=== PATIENT | female | born 1960 | race Caucasian/White ===

== ENCOUNTER 2020-04-16 07:35 | Outpatient (REF) | payer OTHER, SELFPAY ==
[2020-04-16 10:10] LABS: Cholesterol 176 mg/dL; HDL Cholesterol 61 mg/dL; LDL Cholesterol Calculated 103 mg/dl; Triglycerides 64 mg/dL
== END 2020-04-16 07:36 | disposition home or self-care (01) ==
LOC: HO.LAB 07:35
PROVIDERS: PCP Internal Medicine; Visit Provider Internal Medicine
DX: E78.5 Hyperlipidemia, unspecified (principal)
CPT/HCPCS: 80061

== ENCOUNTER → 2020-05-10 08:19 | Outpatient (BNVA) | payer OTHER, SELFPAY | PROVIDERS: PCP Internal Medicine; Visit Provider Surgery | DX: Z76.89 Persons encountering health services in other specified circumstances (principal) ==

== ENCOUNTER 2020-07-04 13:39 | Outpatient (REF) | payer OTHER, SELFPAY ==
[2020-07-04 14:43] LABS: Basophils Absolute Auto 0.1 X10*3/uL (0.0-0.2); Basophils Percent Auto 0.7 % (0-2); Eosinophils Absolute Auto 0.1 X10*3/uL (0.0-0.4); Eosinophils Percent Auto 1.3 % (0-4); Hemoglobin 12.5 g/dl (12.0-16.0); Imm Gran Abs Auto 0.01 X10*3/uL (0.00-0.03); Imm Gran Pct Auto 0.1 % (0.0-0.4); Lymphocytes Absolute Auto 1.8 X10*3/uL (1.2-4.9); Lymphocytes Percent Auto 24.1 % (20-40); MANUAL DIFF FLAG NO; Mean Corpuscular HGB Conc 31.3 g/dl (31.0-35.0); Mean Corpuscular Hemoglobin 27.5 pg (27.0-33.0); Mean Corpuscular Volume 87.9 fL (80-98); Mean Platelet Volume 10.7 fL (9.4-12.3); Monocytes Absolute Auto 0.4 X10*3/uL (0.1-1.2); Monocytes Percent Auto 5.2 % (2-11); Neutrophils Absolute Auto 5.1 X10*3/uL (2.0-8.3); Neutrophils Percent Auto 68.6 % (45-73); Platelet Count 306 X10*3/uL (160-400); Red Blood Count 4.55 X10*6/uL (4.20-5.50); Red Cell Distribution Width 12.9 % (11.0-16.0); White Blood Count 7.5 X10*3/uL (4.8-10.8)
[2020-07-04 15:14] LABS: Alanine Aminotransferase 20 U/L (0-31); Albumin Level 4.3 g/dL (3.5-5.0); Alkaline Phosphatase 87 U/L (39-117); Anion Gap 13 (12-20); Aspartate Amino Transferase 22 U/L (5-31); Bilirubin Total 0.3 mg/dL (0.0-1.0); Blood Urea Nitrogen 10 mg/dL (9-16); Calcium 9.2 mg/dL (8.4-10.2); Carbon Dioxide 28 mmol/L (22-29); Chloride 106 mmol/L (96-108); Cholesterol 173 mg/dL; Estimated Glomerular Filt Rate > 60; Glucose Random 96 mg/dL (60-115); HDL Cholesterol 56 mg/dL; LDL Cholesterol Calculated 86 mg/dl; Potassium 4.5 mmol/l (3.3-5.1); Sodium 142 mmol/L (135-145); Total Protein 6.8 g/dL (6.5-8.0); Triglycerides 156 mg/dL
== END 2020-07-04 13:40 | disposition home or self-care (01) ==
LOC: HO.LAB 13:39
PROVIDERS: Absent Provider Internal Medicine Medical Oncology; PCP Internal Medicine; Visit Provider Internal Medicine
DX: E11.9 Type 2 diabetes mellitus without complications (principal); C50.911 Malignant neoplasm of unspecified site of right female breast; M81.0 Age-related osteoporosis without current pathological fracture
CPT/HCPCS: 36415; 80053; 80061; 85025

== ENCOUNTER → 2020-07-18 14:52 | Outpatient (BNVA) | payer OTHER, SELFPAY | PROVIDERS: PCP Internal Medicine; Visit Provider Nurse Practitioner ==

== ENCOUNTER 2020-07-28 09:02 | Outpatient (REF) | payer OTHER, SELFPAY ==
--- NOTE | ~2020-07-28 | MM_ITS ---
EXAMINATION: BONE DENSITOMETRY CLINICAL INDICATION: Osteoporosis. COMPARISON: Previous BD dated 06/05/2018 and baseline BD dated 11/24/2007. TECHNIQUE: Using a [employer] DXA System (software version: 13.1) manufactured by [employer], dual-energy x-ray absorptiometry was performed of the lumbar spine and left hip. The images are of good technical quality. Summary results are attached. FINDINGS: AP SPINE L1-L2 (excluding L3 and L4): The data of L1-L4 has been changed to exclude the L3 and L4 vertebral bodies, because degenerative change with facet arthropathy with mild scoliosis at these levels may cause overestimation of lumbar spine density. Current: BMD 1.041 g/cm2, Z-score -0.1, T-score -1.0, normal, 0.0% no change from previous, 2.3% decrease from baseline (<5% change is not significant). Prior: BMD 1.041 g/cm2. Baseline: BMD 1.066 g/cm2. LEFT FEMUR, NECK: Current: BMD 0.712 g/cm2, Z-score -1.3, T-score -2.3, osteopenia. Prior: BMD 0.691 g/cm2. Baseline: BMD 0.725 g/cm2. LEFT FEMUR, TOTAL: Current: BMD 0.779 g/cm2, Z-score -1.1, T-score -1.8, osteopenia, 3.9% increase from previous, 0.6% decrease from baseline (<5% change is not significant). Prior: BMD 0.750 g/cm2. Baseline: BMD 0.784 g/cm2. IDENTIFIED RISK FACTORS: Osteoporosis, menopause, right oophorectomy. HISTORY OF FRACTURE: None listed. MEDICATIONS: Bisphosphonates. MM/XR DEXA axial skeleton IMPRESSION: 1. DIAGNOSIS: Osteopenia based on the lowest T-score value of -2.3 in the femoral neck applying World Health Organization criteria. 2. 10-YEAR FRACTURE RISK PREDICTION, FRAX: Major osteoporotic fracture (clinical spine, forearm, hip or shoulder) 17.9%. Hip fracture 3.3%. 3. Treatment Recommendations: NOF guidelines recommend consideration for treatment in postmenopausal women and men age 50 and older presenting with the following: -A hip or vertebral (clinical or morphometric) fracture. -T-score less than or equal to -2.5 at the femoral neck or spine after appropriate evaluation to exclude secondary causes. -Low bone mass at the hip or spine and a 10-year fracture probability by FRAX of greater than or equal to 3% for hip fracture or greater than or equal to 20% for major osteoporotic fracture based on the [place] adapted WHO algorithm. 4. Other Recommendations: All treatment decisions require clinical judgment and consideration of individual patient factors, including patient preferences, comorbidities, previous drug use, risk factors not captured in the FRAX model (e.g. frailty, falls, vitamin D deficiency, increased bone turnover, interval significant decline in bone density) and possible under or overestimation of fracture risk by FRAX. Additional medical evaluation for secondary cause of low bone mineral density may be appropriate. FUTURE SCAN RECOMMENDATION: People with diagnosed cases of osteoporosis or at high risk for fracture should have regular bone mineral density tests. For patients eligible for Medicare, routine testing is allowed once every 2 years. The testing frequency can be increased to one year for patients who have rapidly progressing disease, those who are receiving or discontinuing medical therapy to restore bone mass, or have additional risk factors.
--- NOTE | ~2020-07-28 | US_ITS ---
EXAMINATION: US ABDOMEN COMPLETE CLINICAL INFORMATION: Right upper quadrant pain. COMPARISON: None. TECHNIQUE: Real-time imaging of the abdominal viscera. FINDINGS: PANCREAS: Normal. ABDOMINAL AORTA: The proximal, mid, and distal segments are normal in caliber. INFERIOR VENA CAVA: Visualized portions are normal. LIVER: Normal. The liver is normal in size. The liver contour is normal. Parenchymal echogenicity is normal. No focal hepatic lesion. There is no intrahepatic biliary duct dilatation seen. GALLBLADDER: Normal. The gallbladder is physiologically distended without evidence of stones, sludge, polyps, wall thickening or pericholecystic fluid. COMMON BILE DUCT: Normal in caliber measuring 0.8 cm in diameter. RIGHT KIDNEY: There is an anechoic cyst lower pole measuring 0.4 x 0.4 x 0.4 cm. There is an echogenic area along the posterior wall of the cyst questioning small calcification. No echogenic calculi, caliectasis or hydronephrosis. No renal calculi or focal parenchymal lesions. The kidney measures 10.2 cm in maximum dimension. LEFT KIDNEY: There is an anechoic cyst midpole medially measuring 0.8 x 0.5 x 0.7 cm. There are no additional cyst, echogenic calculi or hydronephrosis. The kidney measures 9.2 cm in length cm in maximum dimension. SPLEEN: Normal. The spleen measures 9.6 cm in maximum dimension. FREE FLUID: None. US/US abdomen complete IMPRESSION: There is a complex cyst lower pole left kidney and a simple cyst midpole right kidney. There is no echogenic calculi or hydronephrosis.
[2020-07-28 10:14] LABS: MANUAL DIFF FLAG NO
[2020-07-28 10:20] LABS: Basophils Absolute Auto 0.1 X10*3/uL (0.0-0.2); Basophils Percent Auto 0.8 % (0-2); Eosinophils Absolute Auto 0.1 X10*3/uL (0.0-0.4); Eosinophils Percent Auto 1.8 % (0-4); Hematocrit 39.5 % (37-47); Hemoglobin 12.7 g/dl (12.0-16.0); Imm Gran Abs Auto 0.01 X10*3/uL (0.00-0.03); Imm Gran Pct Auto 0.2 % (0.0-0.4); Lymphocytes Absolute Auto 1.7 X10*3/uL (1.2-4.9); Lymphocytes Percent Auto 27.6 % (20-40); Mean Corpuscular HGB Conc 32.2 g/dl (31.0-35.0); Mean Corpuscular Hemoglobin 27.9 pg (27.0-33.0); Mean Corpuscular Volume 86.8 fL (80-98); Mean Platelet Volume 9.5 fL (9.4-12.3); Monocytes Absolute Auto 0.4 X10*3/uL (0.1-1.2); Monocytes Percent Auto 6.6 % (2-11); Neutrophils Absolute Auto 3.8 X10*3/uL (2.0-8.3); Platelet Count 330 X10*3/uL (160-400); Red Blood Count 4.55 X10*6/uL (4.20-5.50); Red Cell Distribution Width 12.9 % (11.0-16.0)
[2020-07-28 10:51] LABS: Alanine Aminotransferase 21 U/L (0-31); Albumin Level 4.3 g/dL (3.5-5.0); Alkaline Phosphatase 90 U/L (39-117); Anion Gap 12 (12-20); Aspartate Amino Transferase 22 U/L (5-31); Bilirubin Total 0.5 mg/dL (0.0-1.0); Blood Urea Nitrogen 15 mg/dL (9-16); Calcium 9.1 mg/dL (8.4-10.2); Carbon Dioxide 28 mmol/L (22-29); Chloride 106 mmol/L (96-108); Estimated Glomerular Filt Rate > 60; Glucose Random 97 mg/dL (60-115); Potassium 4.3 mmol/L (3.3-5.1); Sodium 142 mmol/L (135-145); Total Protein 6.9 g/dL (6.5-8.0)
[2020-07-28 11:00] LABS: Erythrocyte Sedimentation Rate 16 MM/HR (0-20)
[2020-07-30 10:52] LABS: CA 27.29 16 U/mL (<38)
== END 2020-07-28 09:03 | disposition home or self-care (01) ==
LOC: HO.US 09:02
PROVIDERS: Visit Provider Internal Medicine Medical Oncology
DX: K80.20 Calculus of gallbladder without cholecystitis without obstruction (principal); M81.0 Age-related osteoporosis without current pathological fracture
CPT/HCPCS: 36415; 76700; 77080; 80053; 85025; 85652; 86300

== ENCOUNTER 2020-07-29 07:52 | Outpatient (REF) | payer OTHER, SELFPAY ==
--- NOTE | ~2020-07-29 | MM_ITS ---
EXAMINATION: MM SCREENING DIGITAL BREAST TOMOSYNTHESIS, LEFT CLINICAL INFORMATION: Screening. Asymptomatic. Right mastectomy 2013 for breast cancer. COMPARISON: Mammography: 07/27/2019, 07/23/2018, 07/08/2017; MRI breasts 01/14/2020. TECHNIQUE: Digital breast tomosynthesis is performed in both the craniocaudal and mediolateral oblique views along with computer-aided detection (CAD). Synthesized 2D images are generated from the tomosynthesis. Additional exaggerated CC view is provided. FINDINGS: The breasts are heterogeneously dense, which may obscure small masses (ACR BI-RADS breast composition Category c). There are no significant masses, abnormal calcifications, or other abnormalities. Parenchymal pattern is similar to prior studies. No developing density. No significant changes. MM/MM tomosynthesis screening LT IMPRESSION: No mammographic evidence of malignancy. ASSESSMENT: BI-RADS 1: Negative RECOMMENDATION: Routine annual mammography screening. This patient's information was entered into a reminder system with a target due date for their next mammogram.
== END 2020-07-29 07:53 | disposition home or self-care (01) ==
LOC: HO.MAMMO 07:52
PROVIDERS: PCP Internal Medicine; Visit Provider Internal Medicine
DX: Z12.31 Encounter for screening mammogram for malignant neoplasm of breast (principal)
CPT/HCPCS: 77063; 77067

== ENCOUNTER → 2020-08-24 09:25 | Outpatient (BNVA) | payer OTHER, SELFPAY | PROVIDERS: PCP Internal Medicine; Visit Provider Surgery ==

== ENCOUNTER 2020-09-05 15:54 | Outpatient (REF) | payer OTHER, SELFPAY ==
[2020-09-05 16:55] LABS: Blood Urea Nitrogen 12 mg/dL (9-16); Estimated Glomerular Filt Rate > 60
== END 2020-09-05 15:55 | disposition home or self-care (01) ==
LOC: HO.LAB 15:54
PROVIDERS: PCP Internal Medicine; Visit Provider Surgery
DX: R10.11 Right upper quadrant pain (principal)
CPT/HCPCS: 36415; 82565; 84520

== ENCOUNTER 2020-09-06 07:32 | Outpatient (REF) | payer OTHER, SELFPAY ==
--- NOTE | ~2020-09-06 | CT_ITS ---
EXAMINATION: CT ABDOMEN AND PELVIS WITHOUT CONTRAST CLINICAL INFORMATION: Right upper quadrant pain COMPARISON: Previous abdominal ultrasound most recent July 2020 TECHNIQUE: Multidetector volumetric imaging was performed from the superior aspect of the liver through the pubic symphysis. Sagittal and coronal reformatted images were obtained on the technologist's workstation. This CT examination was performed using dose optimization techniques as appropriate, variously including the following: *Automated exposure control *Adjustment of mA and/or kV according to patient size (this includes techniques or standardized protocols for targeted exams where dose is matched to indication/reason for exam; i.e. extremities or head) *Use of iterative reconstruction technique DLP: 559 mGy-cm FINDINGS: LUNG BASES: The visualized lung bases are unremarkable. LIVER, GALLBLADDER, AND BILIARY TREE: The liver is normal in size, shape, and attenuation. No focal hepatic lesion or biliary ductal dilatation is present. The gallbladder has been removed. PANCREAS: Unremarkable. SPLEEN: Unremarkable. ADRENAL GLANDS: Unremarkable. KIDNEYS AND URETERS: There is a 1 cm low-attenuation lesion in the upper pole of the left kidney. This may represent a cyst. Kidneys are otherwise unremarkable. BLADDER: Unremarkable. GASTROINTESTINAL TRACT: The small and large bowel are unremarkable. The appendix is unremarkable. The stomach is unremarkable. ABDOMINAL WALL: There is a small umbilical hernia containing fat. LYMPH NODES: Normal. VASCULAR: Unremarkable. PELVIC VISCERA: Unremarkable. OSSEOUS STRUCTURES: There is lumbar scoliosis. There are mild degenerative changes of the spine. CT/CT abdomen pelvis wo con IMPRESSION: Post cholecystectomy. Small umbilical hernia containing fat.
== END 2020-09-06 07:33 | disposition home or self-care (01) ==
LOC: HO.CT 07:32
PROVIDERS: Visit Provider Surgery
DX: R10.11 Right upper quadrant pain (principal)
CPT/HCPCS: 74176

== ENCOUNTER 2020-10-24 07:16 | Outpatient (REF) | payer OTHER, SELFPAY ==
[2020-10-24 11:39] LABS: Cholesterol 175 mg/dL; HDL Cholesterol 60 mg/dL; LDL Cholesterol Calculated 99 mg/dl; Triglycerides 83 mg/dL
== END 2020-10-24 07:17 | disposition home or self-care (01) ==
LOC: HO.WFDLDS 07:16
PROVIDERS: Visit Provider Internal Medicine
DX: Z00.00 Encounter for general adult medical examination without abnormal findings (principal); E11.9 Type 2 diabetes mellitus without complications; E03.9 Hypothyroidism, unspecified
CPT/HCPCS: 36415; 80061

== ENCOUNTER → 2020-11-08 09:10 | Outpatient (BNVA) | payer OTHER, SELFPAY | PROVIDERS: PCP Internal Medicine; Visit Provider Surgery ==

== ENCOUNTER → 2021-01-02 13:43 | Outpatient (BNVA) | payer OTHER, SELFPAY | PROVIDERS: PCP Internal Medicine; Referring Provider Internal Medicine; Visit Provider Nurse Practitioner ==

== ENCOUNTER 2021-01-21 07:48 | Outpatient (REF) | payer OTHER, SELFPAY ==
[2021-01-21 08:20] LABS: MANUAL DIFF FLAG NO
[2021-01-21 08:26] LABS: Basophils Percent Auto 0.7 % (0-2); Eosinophils Absolute Auto 0.1 X10*3/uL (0.0-0.4); Hematocrit 38.4 % (37-47); Hemoglobin 12.1 g/dl (12.0-16.0); Imm Gran Abs Auto 0.02 X10*3/uL (0.00-0.03); Imm Gran Pct Auto 0.4 % (0.0-0.4); Lymphocytes Absolute Auto 1.8 X10*3/uL (1.2-4.9); Lymphocytes Percent Auto 32.8 % (20-40); Mean Corpuscular HGB Conc 31.5 g/dl (31.0-35.0); Mean Corpuscular Hemoglobin 27.3 pg (27.0-33.0); Mean Corpuscular Volume 86.5 fL (80-98); Mean Platelet Volume 9.7 fL (9.4-12.3); Monocytes Absolute Auto 0.4 X10*3/uL (0.1-1.2); Monocytes Percent Auto 7.2 % (2-11); Neutrophils Absolute Auto 3.1 X10*3/uL (2.0-8.3); Neutrophils Percent Auto 56.9 % (45-73); Platelet Count 313 X10*3/uL (160-400); Red Blood Count 4.44 X10*6/uL (4.20-5.50); Red Cell Distribution Width 13.1 % (11.0-16.0); White Blood Count 5.4 X10*3/uL (4.8-10.8)
[2021-01-21 09:09] LABS: Alanine Aminotransferase 28 U/L (0-31); Albumin Level 4.2 g/dL (3.5-5.0); Alkaline Phosphatase 77 U/L (39-117); Anion Gap 13 (12-20); Aspartate Amino Transferase 24 U/L (5-31); Bilirubin Total 0.6 mg/dL (0.0-1.0); Blood Urea Nitrogen 12 mg/dL (9-16); Calcium 9.9 mg/dL (8.4-10.2); Carbon Dioxide 25 mmol/L (22-29); Chloride 107 mmol/L (96-108); Estimated Glomerular Filt Rate > 60; Glucose Fasting 102 mg/dL (60-99); Potassium 4.4 mmol/L (3.3-5.1); Sodium 141 mmol/L (135-145); Total Protein 6.6 g/dL (6.5-8.0)
[2021-01-21 09:14] LABS: Thyroid Stimulating Hormone 0.72 uIU/mL (0.32-4.0)
== END 2021-01-21 07:49 | disposition home or self-care (01) ==
LOC: HO.LAB 07:48
PROVIDERS: PCP Internal Medicine; Visit Provider Internal Medicine
DX: Z00.00 Encounter for general adult medical examination without abnormal findings (principal); E11.9 Type 2 diabetes mellitus without complications; E03.9 Hypothyroidism, unspecified
CPT/HCPCS: 36415; 80053; 84443; 85025

== ENCOUNTER 2021-04-19 10:44 | Outpatient (REF) | payer OTHER, SELFPAY ==
[2021-04-19 11:50] LABS: Cholesterol 179 mg/dL; HDL Cholesterol 63 mg/dL; LDL Cholesterol Calculated 105 mg/dl; Triglycerides 59 mg/dL
== END 2021-04-19 10:45 | disposition home or self-care (01) ==
LOC: HO.LAB 10:44
PROVIDERS: PCP Internal Medicine; Visit Provider Internal Medicine
DX: E11.9 Type 2 diabetes mellitus without complications (principal)
CPT/HCPCS: 36415; 80061

== ENCOUNTER 2021-04-21 14:58 | Outpatient (REF) | payer OTHER, SELFPAY ==
[2021-04-22 13:17] LABS: Lyme Abs Screen <0.90 index
== END 2021-04-21 14:59 | disposition home or self-care (01) ==
LOC: HO.LAB 14:58
PROVIDERS: PCP Internal Medicine; Visit Provider Internal Medicine
DX: S30.860D Insect bite (nonvenomous) of lower back and pelvis, subsequent encounter (principal); W57.XXXD Bitten or stung by nonvenomous insect and other nonvenomous arthropods, subsequent encounter
CPT/HCPCS: 36415; 86617; 86618

== ENCOUNTER 2021-05-10 07:39 | Outpatient (REF) | payer OTHER, SELFPAY ==
--- NOTE | ~2021-05-10 | US_ITS ---
EXAMINATION: US RETROPERITONEAL LIMITED (RENAL ONLY) CLINICAL INFORMATION: Unspecified abdominal pain. COMPARISON: CT abdomen and pelvis 09/06/2020. Ultrasound abdomen complete 07/28/2020. TECHNIQUE: Real-time imaging of the kidneys. FINDINGS: RIGHT KIDNEY: 10.3 x 4.7 x 4.3 cm (SAG x AP x TRV). The kidney is normal in size, contour, and echogenicity. Renal cortical thickness is normal. There is a 2 mm echogenic density with twinkle artifact questionable for a stone in the midpole. No focal parenchymal lesions or hydronephrosis. LEFT KIDNEY: 10.8 x 5.4 x 3.3 cm (SAG x AP x TRV). The kidney is normal in size, contour, and echogenicity. Renal cortical thickness is normal. There is a 6 mm cyst in the upper pole. No renal calculi or hydronephrosis. US/US renal BI IMPRESSION: Question small right renal stone. Small left renal cyst.
== END 2021-05-10 07:40 | disposition home or self-care (01) ==
LOC: HO.US 07:39
PROVIDERS: PCP Internal Medicine; Visit Provider Internal Medicine
DX: R10.9 Unspecified abdominal pain (principal)
CPT/HCPCS: 76775

== ENCOUNTER → 2021-05-11 08:52 | Outpatient (BNVA) | payer OTHER, SELFPAY | PROVIDERS: PCP Internal Medicine; Referring Provider Internal Medicine; Visit Provider Surgery ==

== ENCOUNTER 2021-06-21 13:13 | Outpatient (REF) | payer OTHER, SELFPAY ==
[2021-06-21 16:33] LABS: COVID-19 Test Negative (Negative); IDNOW Serial# 16C4AD1C
== END 2021-06-21 13:14 | disposition home or self-care (01) ==
LOC: HO.LAB 13:13
PROVIDERS: Visit Provider Internal Medicine
DX: Z20.822 Contact with and (suspected) exposure to COVID-19 (principal)
CPT/HCPCS: 36415; 87635; C9803

== ENCOUNTER 2021-07-05 08:47 | Outpatient (REF) | payer OTHER, SELFPAY ==
[2021-07-05 09:44] LABS: Anion Gap 9 (12-20); Blood Urea Nitrogen 8 mg/dL (9-16); Carbon Dioxide 31 mmol/L (22-29); Chloride 105 mmol/L (96-108); Estimated Glomerular Filt Rate > 60; Potassium 4.4 mmol/L (3.3-5.1); Sodium 141 mmol/L (135-145)
== END 2021-07-05 08:48 | disposition home or self-care (01) ==
LOC: HO.LAB 08:47
PROVIDERS: PCP Internal Medicine; Visit Provider Internal Medicine Medical Oncology
DX: M81.8 Other osteoporosis without current pathological fracture (principal)
CPT/HCPCS: 36415; 80051; 82565; 84520

== ENCOUNTER → 2021-07-07 13:46 | Outpatient (BNVA) | payer OTHER, SELFPAY | PROVIDERS: PCP Internal Medicine; Referring Provider Internal Medicine; Visit Provider Nurse Practitioner ==

== ENCOUNTER 2021-07-12 08:26 | Outpatient (REF) | payer OTHER, SELFPAY ==
[2021-07-15 20:42] LABS: HPV mRNA E6/E7 rflx Not Detected (Not Detected)
== END 2021-07-12 08:27 | disposition home or self-care (01) ==
LOC: HO.LAB 08:26
PROVIDERS: PCP Internal Medicine; Visit Provider Advanced Practice Midwife
DX: Z01.419 Encounter for gynecological examination (general) (routine) without abnormal findings (principal); Z11.51 Encounter for screening for human papillomavirus (HPV); R10.2 Pelvic and perineal pain; R14.0 Abdominal distension (gaseous); Z90.721 Acquired absence of ovaries, unilateral
CPT/HCPCS: 87624; 88142

== ENCOUNTER 2021-07-31 13:55 | Outpatient (REF) | payer OTHER, SELFPAY ==
--- NOTE | ~2021-07-31 | US_ITS ---
EXAMINATION: US PELVIC AND TRANSVAGINAL CLINICAL INFORMATION: Abdominal distention. Right oophorectomy. COMPARISON: CT abdomen/pelvis dated 09/06/2020. TECHNIQUE: Ultrasound of the pelvis is performed using both transabdominal and transvaginal transducers along with Doppler. Transvaginal imaging is performed due to inadequate visualization transabdominally. FINDINGS: Uterus: The uterus is anteverted and measures 7 x 2 x 3.8 cm. The double wall endometrial thickness is 0.2 mm. The uterus is smooth in contour and has normal myometrial echogenicity. No visible fibroid. Adnexa: The right ovary is surgically absent. There is normal color flow to the left adnexa. There is no left ovarian torsion. There is no pelvic ascites or fluid collection. Left ovary measures 2 x 1.2 x 1.6 cm. The left ovarian volume is 2.0 mL. US/US pelvic and transvaginal IMPRESSION: Sonographically unremarkable uterus and left ovary. Surgically absent right ovary.
== END 2021-07-31 13:56 | disposition home or self-care (01) ==
LOC: HO.US 13:55
PROVIDERS: PCP Internal Medicine; Visit Provider Advanced Practice Midwife
DX: R10.2 Pelvic and perineal pain (principal); R14.0 Abdominal distension (gaseous); Z90.721 Acquired absence of ovaries, unilateral
CPT/HCPCS: 76830; 76856

== ENCOUNTER 2021-08-04 14:46 | Outpatient (REF) | payer OTHER, SELFPAY ==
--- NOTE | ~2021-08-04 | MM_ITS ---
EXAMINATION: MM SCREENING DIGITAL BREAST TOMOSYNTHESIS, LEFT CLINICAL INFORMATION: Right mastectomy for breast cancer, 2013. Due for yearly. COMPARISON: Mammography: 07/29/2020, 07/27/2019, 07/23/2018, 07/08/2017 TECHNIQUE: Digital breast tomosynthesis is performed in both the craniocaudal and mediolateral oblique views along with computer-aided detection (CAD). Synthesized 2D images are generated from the tomosynthesis. FINDINGS: The breasts are heterogeneously dense, which may obscure small masses (ACR BI-RADS breast composition Category c). There are no significant masses, abnormal calcifications, or other abnormalities. Breast tissue composition borders on average fibroglandular. Parenchymal pattern is similar to prior studies. No significant changes. MM/MM tomosynthesis screening LT IMPRESSION: No mammographic evidence of malignancy. ASSESSMENT: BI-RADS 1: Negative RECOMMENDATION: Routine annual mammography screening. This patient's information was entered into a reminder system with a target due date for their next mammogram.
== END 2021-08-04 14:47 | disposition home or self-care (01) ==
LOC: HO.MAMMO 14:46
PROVIDERS: PCP Internal Medicine; Visit Provider Surgery
DX: Z12.31 Encounter for screening mammogram for malignant neoplasm of breast (principal)
CPT/HCPCS: 77063; 77067

== ENCOUNTER → 2021-08-16 15:19 | Outpatient (BNVA) | payer OTHER, SELFPAY | PROVIDERS: PCP Internal Medicine; Visit Provider Advanced Practice Midwife ==

== ENCOUNTER → 2021-09-01 12:41 | Outpatient (BNVA) | payer OTHER, SELFPAY | PROVIDERS: Referring Provider Internal Medicine; Visit Provider Nurse Practitioner ==

== ENCOUNTER 2021-09-06 12:19 | Outpatient (REF) | payer OTHER, SELFPAY ==
[2021-09-06 13:46] LABS: Cholesterol 179 mg/dL; HDL Cholesterol 64 mg/dL; LDL Cholesterol Calculated 98 mg/dl; Triglycerides 87 mg/dL
== END 2021-09-06 12:20 | disposition home or self-care (01) ==
LOC: HO.LAB 12:19
PROVIDERS: PCP Internal Medicine; Visit Provider Internal Medicine
DX: Z00.00 Encounter for general adult medical examination without abnormal findings (principal)
CPT/HCPCS: 36415; 80061

== ENCOUNTER 2021-09-08 09:46 | Outpatient (REF) | payer OTHER, SELFPAY ==
[2021-09-08 10:21] LABS: COVID-19 Test Negative (Negative)
== END 2021-09-08 09:47 | disposition home or self-care (01) ==
LOC: HO.LAB 09:46
PROVIDERS: Visit Provider Internal Medicine
DX: Z20.822 Contact with and (suspected) exposure to COVID-19 (principal)
CPT/HCPCS: 87635; C9803

== ENCOUNTER 2021-10-30 08:39 | Outpatient (REF) | payer OTHER, SELFPAY ==
[2021-11-02 18:56] LABS: HPV mRNA E6/E7 rflx Not Detected (Not Detected)
== END 2021-10-30 08:40 | disposition home or self-care (01) ==
LOC: HO.LAB 08:39
PROVIDERS: Visit Provider Advanced Practice Midwife
DX: Z12.4 Encounter for screening for malignant neoplasm of cervix (principal); Z11.51 Encounter for screening for human papillomavirus (HPV); R87.615 Unsatisfactory cytologic smear of cervix
CPT/HCPCS: 87624; 88142

== ENCOUNTER → 2021-11-09 08:31 | Outpatient (BNVA) | payer OTHER, SELFPAY | PROVIDERS: PCP Internal Medicine; Referring Provider Internal Medicine; Visit Provider Surgery | DX: D05.11 Intraductal carcinoma in situ of right breast (principal) ==

== ENCOUNTER 2021-11-29 10:01 | Outpatient (REF) | payer OTHER, SELFPAY ==
[2021-11-29 10:45] LABS: Cholesterol 176 mg/dL; HDL Cholesterol 67 mg/dL; LDL Cholesterol Calculated 99 mg/dl; Triglycerides 52 mg/dL
== END 2021-11-29 10:02 | disposition home or self-care (01) ==
LOC: HO.LAB 10:01
PROVIDERS: PCP Internal Medicine; Visit Provider Internal Medicine
DX: Z13.220 Encounter for screening for lipoid disorders (principal)
CPT/HCPCS: 36415; 80061

== ENCOUNTER 2021-12-12 11:44 | Outpatient (REF) | payer OTHER, SELFPAY ==
--- NOTE | ~2021-12-12 | XR_ITS ---
EXAMINATION: XR CLAVICLE, RIGHT XR STERNUM XR CHEST AND RIBS, RIGHT CLINICAL INFORMATION: Malignant neoplasm of unspecified site/right breast. COMPARISON: None TECHNIQUE: Right clavicle 2 views. Sternum 3 views. Chest with right ribs 4 views. FINDINGS: CHEST: Both lungs are fairly well expanded and clear of acute process. There is mild right apical pleural thickening and parenchymal scarring. The heart size and pulmonary vascularity is normal. RIGHT RIBS: Multiple views of the right ribs reveal no visible fracture or bony abnormality. The soft tissues are normal. STERNUM: Multiple views of the sternum reveal no visible bony abnormality. The soft tissues are normal. RIGHT CLAVICLE: There is no visible fracture or bony abnormality. The soft tissues are normal. There is mild right apical pleural thickening and parenchymal scarring. XR/XR sternum min 2V IMPRESSION: Unremarkable right ribs and chest x-ray except for mild right apical pleural thickening and parenchymal scarring. No rib fractures are seen. Unremarkable right clavicle. Unremarkable sternum.
--- NOTE | ~2021-12-12 | XR_ITS ---
EXAMINATION: XR CLAVICLE, RIGHT XR STERNUM XR CHEST AND RIBS, RIGHT CLINICAL INFORMATION: Malignant neoplasm of unspecified site/right breast. COMPARISON: None TECHNIQUE: Right clavicle 2 views. Sternum 3 views. Chest with right ribs 4 views. FINDINGS: CHEST: Both lungs are fairly well expanded and clear of acute process. There is mild right apical pleural thickening and parenchymal scarring. The heart size and pulmonary vascularity is normal. RIGHT RIBS: Multiple views of the right ribs reveal no visible fracture or bony abnormality. The soft tissues are normal. STERNUM: Multiple views of the sternum reveal no visible bony abnormality. The soft tissues are normal. RIGHT CLAVICLE: There is no visible fracture or bony abnormality. The soft tissues are normal. There is mild right apical pleural thickening and parenchymal scarring. XR/XR clavicle RT IMPRESSION: Unremarkable right ribs and chest x-ray except for mild right apical pleural thickening and parenchymal scarring. No rib fractures are seen. Unremarkable right clavicle. Unremarkable sternum.
--- NOTE | ~2021-12-12 | XR_ITS ---
EXAMINATION: XR CLAVICLE, RIGHT XR STERNUM XR CHEST AND RIBS, RIGHT CLINICAL INFORMATION: Malignant neoplasm of unspecified site/right breast. COMPARISON: None TECHNIQUE: Right clavicle 2 views. Sternum 3 views. Chest with right ribs 4 views. FINDINGS: CHEST: Both lungs are fairly well expanded and clear of acute process. There is mild right apical pleural thickening and parenchymal scarring. The heart size and pulmonary vascularity is normal. RIGHT RIBS: Multiple views of the right ribs reveal no visible fracture or bony abnormality. The soft tissues are normal. STERNUM: Multiple views of the sternum reveal no visible bony abnormality. The soft tissues are normal. RIGHT CLAVICLE: There is no visible fracture or bony abnormality. The soft tissues are normal. There is mild right apical pleural thickening and parenchymal scarring. XR/XR ribs RT min 3V w CXR1V IMPRESSION: Unremarkable right ribs and chest x-ray except for mild right apical pleural thickening and parenchymal scarring. No rib fractures are seen. Unremarkable right clavicle. Unremarkable sternum.
== END 2021-12-12 11:45 | disposition home or self-care (01) ==
LOC: HO.XRAY 11:44
PROVIDERS: PCP Internal Medicine; Visit Provider Internal Medicine Medical Oncology
DX: C50.911 Malignant neoplasm of unspecified site of right female breast (principal); J92.9 Pleural plaque without asbestos
CPT/HCPCS: 71101; 71120; 73000

== ENCOUNTER → 2021-12-21 10:50 | Outpatient (REF) | payer OTHER, SELFPAY ==
--- NOTE | ~2021-12-21 | NM_ITS ---
EXAMINATION: NM BONE SCAN OF THE WHOLE BODY CLINICAL INFORMATION: Breast cancer. Chest pain. Right side breast cancer, mastectomy. COMPARISON: The previous bone scan dated 05/06/2018 is available for comparison. Radiographs of the sternum, right ribs and right clavicle all dated 12/12/2021 are available for comparison. The diagnostic CT scan of the abdomen and pelvis, dated 09/06/2020, is available for comparison. TECHNIQUE: Multiple gamma scintillation camera images of the whole body were performed 2.5 hours following the intravenous administration of 23.0 mCi Tc-99m MDP. FINDINGS: In the head, no significant abnormalities are present. In the thoracic cage and upper extremities, there is minimally increased activity in the right acromioclavicular joint. No rib abnormalities are present. In the spine, a minimal thoracolumbar scoliosis is present with lumbar convexity to the left. Minimally increased activity in the lower lumbar spine at the L4-L5 level, and probably in the disc space and likely degenerative, is noted. In the pelvis, no significant abnormalities are present. In the lower extremities, no significant abnormalities are present. No other definite bony abnormalities are noted. The urinary bladder and faint visualization of both kidneys are noted. Compared to the previous bone scan dated 05/06/2018, a prominent abnormality in the left second metatarsal bone on the prior study is no longer present. The minimal abnormality in the right acromioclavicular joint is new. The scan appearance is otherwise unchanged. NM/NM bone scan whole body IMPRESSION: No evidence of metastatic tumor involvement of bone. Minimal abnormality in the right acromioclavicular joint and lower lumbar spine are probably degenerative in etiology.
== END ==
LOC: HO.NUCMED 10:50
PROVIDERS: PCP Internal Medicine; Visit Provider Internal Medicine Medical Oncology
DX: C50.919 Malignant neoplasm of unspecified site of unspecified female breast (principal); M89.8X9 Other specified disorders of bone, unspecified site
CPT/HCPCS: 78306; A9503

== ENCOUNTER 2022-05-04 09:10 | Outpatient (REF) | payer OTHER, SELFPAY ==
--- NOTE | ~2022-05-04 | XR_ITS ---
EXAMINATION: XR LUMBOSACRAL SPINE CLINICAL INFORMATION: Back pain. COMPARISON: Radionuclide bone scan 12/21/2021, CT abdomen 09/06/2020. TECHNIQUE: 4 views of the lumbosacral spine. FINDINGS: Normal lumbar segmentation with 5 nonrib-bearing lumbar vertebrae with levocurvature similar to CT 2020. There is no lumbar vertebral compression or appreciable spondylolisthesis. No destructive process. No periostitis. There are multilevel mild degenerative disc changes with variable disc narrowing L2-L3 through L5-S1. Mild anterior vertebral spurring. There is facet degeneration greatest L4-S1. The SI joints and visualized sacrum are unremarkable. XR/XR lumbar spine 2-3V IMPRESSION: -Levocurvature lumbar spine similar to prior imaging. No vertebral compression. -Degenerative disc changes L2-L3 through L5-S1. Facet degeneration L4-S1.
--- NOTE | ~2022-05-04 | XR_ITS ---
EXAMINATION: XR HIP, RIGHT CLINICAL INFORMATION: Right hip pain. Low back pain. COMPARISON: Nuclear bone scan 12/21/2021, radiographs right hip 07/01/2019 TECHNIQUE: Two views of the right hip. FINDINGS: Normal bony mineralization. No destructive process. No fracture, dislocation, or periostitis. No hip joint narrowing or erosive change or visible chondrocalcinosis. Mild asymmetry pubis stable. No osteitis. XR/XR hip RT min 2V IMPRESSION: No hip joint narrowing or erosive change. No destructive process.
== END 2022-05-04 09:11 | disposition home or self-care (01) ==
LOC: HO.XRAY 09:10
PROVIDERS: PCP Internal Medicine; Visit Provider Internal Medicine
DX: M54.9 Dorsalgia, unspecified (principal); M25.551 Pain in right hip
CPT/HCPCS: 72100; 73502

== ENCOUNTER 2022-06-20 08:58 | Outpatient (REF) | payer OTHER, SELFPAY ==
[2022-06-20 09:12] LABS: MANUAL DIFF FLAG NO
[2022-06-20 09:24] LABS: Basophils Absolute Auto 0.1 X10*3/uL (0.0-0.2); Basophils Percent Auto 1.2 % (0-2); Eosinophils Absolute Auto 0.1 X10*3/uL (0.0-0.4); Hematocrit 42.4 % (37.0-47.0); Hemoglobin 13.4 g/dl (12.0-16.0); Imm Gran Abs Auto 0.01 X10*3/uL (0.00-0.03); Imm Gran Pct Auto 0.2 % (0.0-0.4); Lymphocytes Absolute Auto 1.8 X10*3/uL (1.2-4.9); Lymphocytes Percent Auto 27.6 % (20-40); Mean Corpuscular HGB Conc 31.6 g/dl (31.0-35.0); Mean Corpuscular Hemoglobin 28.2 pg (27.0-33.0); Mean Corpuscular Volume 89.1 fL (80.0-98.0); Mean Platelet Volume 9.9 fL (9.4-12.3); Monocytes Absolute Auto 0.4 X10*3/uL (0.1-1.2); Monocytes Percent Auto 6.1 % (2-11); Neutrophils Absolute Auto 4.1 x10*3/uL (2.0-8.3); Neutrophils Percent Auto 62.9 % (45-73); Platelet Count 294 X10*3/uL (160-400); Red Blood Count 4.76 X10*6/uL (4.20-5.50); Red Cell Distribution Width 12.8 % (11.0-16.0); White Blood Count 6.5 X10*3/uL (4.8-10.8)
[2022-06-20 09:42] LABS: Alanine Aminotransferase 15 U/L (0-31); Albumin Level 4.7 g/dL (3.5-5.0); Alkaline Phosphatase 66 U/L (39-117); Anion Gap 12 (12-20); Aspartate Amino Transferase 18 U/L (5-31); Bilirubin Total 0.7 mg/dL (0.0-1.0); Blood Urea Nitrogen 16 mg/dL (9-16); Calcium 9.9 mg/dL (8.4-10.2); Carbon Dioxide 29 mmol/L (22-29); Chloride 104 mmol/L (96-108); Cholesterol 195 mg/dL; Estimated Glomerular Filt Rate > 60; Glucose Fasting 108 mg/dL (60-99); HDL Cholesterol 71 mg/dL; LDL Cholesterol Calculated 110 mg/dl; Potassium 4.3 mmol/L (3.3-5.1); Sodium 141 mmol/L (135-145); Total Protein 7.2 g/dL (6.5-8.0); Triglycerides 73 mg/dL
== END 2022-06-20 08:59 | disposition home or self-care (01) ==
LOC: HO.LAB 08:58
PROVIDERS: PCP Internal Medicine; Visit Provider Internal Medicine
DX: N28.9 Disorder of kidney and ureter, unspecified (principal); E78.5 Hyperlipidemia, unspecified; D64.9 Anemia, unspecified
CPT/HCPCS: 36415; 80053; 80061; 85025

== ENCOUNTER 2022-07-10 07:00 | Outpatient (RCR) | payer OTHER, SELFPAY ==
[2022-05-23 07:11] VITALS: BP 133/72
--- NOTE | 2022-07-18 13:56 | MHC.PT.DC ---
[facility] [place] Office [place] Office [place] Office [address] Lupe Stanford [address] [phone] F: [phone] F: [phone] F: [phone] F: [phone] Physical Therapy Discharge Report Diagnosis: LOW BACK PAIN Date of Surgery: n/a Date of Evaluation: 05/23/22 Date of Discharge: 07/11/22 Treatments to Date: 12 Cancellations to Date: 0 No Shows to Date: 0 Discharge Status: Achieved Goals Improved Function Independent with HEP Discharge Summary: 07/10 pt was Ind. with her HEP today. Demonstated good form with no increased px. D/C today as per plan. Improved ROM and strength, improved Oswestry score. Electronically signed by: Crissy Christiansen PT, DPT Please sign and return to therapist. Thank you for your referral.
== END 2022-07-18 13:56 | disposition home or self-care (01) ==
LOC: HO.PT 07:00
PROVIDERS: PCP Internal Medicine; Visit Provider Internal Medicine
DX: M54.50 Low back pain, unspecified (principal)
CPT/HCPCS: 97110; 97140; 97162; 97530

== ENCOUNTER 2022-07-10 08:04 | Outpatient (REF) | payer OTHER, SELFPAY ==
[2022-07-10 08:14] LABS: MANUAL DIFF FLAG NO
[2022-07-10 08:25] LABS: Basophils Absolute Auto 0.1 X10*3/uL (0.0-0.2); Eosinophils Absolute Auto 0.1 X10*3/uL (0.0-0.4); Eosinophils Percent Auto 1.5 % (0-4); Hematocrit 42.8 % (37.0-47.0); Hemoglobin 13.6 g/dl (12.0-16.0); Imm Gran Abs Auto 0.03 X10*3/uL (0.00-0.03); Imm Gran Pct Auto 0.4 % (0.0-0.4); Lymphocytes Absolute Auto 1.9 X10*3/uL (1.2-4.9); Lymphocytes Percent Auto 24.1 % (20-40); Mean Corpuscular HGB Conc 31.8 g/dl (31.0-35.0); Mean Corpuscular Hemoglobin 28.1 pg (27.0-33.0); Mean Corpuscular Volume 88.4 fL (80.0-98.0); Mean Platelet Volume 9.9 fL (9.4-12.3); Monocytes Absolute Auto 0.5 X10*3/uL (0.1-1.2); Monocytes Percent Auto 6.5 % (2-11); Neutrophils Absolute Auto 5.4 x10*3/uL (2.0-8.3); Neutrophils Percent Auto 66.5 % (45-73); Platelet Count 324 X10*3/uL (160-400); Red Blood Count 4.84 X10*6/uL (4.20-5.50); Red Cell Distribution Width 12.8 % (11.0-16.0)
[2022-07-10 09:09] LABS: Alanine Aminotransferase 16 U/L (0-31); Albumin Level 4.5 g/dL (3.5-5.0); Alkaline Phosphatase 68 U/L (39-117); Anion Gap 14 (12-20); Aspartate Amino Transferase 17 U/L (5-31); Bilirubin Total 0.8 mg/dL (0.0-1.0); Blood Urea Nitrogen 12 mg/dL (9-16); Calcium 9.7 mg/dL (8.4-10.2); Carbon Dioxide 26 mmol/L (22-29); Chloride 104 mmol/L (96-108); Estimated Glomerular Filt Rate 52; Glucose Random 112 mg/dL (60-115); Potassium 3.9 mmol/L (3.3-5.1); Sodium 140 mmol/L (135-145); Total Protein 7.2 g/dL (6.5-8.0)
== END 2022-07-10 08:05 | disposition home or self-care (01) ==
LOC: HO.LAB 08:04
PROVIDERS: PCP Internal Medicine; Visit Provider Internal Medicine Medical Oncology
DX: C50.911 Malignant neoplasm of unspecified site of right female breast (principal); M81.8 Other osteoporosis without current pathological fracture
CPT/HCPCS: 36415; 80053; 85025

== ENCOUNTER 2022-08-03 13:51 | Outpatient (REF) | payer OTHER, SELFPAY ==
[2022-08-03 15:48] LABS: Folate 9.5 ng/mL (> or = 4.0); Free T4 (Free Thyroxine) 1.15 ng/dL (0.71-1.85); Vitamin B12 522 pg/mL (200-900)
[2022-08-06 11:49] LABS: CA 27.29 20 U/mL (<38)
== END 2022-08-03 13:52 | disposition home or self-care (01) ==
LOC: HO.LAB 13:51
PROVIDERS: PCP Internal Medicine; Visit Provider Internal Medicine Medical Oncology
DX: C50.911 Malignant neoplasm of unspecified site of right female breast (principal); M81.8 Other osteoporosis without current pathological fracture; R63.4 Abnormal weight loss
CPT/HCPCS: 36415; 82607; 82746; 84134; 84439; 84443; 86300

== ENCOUNTER 2022-08-07 14:54 | Outpatient (REF) | payer OTHER, SELFPAY ==
--- NOTE | ~2022-08-07 | MM_ITS ---
EXAMINATION: BONE DENSITOMETRY CLINICAL INDICATION: Osteoporosis. COMPARISON: Previous BD dated 07/28/2020 and baseline BD dated 11/24/2007 TECHNIQUE: Using a [employer] DXA System (software version: 13.1) manufactured by [employer], dual-energy x-ray absorptiometry was performed of the lumbar spine and left hip. The images are of good technical quality. Summary results are attached. FINDINGS: AP SPINE L1-L2 (excluding L3 and L4): The data of L1-L4 has been changed to exclude the L3 and L4 vertebral bodies because degenerative changes at these levels may cause overestimation of the lumbar spine density. AP SPINE L1-L2: 0.991 Current: BMD 1.140 g/cm2, Z-score 0.3, T-score -1.5, osteopenia, 4.8% decrease from previous, 7.0% decrease from baseline (<5% change is not significant). Prior: BMD 1.041 g/cm2. Baseline: BMD 1.066 g/cm2. LEFT FEMUR, NECK: Current: BMD 0.733 g/cm2, Z-score -0.6, T-score -2.2, osteopenia. Prior: BMD 0.712 g/cm2. Baseline: BMD 0.725 g/cm2. LEFT FEMUR, TOTAL: Current: BMD 0.762 g/cm2, Z-score -0.7, T-score -1.9, osteopenia, 2.2% decrease from previous, 2.8% decrease from baseline (<5% change is not significant). Prior: BMD 0.779 g/cm2. Baseline: BMD 0.784 g/cm2. IDENTIFIED RISK FACTORS: Low body weight, low calcium intake, menopause, osteoporosis, right oophorectomy. HISTORY OF FRACTURE: No insufficiency fracture reported. MEDICATIONS: Bisphosphonate. MM/XR DEXA axial skeleton IMPRESSION: 1. DIAGNOSIS: Osteopenia based on the lowest T-score value of -2.2 in the femoral neck applying World Health Organization criteria. 2. 10-YEAR FRACTURE RISK PREDICTION, FRAX: Not performed in this patient on estrogen or bone building treatments. 3. Treatment Recommendations: NOF guidelines recommend consideration for treatment in postmenopausal women and men age 50 and older presenting with the following: -A hip or vertebral (clinical or morphometric) fracture. -T-score less than or equal to -2.5 at the femoral neck or spine after appropriate evaluation to exclude secondary causes. -Low bone mass at the hip or spine and a 10-year fracture probability by FRAX of greater than or equal to 3% for hip fracture or greater than or equal to 20% for major osteoporotic fracture based on the [place] adapted WHO algorithm. 4. Other Recommendations: All treatment decisions require clinical judgment and consideration of individual patient factors, including patient preferences, comorbidities, previous drug use, risk factors not captured in the FRAX model (e.g. frailty, falls, vitamin D deficiency, increased bone turnover, interval significant decline in bone density) and possible under or overestimation of fracture risk by FRAX. Additional medical evaluation for secondary cause of low bone mineral density may be appropriate. FUTURE SCAN RECOMMENDATION: People with diagnosed cases of osteoporosis or at high risk for fracture should have regular bone mineral density tests. For patients eligible for Medicare, routine testing is allowed once every 2 years. The testing frequency can be increased to one year for patients who have rapidly progressing disease, those who are receiving or discontinuing medical therapy to restore bone mass, or have additional risk factors.
--- NOTE | ~2022-08-07 | MM_ITS ---
EXAMINATION: MM SCREENING DIGITAL BREAST TOMOSYNTHESIS, LEFT CLINICAL INFORMATION: Right mastectomy for breast cancer, 2013. Due for yearly. COMPARISON: Mammography: 08/04/2021, 07/29/2020, 09/11/2019, 07/23/2018 TECHNIQUE: Digital breast tomosynthesis is performed in both the craniocaudal and mediolateral oblique views along with computer-aided detection (CAD). Synthesized 2D images are generated from the tomosynthesis. FINDINGS: There are scattered areas of fibroglandular density (ACR BI-RADS breast composition Category b). There are no significant masses, abnormal calcifications, or other abnormalities. No architectural abnormality or developing density or significant change from prior studies. The axilla and skin contours are unremarkable. MM/MM tomosynthesis screening LT IMPRESSION: No mammographic evidence of malignancy. ASSESSMENT: BI-RADS 1: Negative RECOMMENDATION: Routine annual mammography screening. This patient's information was entered into a reminder system with a target due date for their next mammogram.
== END 2022-08-07 14:55 | disposition home or self-care (01) ==
LOC: HO.MAMMO 14:54
PROVIDERS: Visit Provider Internal Medicine Medical Oncology
DX: Z12.31 Encounter for screening mammogram for malignant neoplasm of breast (principal); Z13.820 Encounter for screening for osteoporosis; M81.8 Other osteoporosis without current pathological fracture; Z78.0 Asymptomatic menopausal state
CPT/HCPCS: 77063; 77067; 77080

== ENCOUNTER 2022-08-15 09:21 | Day surgery (SDC) | payer OTHER, SELFPAY ==
[2022-08-08 15:15] VITALS: BMI 16.9
[2022-08-15 09:37] VITALS: BP 121/68; PULSE 71; RESP 18; TEMP 36.9; O2SAT 98; BMI 16.9
[2022-08-15] MEDS: Lactated Ringers 1,000 ML 50 ML IVCONT (11:15)
--- NOTE | 2022-08-15 11:42 | MHC.SHP ---
Pre-Procedural Eval Section A Date of Service: 08/15/22 Section B Chief Complaint: Fam hx of CRC, screening Details of Present Illness: Medical History GERD (gastroesophageal reflux disease) History of right breast cancer Hyperlipidemia Surgical History H/O right mastectomy History of bursectomy History of cholecystectomy History of esophagogastroduodenoscopy (EGD) History of excision of lesion History of salpingo-oophorectomy History of wisdom tooth extraction Hx of colonoscopy Present Medications: see Short Stay Collaborative assessment Medical History: Significant History (as above) History of Previous Operations: Relevant previous surgery/procedure and date(s) (as above ) Allergies: Allergies Allergy/AdvReac Type Severity Reaction Status Date / Time adhesive tape Allergy Intermediate BLISTERS Verified 07/23/22 10:40 bacitracin [From Neosporin] Allergy Mild RASH Verified 07/23/22 10:40 gramicidin D [From Neosporin] Allergy Mild RASH Verified 07/23/22 10:40 neomycin [From Neosporin] Allergy Mild RASH Verified 07/23/22 10:40 Penicillins AdvReac Mild VOMITING Verified 07/23/22 10:40 Review of Systems Review of Systems Comment: Ten point ROS negative Exam Exam Comment: Gen appear: No acute distress HEENT: no icterus Chest: No overt resp distress Abd: soft, nontender, nondistended Psych: Stable affect, answering questions appropriately Neuro: A/Ox3 noted to move all extremities spontaneously Ext: no peripheral edema Plan Diagnosis/Plan: Unchanged I have reviewed the history and physical and performed a pertinent physical examination on my patient. No changes have occurred unless specified. Time Spent With Patient Time: Total time managing care of this patient today ____ minutes.
--- NOTE | 2022-08-15 12:12 | P.OP_ITS ---
Operative Note Operative Note Date of Service: 08/15/22 Narrative: Procedure: Colonoscopy Indication: Screening Family history of colon cancer Endoscopist: Nilam May MD Anesthesia Provider: Dr Kimberley Love Anesthesia type: MAC Instrument: Olympus [id number]-[id number] Consent: Indication, risks vs benefits, and alternatives were discussed with the patient who gave written informed consent to proceed. EKG, pulse, pulse oximetry and blood pressure were monitored throughout the procedure. Please see anesthesia flowsheet. Procedure: The patient was brought to the procedure room and placed in the left lateral decubitus position. IV medications were administered by the anesthesia provider in attendance. A digital rectal exam was performed which was normal. The colonoscope was then inserted through the anus and advanced through the colon to the cecum at 75 cm,and terminal ileum. Mucosa was carefully examined under high definition white light as the instrument was slowly withdrawn in a retrograde panoramic fashion. Retroflexion was performed in rectum. The procedure was not difficult. There were no immediate obvious complications. The quality of the prep was BBPS: 2+3+2 = adequate Withdrawal time 11 minutes. Limitations: No limitations. Findings: Mucosa: Normal to cecum and terminal ileum. Protruding lesions: * Large internal hemorrhoids without stigmata of recent bleeding. Excavated lesions: * Moderate diverticulosis of left sided colon. Impression: 1. Normal colon and terminal ileum mucosa 2. Diverticulosis 3. Internal hemorrhoids Recommendations: - Repeat colonoscopy in 7-10 years for asymptomatic CRC screening.
--- NOTE | 2022-08-15 12:29 | P.CONAN_ITS ---
HPI - Anesthesia Eval Consult details Narrative: 61 yr old with history of breast ca for colon screen PMFSH Active Problems Active Problems: All Active Problems (Updated 08/08/22 @ 15:12 by Jaja Stratton RN) Hyperlipidemia (Acute) GERD (gastroesophageal reflux disease) (Acute) Esophageal dysmotility (Acute) Abdominal pain, right upper quadrant (Acute) Ductal carcinoma in situ of right breast (Acute) Tick bite of back (Acute) Flank pain (Acute) Abdominal bloating (Acute) Pelvic pain (Acute) Hx of unilateral oophorectomy (Acute) Cervical cancer screening (Acute) Abdominal pain (Acute) Physical exam (Acute) Pityriasis rosea (Acute) Hip pain, right (Acute) Family history of colon cancer (Acute) H/O right mastectomy (Acute) Hyperlipidemia (Acute) Past Medical History Medical History (Updated 08/08/22 @ 15:12 by Jaja Stratton RN) Arthritis GERD (gastroesophageal reflux disease) History of right breast cancer Hx of radiation therapy Hyperlipidemia Migraines Family History Family History Father Diabetes Mother Osteoporosis Mental health disorder Paternal Aunt Colon cancer Other Family history of breast cancer Family history of gastric cancer Family history of pancreatic cancer Family history of prostate cancer Family history of problems with anesthesia: No Surgical History Surgical History (Updated 08/08/22 @ 15:12 by Jaja Stratton RN) H/O right mastectomy History of cholecystectomy History of esophagogastroduodenoscopy (EGD) History of excision of lesion History of lumpectomy of right breast History of salpingo-oophorectomy History of wisdom tooth extraction Hx of colonoscopy History of Problems with Anesthesia: No Social History Social History Housing: House Are you a primary account executive healthcare to a significant other at home: No Do you presently have visiting nurse or other home services: No Alcohol intake: current Alcohol intake frequency: holidays/special occasions only Patient Tobacco Use Status: Never used Tobacco e-Cigarette/Vaping Use: Never Used Second Hand Smoke Exposure: No Use of substances other than those prescribed or required for medical reasons: No Have you been hit, kicked, punched, or otherwise hurt by someone within the past year? If so, by whom?: No Are you DNR?: No Advance Directives: No Advance Directives Information Provided: Yes (brochure mailed) Advance Directives on File: No Recently lost weight without trying: Yes How much weight loss: 2-13 pounds Eating poorly because of decreased appetite: No Nutrition screen score: 3 Nutrition Risks: No Nutritional Risk Poor oral hygiene: No service: No Current occupational status: employed Cognitive needs: No Hearing needs: No Vision needs: Yes (glasses) Meds Allergies Allergy/AdvReac Type Severity Reaction Status Date / Time adhesive tape Allergy Intermediate BLISTERS Verified 07/23/22 10:40 bacitracin [From Neosporin] Allergy Mild RASH Verified 07/23/22 10:40 gramicidin D [From Neosporin] Allergy Mild RASH Verified 07/23/22 10:40 neomycin [From Neosporin] Allergy Mild RASH Verified 07/23/22 10:40 Penicillins AdvReac Mild VOMITING Verified 07/23/22 10:40 Active Medications: Current Medications Lactated Ringer's (Lr) 1,000 mls @ 50 mls/hr IVCONT .Q20H ABIODUN Last Admin: 08/15/22 11:15 Dose: 50 mls/hr Home Medications Medication Instructions Recorded Confirmed Last Taken Type sumatriptan succinate 50 mg tablet 50 mg PO DAILY PRN Migraine 04/20/20 08/08/22 Unknown History Headache dronabinol 2.5 mg capsule 2.5 mg PO BID 08/08/22 08/08/22 Unknown History coQ10 (ubiquinol) 200 mg capsule 200 mg PO DAILY 08/15/22 08/15/22 08/08/22 History tumeric 100 mg-michelle 150 mg-olive 1,000 PO DAILY 08/15/22 08/08/22 History 50 mg-oreg 150 mg-caprylate capsule Exam Exam Date and Time: August 15, 2022 1229 Height,Weight and Vital Signs: Height 5 ft 10 in Weight 53.524 kg Last Vital Signs Temp 98.4 F 08/15/22 09:37 Pulse 71 08/15/22 09:37 Resp 18 08/15/22 09:37 BP 121/68 08/15/22 09:37 Pulse Ox 98 08/15/22 09:37 O2 Del Method 08/15/22 09:37 Airway Mallampati Class: II TM Dist: >3cm Neck ROM: Full Heart: rrrr Lungs: cta Assessment and Plan Assessment Anesthesia Assessment: Anesthesia Plan Discussed and Chart Reviewed Final Anesthetic Review Family History of Problems with Anesthesia: No History of Problems with Anesthesia: No NPO: Yes ASA Class: III Final Preanesthetic Review: No Changes in Pt Med Stat, Meds/Allgs Chart Reviewed, Consent Obtained/Reviewed and Anes Risks/Benef Reviewed Patient Risk: Low Procedure Risk: Low Anesthetic Plan Anesthetic Plan: MAC: Disposition: Standard PACU
[2022-08-15 12:53] VITALS: BP 101/55; PULSE 74; RESP 12; TEMP 36.6; O2SAT 100
[2022-08-15 13:08] VITALS: BP 96/57; PULSE 72; RESP 16; TEMP 36.6; O2SAT 99
== END 2022-08-15 13:56 | disposition home or self-care (01) ==
PROVIDERS: PCP Internal Medicine; Visit Provider Internal Medicine
PROC: 0DJD8ZZ Inspection of Lower Intestinal Tract, Via Natural or Artificial Opening Endoscopic (ICD-10-PCS; CPT 45378; principal; 2022-08-15 10:30)
DX: Z12.11 Encounter for screening for malignant neoplasm of colon (principal); Z80.0 Family history of malignant neoplasm of digestive organs; K57.30 Diverticulosis of large intestine without perforation or abscess without bleeding; K64.8 Other hemorrhoids; K58.9 Irritable bowel syndrome, unspecified; K21.9 Gastro-esophageal reflux disease without esophagitis; E78.5 Hyperlipidemia, unspecified; Z79.899 Other long term (current) drug therapy; Z88.0 Allergy status to penicillin; Z85.3 Personal history of malignant neoplasm of breast; Z90.11 Acquired absence of right breast and nipple; Z90.49 Acquired absence of other specified parts of digestive tract; Z91.040 Latex allergy status
CPT/HCPCS: 45378

== ENCOUNTER 2022-08-28 13:04 | Outpatient (REF) | payer OTHER, SELFPAY ==
--- NOTE | ~2022-08-28 | PE_ITS ---
EXAMINATION: Fluorine-18 FDG PET/CT Scan CLINICAL INDICATION: Subsequent treatment management. Breast cancer. Radiation therapy 2000. PROCEDURE: 63 minutes following the intravenous administration of 17.4 mCi of fluorine 18 FDG, images from the base of the skull to the mid thighs were obtained using a combined PET/CT scanner with CT scan based attenuation correction. No oral contrast was administered. No intravenous contrast was administered. Transverse, coronal, sagittal, and volume reconstruction projections were obtained. The patient's blood glucose as determined by a finger stick, was 95 mg/dl immediately prior to injection. Total CT exam dose-length product 226.16 mGy-cm * These CT images were obtained using dose optimization techniques as appropriate, variously including the following: Automated exposure control * Adjustment of mA and/or kV according to patient size (this includes techniques or standardized protocols for targeted exams where dose is matched to indication/reason for exam; i.e. extremities or head) * Use of iterative reconstruction technique COMPARISON: No previous PET/CT scan is available for comparison. The diagnostic CT scan of the abdomen and pelvis, dated 09/06/2020, is available for comparison. FINDINGS: (Slice numbers described in this report are numbered superiorly to inferiorly with slice #1 in the head) NECK AND VISUALIZED HEAD: No foci of abnormal FDG activity are noted. The distribution of FDG activity is physiological. There is no cervical lymphadenopathy. There is mild FDG activity and some supraclavicular clavicular adipose tissue bilaterally, likely due to physiological brown fat uptake. THORAX: There are no foci of abnormal FDG activity in the chest. Biapical scarring is present, more prominently on the right with no associated abnormal FDG activity. No pulmonary nodules are visualized. There is no pleural or pericardial fluid, or pneumothorax. There is no mediastinal, supraclavicular, or axillary lymphadenopathy. The patient is status post right total mastectomy. ABDOMEN AND PELVIS: There are no foci of abnormal FDG activity in the abdomen or pelvis. Mild FDG activity is present throughout the gastrointestinal tract without a suspicious focal component. There is diverticulosis without evidence of diverticulitis. The hollow viscera are otherwise unremarkable. The liver and spleen are unremarkable. The gallbladder is been resected and there are metallic surgical clips in the gallbladder bed. The kidneys, adrenal glands, and pancreas are unremarkable. The pelvic organs are unremarkable. There is no retroperitoneal, mesenteric, pelvic or inguinal lymphadenopathy. MUSCULOSKELETAL: There are no foci of abnormal FDG activity in the osseous structures. There is a mild thoracolumbar scoliosis with lumbar convexity to the left. There are minimal degenerative changes in the spine. There are no suspicious sclerotic or lytic lesions visualized. VASCULAR: No significant abnormalities are present. PET/PET CT fusion skull to thigh IMPRESSION: There are no abnormalities present suspicious for metastatic or recurrent malignancy.
== END 2022-08-28 13:05 | disposition home or self-care (01) ==
LOC: HO.PET 13:04
PROVIDERS: PCP Internal Medicine Medical Oncology; Visit Provider Internal Medicine Medical Oncology
DX: Z13.89 Encounter for screening for other disorder (principal)

== ENCOUNTER → 2022-09-20 08:10 | Outpatient (BNVA) | payer OTHER, SELFPAY | PROVIDERS: PCP Internal Medicine; Visit Provider Nurse Practitioner | DX: Z13.89 Encounter for screening for other disorder (principal) ==

== ENCOUNTER 2022-09-26 13:43 | Outpatient (REF) | payer OTHER, SELFPAY ==
[2022-09-29 08:54] LABS: HPV mRNA E6/E7 rflx Not Detected (Not Detected)
== END 2022-09-26 13:44 | disposition home or self-care (01) ==
LOC: HO.LNP 13:43
PROVIDERS: PCP Internal Medicine; Visit Provider Advanced Practice Midwife
DX: Z01.419 Encounter for gynecological examination (general) (routine) without abnormal findings (principal); Z11.51 Encounter for screening for human papillomavirus (HPV)
CPT/HCPCS: 87624; 88142

== ENCOUNTER 2022-10-26 12:47 | Outpatient (REF) | payer OTHER, SELFPAY ==
--- NOTE | ~2022-10-26 | MR_ITS ---
EXAMINATION: MR BRAIN WITHOUT AND WITH CONTRAST CLINICAL INFORMATION: Partial seizures. COMPARISON: There are no prior studies available for comparison. TECHNIQUE: Multiplanar, multisequence MRI of the brain was obtained before and after the intravenous administration of 5.5 mL Gadavist. FINDINGS: No diffusion abnormalities are identified to suggest an acute or subacute infarct. No mass effect or midline shift is seen. The ventricles and sulci are slightly commensurately prominent consistent with diffuse volume loss. There are a few scattered foci of hyperintense T2 and FLAIR signal in the periventricular subcortical white matter, most consistent with chronic microvascular ischemic changes. There is a prominent perivascular space in the left basal ganglia. No extra-axial fluid collections are seen. There are small areas of low gradient signal in the inferior eligio on the right and in the region of the right middle cerebellar peduncle, with linear enhancement in these areas following intravenous contrast administration. These findings are most consistent with a developmental venous anomaly. On postcontrast imaging, there is no other abnormal parenchymal or leptomeningeal enhancement. No other pathologic magnetic susceptibility artifact is identified on the gradient refocused acquisition. The cerebellar tonsils have normal contour and position, and the craniocervical junction appears normal. Marrow signal and midline structures are normal. The major intracranial flow-voids at the level of the [place] are preserved. The dural venous sinus flow-voids are maintained. The mastoid air cells and paranasal sinuses are well-aerated. MR/MR head/brain wo/w con IMPRESSION: 1. There are no acute bleeds or territorial infarcts. No masses are demonstrated. There is likely a developmental venous anomaly in the right eligio. 2. There are chronic microvascular ischemic changes and there is diffuse volume loss.
== END 2022-10-26 12:48 | disposition home or self-care (01) ==
LOC: HO.MRI 12:47
PROVIDERS: PCP Internal Medicine; Visit Provider Psychiatry & Neurology Neurology
DX: R56.9 Unspecified convulsions (principal)
CPT/HCPCS: 70553; A9585

== ENCOUNTER → 2022-11-27 10:45 | Outpatient (BNVA) | payer OTHER, SELFPAY | PROVIDERS: PCP Internal Medicine; Visit Provider Surgery ==

== ENCOUNTER 2023-03-21 13:28 | Outpatient (AMB) | payer OTHER, SELFPAY ==
[2023-03-21 13:29] VITALS: BP 128/64; PULSE 70; O2SAT 99; BMI 19.5
--- NOTE | 2023-03-21 13:29 | MHC.PC.OV ---
Vital Signs 03/21/23 13:29 Height 5 ft 10 in Weight 136 lb BMI 19.5 BP 128/64 Blood Pressure Location Lt brachial Position Sitting Pulse 70 Pulse Source Pulse Oximeter Pulse Oximetry (%) 99 Oxygen Delivery Method Room Air Intake Visit Reasons: 3 MONTH F/U Line Walker: Not Required per policy Accompanied by: Self / Same As Patient Allergies adhesive tape Allergy (Intermediate, Verified 03/21/23 13:30) BLISTERS bacitracin [From Neosporin] Allergy (Mild, Verified 03/21/23 13:30) RASH gramicidin D [From Neosporin] Allergy (Mild, Verified 03/21/23 13:30) RASH neomycin [From Neosporin] Allergy (Mild, Verified 03/21/23 13:30) RASH Penicillins Adverse Reaction (Mild, Verified 03/21/23 13:30) VOMITING Medication List - Last Reconciled 03/21/23 by Miah Day MD atorvastatin 20 mg PO DAILY coQ10 (ubiquinol) 200 mg PO DAILY esomeprazole magnesium 20 mg PO DAILY lamotrigine 25 mg PO DAILY mastectomy bra (bra, mastectomy) As directed simethicone 180 mg PO TID PRN sumatriptan succinate 50 mg PO DAILY PRN hyjtjsy-efse-xsgts-oreg-capryl 100 mg-150 mg- 50 mg-150 mg 1,000 PO DAILY Tobacco use date assessed: 09/19/22 Dental Screening Dental Screen Date: 03/21/23 Did you have a dental visit in the last 12 months?: No Did you have a dental problem in the last 6 months where you did not have access to dental care?: No Was dental information given to patient?: Patient has dentist HPI 3 MONTH F/U HPI Details hyperlipidemia on rx; doing well; due for labs [facility] History Hx of radiation therapy Migraines Arthritis Hyperlipidemia GERD (gastroesophageal reflux disease) History of right breast cancer Surgical History History of lumpectomy of right breast History of esophagogastroduodenoscopy (EGD) Hx of colonoscopy History of excision of lesion History of salpingo-oophorectomy History of cholecystectomy History of wisdom tooth extraction H/O right mastectomy Family History Father Diabetes Mother Osteoporosis Mental health disorder Paternal Aunt Colon cancer Other Family history of breast cancer Family history of gastric cancer Family history of pancreatic cancer Family history of prostate cancer Social History Housing: House Are you a primary insurance healthcare consultant to a significant other at home: No Do you presently have visiting nurse or other home services: No Alcohol intake: current Alcohol intake frequency: holidays/special occasions only Patient Tobacco Use Status: Never used Tobacco e-Cigarette/Vaping Use: Never Used Second Hand Smoke Exposure: No service: No Current occupational status: employed Cognitive needs: No Hearing needs: No Vision needs: Yes (glasses) Questionnaire PHQ-9 Over the last 2 weeks, how often have you been bothered by any of the following problems? 1. Little interest or pleasure in doing things: not at all 2. Feeling down, depressed, or hopeless: not at all 3. Trouble falling or staying asleep, or sleeping too much: not at all 4. Feeling tired or having little energy: not at all 5. Poor appetite or overeating: not at all 6. Feeling bad about yourself - or that you are a failure or have let yourself or your family down: not at all 7. Trouble concentrating on things, such as reading the newspaper or watching television: not at all 8. Moving or speaking so slowly that other people could have noticed. Or the opposite - being so fidgety or restless that you have been moving around a lot more than usual: not at all 9. Thoughts that you would be better off or of hurting yourself in some way: not at all Total score: 0 Depression Screening Interpretation: Negative Source: Developed by Drs. Kenneth Martínez, Lisseth Oates, Gurwinder Ross and colleagues, with an educational norma from [employer]. Thrive Questionnaire Date Thrive assessed: 09/19/22 AUDIT C Alcohol Use Questionnaire (AUDIT-C) 1. How often do you have a drink containing alcohol?: Monthly or less 2. How many drinks containing alcohol do you have on a typical day when you are drinking?: 1 or 2 Total Score: 1 Score Reviewed/Action Taken: Yes CRISTINA-7 AMB Questionnaire CRISTINA-7 Date CRISTINA - 7 assessed: 09/19/22 Source: Developed by Drs. Kenneth Martínez, Lisseth Oates, Gurwinder Ross and colleagues, with an educational norma from [employer]. Review of Systems Const Denies chills, Denies headache(s) and Denies weight loss ENT Denies headache(s) Card Denies chest pain, Denies syncope, Denies irregular heart rhythm and Denies dyspnea Resp Denies chest congestion, Denies cough and Denies dyspnea GI Denies abdominal pain, Denies change in stool character, Denies nausea and Denies vomiting Musc Denies deformity and Denies joint swelling Neuro Denies syncope and Denies headache(s) Physical exam (Primary Care) Vital Signs: Last Vital Signs Pulse 70 03/21/23 13:29 BP 128/64 03/21/23 13:29 Pulse Ox 99 03/21/23 13:29 Oxygen Delivery Method Room Air 03/21/23 13:29 BMI result Body Mass Index 19.5 Tobacco/Smoking Status: Tobacco use Status Tobacco use date assessed 09/19/22 03/21/23 13:30 Patient Tobacco Use Status Never used Tobacco 03/21/23 13:30 e-Cigarette/Vaping Use Never Used 03/21/23 13:30 PHQ-9: PHQ-9 Score PHQ-9: Total score 0 03/21/23 13:30 Depression Screening Interpretation: Negative Thrive Assessment: Date of Thrive Assessment Date Thrive assessed 09/19/22 03/21/23 13:30 Const General: cooperative, comfortable, no acute distress and alert Neck Neck: Yes no lymphadenopathy Thyroid: Thyroid normal Resp Effort & Inspection: normal respiratory effort Auscultation: clear to auscultation bilaterally Percussion: percussion normal Cardio Jugular venous distension: no JVD Palpation: normal PMI Rate: regular rate Rhythm: regular rhythm Heart sounds: S1 normal heart sound present and S2 normal heart sound present GI Inspection: Yes normal to inspection Palpation (GI): No hepatosplenomegaly present Skin General skin exam: no rashes or lesions noted Extrem General: Yes no clubbing, cyanosis or edema Assessment and Plan Assessment & Plan (1) Hyperlipidemia: Code(s): E78.5 - Hyperlipidemia, unspecified Plan: stable; same rx Coding Level of Care Code Est Pt Level 3 (31453) Diagnoses Hyperlipidemia E78.5
== END 2023-03-21 13:53 | disposition home or self-care (01) ==
PROVIDERS: PCP Internal Medicine; Visit Provider Internal Medicine
DX: E78.5 Hyperlipidemia, unspecified (principal)
CPT/HCPCS: 99213

== ENCOUNTER 2023-05-28 08:57 | Outpatient (REF) | payer OTHER, SELFPAY ==
[2023-05-28 11:05] LABS: Cholesterol 184 mg/dL (<200); HDL Cholesterol 78 mg/dL (>40); LDL Cholesterol Calculated 94 mg/dL (<100); Triglycerides 64 mg/dL (<150)
== END 2023-05-28 08:58 | disposition home or self-care (01) ==
LOC: HO.LAB 08:57
PROVIDERS: PCP Internal Medicine; Referring Provider Internal Medicine; Visit Provider Surgery
DX: E78.5 Hyperlipidemia, unspecified (principal); Z85.3 Personal history of malignant neoplasm of breast
CPT/HCPCS: 36415; 80061

== ENCOUNTER 2023-05-28 08:57 | Outpatient (AMB) | payer OTHER, SELFPAY ==
--- NOTE | 2023-05-28 09:11 | A.OFFVIS_ITS ---
Intake Vital Signs 3 05/28/23 09:12 Height 5 ft 10 in Weight 140 lb BMI 20.1 BP 118/70 Blood Pressure Location Lt brachial Position Sitting Intake Visit Reasons: 6 mth follow up breast exam Intake Note: Patient is seen in office for 6 month follow up visit, breast exam. Patient c/o: denies any concerns regarding the breast, does have 2 spot in the upper back/below the neck that would like to have checked, onset couple of months, itchy mm:08/07/22 Outboard Motor Assembler Required: No Accompanied by: Self / Same As Patient Allergies adhesive tape Allergy (Intermediate, Verified 05/28/23 09:13) BLISTERS bacitracin [From Neosporin] Allergy (Mild, Verified 05/28/23 09:13) RASH gramicidin D [From Neosporin] Allergy (Mild, Verified 05/28/23 09:13) RASH neomycin [From Neosporin] Allergy (Mild, Verified 05/28/23 09:13) RASH Penicillins Adverse Reaction (Mild, Verified 05/28/23 09:13) VOMITING Medication List - Last Reconciled 05/28/23 by Robert Lawrence MD atorvastatin 20 mg PO DAILY coQ10 (ubiquinol) 200 mg PO DAILY esomeprazole magnesium 20 mg PO DAILY lamotrigine 25 mg PO DAILY mastectomy bra (bra, mastectomy) As directed simethicone 180 mg PO TID PRN sumatriptan succinate 50 mg PO DAILY PRN cxbtusk-csdf-vxjrn-oreg-capryl 100 mg-150 mg- 50 mg-150 mg 1,000 PO DAILY HPI HPI Comments 2 History of Present Illness0 Details 62-year-old female patient, 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 Carl returning for breast cancer follow-up. 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 She subsequently developed a recurrent right breast ductal carcinoma and underwent a right simple mastectomy with axillary sentinel node biopsy in May 2012. A focus of invasive ductal carcinoma grade 1 was identified, ER/IL positive. She completed 5 years of anastrozole in August 2017. She developed a swollen lymph node in the left axilla after her 2nd COVID shot. This has subsequently resolved. Genetic testing was negative for the BRCA gene. Her most recent left mammogram on 08/07/2022 revealed no suspicious findings (BI-RADS 1) revealed no mammographic evidence of malignancy, annual screening recommended (BI-RADS 2). A PET scan obtained on 08/28/2022 revealed no evidence of metastatic disease. She reports feeling well and denies any ongoing breast symptoms. [facility] Medical History Hx of radiation therapy Migraines Arthritis Hyperlipidemia GERD (gastroesophageal reflux disease) History of right breast cancer Surgical History History of lumpectomy of right breast History of esophagogastroduodenoscopy (EGD) Hx of colonoscopy History of excision of lesion History of salpingo-oophorectomy History of cholecystectomy History of wisdom tooth extraction H/O right mastectomy Family History Father Diabetes Mother Osteoporosis Mental health disorder Paternal Aunt Colon cancer Other Family history of breast cancer Family history of gastric cancer Family history of pancreatic cancer Family history of prostate cancer Social History Housing: House Are you a primary pediatric acute care unit nurse to a significant other at home: No Do you presently have visiting nurse or other home services: No Alcohol intake: current Alcohol intake frequency: holidays/special occasions only Patient Tobacco Use Status: Never used Tobacco e-Cigarette/Vaping Use: Never Used Second Hand Smoke Exposure: No service: No Current occupational status: employed Cognitive needs: No Hearing needs: No Vision needs: Yes (glasses) Review of Systems Const All systems reviewed & are unremarkable except as noted in HPI and below Card Denies chest pain and Denies irregular heart rhythm Resp Denies cough, Denies excessive phlegm production, Denies stridor and Denies wheezing Denies nipple discharge Skin/Breast Denies breast swelling, Denies breast skin changes, Denies breast pain, Denies breast mass, Denies change in pigmentation and Denies nipple discharge Aller/Immun Denies wheezing Physical Exam Vital Signs: Last Vital Signs BP 118/70 05/28/23 09:12 BMI result Body Mass Index 20.1 Const General: cooperative, healthy appearing, comfortable, no acute distress, well developed, alert and awake Neck Neck: Yes normal visual inspection, Yes full ROM, Yes no lymphadenopathy, Yes trachea midline and Yes supple Thyroid: Thyroid normal Lymphatic: no lymphadenopathy noted Chest Other: Right breast status post simple mastectomy, wounds clean and intact with no subcutaneous nodules or lymphadenopathy. Left breast: No skin change, no tenderness, no palpable mass, no nipple discharge, no nipple retraction, and no enlarged lymph nodes. Chest/axillae images: 2 1. Skin Other: Warm, dry, no rash Extrem General: Yes no clubbing, cyanosis or edema Assessment & Plan Assessment & Plan (1) Ductal carcinoma in situ of right breast: Code(s): D05.11 - Intraductal carcinoma in situ of right breast (2) H/O right mastectomy: Comment: 2012 w/lymph node excision Code(s): Z90.11 - Acquired absence of right breast and nipple (3) History of right breast cancer: Comment: X2-2000 & 2012 Code(s): Z85.3 - Personal history of malignant neoplasm of breast Plan 62-year-old female patient presenting with a previous history of DCIS with focus of invasive ductal carcinoma grade 1 of the right breast status post simple mastectomy. Pathology revealed invasive ductal carcinoma grade 1 with ductal carcinoma in situ which was ER, IL pos. She is s/p simple mastectomy and has no evidence of recurrence disease. Her most recent left mammogram on 08/07/2022 revealed no mammographic evidence of malignancy (BI-RADS 2). Examination today revealed no evidence of recurrent disease. She will return in 1 year for follow-up examination. She is welcome to call sooner for any concerns. Coding Level of Care Code Est Pt Level 3 (33049) Diagnoses Ductal carcinoma in situ of right breast D05.11 H/O right mastectomy Z90.11 History of right breast cancer Z85.3
[2023-05-28 09:12] VITALS: BP 118/70; BMI 20.1
== END 2023-05-28 09:26 | disposition home or self-care (01) ==
PROVIDERS: PCP Internal Medicine; Visit Provider Surgery
DX: Z85.3 Personal history of malignant neoplasm of breast (principal); Z90.11 Acquired absence of right breast and nipple
CPT/HCPCS: 99213

== ENCOUNTER 2023-06-11 13:26 | Outpatient (AMB) | payer OTHER, SELFPAY ==
[2023-06-11 13:31] VITALS: BP 110/60; PULSE 70; O2SAT 97; BMI 20.5
--- NOTE | 2023-06-11 13:31 | MHC.PC.OV ---
Vital Signs 06/11/23 13:31 Height 5 ft 10 in Weight 143 lb BMI 20.5 BP 110/60 Blood Pressure Location Lt brachial Position Sitting Pulse 70 Pulse Source Pulse Oximeter Pulse Oximetry (%) 97 Oxygen Delivery Method Room Air Intake Visit Reasons: 3 month f/u Radio Repairer Required: No Travel Counselor: Not Required per policy Accompanied by: Self / Same As Patient Allergies adhesive tape Allergy (Intermediate, Verified 06/11/23 13:32) BLISTERS bacitracin [From Neosporin] Allergy (Mild, Verified 06/11/23 13:32) RASH gramicidin D [From Neosporin] Allergy (Mild, Verified 06/11/23 13:32) RASH neomycin [From Neosporin] Allergy (Mild, Verified 06/11/23 13:32) RASH Penicillins Adverse Reaction (Mild, Verified 06/11/23 13:32) VOMITING Medication List - Last Reconciled 06/11/23 by Miah Day MD atorvastatin 20 mg PO DAILY coQ10 (ubiquinol) 200 mg PO DAILY esomeprazole magnesium 20 mg PO DAILY lamotrigine 25 mg PO DAILY mastectomy bra (bra, mastectomy) As directed simethicone 180 mg PO TID PRN sumatriptan succinate 50 mg PO DAILY PRN dxrwpgz-majd-wjwhf-oreg-capryl 100 mg-150 mg- 50 mg-150 mg 1,000 PO DAILY Tobacco use date assessed: 09/19/22 Dental Screening Dental Screen Date: 06/11/23 Did you have a dental visit in the last 12 months?: No Did you have a dental problem in the last 6 months where you did not have access to dental care?: No Was dental information given to patient?: Patient has dentist HPI 3 month f/u HPI Details hyperlip on rx; doing well; compliant [facility] Medical History Hx of radiation therapy Migraines Arthritis Hyperlipidemia GERD (gastroesophageal reflux disease) History of right breast cancer Surgical History History of lumpectomy of right breast History of esophagogastroduodenoscopy (EGD) Hx of colonoscopy History of excision of lesion History of salpingo-oophorectomy History of cholecystectomy History of wisdom tooth extraction H/O right mastectomy Family History Father Diabetes Mother Osteoporosis Mental health disorder Paternal Aunt Colon cancer Other Family history of breast cancer Family history of gastric cancer Family history of pancreatic cancer Family history of prostate cancer Social History Housing: House Are you a primary long term care phlebotomist to a significant other at home: No Do you presently have visiting nurse or other home services: No Alcohol intake: current Alcohol intake frequency: holidays/special occasions only Patient Tobacco Use Status: Never used Tobacco e-Cigarette/Vaping Use: Never Used Second Hand Smoke Exposure: No service: No Current occupational status: employed Cognitive needs: No Hearing needs: No Vision needs: Yes (glasses) Questionnaire Thrive Questionnaire Date Thrive assessed: 09/19/22 CRISTINA-7 AMB Questionnaire CRISTINA-7 Date CRISTINA - 7 assessed: 09/19/22 Source: Developed by Drs. Kenneth Martínez, Lisseth Oates, Gurwinder Ross and colleagues, with an educational norma from [employer]. Review of Systems Const Denies chills, Denies headache(s) and Denies weight loss ENT Denies headache(s) Card Denies chest pain, Denies syncope, Denies irregular heart rhythm and Denies dyspnea Resp Denies chest congestion, Denies cough and Denies dyspnea GI Denies abdominal pain, Denies change in stool character, Denies nausea and Denies vomiting Musc Denies deformity and Denies joint swelling Neuro Denies syncope and Denies headache(s) Physical exam (Primary Care) Vital Signs: Last Vital Signs Pulse 70 06/11/23 13:31 BP 110/60 06/11/23 13:31 Pulse Ox 97 06/11/23 13:31 Oxygen Delivery Method Room Air 06/11/23 13:31 BMI result Body Mass Index 20.5 Tobacco/Smoking Status: Tobacco use Status Tobacco use date assessed 09/19/22 06/11/23 13:33 Patient Tobacco Use Status Never used Tobacco 06/11/23 13:33 e-Cigarette/Vaping Use Never Used 06/11/23 13:33 Thrive Assessment: Date of Thrive Assessment Date Thrive assessed 09/19/22 06/11/23 13:33 Const General: cooperative, comfortable, no acute distress and alert Neck Neck: Yes no lymphadenopathy Thyroid: Thyroid normal Resp Effort & Inspection: normal respiratory effort Auscultation: clear to auscultation bilaterally Percussion: percussion normal Cardio Jugular venous distension: no JVD Palpation: normal PMI Rate: regular rate Rhythm: regular rhythm Heart sounds: S1 normal heart sound present and S2 normal heart sound present GI Inspection: Yes normal to inspection Palpation (GI): No hepatosplenomegaly present Skin General skin exam: no rashes or lesions noted Extrem General: Yes no clubbing, cyanosis or edema Assessment and Plan Assessment & Plan (1) Hyperlipidemia: Code(s): E78.5 - Hyperlipidemia, unspecified Plan: stable; same rx Orders: Orders Lipid Panel Today E78.5 - Hyperlipidemia, unspecified Comprehensive [place]. Panel Fast Today N28.9 - Disorder of kidney and ureter, unspecified Thyroid Stimulating Hormone Today E03.9 - Hypothyroidism, unspecified Complete Blood Count Auto Diff Today D64.9 - Anemia, unspecified Coding Level of Care Code Est Pt Level 3 (22104) Diagnoses Hyperlipidemia E78.5
== END 2023-06-11 13:57 | disposition home or self-care (01) ==
PROVIDERS: PCP Internal Medicine; Visit Provider Internal Medicine
DX: E78.5 Hyperlipidemia, unspecified (principal)
CPT/HCPCS: 99213

== ENCOUNTER 2023-06-27 08:24 | Outpatient (REF) | payer OTHER, SELFPAY | END 2023-06-27 08:25 | disposition home or self-care (01) | LOC: HO.LAB 08:24 | PROVIDERS: Visit Provider Internal Medicine Medical Oncology | DX: R63.4 Abnormal weight loss (principal); C50.911 Malignant neoplasm of unspecified site of right female breast; M81.0 Age-related osteoporosis without current pathological fracture | CPT/HCPCS: 36415; 80053; 80061; 85025 ==

== ENCOUNTER 2023-07-12 08:15 | Outpatient (AMB) | payer OTHER, SELFPAY ==
[2023-07-12 08:33] VITALS: BP 108/62; PULSE 75; O2SAT 99; BMI 20.8
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
== END 2023-07-12 08:43 | disposition home or self-care (01) ==
PROVIDERS: PCP Internal Medicine; Visit Provider Internal Medicine
DX: J32.9 Chronic sinusitis, unspecified (principal)
CPT/HCPCS: 99213

== ENCOUNTER 2023-08-05 15:10 | Outpatient (AMB) | payer OTHER, SELFPAY ==
--- NOTE | 2023-08-05 15:44 | MHC.OFFWIV ---
Intake Vital Signs 08/05/23 15:45 Height 5 ft 10 in Weight 145 lb BMI 20.8 BP 120/62 Blood Pressure Location Lt brachial Position Sitting Pulse 85 Pulse Source Pulse Oximeter Temp 97.9 F Temp Source Oral Pulse Oximetry (%) 98 Intake Visit Reasons: EST/left foot toe pain (lobby) Intake Note: pt is here for c.o left big toe pain, possible broken. Patient Tobacco Use Status: Never used Tobacco Allergies adhesive tape Allergy (Intermediate, Verified 08/05/23 15:59) BLISTERS bacitracin [From Neosporin] Allergy (Mild, Verified 08/05/23 15:59) RASH gramicidin D [From Neosporin] Allergy (Mild, Verified 08/05/23 15:59) RASH neomycin [From Neosporin] Allergy (Mild, Verified 08/05/23 15:59) RASH Penicillins Adverse Reaction (Mild, Verified 08/05/23 15:59) VOMITING Medication List - Last Reconciled 08/05/23 by Karsten Oseguera MD atorvastatin 20 mg PO DAILY azithromycin take 500 mg today (day 1), then 250 mg for 4 days (days 2-5) orally; coQ10 (ubiquinol) 200 mg PO DAILY esomeprazole magnesium 20 mg PO DAILY lamotrigine 25 mg PO DAILY mastectomy bra (bra, mastectomy) As directed simethicone 180 mg PO TID PRN sumatriptan succinate 50 mg PO DAILY PRN vrdbxzho-haey-utjkh-oreg-capry 100 mg-150 mg- 50 mg-150 mg 1,000 PO DAILY Do you need a note to return to daycare/school/sports/work: No HPI EST/left foot toe pain (lobby) HPI Details 62-year-old female presents to the office for a sick visit. Patient stubbed her toe while bowling. The left toe is painful for the past 2 days. She is able to bear weight and walk with little difficulty. [facility] Medical History Hx of radiation therapy Migraines Arthritis Hyperlipidemia GERD (gastroesophageal reflux disease) History of right breast cancer Surgical History History of lumpectomy of right breast History of esophagogastroduodenoscopy (EGD) Hx of colonoscopy History of excision of lesion History of salpingo-oophorectomy History of cholecystectomy History of wisdom tooth extraction H/O right mastectomy Family History Father Diabetes Mother Osteoporosis Mental health disorder Paternal Aunt Colon cancer Other Family history of breast cancer Family history of gastric cancer Family history of pancreatic cancer Family history of prostate cancer Social History Housing: House Are you a primary post acute care nurse to a significant other at home: No Do you presently have visiting nurse or other home services: No Alcohol intake: current Alcohol intake frequency: holidays/special occasions only Patient Tobacco Use Status: Never used Tobacco e-Cigarette/Vaping Use: Never Used Second Hand Smoke Exposure: No service: No Current occupational status: employed Cognitive needs: No Hearing needs: No Vision needs: Yes (glasses) Physical Exam Vital Signs: Last Vital Signs Temp 97.9 F 08/05/23 15:45 Pulse 85 08/05/23 15:45 BP 120/62 08/05/23 15:45 Pulse Ox 98 08/05/23 15:45 BMI result Body Mass Index 20.8 Extrem Other: Left foot: Great toe: No visible swelling. Minimal discomfort on palpation at the MTP joint. Minimal bruising. Assessment & Plan Assessment & Plan (1) Contusion of left foot: Code(s): S90.32XA - Contusion of left foot, initial encounter Plan: X-ray images personally reviewed by me. No fractures seen. Patient was reassured. Orders: Orders XR foot LT 2V Today S90.32XA - Contusion of left foot, initial encounter Coding Level of Care Code Est Pt Level 4 (27098) Diagnoses Contusion of left foot S90.32XA
[2023-08-05 15:45] VITALS: BP 120/62; PULSE 85; TEMP 36.6; O2SAT 98; BMI 20.8
== END 2023-08-05 16:19 | disposition home or self-care (01) ==
PROVIDERS: PCP Internal Medicine; Visit Provider Internal Medicine
DX: S90.32XA Contusion of left foot, initial encounter (principal)
CPT/HCPCS: 99214

== ENCOUNTER 2023-08-05 16:00 | Outpatient (REF) | payer OTHER, SELFPAY ==
--- NOTE | ~2023-08-05 | XR_ITS ---
EXAMINATION: XR FOOT, LEFT CLINICAL INFORMATION: Contusion of left foot COMPARISON: None available. TECHNIQUE: AP, lateral, and oblique views of the left foot. FINDINGS: Osseous alignment is anatomic. No acute fracture is seen. Periosteal reaction along the diaphyses of the second and fourth metatarsals is suspicious for sequelae of old injury. Joint spaces appear relatively well-maintained. No significant focal soft tissue abnormality identified. XR/XR foot LT 2V IMPRESSION: No acute findings identified.
== END 2023-08-05 16:01 | disposition home or self-care (01) ==
LOC: HO.HMGCX 16:00
PROVIDERS: Visit Provider Internal Medicine
DX: S90.32XA Contusion of left foot, initial encounter (principal)
CPT/HCPCS: 73620

== ENCOUNTER 2023-08-14 15:44 | Outpatient (REF) | payer OTHER, SELFPAY ==
--- NOTE | ~2023-08-14 | MM_ITS ---
EXAMINATION: MM SCREENING DIGITAL BREAST TOMOSYNTHESIS, BILATERAL CLINICAL INFORMATION: Screening. Asymptomatic. The patient is status post left mastectomy. COMPARISON: Mammography: This study is compared with prior exams dating back to 2019. TECHNIQUE: Digital breast tomosynthesis is performed in both the craniocaudal and mediolateral oblique views along with computer-aided detection (CAD). Synthesized 2D images are generated from the tomosynthesis. FINDINGS: There are scattered areas of fibroglandular density (ACR BI-RADS breast composition Category b). There are no significant masses, abnormal calcifications, or other abnormalities. MM/MM tomosynthesis screening LT IMPRESSION: No mammographic evidence of malignancy. ASSESSMENT: BI-RADS BI-RADS 1 - Negative RECOMMENDATION: Routine annual mammography screening. 1 year F/U This examination should not preclude the clinical evaluation of a suspicious palpable abnormality. This patient's information was entered into a reminder system with a target due date for their next mammogram.
== END 2023-08-14 15:45 | disposition home or self-care (01) ==
LOC: HO.MAMMO 15:44
PROVIDERS: PCP Internal Medicine; Visit Provider Internal Medicine
DX: Z12.31 Encounter for screening mammogram for malignant neoplasm of breast (principal)
CPT/HCPCS: 77063; 77067

== ENCOUNTER → 2023-08-14 16:00 | Outpatient (BNV) | payer OTHER, SELFPAY | PROVIDERS: PCP Internal Medicine; Visit Provider Radiology Diagnostic Radiology | DX: Z12.31 Encounter for screening mammogram for malignant neoplasm of breast (principal) | CPT/HCPCS: 77063; 77067 ==

== ENCOUNTER 2023-09-20 07:50 | Outpatient (AMB) | payer OTHER, SELFPAY ==
--- NOTE | 2023-09-20 08:07 | MHC.OFFVIS ---
Intake Vital Signs 09/20/23 08:15 Height 5 ft 6 in Weight 146 lb BMI 23.6 BP 109/56 L Blood Pressure Location Lt brachial Position Sitting Pulse 78 Intake Visit Reasons: follow up Intake Note: Patient follow up for acid reflex Patient cc: acid reflex with burning sensation and denies any other Gi issues. Loan Representative Required: No Accompanied by: Self / Same As Patient Allergies adhesive tape Allergy (Intermediate, Verified 09/20/23 08:09) BLISTERS bacitracin [From Neosporin] Allergy (Mild, Verified 09/20/23 08:09) RASH gramicidin D [From Neosporin] Allergy (Mild, Verified 09/20/23 08:09) RASH neomycin [From Neosporin] Allergy (Mild, Verified 09/20/23 08:09) RASH Penicillins Adverse Reaction (Mild, Verified 09/20/23 08:09) VOMITING HPI follow up HPI Details Assessment & Plan (1) Family history of colon cancer: Code(s): Z80.0 - Family history of malignant neoplasm of digestive organs Plan: She is agreeable to a 5 year follow up. This is r/t her FHX of breast and CRC and her personal cancer hx. The procedure was well tolerated. The results were explained and the patient is agreeable to the follow-up interval as stated. Education was provided to tell any 1st degree relatives about their findings to be sure that they are screened by age 45. Educated that they will be put on a recall list when it is time for their repeat scope but should they move out of state or away from the hospital they will need to remember along with their primary to repeat the procedure in a timely fashion to avoid any adverse complications. She had a very bad sore throat and URI that caused her dehydration and near syncope just prior to her scope. Her bowels have suffered r/t her diet as this also left her with stomach upset and irritation. She is using smooth move tea, but no fiber supplement. I suggest BEnefiber. She can't tolerate chocolate which she usually lives. This caused her to lose 6 lb which concerned her oncologist greatly since she is a very slight build begin with. Her primary care provider tried putting her on dronabinol, but this caused her severe side effects in terms of visual impairment. Her oncologist did a PET scan which was negative, she has had blood work, mammograms and MRIs, and is going to OBGYN to make sure all of her systems are clear. She has persistent right groin pain that sometimes radiates to the right side of the stomach that no one seems to be able to find a cause for. But she says she also has adhesions were her appendix is adhere to her ovary and certainly adhesions could be the cause of her pain. It also could be something simple like sacroiliitis radiating to the groin. It seems to hurt her worse when she lays on her right side and does not seem to be related to bowel movements. She continues on her omeprazole for GERD. This is resolved her dysphagia in the past. She wants to continue to follow with me for this and we suggest yearly follow-ups she can certainly come back sooner if she needs it. ROV 1 year (2) GERD (gastroesophageal reflux disease): Code(s): K21.9 - Gastro-esophageal reflux disease without esophagitis (3) History of right breast cancer: Comment: X2-2000 & 2012 Code(s): Z85.3 - Personal history of malignant neoplasm of breast (4) Esophageal dysmotility: Code(s): K22.4 - Dyskinesia of esophagus TODAY'S VISIT She continues to do well. Her heartburn is well controlled except if she indulges in dietary indiscretions and her swallowing has been manageable. She also continues on simethicone as needed for gas. She asks for a 90 day prescription of her generic Nexium which of course I will provide. She is going on vacation soon to [place] in [place]! Return office visit in 1 year [facility] Medical History (Updated 09/20/23 @ 08:09 by JUNAID Carpio) Physical exam Abdominal pain Cervical cancer screening Flank pain Tick bite of back History of right breast cancer Hx of radiation therapy Migraines Arthritis Hyperlipidemia GERD (gastroesophageal reflux disease) Surgical History Hx of unilateral oophorectomy History of lumpectomy of right breast History of esophagogastroduodenoscopy (EGD) Hx of colonoscopy History of excision of lesion History of salpingo-oophorectomy History of cholecystectomy History of wisdom tooth extraction H/O right mastectomy Family History Father Diabetes Mother Osteoporosis Mental health disorder Paternal Aunt Colon cancer Other Family history of breast cancer Family history of gastric cancer Family history of pancreatic cancer Family history of prostate cancer Social History Housing: House Are you a primary hospice spiritual care coordinator to a significant other at home: No Do you presently have visiting nurse or other home services: No Alcohol intake: current Alcohol intake frequency: holidays/special occasions only Patient Tobacco Use Status: Never used Tobacco e-Cigarette/Vaping Use: Never Used Second Hand Smoke Exposure: No service: No Current occupational status: employed Cognitive needs: No Hearing needs: No Vision needs: Yes (glasses) Review of Systems Const Denies fatigue, Denies fever(s), Denies night sweats, Denies poor appetite and Denies weight loss Eyes Details: glasses Reports requires corrective lenses ENT Reports Normal hearing present, Denies dental pain, Denies dysphagia, Denies hearing loss, Denies mouth pain, Denies odynophagia, Denies throat swelling, Denies tongue swelling and Reports other (Dentition adequate) Card Reports no additional complaints Resp Reports no additional complaints GI Details: Denies abdominal pain, Denies melena, Reports bloating, Denies hematochezia, Denies constipation, Denies GI cramping, Denies dysphagia, Denies excessive flatus, Denies early satiety, Reports heartburn, Denies diarrhea, Denies nausea, Denies odynophagia, Denies vomiting and Denies hematemesis Skin/Breast Denies pruritus, Denies lesions, Denies rash and Denies jaundice Neuro Reports Normal hearing present and Denies Abnormal speech present Endo Denies fatigue Aller/Immun Denies throat swelling and Denies tongue swelling Physical Exam Vital Signs: Last Vital Signs Pulse 78 09/20/23 08:15 BP 109/56 L 09/20/23 08:15 BMI result Body Mass Index 23.6 Const General: cooperative, no acute distress, well developed and well groomed Nutritional Appearance: average body habitus and well nourished Orientation/consciousness: oriented to person, oriented to place and oriented to time Limitations: No language barrier HEENT Head: Yes normocephalic and Yes atraumatic Eyes General: appearance normal, both eyes and all related structures Pupils: Equal, round and reactive pupils present Neck Neck: Yes normal visual inspection and Yes no lymphadenopathy Thyroid: Thyroid normal Resp Effort & Inspection: normal respiratory effort and able to speak in complete sentences Auscultation: clear to auscultation bilaterally Cardio Rate: regular rate Rhythm: regular rhythm Heart sounds: Normal, physiologic split S2 sound present Peripheral pulses: radial pulses present and posterior tibial pulses present GI Inspection: No distended and No Abdominal panniculus present Palpation (GI): Soft to palpation, nontender, no guarding, not rigid and No hepatosplenomegaly present Percussion: Yes normal to percussion Auscultation: normal bowel sounds Rectal Exam - Female: deferred Skin General skin exam: no rashes or lesions noted, turgor normal, skin not dry, no jaundice, No spider nevi and no striae Rashes: no rashes Nails: normal Neuro General: oriented to person, oriented to place and oriented to time Cranial nerves: Yes Equal, round and reactive pupils present and Yes Normal hearing present Speech: No Abnormal speech present Extrem General: Yes normal to inspection, No clubbing, No cyanosis and No edema Psych Appearance: grossly normal and well kempt Mental Status: mental status grossly normal Speech and movement: Normal speech and movement present Affect: normal affect Attitude: cooperative Thought process: Normal thought process present and not confabulating Thought content: Normal thought content present Insight: Good insight present (Psych) Judgement: Good judgement present (Psych) Assessment & Plan Assessment & Plan (1) GERD (gastroesophageal reflux disease): Code(s): K21.9 - Gastro-esophageal reflux disease without esophagitis (2) Esophageal dysmotility: Code(s): K22.4 - Dyskinesia of esophagus Plan She continues to do well. Her heartburn is well controlled except if she indulges in dietary indiscretions and her swallowing has been manageable. She also continues on simethicone as needed for gas. She asks for a 90 day prescription of her generic Nexium which of course I will provide. She is going on vacation soon to [place] in [place]! Return office visit in 1 year Medications: Changed From esomeprazole magnesium 20 mg PO DAILY 30 caps 6RF To esomeprazole magnesium 20 mg PO DAILY 90 caps 6RF 90 days Coding Level of Care Code Est Pt Level 3 (60147) Diagnoses GERD (gastroesophageal reflux disease) K21.9 Esophageal dysmotility K22.4
[2023-09-20 08:15] VITALS: BP 109/56; PULSE 78; BMI 23.6
== END 2023-09-20 08:26 | disposition home or self-care (01) ==
PROVIDERS: PCP Internal Medicine; Visit Provider Nurse Practitioner
DX: K21.9 Gastro-esophageal reflux disease without esophagitis (principal); K22.4 Dyskinesia of esophagus
CPT/HCPCS: 99213

== ENCOUNTER → 2023-09-20 07:50 | Outpatient (BNVA) | payer OTHER, SELFPAY | PROVIDERS: PCP Internal Medicine; Visit Provider Nurse Practitioner ==

== ENCOUNTER 2023-10-04 08:59 | Outpatient (AMB) | payer OTHER, SELFPAY ==
[2023-10-04 09:07] VITALS: BP 114/60; BMI 21.4
--- NOTE | 2023-10-04 09:07 | A.OFFVIS_ITS ---
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 [employer] Office Instructor Required: No Information Interpreted: non-clinical & clinical Lead Fire Protection Engineer: Lead Fire Protection Engineer Present (Lisayn) Allergies adhesive tape Allergy (Intermediate, Verified 10/04/23 09:09) BLISTERS bacitracin [From Neosporin] Allergy (Mild, Verified 10/04/23 09:09) RASH gramicidin D [From Neosporin] Allergy (Mild, Verified 10/04/23 09:09) RASH neomycin [From Neosporin] Allergy (Mild, Verified 10/04/23 09:09) RASH Penicillins Adverse Reaction (Mild, Verified 10/04/23 09:09) VOMITING Medication List - Last Reconciled 10/04/23 by Jia Sharpe CNM atorvastatin 20 mg PO DAILY azithromycin take 500 mg today (day 1), then 250 mg for 4 days (days 2-5) orally; coQ10 (ubiquinol) 200 mg PO DAILY esomeprazole magnesium 20 mg PO DAILY 90 days lamotrigine 25 mg PO DAILY mastectomy bra (bra, mastectomy) As directed simethicone 180 mg PO TID PRN sumatriptan succinate 50 mg PO DAILY PRN jvltlqjb-qzlw-cjclz-oreg-capry 100 mg-150 mg- 50 mg-150 mg 1,000 PO DAILY Is last menstrual period known: No Post menopausal: Yes Patient : No HPI 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 She is up-to-date with her follow-up with Dr. Samuel manages her breast cancer. Life continues to be very stressful in dealing with her very elderly parents who are dealing with issues of diabetes and dementia, and have a multitude of issues. She had 1 week of and went with a relative of her has pain on the cruise and that was enjoyable. The pain that she had been having in her right side is getting better and that allows her to eat more and she is putting on weight again and is within the normal range now and feels better her job is stressful as well at the [employer]. She does have lots of things going on her sister came to stay to relieve her for the 1 week but she ended up trying to rearrange her house in a way that was not functional so that was stressful as well. She does not have any water resources technical officer concerns this year she has not struggling with any vaginal dryness or any other issues she is still grieving the loss of her . She was able to discuss all of these issues and she was also able smile during this visit. She does feel she is doing better, despite the multitude of things on her plate of responsibilities. She isn't endeavoring to get her parents in to a new primary care provider because of an insurance change. She is beginning to think correction. [facility] Medical History (Updated 10/04/23 @ 09:45 by Jia Sharpe CNM) Cervical cancer screening Physical exam Abdominal pain Flank pain Tick bite of back History of right breast cancer Hx of radiation therapy Migraines Arthritis Hyperlipidemia GERD (gastroesophageal reflux disease) Surgical History Hx of unilateral oophorectomy History of lumpectomy of right breast History of esophagogastroduodenoscopy (EGD) Hx of colonoscopy History of excision of lesion History of salpingo-oophorectomy History of cholecystectomy History of wisdom tooth extraction H/O right mastectomy Family History Father Diabetes Mother Osteoporosis Mental health disorder Paternal Aunt Colon cancer Other Family history of breast cancer Family history of gastric cancer Family history of pancreatic cancer Family history of prostate cancer Social History Housing: House Are you a primary patient care assistant to a significant other at home: No Do you presently have visiting nurse or other home services: No Alcohol intake: current Alcohol intake frequency: holidays/special occasions only Patient Tobacco Use Status: Never used Tobacco e-Cigarette/Vaping Use: Never Used Second Hand Smoke Exposure: No service: No Current occupational status: employed Cognitive needs: No Hearing needs: No Vision needs: Yes (glasses) Female Reproductive History Menstrual Age of Menarche: 13 control method: none Total pregnancies: 0 Date of last pap smear: 09/26/22 (negative) History of abnormal pap smear: No Date of Mammogram: 08/14/23 Physical Exam Vital Signs: Last Vital Signs BP 114/60 04/12/24 09:07 BMI result Body Mass Index 21.4 Const General: healthy appearing, comfortable, no acute distress, well developed and alert Nutritional Appearance: average body habitus Orientation/consciousness: patient oriented x3 Limitations: no limitations HEENT Head: Yes normocephalic Neck Neck: Yes normal visual inspection Chest Other: Right breast is surgically absent left breast soft normal new masses palpated no rash or skin changes. No lymphadenopathy. Breast/axilla inspection: normal inspection of the axillae Breast/axilla palpation: normal palpation of the axillae Resp Effort & Inspection: normal respiratory effort GI Inspection: Yes normal to inspection, No Abdominal wall edema and No distended Palpation (GI): Soft to palpation and nontender Other: Atrophic changes vagina is moist cervix appears small atrophic mobile nontender adnexa nontender uterus nontender not enlarged fair tone with care General: Yes bladder normal to palpation External Female Exam: normal external appearance and normal appearance of the urethra Speculum Exam - Vagina: normal appearance of the vagina, normal palpation, normal vaginal discharge and vagina atrophic Speculum Exam - Cervix: normal appearance of the cervix, normal palpation and nontender Bimanual exam- vagina & uterus: normal bimanual exam, normal palpation, uterine size normal, bladder normal to palpation, consistency normal, normal palpation, uterine mobility normal, uterine shape normal, No Cervical tenderness present, non-tender and no cervical motion tenderness Bimanual Exam- Adnexa, other: normal adnexae, no masses, normal and No adnexal tenderness Neuro General: patient oriented x3 Results Reviewed Results Reviewed: Name: Sabrina Laureano Age/Sex: 61/F Attending: Jia Sharpe CNM : 1960 Submitted by: Jia Sharpe CNM Copies to: Miah Day MD MR #: [id number] Status: DEP REF Collected: 09/26/22 Location: [facility] Received: 09/26/22 Interpretation Satisfactory for evaluation. Negative for intraepithelial lesion or malignancy. Atrophic. HPV mRNA E6/E7: NOT DETECTED This assay detects E6/E7 viral messenger RNA (mRNA) from 14 high-risk HPV types (16, 18, 31, 33, 35, 39, 45, 51, 52, 56, 58, 59, 66, 68) HPV testing performed by [facility], [place], [place]. See reference laboratory portion of the EMR for entire report. Clinical Information LMP: Post menopause Previous PAP test: Unknown Material Received ThinPrep-Cervical Copies To Miah Day MD [address] [place] [address] [address] [place] [address] Jia Sharpe CNM [address] [place] [address] Dr[address] [place] [address] Electronically Signed By: Rafaela Blanc 10/01/22 1296 The Pap Test is a screening procedure with the inherent possibility of both false negative and false positive results. Results should be interpreted in the context of historic and current clinical findings. Reliability of the Pap Test is enhanced by performing the test on a regular repetitive basis. Patient: Sabrina Laureano Age/Sex: 61/F MR#: [id number] Page 1 of 1 Assessment & Plan Assessment & Plan (1) Grieving: Comment: grieving the loss of her ... Code(s): F43.21 - Adjustment disorder with depressed mood (2) Ductal carcinoma in situ of right breast: Code(s): D05.11 - Intraductal carcinoma in situ of right breast (3) Cervical cancer screening: Comment: 07/12 pap unsatisfactory- repeated 10/30/21= neg w neg hpv. Pap repeated as patient is being closely followed for any cancer metastases and says her oncologist requested full evaluation.... 09/26/2022 Pap is negative with negative HPV. Code(s): Z12.4 - Encounter for screening for malignant neoplasm of cervix (4) Women's annual routine gynecological examination: Code(s): Z01.419 - Encounter for gynecological examination (general) (routine) without abnormal findings Plan -----Discussed in this visit the following: healthy balanced diet, regular and consistent exercise, getting recommended health screens, doing the best she can for her particular health concerns, kegel exercises, pap smear screening and followup recommendations, mammography screening and SBE, normal changes in cycles in her life stage--- . No testing done ordered at this. Listen to the patient's life challenges and concerns and her amazing use and its did all that she is managing. She is managing multiple life and family and work challenges on several frontss and is doing it with natali and courage. Thankfully her right abdominal pain is most re better and is allowing her to eat. Coding Level of Care Code Est Pt Prev Care 40-64y(52688) Diagnoses Grieving F43.21 Ductal carcinoma in situ of right breast D05.11 Cervical cancer screening Z12.4 Women's annual routine gynecological examination Z01.419
== END 2023-10-04 09:44 | disposition home or self-care (01) ==
LOC: HO.HWSM 08:59
PROVIDERS: PCP Internal Medicine; Visit Provider Advanced Practice Midwife
DX: Z01.419 Encounter for gynecological examination (general) (routine) without abnormal findings (principal); D05.11 Intraductal carcinoma in situ of right breast; F43.21 Adjustment disorder with depressed mood
CPT/HCPCS: 99396

== ENCOUNTER → 2023-10-04 08:59 | Outpatient (BNVA) | payer OTHER, SELFPAY | PROVIDERS: PCP Internal Medicine; Visit Provider Advanced Practice Midwife ==

== ENCOUNTER 2023-10-08 12:50 | Outpatient (AMB) | payer OTHER, SELFPAY ==
--- NOTE | 2023-10-08 12:55 | MHC.PC.OV ---
Vital Signs 10/08/23 12:56 Height 5 ft 10 in Weight 149 lb BMI 21.4 BP 98/68 Blood Pressure Location Lt brachial Position Sitting Pulse 69 Pulse Source Pulse Oximeter Pulse Oximetry (%) 97 Oxygen Delivery Method Room Air Intake Visit Reasons: Annual PE/ month f/u Logistic Manager Required: No Accompanied by: Self / Same As Patient Allergies adhesive tape Allergy (Intermediate, Verified 10/04/23 09:09) BLISTERS bacitracin [From Neosporin] Allergy (Mild, Verified 10/04/23 09:09) RASH gramicidin D [From Neosporin] Allergy (Mild, Verified 10/04/23 09:09) RASH neomycin [From Neosporin] Allergy (Mild, Verified 10/04/23 09:09) RASH Penicillins Adverse Reaction (Mild, Verified 10/04/23 09:09) VOMITING Medication List - Last Reconciled 10/08/23 by Miah Day MD atorvastatin 20 mg PO DAILY coQ10 (ubiquinol) 200 mg PO DAILY esomeprazole magnesium 20 mg PO DAILY 90 days lamotrigine 25 mg PO DAILY mastectomy bra (bra, mastectomy) As directed simethicone 180 mg PO TID PRN sumatriptan succinate 50 mg PO DAILY PRN [id number]-capry 100 mg-150 mg- 50 mg-150 mg 1,000 PO DAILY Tobacco use date assessed: 10/08/23 Dental Screening Dental Screen Date: 10/08/23 Did you have a dental visit in the last 12 months?: No Did you have a dental problem in the last 6 months where you did not have access to dental care?: No HPI Annual PE/ month f/u HPI Details hyperlipidemia and migraines; breast cancer in remission; had her colonoscopu=ies and mammograms [facility] Medical History (Updated 10/08/23 @ 13:20 by Miah Day MD) Cervical cancer screening Physical exam Abdominal pain Flank pain Tick bite of back History of right breast cancer Hx of radiation therapy Migraines Arthritis Hyperlipidemia GERD (gastroesophageal reflux disease) Surgical History Hx of unilateral oophorectomy History of lumpectomy of right breast History of esophagogastroduodenoscopy (EGD) Hx of colonoscopy History of excision of lesion History of salpingo-oophorectomy History of cholecystectomy History of wisdom tooth extraction H/O right mastectomy Family History Father Diabetes Mother Osteoporosis Mental health disorder Paternal Aunt Colon cancer Other Family history of breast cancer Family history of gastric cancer Family history of pancreatic cancer Family history of prostate cancer Social History Housing: House Are you a primary health care manager to a significant other at home: No Do you presently have visiting nurse or other home services: No Alcohol intake: current Alcohol intake frequency: holidays/special occasions only Patient Tobacco Use Status: Never used Tobacco e-Cigarette/Vaping Use: Never Used Second Hand Smoke Exposure: No service: No Current occupational status: employed Cognitive needs: No Hearing needs: No Vision needs: Yes (glasses) Female Reproductive History Menstrual Age of Menarche: 13 Questionnaire PHQ-9 Over the last 2 weeks, how often have you been bothered by any of the following problems? 1. Little interest or pleasure in doing things: not at all 2. Feeling down, depressed, or hopeless: not at all 3. Trouble falling or staying asleep, or sleeping too much: not at all 4. Feeling tired or having little energy: not at all 5. Poor appetite or overeating: not at all 6. Feeling bad about yourself - or that you are a failure or have let yourself or your family down: not at all 7. Trouble concentrating on things, such as reading the newspaper or watching television: not at all 8. Moving or speaking so slowly that other people could have noticed. Or the opposite - being so fidgety or restless that you have been moving around a lot more than usual: not at all 9. Thoughts that you would be better off or of hurting yourself in some way: not at all Total score: 0 Depression Screening Interpretation: Negative Depression Screening Done: Yes 15643 - PHQ-9 Billing: Yes Source: Developed by Drs. Kenneth Martínez, Lisseth Oates, Gurwinder Ross and colleagues, with an educational norma from [facility]. Thrive Questionnaire Date Thrive assessed: 10/08/23 I am a: Patient What is your living situation today?: I have a steady place to live Within the past 12 months, did the food you bought not last and you didn't have the money to get more?: Never true Within the past 12 months, did you worry whether your food would run out before you got money to buy more?: Never true Do you have trouble paying for medicines?: No Do you have trouble getting transportation to medical appointments?: No Do you have trouble paying your heating and electricity bill?: No Do you have trouble taking care of your child, family member or friend?: No Do you have trouble with day-to-day activities such as bathing, preparing meals, shopping, managing finances, etc.?: No Are you currently unemployed and looking for a job?: No Are you interested in more education?: No Please select the resources that you would like help with: None Currently or been in a relationship where the following occur: no concerns reported THRIVE Score: 0 AUDIT C Alcohol Use Questionnaire (AUDIT-C) 1. How often do you have a drink containing alcohol?: Monthly or less 2. How many drinks containing alcohol do you have on a typical day when you are drinking?: 1 or 2 3. How often do you have six or more drinks on one occasion?: Never Total Score: 1 Score Reviewed/Action Taken: Yes CRISTINA-7 AMB Questionnaire CRISTINA-7 Date CRISTINA - 7 assessed: 10/08/23 Feeling nervous, anxious, or on edge: 0 = Not at all Not being able to stop or control worryin = Several days Worrying too much about different things: 0 = Not at all Trouble relaxin = Not at all Being so restless that it is hard to sit still: 0 = Not at all Becoming easily annoyed or irritable: 0 = Not at all Feeling afraid as if something awful might happen: 0 = Not at all Total CRISTINA-7 score (0-4 normal; 5-9 mild; 10-14 moderate; 15-21 severe): 1 Source: Developed by Drs. Kenneth Martínez, Lisseth Oates, Gurwinder Ross and colleagues, with an educational norma from [employer] CRISTINA-7 Assessment Billing CRISTINA-7 Assessment Tool: CRISTINA-7 Assessment 38464 Review of Systems Const Denies chills, Denies fatigue, Denies headache(s) and Denies weight loss Eyes Denies change in vision, Denies diplopia and Denies eye pain ENT Denies vertigo, Denies dizziness, Denies headache(s) and Denies nasal discharge Card Denies chest pain, Denies rapid heart rate and Denies dyspnea on exertion Resp Denies chest congestion, Denies cough, Denies pain with cough and Denies dyspnea on exertion GI Denies abdominal pain, Denies hematochezia and Denies change in bowel habits Musc Denies myalgias, Denies arthralgias and Denies joint swelling Skin/Breast Denies lesions and Denies unusual bruising Neuro Denies vertigo, Denies dizziness, Denies headache(s) and Denies focal weakness Endo Denies fatigue Physical exam (Primary Care) Vital Signs: Last Vital Signs Pulse 69 10/08/23 12:56 BP 98/68 10/08/23 12:56 Pulse Ox 97 10/08/23 12:56 Oxygen Delivery Method Room Air 10/08/23 12:56 BMI result Body Mass Index 21.4 Tobacco/Smoking Status: Tobacco use Status Tobacco use date assessed 10/08/23 10/08/23 13:00 Patient Tobacco Use Status Never used Tobacco 10/08/23 13:00 e-Cigarette/Vaping Use Never Used 10/08/23 13:00 PHQ-9: PHQ-9 Score PHQ-9: Total score 0 10/08/23 13:00 Depression Screening Interpretation: Negative Thrive Assessment: Date of Thrive Assessment Date Thrive assessed 10/08/23 10/08/23 13:00 Currently or been in a relationship where the following occur: no concerns reported Advance Care Planning discussion: Declined forms Const General: cooperative, healthy appearing and no acute distress Orientation/consciousness: oriented to person, oriented to place and oriented to time [facility] Head: Yes normal to inspection, Yes normocephalic and Yes atraumatic Mouth: Normal oral and palatal mucosa present and tongue normal Throat: Yes posterior oropharynx normal and Yes uvula midline Eyes General: appearance normal, both eyes and all related structures Neck Neck: Yes normal visual inspection, Yes full ROM and Yes no lymphadenopathy Thyroid: Thyroid normal Carotids: normal carotid upstroke Chest Chest palpation & inspection: normal inspection of the chest Resp Effort & Inspection: normal respiratory effort and able to speak in complete sentences Auscultation: clear to auscultation bilaterally Cardio Jugular venous distension: no JVD Palpation: normal PMI Rate: regular rate Rhythm: regular rhythm Heart sounds: S1 normal heart sound present and S2 normal heart sound present GI Inspection: Yes normal to inspection Palpation (GI): Soft to palpation and No hepatosplenomegaly present Auscultation: normal bowel sounds General: Yes no CVA tenderness Back/Spine/Pelvis Back: no CVA tenderness Skin General skin exam: no rashes or lesions noted Neuro General: oriented to person, oriented to place and oriented to time Extrem General: Yes normal to inspection and Yes full ROM Assessment and Plan Assessment & Plan (1) Hyperlipidemia: Code(s): E78.5 - Hyperlipidemia, unspecified Plan: stable; same rx (2) Migraine headache without aura: Code(s): G43.009 - Migraine without aura, not intractable, without status migrainosus Plan: stable; same rx (3) Physical exam: Code(s): Z00.00 - Encounter for general adult medical examination without abnormal findings Plan: do labs Orders: Orders Lipid Panel Today Z13.220 - Encounter for screening for lipoid disorders Thyroid Stimulating Hormone Today Z13.29 - Encounter for screening for other suspected endocrine disorder Complete Blood Count Auto Diff Today Z13.0 - Encounter for screening for diseases of the blood and blood-forming organs and certain disorders involving the immune mechanism Comprehensive [place]. Panel Fast Today Z13.9 - Encounter for screening, unspecified Coding Level of Care Code New Pt Prev Care 40-64y(79911) Diagnoses Hyperlipidemia E78.5 Migraine headache without aura G43.009 Physical exam Z00.00 Additional Codes CRISTINA-7 Assessment Billing - CRISTINA-7 Assessment Tool: CRISTINA-7 Assessment 77996 ([id number]) Vital Signs *Quality* - Advance Care Planning discussion: Declined forms ([id number])
[2023-10-08 12:56] VITALS: BP 98/68; PULSE 69; O2SAT 97; BMI 21.4
== END 2023-10-08 13:51 | disposition home or self-care (01) ==
PROVIDERS: PCP Internal Medicine; Visit Provider Internal Medicine
DX: Z00.00 Encounter for general adult medical examination without abnormal findings (principal); E78.5 Hyperlipidemia, unspecified; G43.009 Migraine without aura, not intractable, without status migrainosus
CPT/HCPCS: 1124F; 99396

== ENCOUNTER 2023-10-10 10:55 | Outpatient (AMB) | payer OTHER, SELFPAY ==
--- NOTE | 2023-10-10 11:04 | A.OFFVIS_ITS ---
Vital Signs 10/10/23 11:32 Height 5 ft 10 in Weight 140 lb BMI 20.1 Handedness Right Intake Visit Reasons: N/P left arm pain /fell in Nov Intake Note: Sabrina is a 62 year old 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 female ,DOI 04/2023. [employer] sent a package and when she got up to pick the package up and she turned and then she feel on her left arm. Pain is on the bicep and it radiates up to her shoulder and down to her elbow. Patient finds relief with taking tylenol. Allergies adhesive tape Allergy (Intermediate, Verified 10/04/23 09:09) BLISTERS bacitracin [From Neosporin] Allergy (Mild, Verified 10/04/23 09:09) RASH gramicidin D [From Neosporin] Allergy (Mild, Verified 10/04/23 09:09) RASH neomycin [From Neosporin] Allergy (Mild, Verified 10/04/23 09:09) RASH Penicillins Adverse Reaction (Mild, Verified 10/04/23 09:09) VOMITING HPI HPI N/P left arm pain /fell in Nov: Details: 62-year-old 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 female who presents in the office today for an evaluation of left shoulder pain. Patient reports receiving a [employer] package with cat litter in it that caused her to lose her balance which led to her fall backwards. The injury occurred in 04/2023. Confirms the pain has been increasing with time. She finds relief with Tylenol. She reports her pain is in the bicep and radiates up to her shoulder and down to her elbow. [facility] Medical History (Updated 10/10/23 @ 12:07 by Drea Pedro PA-C) Cervical cancer screening Physical exam Abdominal pain Flank pain Tick bite of back History of right breast cancer Hx of radiation therapy Migraines Arthritis Hyperlipidemia GERD (gastroesophageal reflux disease) Surgical History Hx of unilateral oophorectomy History of lumpectomy of right breast History of esophagogastroduodenoscopy (EGD) Hx of colonoscopy History of excision of lesion History of salpingo-oophorectomy History of cholecystectomy History of wisdom tooth extraction H/O right mastectomy Family History Father Diabetes Mother Osteoporosis Mental health disorder Paternal Aunt Colon cancer Other Family history of breast cancer Family history of gastric cancer Family history of pancreatic cancer Family history of prostate cancer Social History Housing: House Are you a primary child care centre director to a significant other at home: No Do you presently have visiting nurse or other home services: No Alcohol intake: current Alcohol intake frequency: holidays/special occasions only Patient Tobacco Use Status: Never used Tobacco e-Cigarette/Vaping Use: Never Used Second Hand Smoke Exposure: No service: No Current occupational status: employed Cognitive needs: No Hearing needs: No Vision needs: Yes (glasses) Female Reproductive History Menstrual Age of Menarche: 13 Review of Systems Const All systems reviewed & are unremarkable except as noted in HPI and below Physical Exam Vital Signs: BMI result Body Mass Index 20.1 Const General: cooperative and no acute distress Orientation/consciousness: patient oriented x3 Resp Effort & Inspection: normal respiratory effort and able to speak in complete sentences Cardio Peripheral pulses: Peripheral pulses 2+ throughout Skin General skin exam: no rashes or lesions noted Neuro General: patient oriented x3 Extrem Other: Left shoulder: Normal to inspection. NO ecchymosis, erythema, or edema. Full ROM in all planes with pain at end ranges. No pain with cross-body reach. Pain at the impingement arc. Negative drop arm. 4/5 strength with empty can with pain. Tenderness to palpation over the spine of the scapula. NVI. Assessment & Plan Assessment & Plan (1) Myofascial pain: Code(s): M79.18 - Myalgia, other site Category: Medical (2) Painful arc syndrome of left shoulder: Code(s): M75.102 - Unspecified rotator cuff tear or rupture of left shoulder, not specified as traumatic Category: Medical Plan Ms. Laureano is a 62-year-old 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 female who presents in the office today for an evaluation of left shoulder pain. Patient reports receiving a [employer] package with cat litter in it that caused her to lose her balance which led to her fall backwards. The injury occurred in 04/2023. Confirms the pain has been increasing with time. She finds relief with Tylenol. She reports her pain is in the bicep and radiates up to her shoulder and down to her elbow. Patient will be referred to PT to work on ROM and strengthening. Should this not give the patient relief we would consider a referral to Physiatry. My business card was supplied to the patient while in the office today. Follow-up will be in 6 weeks via a telehealth visit, or sooner if needed. X-rays of the left shoulder which were obtained while in the office today and were reviewed by me, Drea Pedro PA-C, revealed no acute fracture or dislocation. Orders: Orders XR elbow LT min 3V Today M25.529 - Pain in unspecified elbow XR shoulder LT min 2V Today M25.519 - Pain in unspecified shoulder PT Evaluation and Treatment Today M75.102 - Unspecified rotator cuff tear or rupture of left shoulder, not specified as traumatic, M79.18 - Myalgia, other site Patient Instructions: Scribed by Alicia Sanz, medical referral coordinator, for Drea Pedro PA-C on 10/10/2023 at 11:32 am, EST.
[2023-10-10 11:32] VITALS: BMI 20.1
== END 2023-10-10 11:57 | disposition home or self-care (01) ==
LOC: HO.HOS 10:55
PROVIDERS: PCP Internal Medicine; Visit Provider Physician Assistant
DX: M75.102 Unspecified rotator cuff tear or rupture of left shoulder, not specified as traumatic (principal); M79.18 Myalgia, other site
CPT/HCPCS: 99203

== ENCOUNTER 2023-10-10 10:55 | Outpatient (REF) | payer OTHER, SELFPAY ==
--- NOTE | ~2023-10-10 | XR_ITS ---
EXAMINATION: XR ELBOW, LEFT CLINICAL INFORMATION: Pain. COMPARISON: None available. TECHNIQUE: AP, lateral, and oblique views of the left elbow. FINDINGS: The bones and soft tissues are normal. No fracture or joint effusion. Alignment is anatomic. Joint spaces are maintained. XR/XR elbow LT min 3V IMPRESSION: Normal left elbow.
--- NOTE | ~2023-10-10 | XR_ITS ---
EXAMINATION: XR SHOULDER, LEFT CLINICAL INFORMATION: Pain. COMPARISON: None available. TECHNIQUE: AP neutral, Grashey and axillary views of the left shoulder are submitted. FINDINGS: Bony alignment and mineralization are normal. The glenohumeral joint is intact. The acromioclavicular and coracoclavicular intervals are normal. There is mild osteoarthritic change of the acromioclavicular joint. No fracture or dislocation is seen. There is no abnormal soft tissue calcification or foreign body. No left pneumothorax is seen. XR/XR shoulder LT min 2V IMPRESSION: 1. No fracture or dislocation is seen. 2. There is mild osteoarthritic change of the left acromioclavicular joint.
== END 2023-10-10 10:56 | disposition home or self-care (01) ==
LOC: HO.HOSX 10:55
PROVIDERS: PCP Internal Medicine; Visit Provider Physician Assistant
DX: M75.102 Unspecified rotator cuff tear or rupture of left shoulder, not specified as traumatic (principal); M25.522 Pain in left elbow
CPT/HCPCS: 73030; 73080

== ENCOUNTER 2023-10-31 08:06 | Outpatient (REF) | payer OTHER, SELFPAY ==
[2023-10-31 08:17] LABS: MANUAL DIFF FLAG NO
[2023-10-31 08:41] LABS: Basophils Absolute Auto 0.1 X10*3/uL (0.0-0.2); Basophils Percent Auto 1.2 % (0-2); Eosinophils Absolute Auto 0.2 X10*3/uL (0.0-0.4); Eosinophils Percent Auto 2.6 % (0-4); Hematocrit 39.2 % (37.0-47.0); Hemoglobin 12.8 g/dl (12.0-16.0); Imm Gran Abs Auto 0.01 X10*3/uL (0.00-0.03); Imm Gran Pct Auto 0.2 % (0.0-0.4); Lymphocytes Absolute Auto 1.5 X10*3/uL (1.2-4.9); Mean Corpuscular HGB Conc 32.7 g/dl (31.0-35.0); Mean Corpuscular Volume 88.9 fL (80.0-98.0); Mean Platelet Volume 9.5 fL (9.4-12.3); Monocytes Absolute Auto 0.5 X10*3/uL (0.1-1.2); Monocytes Percent Auto 7.8 % (2-11); Neutrophils Absolute Auto 3.6 x10*3/uL (2.0-8.3); Neutrophils Percent Auto 62.2 % (45-73); Platelet Count 300 X10*3/uL (160-400); Red Blood Count 4.41 X10*6/uL (4.20-5.50); Red Cell Distribution Width 12.6 % (11.0-16.0); White Blood Count 5.8 X10*3/uL (4.8-10.8)
[2023-10-31 09:13] LABS: Alanine Aminotransferase 25 U/L (0-31); Albumin Level 4.4 g/dL (3.5-5.0); Alkaline Phosphatase 58 U/L (39-117); Anion Gap 14 (12-20); Aspartate Amino Transferase 25 U/L (5-31); Bilirubin Total 0.6 mg/dL (0.0-1.0); Blood Urea Nitrogen 15 mg/dL (9-16); Calcium 10.3 mg/dL (8.4-10.2); Carbon Dioxide 26 mmol/L (22-29); Chloride 106 mmol/L (96-108); Cholesterol 201 mg/dL (<200); Estimated Glomerular Filt Rate > 60; Glucose Fasting 99 mg/dL (60-99); HDL Cholesterol 84 mg/dL (>40); LDL Cholesterol Calculated 106 mg/dL (<100); Potassium 4.1 mmol/L (3.3-5.1); Sodium 142 mmol/L (135-145); Total Protein 7.3 g/dL (6.5-8.0); Triglycerides 56 mg/dL (<150)
[2023-10-31 09:29] LABS: Thyroid Stimulating Hormone 0.83 uIU/mL (0.32-4.0)
== END 2023-10-31 08:07 | disposition home or self-care (01) ==
LOC: HO.LAB 08:06
PROVIDERS: PCP Internal Medicine; Visit Provider Internal Medicine
DX: Z13.9 Encounter for screening, unspecified (principal); E78.5 Hyperlipidemia, unspecified; E03.9 Hypothyroidism, unspecified; D64.9 Anemia, unspecified
CPT/HCPCS: 36415; 80053; 80061; 84443; 85025

== ENCOUNTER 2023-11-26 13:49 | Outpatient (AMB) | payer OTHER, SELFPAY ==
--- NOTE | 2023-11-26 13:49 | MHC.OFFVIS ---
Intake Visit Reasons: TEL-left arm pain /fell in Nov-follow up Intake Note: Sabrina is a 63 year old 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 female who is on the phone for a telephone visit for her left shoulder pain. patient reports that her pain has been going up her neck and down her left arm. She states that her pain has gotten a little better with PT. Allergies adhesive tape Allergy (Intermediate, Verified 10/04/23 09:09) BLISTERS bacitracin [From Neosporin] Allergy (Mild, Verified 10/04/23 09:09) RASH gramicidin D [From Neosporin] Allergy (Mild, Verified 10/04/23 09:09) RASH neomycin [From Neosporin] Allergy (Mild, Verified 10/04/23 09:09) RASH Penicillins Adverse Reaction (Mild, Verified 10/04/23 09:09) VOMITING HPI HPI TEL-left arm pain /fell in Nov-follow up: Details: 63-year-old 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 female who presents via telehealth for a follow-up of left arm pain. I last saw the patient in the office on 10/10/2023 when she was referred to PT to work on ROM and strengthening. We discussed a possible referral to Physiatry should PT not give her relief. While in the office today the patient reports she has been attending physical therapy and was making good progress until last week. She reports an increase in pain. She describes the pain as radiating from her right shoulder to her left shoulder. This includes pain extending to her neck and down to the left elbow. [facility] Medical History (Updated 10/10/23 @ 12:07 by Drea Pedro PA-C) Cervical cancer screening Physical exam Abdominal pain Flank pain Tick bite of back History of right breast cancer Hx of radiation therapy Migraines Arthritis Hyperlipidemia GERD (gastroesophageal reflux disease) Surgical History Hx of unilateral oophorectomy History of lumpectomy of right breast History of esophagogastroduodenoscopy (EGD) Hx of colonoscopy History of excision of lesion History of salpingo-oophorectomy History of cholecystectomy History of wisdom tooth extraction H/O right mastectomy Family History Father Diabetes Mother Osteoporosis Mental health disorder Paternal Aunt Colon cancer Other Family history of breast cancer Family history of gastric cancer Family history of pancreatic cancer Family history of prostate cancer Social History Housing: House Are you a primary acute care clinical nurse specialist to a significant other at home: No Do you presently have visiting nurse or other home services: No Alcohol intake: current Alcohol intake frequency: holidays/special occasions only Patient Tobacco Use Status: Never used Tobacco e-Cigarette/Vaping Use: Never Used Second Hand Smoke Exposure: No service: No Current occupational status: employed Cognitive needs: No Hearing needs: No Vision needs: Yes (glasses) Female Reproductive History Menstrual Age of Menarche: 13 Review of Systems Const All systems reviewed & are unremarkable except as noted in HPI and below Physical Exam Extrem Other: Deferred due to being a telehealth appointment. Telehealth Telehealth Telehealth Platform: Telephone Location of provider rendering services: practice address Location of patient: address on file Patient Identification confirmed using: Name, : Yes Telehealth method: voice only Patient verbally consented to treatment: Yes Patient verbally consented to billing insurance company: Yes Patient informed of any privacy concerns related to visit: Yes Minutes spent on Phone/Video with Pt.: 5 Assessment & Plan Assessment & Plan (1) Myofascial pain: Code(s): M79.18 - Myalgia, other site Category: Medical Plan Ms. Laureano is a 63-year-old 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 female who presents via telehealth for a follow-up of left arm pain. I last saw the patient in the office on 10/10/2023 when she was referred to PT to work on ROM and strengthening. We discussed a possible referral to Physiatry should PT not give her relief. While in the office today the patient reports she has been attending physical therapy and was making good progress until last week. She reports an increase in pain. She describes the pain as radiating from her right shoulder to her left shoulder. This includes pain extending to her neck and down to the left elbow. The patient will be referred to Physiatry for further evaluation and treatment of the spine. Follow-up will be PRN, or sooner if needed. Patient Instructions: Scribed by archana Moraes scribe, for Drea Pedro PA-C on 11/26/2023 at 2:00 pm, EST. Coding Level of Care Code Tele Est Pt Level 3 (00972) Diagnoses Myofascial pain M79.18
== END 2023-11-26 13:53 | disposition home or self-care (01) ==
LOC: HO.HOS 13:49
PROVIDERS: PCP Internal Medicine; Visit Provider Physician Assistant
DX: M79.18 Myalgia, other site (principal)
CPT/HCPCS: 99213

== ENCOUNTER → 2023-11-26 13:49 | Outpatient (BNVA) | payer OTHER, SELFPAY | PROVIDERS: PCP Internal Medicine; Visit Provider Physician Assistant ==

== ENCOUNTER 2023-12-10 09:09 | Outpatient (AMB) | payer OTHER, SELFPAY ==
--- NOTE | 2023-12-10 09:33 | A.OFFVIS_ITS ---
Vital Signs 12/10/23 09:42 Height 5 ft 10 in Weight 140 lb BMI 20.1 Intake Visit Reasons: New Pt - left shoulder/neck pain Intake Note: Sabrina is a 63 year old 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 female who presents today as a new patient for evaluation of left shoulder pain and neck pain s/p fall. Patient reports having a fall in April that has been increasing since . She was seen by Drea who referred patient PT. She continues to have limited ROM, stating unable to reach behind herself or lift her arm up with out having pain. Her pain is located in her shoulder and will radiate into her neck and down her arm to her small finger and ring finger. Occasional numbness and tingling. Finds very little to no relief with Tylenol. Allergies adhesive tape Allergy (Intermediate, Verified 12/10/23 09:42) BLISTERS bacitracin [From Neosporin] Allergy (Mild, Verified 12/10/23 09:42) RASH gramicidin D [From Neosporin] Allergy (Mild, Verified 12/10/23 09:42) RASH neomycin [From Neosporin] Allergy (Mild, Verified 12/10/23 09:42) RASH Penicillins Adverse Reaction (Mild, Verified 12/10/23 09:42) VOMITING Medication List - Last Reconciled 12/10/23 by Bernie Lakhani MD atorvastatin 20 mg PO DAILY coQ10 (ubiquinol) 200 mg PO DAILY esomeprazole magnesium 20 mg PO DAILY 90 days lamotrigine 25 mg PO DAILY mastectomy bra (bra, mastectomy) As directed simethicone 180 mg PO TID PRN sumatriptan succinate 50 mg PO DAILY PRN ojtfhzgy-agqn-kwsoh-oreg-capry 100 mg-150 mg- 50 mg-150 mg 1,000 PO DAILY HPI Comments Details: Points to latera trapezius, left, going down to elbow. Sometimes left 4th and 5th digits get tingling. Limited left shoulder abduction and internal rotation, when she reaches up the pain is on left upper arm. When she looks up, it feels more on trapezius area. Started April, fell backwards. Was able to get up right away and didn't seek urgent care, didn't have xrays at that time. History of breast cancer, on remission. History of scoliosis. History of CTS, seen on EMGs years ago. No surgery yet. Follows with Dr. Rice for migraine and seizure management. Treatment done so far: tylenol therapy - currently in PT, doing tens PFSH Medical History (Updated 12/10/23 @ 10:04 by Bernie Lakhani MD) Cervical cancer screening Physical exam Abdominal pain Flank pain Tick bite of back History of right breast cancer Hx of radiation therapy Migraines Arthritis Hyperlipidemia GERD (gastroesophageal reflux disease) Surgical History Hx of unilateral oophorectomy History of lumpectomy of right breast History of esophagogastroduodenoscopy (EGD) Hx of colonoscopy History of excision of lesion History of salpingo-oophorectomy History of cholecystectomy History of wisdom tooth extraction H/O right mastectomy Family History Father Diabetes Mother Osteoporosis Mental health disorder Paternal Aunt Colon cancer Other Family history of breast cancer Family history of gastric cancer Family history of pancreatic cancer Family history of prostate cancer Social History (Updated 12/10/23 @ 09:34 by ARNULFO Arias) Housing: House Are you a primary manager critical care unit to a significant other at home: No Do you presently have visiting nurse or other home services: No Alcohol intake: current Alcohol intake frequency: holidays/special occasions only Patient Tobacco Use Status: Never used Tobacco e-Cigarette/Vaping Use: Never Used Second Hand Smoke Exposure: No service: No Current occupational status: employed 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 Patient was appropriately conversant and oriented. Good historian. MSK: Inspection reveals appropriate head and neck positioning. Tender/trigger point on left upper trapezius. Tender between C5 and C6 spinous processes. Cervical ROM was full. Spurling's sign negative. Left scapular flatter than right? Bilateral shoulder, elbow and wrist ROM WNL. No ligamentous laxity or crepitance. No increased effusion. Negative Albarado sign. Negative speed's test. Negative empty can sign. Positive Tinel sign on left elbow. Positive carpal compression. Strength is 5/5 in all muscle groups tested. No increased tone noted. Neurological: Neurologic examination of the upper and lower extremities was nonfocal with intact sensation, muscle stretch reflexes and without focal motor deficits . Loredo?s negative bilaterally. Babinski was down going bilaterally. Clonus was negative. Gait is non-antalgic without loss of balance. Results Reviewed Results Reviewed: I independently reviewed the results of the following: Shoulder x-ray showed preserved glenohumeral joint space. 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 We will do some investigations. Cervical x-ray today to evaluate C5-6 disc space or foramen. We will schedule for EMG to rule out ulnar neuropathy versus radiculopathy. Continue PT for now. Considering trigger point injections. Considering further imaging with MRI depending on x-ray results. Assessment and plan discussed with patient, and patient was agreeable. All questions were answered thoroughly. Bernie Lakhani MD, ALEJANDRO Board Certified, [place] [employer] and [employer] (ABPMR) Board Certified, [place] Board [employer] Electro[employer] (ABEM) Orders: Orders XR cervical spine 3V Today G56.20 - Lesion of ulnar nerve, unspecified upper limb, M54.12 - Radiculopathy, cervical region, M54.2 - Cervicalgia, M79.18 - Myalgia, other site NE electromyogram (EMG) Today G56.20 - Lesion of ulnar nerve, unspecified upper limb, M54.12 - Radiculopathy, cervical region, M79.18 - Myalgia, other site NE nerve conduction velocity Today G56.20 - Lesion of ulnar nerve, unspecified upper limb, M54.12 - Radiculopathy, cervical region, M79.18 - Myalgia, other site Coding Level of Care Code New Pt Level 4 (22282) Diagnoses Myofascial pain M79.18 Ulnar neuropathy at elbow of left upper extremity G56.22 Laterality: left Cervical radiculitis M54.12
[2023-12-10 09:42] VITALS: BMI 20.1
== END 2023-12-10 12:37 | disposition home or self-care (01) ==
PROVIDERS: PCP Internal Medicine; Visit Provider Physical Medicine & Rehabilitation
DX: G56.22 Lesion of ulnar nerve, left upper limb (principal); M79.18 Myalgia, other site
CPT/HCPCS: 99204

== ENCOUNTER 2023-12-10 09:09 | Outpatient (REF) | payer OTHER, SELFPAY ==
--- NOTE | ~2023-12-10 | XR_ITS ---
EXAMINATION: XR CERVICAL SPINE CLINICAL INFORMATION: Neck pain, evaluate C5-C6 and C6-C7 foramen for disc space narrowing. COMPARISON: None available. TECHNIQUE: 5 views of the cervical spine. FINDINGS: Mild retrolisthesis of C5 on C6. Moderate multilevel cervical spondylosis with loss of disc space height at C5-C6 and C6-C7. Mild anterolisthesis of C7 on T1. XR/XR cervical spine 3V IMPRESSION: Moderate multilevel cervical spondylosis most notable at C5-C6 and C6-C7.
== END 2023-12-10 09:10 | disposition home or self-care (01) ==
LOC: HO.HOSX 09:09
PROVIDERS: PCP Internal Medicine; Visit Provider Physical Medicine & Rehabilitation
DX: M79.18 Myalgia, other site (principal); G56.22 Lesion of ulnar nerve, left upper limb
CPT/HCPCS: 72040

== ENCOUNTER 2023-12-13 10:13 | Outpatient (REF) | payer OTHER, SELFPAY ==
--- NOTE | 2023-12-13 10:15 | EMG_ITS ---
Chief complaint: Left-sided neck pain, numbness on 4th and 5th digits Reason for referral: Evaluate for ulnar neuropathy versus cervical radiculopathy Procedure done: Left upper extremity NCS/EMG Precautions and/or limitations: None The limb temperature was monitored continuously and remained between 32-36 degrees C during the performance of the NCS. Ulnar motor NCS was performed with moderate elbow flexion between 70-90 degrees, with across-elbow distance of 10 cm. Nerve Conduction Studies Anti Sensory Summary Table ?Stim Site NR Onset (ms) Norm Onset (ms) Peak (ms) Norm Peak (ms) O-P Amp (?V) Norm O-P Amp Site1 Site2 Delta-0 (ms) Dist (cm) Tyler (m/s) Norm Tyler (m/s) Left Median Anti Sensory (2nd Digit) Wrist ? 2.3 3.1 <3.6 61.5 >10 Wrist 2nd Digit 2.3 14.0 61 Left Radial Anti Sensory (Thumb) Forearm ? 1.7 2.2 <3.1 36.8 Forearm Thumb 1.7 0.0 Left Ulnar Anti Sensory (5th Digit) Wrist ? 2.4 3.2 <3.7 55.3 >15.0 Wrist 5th Digit 2.4 14.0 58 Motor Summary Table ?Stim Site NR Onset (ms) Norm Onset (ms) O-P Amp (mV) Norm O-P Amp iAmp (mV) Amp (1st) (%) Site1 Site2 Delta-0 (ms) Dist (cm) Tyler (m/s) Norm Tyler (m/s) Left Median Motor (Abd Poll Brev) Wrist ? 2.7 <3.9 8.6 >4.5 10.4 100.0 Elbow Wrist 4.3 20.0 47 >45 Elbow ? 7.0 7.8 9.5 90.7 Left Ulnar Motor (Abd Dig Minimi) Wrist ? 2.9 <3.0 7.2 >5 8.5 100.0 B Elbow Wrist 3.0 18.0 60 >45 B Elbow ? 5.9 6.7 8.3 93.1 A Elbow B Elbow 1.6 10.0 63 >45 A Elbow ? 7.5 6.6 8.2 91.7 EMG ?Side Muscle Nerve Root Ins Act Fibs Psw Amp Dur Poly Recrt Int Pat Comment Left 1stDorInt Ulnar C8-T1 Nml Nml Nml Nml Nml 0 Nml Complete Left FlexCarRad Median C6-7 Nml Nml Nml Nml Nml 0 Nml Complete Left Biceps Musculocut C5-6 Nml Nml Nml Nml Nml 0 Nml Complete Left Triceps Radial C6-7-8 Incr 1+ 1+ Nml Nml 0 Nml Complete Left Deltoid Axillary C5-6 Incr 1+ 1+ Nml Nml 0 Nml Complete Paraspinal EMG ?Side Muscle Nerve Root Ins Act Fibs Psw Comment Left Cervical Upper Rami Nml Nml Nml Left Cervical Mid Rami Nml Nml Nml Left Cervical Lower Rami Nml Nml Nml FINDINGS: All motor and sensory nerves tested showed normal latencies, amplitudes and conduction velocities. Concentric needle EMG was performed in selected muscles of the left upper extremity and cervical paraspinals. Study did not reveal signs of electric abnormalities as shown in the table above. Left deltoids and triceps showed increased insertional activity, PSWs and fibrillations. IMPRESSION: 1. This is an abnormal study. 2. There is electrodiagnostic findings suggestive of left C6/7 cervical radiculopathy. 3. There is no electrodiagnostic evidence for median neuropathy, ulnar neuropathy, or brachial plexopathy. CLINICAL COMMENT: Patient had undergone adequate conservative management without improvement of condition. Today's NCS/EMG suggestive of cervical radiculopathy. It would be reasonable to obtain further imaging such as MRI. An MRI would help rule out any serious condition, guide treatment and assess prognosis for recovery. Specifically ruling out left C6/7 disc herniation and nerve root compression. Thank you for your kind referral. Bernie Lakhani MD, ALEJANDRO Board Certified, [place] Board of Physical Medicine and Rehabilitation (ABPMR) Board Certified, [place] Board of Electrodiagnostic Medicine (ABEM) [place] [id number] [facility]
== END 2023-12-13 10:14 | disposition home or self-care (01) ==
LOC: HO.NEURO 10:13
PROVIDERS: PCP Internal Medicine; Visit Provider Physical Medicine & Rehabilitation
DX: M54.12 Radiculopathy, cervical region (principal); M79.18 Myalgia, other site
CPT/HCPCS: 95886; 95909

== ENCOUNTER → 2023-12-13 10:15 | Outpatient (BNV) | payer OTHER, SELFPAY | PROVIDERS: PCP Internal Medicine; Visit Provider Physical Medicine & Rehabilitation | DX: M54.12 Radiculopathy, cervical region (principal) | CPT/HCPCS: 95886; 95909 ==

== ENCOUNTER 2024-01-07 11:24 | Outpatient (AMB) | payer OTHER, SELFPAY ==
[2024-01-07 11:36] VITALS: BP 120/70; PULSE 86; O2SAT 99; BMI 21.1
--- NOTE | 2024-01-07 11:36 | MHC.PC.OV ---
Vital Signs 01/07/24 11:36 Height 5 ft 10 in Weight 147 lb BMI 21.1 BP 120/70 Blood Pressure Location Lt brachial Position Sitting Pulse 86 Pulse Source Pulse Oximeter Pulse Oximetry (%) 99 Oxygen Delivery Method Room Air Intake Visit Reasons: 3mth f/u Sleeve Wheel Maker Required: No Accompanied by: Self / Same As Patient Allergies adhesive tape Allergy (Intermediate, Verified 01/07/24 11:37) BLISTERS bacitracin [From Neosporin] Allergy (Mild, Verified 01/07/24 11:37) RASH gramicidin D [From Neosporin] Allergy (Mild, Verified 01/07/24 11:37) RASH neomycin [From Neosporin] Allergy (Mild, Verified 01/07/24 11:37) RASH Penicillins Adverse Reaction (Mild, Verified 01/07/24 11:37) VOMITING Medication List - Last Reconciled 01/07/24 by Miah Day MD atorvastatin 20 mg PO DAILY coQ10 (ubiquinol) 200 mg PO DAILY esomeprazole magnesium 20 mg PO DAILY 90 days lamotrigine 25 mg PO DAILY mastectomy bra (bra, mastectomy) As directed simethicone 180 mg PO TID PRN sumatriptan succinate 50 mg PO DAILY PRN [id number]-mbph-cqcbi-oreg-capry 100 mg-150 mg- 50 mg-150 mg 1,000 PO DAILY Tobacco use date assessed: 10/08/23 Dental Screening Dental Screen Date: 10/08/23 HPI 3mth f/u HPI Details hyperlipidemia on rx; doing well and compliant [facility] Medical History (Updated 12/13/23 @ 10:39 by Bernie Lakhani MD) Cervical cancer screening Physical exam Abdominal pain Flank pain Tick bite of back History of right breast cancer Hx of radiation therapy Migraines Arthritis Hyperlipidemia GERD (gastroesophageal reflux disease) Surgical History Hx of unilateral oophorectomy History of lumpectomy of right breast History of esophagogastroduodenoscopy (EGD) Hx of colonoscopy History of excision of lesion History of salpingo-oophorectomy History of cholecystectomy History of wisdom tooth extraction H/O right mastectomy Family History Father Diabetes Mother Osteoporosis Mental health disorder Paternal Aunt Colon cancer Other Family history of breast cancer Family history of gastric cancer Family history of pancreatic cancer Family history of prostate cancer Social History Housing: House Are you a primary career services coordinator to a significant other at home: No Do you presently have visiting nurse or other home services: No Alcohol intake: current Alcohol intake frequency: holidays/special occasions only Patient Tobacco Use Status: Never used Tobacco e-Cigarette/Vaping Use: Never Used Second Hand Smoke Exposure: No service: No Current occupational status: employed 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 Kenneth Martínez, Lisseth Oates, Gurwinder Ross and colleagues, with an educational norma from [employer]. Review of Systems Const Denies chills, Denies headache(s) and Denies weight loss ENT Denies headache(s) Card Denies chest pain, Denies syncope, Denies irregular heart rhythm and Denies dyspnea Resp Denies chest congestion, Denies cough and Denies dyspnea GI Denies abdominal pain, Denies change in stool character, Denies nausea and Denies vomiting Musc Denies deformity and Denies joint swelling Neuro Denies syncope and Denies headache(s) Physical exam (Primary Care) Vital Signs: Last Vital Signs Pulse 86 01/07/24 11:36 BP 120/70 01/07/24 11:36 Pulse Ox 99 01/07/24 11:36 Oxygen Delivery Method Room Air 01/07/24 11:36 BMI result Body Mass Index 21.1 Tobacco/Smoking Status: Tobacco use Status Tobacco use date assessed 10/08/23 01/07/24 11:37 Patient Tobacco Use Status Never used Tobacco 01/07/24 11:37 e-Cigarette/Vaping Use Never Used 01/07/24 11:37 Thrive Assessment: Date of Thrive Assessment Date Thrive assessed 10/08/23 01/07/24 11:37 Const General: cooperative, comfortable, no acute distress and alert Neck Neck: Yes no lymphadenopathy Thyroid: Thyroid normal Resp Effort & Inspection: normal respiratory effort Auscultation: clear to auscultation bilaterally Percussion: percussion normal Cardio Jugular venous distension: no JVD Palpation: normal PMI Rate: regular rate Rhythm: regular rhythm Heart sounds: S1 normal heart sound present and S2 normal heart sound present GI Inspection: Yes normal to inspection Palpation (GI): No hepatosplenomegaly present Skin General skin exam: no rashes or lesions noted Extrem General: Yes no clubbing, cyanosis or edema Assessment and Plan Assessment & Plan (1) Hyperlipidemia: Code(s): E78.5 - Hyperlipidemia, unspecified Plan: stable; same rx Orders: Orders Lipid Panel Today Z13.220 - Encounter for screening for lipoid disorders Coding Level of Care Code Est Pt Level 3 (46765) Diagnoses Hyperlipidemia E78.5
== END 2024-01-07 11:47 | disposition home or self-care (01) ==
PROVIDERS: PCP Internal Medicine; Visit Provider Internal Medicine
DX: E78.5 Hyperlipidemia, unspecified (principal)
CPT/HCPCS: 99213

== ENCOUNTER 2024-01-17 07:11 | Outpatient (REF) | payer OTHER, SELFPAY ==
--- NOTE | ~2024-01-17 | MR_ITS ---
EXAMINATION: MR CERVICAL SPINE WITHOUT CONTRAST CLINICAL INFORMATION: Radiculopathy COMPARISON: Cervical spine radiographs 12/10/2023 TECHNIQUE: MRI of the cervical spine was obtained using routine sequences without contrast. FINDINGS: The craniocervical junction is intact. The cervical lordosis is preserved. Grade 1 retrolisthesis at C5-C6. Vertebral body heights are normal without acute compression fracture. No suspicious osseous lesion. Diffuse disc desiccation with moderate to severe C5-C6, moderate C6-C7, and otherwise mild disc height loss. Mild degenerative endplate irregularity at C5-C6. There are multilevel degenerative changes with level by level detail as follows: C2-C3: No spinal canal or neural foraminal stenosis. C3-C4: Shallow central disc protrusion with minor uncovertebral spurring and mild right greater than left facet arthrosis. No spinal canal stenosis. Minimal right without left neural foraminal encroachment. C4-C5: Disc osteophyte complex with bilateral uncovertebral joint hypertrophy and mild facet arthrosis. No spinal canal stenosis. Severe right and moderate left neural foraminal stenosis. C5-C6: Disc osteophyte complex with right than left uncovertebral joint hypertrophy and mild facet arthrosis. Mild spinal canal and severe bilateral neural foraminal stenosis. C6-C7: Disc osteophyte complex with broad-based right paracentral disc protrusion, bilateral uncovertebral joint hypertrophy and mild facet arthrosis. Mild spinal canal stenosis. Severe left and moderate right neural foraminal stenosis. C7-T1: No spinal canal or neural foraminal stenosis. Focal mild prominence of the central canal at C7 without overt syrinx formation. No epidural fluid collection, mass, or hematoma. No significant abnormalities of the paraspinal musculature. The flow voids of the major cervical vessels are maintained. The visualized intracranial structures are normal. Biapical pleural-parenchymal scarring. MR/MR cervical spine wo con IMPRESSION: Multilevel cervical spondylosis as described above with mild spinal canal stenosis at C5-C6 and C6-C7. Multilevel neural foraminal stenosis, worst and severe on the right at C4-C5, bilaterally at C5-C6, and on the left at C6-C7.
== END 2024-01-17 07:12 | disposition home or self-care (01) ==
LOC: HO.MRI 07:11
PROVIDERS: PCP Internal Medicine; Visit Provider Physical Medicine & Rehabilitation
DX: M54.12 Radiculopathy, cervical region (principal); M47.812 Spondylosis without myelopathy or radiculopathy, cervical region
CPT/HCPCS: 72141

== ENCOUNTER 2024-01-23 08:00 | Outpatient (RCR) | payer OTHER, SELFPAY ==
--- NOTE | 2023-10-30 18:40 | MHC.PT.EP ---
[facility] [place] [facility] [address] [phone] F: [phone] F: [phone] F: [phone] F: [phone] Physical Therapy Plan of Care Date of Evaluation: 10/29/23 Date of Surgery: Diagnosis: L shoulder painful arc syndrome, myalgia Assessment: Pt is a 63 y/o RHD female referred to PT for eval and treat of L shoulder painful arc syndrome, myalgia resulting in decreased tolerance for reaching high shelves, reaching her back and neck for hygiene and dressing, lifting objects of weight, as well as pushing and pulling and disturbed sleep secondary to decreased L shoulder ROM and strength, increased R cervical accessory tissue tension, and pain. Pt is deemed an appropriate candidate to receive skilled PT services to address their physical impairments in order to improve their functional ability. Frequency and Duration: The patient will be seen 2 x / wk x 5 wks. Short Term Goals: Initiate home program. Full AROM achieved. Mcc Goals: I with home program. Pt will improve SPADI outcome by at ;east 12 points. Pt will be able to reach high shelves with managed Sx. Treatment Plan: Modalities to reduce pain, spasms and effusion. Manual therapy to restore motion and function. Therapeutic exercise to improve strength and flexibility. Neuromuscular re-education for posture and balance. Therapeutic activities to return to functional activities of daily living. Electronically signed by: Duke Becerril PT. Please sign and return to therapist. Thank you for your referral.
--- NOTE | 2024-01-23 15:11 | MHC.PT.DC ---
[facility] [place] [facility] [place] [facility] [place] [facility] [address] Lupe Stanford [address] [phone] F: [phone] F: [phone] F: [phone] F: [phone] Physical Therapy Discharge Report Diagnosis: L shoulder painful arc syndrome, myalgia Date of Surgery: DOI 05/13/23 Fall Date of Evaluation: 10/29/23 Date of Discharge: 01/23/24 Treatments to Date: 20 Cancellations to Date: No Shows to Date: Discharge Status: Achieved Goals Improved Function Independent with HEP Discharge Summary: Sabrina has been a motivated participant in their therapy good home program compliance. We are in agreement with DC today though she persists with some symptoms she has met all of her therapeutic goals, initial symptoms are managed, and she is independent with her home program for self management. Electronically signed by: Duke Becerril PT. Please sign and return to therapist. Thank you for your referral.
== END 2024-01-23 15:08 | disposition home or self-care (01) ==
LOC: HO.PT 08:00
PROVIDERS: PCP Internal Medicine; Visit Provider Physician Assistant
DX: M75.102 Unspecified rotator cuff tear or rupture of left shoulder, not specified as traumatic (principal); M79.18 Myalgia, other site
CPT/HCPCS: 97014; 97110; 97140; 97161

== ENCOUNTER 2024-01-28 08:34 | Outpatient (AMB) | payer OTHER, SELFPAY ==
--- NOTE | 2024-01-28 08:36 | MHC.OFFVIS ---
Vital Signs 01/28/24 08:41 Height 5 ft 10 in Weight 147 lb BMI 21.1 Intake Visit Reasons: OV- MRI review Intake Note: Sabrina is a 63 year old female who presents to the office today for a Cervical Spine MRI review. Patient reports that her bilateral neck pain has increased but the symptoms of the left arm have improved Allergies adhesive tape Allergy (Intermediate, Verified 01/28/24 08:42) BLISTERS bacitracin [From Neosporin] Allergy (Mild, Verified 01/28/24 08:42) RASH gramicidin D [From Neosporin] Allergy (Mild, Verified 01/28/24 08:42) RASH neomycin [From Neosporin] Allergy (Mild, Verified 01/28/24 08:42) RASH Penicillins Adverse Reaction (Mild, Verified 01/28/24 08:42) VOMITING HPI Comments Details: Was complaining of tightness on trapezius, left, going down to elbow. Sometimes left 4th and 5th digits get tingling. Limited left shoulder abduction and internal rotation, when she reaches up the pain is on left upper arm. When she looks up, it feels more on trapezius area. Started April, fell backwards. Was able to get up right away and didn't seek urgent care, didn't have xrays at that time. History of breast cancer, on remission. History of scoliosis. History of CTS, seen on EMGs years ago. No surgery yet. Follows with Dr. Rice for migraine and seizure management. Has had lumbar injections under [facility] pain management, 15 years ago. Since last time I saw her, we have done an EMG which shows suggestion of radiculopathy, left side, C6-7. No signs of Carpal Tunnel Syndrome or ulnar neuropathy. Tells me today that left sided electrical sensation is almost gone and she is able to move left arm much better. She still tends to drop things. Still tight on upper back/trapezius. Treatment done so far: tylenol therapy - finished PT last , uses tens [facility], [facility] Medical History Cervical cancer screening Physical exam Abdominal pain Flank pain Tick bite of back History of right breast cancer Hx of radiation therapy Migraines Arthritis Hyperlipidemia GERD (gastroesophageal reflux disease) Surgical History Hx of unilateral oophorectomy History of lumpectomy of right breast History of esophagogastroduodenoscopy (EGD) Hx of colonoscopy History of excision of lesion History of salpingo-oophorectomy History of cholecystectomy History of wisdom tooth extraction H/O right mastectomy Family History Father Diabetes Mother Osteoporosis Mental health disorder Paternal Aunt Colon cancer Other Family history of breast cancer Family history of gastric cancer Family history of pancreatic cancer Family history of prostate cancer Social History Housing: House Are you a primary respiratory care program director to a significant other at home: No Do you presently have visiting nurse or other home services: No Alcohol intake: current Alcohol intake frequency: holidays/special occasions only Patient Tobacco Use Status: Never used Tobacco e-Cigarette/Vaping Use: Never Used Second Hand Smoke Exposure: No service: No Current occupational status: employed 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 Patient was appropriately conversant and oriented. Good historian. MSK: Inspection reveals appropriate head and neck positioning. Tender/trigger point on left upper trapezius. Cervical ROM was full. Spurling's sign positive today, left, with both cervical extension/rotation and flexion. Bilateral shoulder, elbow and wrist ROM WNL. No ligamentous laxity or crepitance. No increased effusion. Negative Albarado sign. Negative speed's test. Negative empty can sign. Strength is 5/5 in all muscle groups tested. No increased tone noted. Neurological: Neurologic examination of the upper and lower extremities was nonfocal with intact sensation, muscle stretch reflexes and without focal motor deficits . Loredo?s negative bilaterally. Babinski was down going bilaterally. Clonus was negative. Gait is non-antalgic without loss of balance. Results Reviewed Results Reviewed: EMG by 12/13/2023 IMPRESSION: 1. This is an abnormal study. 2. There is electrodiagnostic findings suggestive of left C6/7 cervical radiculopathy. 3. There is no electrodiagnostic evidence for median neuropathy, ulnar neuropathy, or brachial plexopathy. Assessment & Plan Assessment & Plan (1) Cervical radiculopathy at C6: Code(s): M54.12 - Radiculopathy, cervical region Category: Medical (2) Cervical spondylosis: Code(s): M47.812 - Spondylosis without myelopathy or radiculopathy, cervical region Category: Medical (3) Myofascial pain: Code(s): M79.18 - Myalgia, other site Category: Medical Plan At the time of writing this note, MRI cervical spine done 01/16 still has not been read yet. We already call to radiology department to get official reading. I looked at the images with the patient. There is significant spondylosis and disc bulge on C5-6 and C6-7, causing spinal stenosis. Patient continues to have left Spurling sign although the electrical sensation in left arm is almost gone. No other red flags, weakness or hyperreflexia seen on exam. Still has myofascial/trigger points on upper trapezius. Depending on MRI reading, we may have to consider neuro spine referral versus pain management referral for epidural. We will determine as soon as I get official reading. Patient agrees and understands. Assessment and plan discussed with patient, and patient was agreeable. All questions were answered thoroughly. We will call patient after MRI reading. Bernie Lakhani MD, ALEJANDRO Board Certified, [place] [employer] and Rehabilitation (ABPMR) Board Certified, [place] Board [employer] Electrodiagnostic Medicine (ABEM) Coding Level of Care Code Est Pt Level 4 (94299) Diagnoses Cervical radiculopathy at C6 M54.12 Cervical spondylosis M47.812 Myofascial pain M79.18
[2024-01-28 08:41] VITALS: BMI 21.1
== END 2024-01-28 09:05 | disposition home or self-care (01) ==
PROVIDERS: PCP Internal Medicine; Visit Provider Physical Medicine & Rehabilitation
DX: M54.12 Radiculopathy, cervical region (principal); M47.812 Spondylosis without myelopathy or radiculopathy, cervical region; M79.18 Myalgia, other site
CPT/HCPCS: 99214

== ENCOUNTER → 2024-01-28 08:34 | Outpatient (BNVA) | payer OTHER, SELFPAY | PROVIDERS: PCP Internal Medicine; Visit Provider Physical Medicine & Rehabilitation ==

== ENCOUNTER 2024-02-19 08:51 | Outpatient (AMB) | payer OTHER, SELFPAY ==
[2024-02-19 08:54] VITALS: BP 120/67; PULSE 83; O2SAT 99; BMI 20.8
--- NOTE | 2024-02-19 08:54 | A.OFFVIS_ITS ---
Vital Signs 02/19/24 08:54 Height 5 ft 10 in Weight 145 lb BMI 20.8 BP 120/67 Blood Pressure Location Lt brachial Position Sitting Pulse 83 Pulse Source Pulse Oximeter Pulse Oximetry (%) 99 Oxygen Delivery Method Room Air Intake Visit Reasons: Radiculopathy, Cervical Region Allergies adhesive tape Allergy (Intermediate, Verified 02/19/24 08:56) BLISTERS bacitracin [From Neosporin] Allergy (Mild, Verified 02/19/24 08:56) RASH gramicidin D [From Neosporin] Allergy (Mild, Verified 02/19/24 08:56) RASH neomycin [From Neosporin] Allergy (Mild, Verified 02/19/24 08:56) RASH Penicillins Adverse Reaction (Mild, Verified 02/19/24 08:56) VOMITING Medication List - Last Reconciled 02/19/24 by Selene Morales atorvastatin 20 mg PO DAILY coQ10 (ubiquinol) 200 mg PO DAILY esomeprazole magnesium 20 mg PO DAILY 90 days lamotrigine 25 mg PO DAILY mastectomy bra (bra, mastectomy) As directed simethicone 180 mg PO TID PRN sumatriptan succinate 50 mg PO DAILY PRN [id number]-oreg-capry 100 mg-150 mg- 50 mg-150 mg 1,000 PO DAILY HPI Comments Details: Sabrina is a very pleasant 63-year-old female who presents to the office today for evaluation management of her chronic neck pain She was referred here by physiatry for consideration of C6 epidural steroid injection for cervical radiculopathy Recent MRI and EMG reviewed, results as per below Patient states this pain started approximately 10 months ago after a fall. Endorses midline cervical neck pain with radiation down the left arm. Pain is worse with movement and weather changes Pain improves with application of heat, ice and Tylenol Pain today is rated as a 1/10 constant and worse in the mornings with intermit tent shooting, burning pain down the left arm Completed physical therapy two months ago without resolution of her symptoms. In terms of muscle damage condition is described as aching stabbing, burning, shooting, stabbing, sharp, dull, sore Pain is negatively impacting patient's enjoyment of life, general activity, ability to perform activities of daily living, mood, work Denies implantable devices, pacemaker or defibrillator Denies current use of anticoagulants Denies nicotine, tobacco or illicit substance use. Endorses social alcohol intake, wine. [facility] Medical History Cervical cancer screening Physical exam Abdominal pain Flank pain Tick bite of back History of right breast cancer Hx of radiation therapy Migraines Arthritis Hyperlipidemia GERD (gastroesophageal reflux disease) Surgical History Hx of unilateral oophorectomy History of lumpectomy of right breast History of esophagogastroduodenoscopy (EGD) Hx of colonoscopy History of excision of lesion History of salpingo-oophorectomy History of cholecystectomy History of wisdom tooth extraction H/O right mastectomy Family History Father Diabetes Mother Osteoporosis Mental health disorder Paternal Aunt Colon cancer Other Family history of breast cancer Family history of gastric cancer Family history of pancreatic cancer Family history of prostate cancer Social History Housing: House Are you a primary rehab care assistant to a significant other at home: No Do you presently have visiting nurse or other home services: No Alcohol intake: current Alcohol intake frequency: holidays/special occasions only Patient Tobacco Use Status: Never used Tobacco e-Cigarette/Vaping Use: Never Used Second Hand Smoke Exposure: No service: No Current occupational status: employed 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 Answers questions appropriately. Fully engaged in examination. Skin: warm, dry, intact HEENT: Normocephalic. Hearing intact. Cardiac: External chest normal in appearance. Respiratory: No cough, audible wheezing or stridor. Abdomen: without gross distension. MS: No obvious swelling or deformities. Able to transition from sit to stand unassisted. Ambulates with bilaterally normal heel strike and toe off Cervical Spine: Visible inspection without gross abnormality Minimally tender to palpation midline cervical vertebrae and cervical paraspinal muscles Cervical range of motion full Spurling compression test positive BUE strength 5/5 Neurological: Oriented to person, place, time and situation. Thought process intact. No gait abnormalities appreciated. Psychiatric: Appropriate mood and affect. Good judgment and insight. Results Reviewed Results Reviewed: 01/17/24 MR/MR cervical spine wo con FINDINGS: The craniocervical junction is intact. The cervical lordosis is preserved. Grade 1 retrolisthesis at C5-C6. Vertebral body heights are normal without acute compression fracture. No suspicious osseous lesion. Diffuse disc desiccation with moderate to severe C5-C6, moderate C6-C7, and otherwise mild disc height loss. Mild degenerative endplate irregularity at C5-C6. There are multilevel degenerative changes with level by level detail as follows: C2-C3: No spinal canal or neural foraminal stenosis. C3-C4: Shallow central disc protrusion with minor uncovertebral spurring and mild right greater than left facet arthrosis. No spinal canal stenosis. Minimal right without left neural foraminal encroachment. C4-C5: Disc osteophyte complex with bilateral uncovertebral joint hypertrophy and mild facet arthrosis. No spinal canal stenosis. Severe right and moderate left neural foraminal stenosis. C5-C6: Disc osteophyte complex with right than left uncovertebral joint hypertrophy and mild facet arthrosis. Mild spinal canal and severe bilateral neural foraminal stenosis. C6-C7: Disc osteophyte complex with broad-based right paracentral disc protrusion, bilateral uncovertebral joint hypertrophy and mild facet arthrosis. Mild spinal canal stenosis. Severe left and moderate right neural foraminal stenosis. C7-T1: No spinal canal or neural foraminal stenosis. Focal mild prominence of the central canal at C7 without overt syrinx formation. No epidural fluid collection, mass, or hematoma. No significant abnormalities of the paraspinal musculature. The flow voids of the major cervical vessels are maintained. The visualized intracranial structures are normal. Biapical pleural-parenchymal scarring. IMPRESSION: Multilevel cervical spondylosis as described above with mild spinal canal stenosis at C5-C6 and C6-C7. Multilevel neural foraminal stenosis, worst and severe on the right at C4-C5, bilaterally at C5-C6, and on the left at C6-C7. EMG 12/13/2023 IMPRESSION: 1. This is an abnormal study. 2. There is electrodiagnostic findings suggestive of left C6/7 cervical radiculopathy. 3. There is no electrodiagnostic evidence for median neuropathy, ulnar neuropathy, or brachial plexopathy. Assessment & Plan Assessment & Plan (1) Cervical radiculopathy at C6: Code(s): M54.12 - Radiculopathy, cervical region Category: Medical (2) Cervical spondylosis: Code(s): M47.812 - Spondylosis without myelopathy or radiculopathy, cervical region Category: Medical (3) Cervical radiculitis: Code(s): M54.12 - Radiculopathy, cervical region Category: Medical Plan Sabrina is a very pleasant 63-year-old female who presented to the office today for evaluation management of her chronic neck pain History, physical exam and provocative testing consistent with left cervical radiculopathy Patient has exhausted conservative therapy including PT, [id number] medications and topical medications. She is unable to take nonsteroidal anti- inflammatory medications due to history of kidney disease Discussed at length diagnosis and treatment options. Patient would like to proceed with epidural steroid injection. Risks and benefits were discussed. Will schedule for fluoroscopy guided left C6 parasagittal ELIZA with local anesthetic. All questions and concerns were answered, patient agrees with the plan. Follow up after injections, sooner if needed Coding Level of Care Code New Pt Level 4 (89391) Diagnoses Cervical radiculopathy at C6 M54.12 Cervical spondylosis M47.812 Cervical radiculitis M54.12
== END 2024-02-19 09:19 | disposition home or self-care (01) ==
PROVIDERS: PCP Internal Medicine; Visit Provider Registered Nurse Emergency
DX: M54.12 Radiculopathy, cervical region (principal); M47.812 Spondylosis without myelopathy or radiculopathy, cervical region
CPT/HCPCS: 99204

== ENCOUNTER → 2024-02-19 08:51 | Outpatient (BNVA) | payer OTHER, SELFPAY | PROVIDERS: PCP Internal Medicine; Visit Provider Registered Nurse Emergency ==

== ENCOUNTER 2024-03-19 06:03 | Outpatient (REF) | payer OTHER, SELFPAY | END 2024-03-19 06:04 | disposition home or self-care (01) | LOC: CF 06:03 | PROVIDERS: Visit Provider Internal Medicine | DX: M54.12 Radiculopathy, cervical region (principal) | CPT/HCPCS: 62321; J1100; Q9967 ==

== ENCOUNTER 2024-03-19 09:03 | Outpatient (AMB) | payer OTHER, SELFPAY ==
[2024-03-19 09:10] VITALS: BP 109/71; PULSE 68; RESP 16; O2SAT 99
--- NOTE | 2024-03-19 09:58 | MHC.OFFVIS ---
Vital Signs 03/19/24 09:10 03/19/24 10:02 BP 109/71 114/68 Blood Pressure Location Lt brachial Lt brachial Position Sitting Sitting Respiration 16 15 Pulse 68 60 Pulse Source Pulse Oximeter Pulse Oximeter Pulse Oximetry (%) 99 100 Oxygen Delivery Method Room Air Room Air Comment Pre-op Post-op Intake Visit Reasons: Left C6 parasagittal interlaminar ELIZA Allergies adhesive tape Allergy (Intermediate, Verified 02/19/24 08:56) BLISTERS bacitracin [From Neosporin] Allergy (Mild, Verified 02/19/24 08:56) RASH gramicidin D [From Neosporin] Allergy (Mild, Verified 02/19/24 08:56) RASH neomycin [From Neosporin] Allergy (Mild, Verified 02/19/24 08:56) RASH Penicillins Adverse Reaction (Mild, Verified 02/19/24 08:56) VOMITING HPI HPI Left C6 parasagittal interlaminar ELIZA: Details: Patient presents for scheduled procedure. Denies any recent cough, cold, infection, fever or other significant changes in medical history since last office visit. [facility] Medical History Cervical cancer screening Physical exam Abdominal pain Flank pain Tick bite of back History of right breast cancer Hx of radiation therapy Migraines Arthritis Hyperlipidemia GERD (gastroesophageal reflux disease) Surgical History Hx of unilateral oophorectomy History of lumpectomy of right breast History of esophagogastroduodenoscopy (EGD) Hx of colonoscopy History of excision of lesion History of salpingo-oophorectomy History of cholecystectomy History of wisdom tooth extraction H/O right mastectomy Family History Father Diabetes Mother Osteoporosis Mental health disorder Paternal Aunt Colon cancer Other Family history of breast cancer Family history of gastric cancer Family history of pancreatic cancer Family history of prostate cancer Social History Housing: House Are you a primary critical care transport nurse to a significant other at home: No Do you presently have visiting nurse or other home services: No Alcohol intake: current Alcohol intake frequency: holidays/special occasions only Patient Tobacco Use Status: Never used Tobacco e-Cigarette/Vaping Use: Never Used Second Hand Smoke Exposure: No service: No Current occupational status: employed 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, 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 The patient was placed in the prone position. The cervicothoracic area was widely prepped with chloraprep and draped in sterile fashion. Fluoroscopic guidance was used to identify the desired interlaminar space and for needle placement. Subcutaneous 0.5% lidocaine was used to anesthetize the skin overlying the target. A 20-gauge Cole needle was advanced to the epidural space using loss of resistance to contrast technique under fluoroscopic AP and contralateral oblique views. There was no evidence of heme or CSF and no paresthesias were elicited with needle placement. Confirmation of epidural needle placement was performed with 1cc of omnipaque 180. Next 3 ml 0.5% lidocaine mixed with dexamethasone 10 mg was administered epidurally with no pain elicited on injection. The needle tract tubing was then cleared with 1 ml of 0.5% lidocaine. The needle was removed, skin cleansed and a sterile bandage was applied. The patient tolerated the procedure well and no complications were encountered. Following the procedure the patient's vital signs were stable. The patient was discharged home in good condition with post-procedural instructions. Time Out: Immediately prior to the procedure, the following was verbally confirmed that there is a signed consent form and that the correct patient, planned procedure, site and side are consistent with documentation and that necessary equipment and/or blood products are available prior to the start of the case. Complications: none EBL: <2 cc Coding 87785 - Cervical Epidural/Interlaminar with fluoroscopy Procedure code (CPT) selection complete Assessment & Plan Assessment & Plan (1) Cervical radiculopathy at C6: Code(s): M54.12 - Radiculopathy, cervical region Category: Medical Plan Patient is status post left C6-7 parasagittal interlaminar ELIZA. Patient tolerated procedure well and was discharged home in stable condition with discharge instructions. All questions were answered. We will follow-up via telephone or in clinic to assess response to therapy. A follow-up appointment was made during today's visit. Orders: Orders FL guidance in treatment room Today M54.12 - Radiculopathy, cervical region Coding Level of Care Code Procedure Only Diagnoses Cervical radiculopathy at C6 M54.12 CPT Codes Coding - Joint 10: 71826 - Cervical Epidural/Interlaminar with fluoroscopy ([id number])
[2024-03-19 10:02] VITALS: BP 114/68; PULSE 60; RESP 15; O2SAT 100
== END 2024-03-19 10:04 | disposition home or self-care (01) ==
LOC: HO.PMCPRC 09:03
PROVIDERS: PCP Internal Medicine; Visit Provider Internal Medicine
DX: M54.12 Radiculopathy, cervical region (principal)
CPT/HCPCS: 62321

== ENCOUNTER 2024-04-16 08:44 | Outpatient (AMB) | payer OTHER, SELFPAY ==
[2024-04-16 09:08] VITALS: BP 121/63; PULSE 68; O2SAT 99; BMI 20.8
--- NOTE | 2024-04-16 09:08 | A.OFFVIS_ITS ---
Vital Signs 04/16/24 09:08 Height 5 ft 10 in Weight 145 lb BMI 20.8 BP 121/63 Blood Pressure Location Lt brachial Position Sitting Pulse 68 Pulse Source Pulse Oximeter Pulse Oximetry (%) 99 Oxygen Delivery Method Room Air Intake Visit Reasons: s/p left C6 interlaminar ELIZA Allergies adhesive tape Allergy (Intermediate, Verified 04/16/24 09:09) BLISTERS bacitracin [From Neosporin] Allergy (Mild, Verified 04/16/24 09:09) RASH gramicidin D [From Neosporin] Allergy (Mild, Verified 04/16/24 09:09) RASH neomycin [From Neosporin] Allergy (Mild, Verified 04/16/24 09:09) RASH Penicillins Adverse Reaction (Mild, Verified 04/16/24 09:09) VOMITING Medication List - Last Reconciled 04/16/24 by Selene Morales atorvastatin 20 mg PO DAILY coQ10 (ubiquinol) 200 mg PO DAILY esomeprazole magnesium 20 mg PO DAILY 90 days lamotrigine 25 mg PO DAILY mastectomy bra (bra, mastectomy) As directed simethicone 180 mg PO TID PRN sumatriptan succinate 50 mg PO DAILY PRN usnpsahk-ztah-utcas-oreg-capry 100 mg-150 mg- 50 mg-150 mg 1,000 PO DAILY HPI Comments Details: Patient presents the office today for follow-up, 1 month status post left C6-7 paracentral ELIZA. She reports 80% pain relief with improvement in functional mobility. The radicular pain down both arms has resolved. She continues was midline cervical neck pain and posterior headaches. She states the headaches had resolved for a couple of weeks but about 1 week ago they returned. Headaches are worse in the morning. Denies any untoward effects of the injection Prior: Sabrina is a very pleasant 63-year-old female who presents to the office today for evaluation management of her chronic neck pain She was referred here by physiatry for consideration of C6 epidural steroid injection for cervical radiculopathy Recent MRI and EMG reviewed, results as per below Patient states this pain started approximately 10 months ago after a fall. Endorses midline cervical neck pain with radiation down the left arm. Pain is worse with movement and weather changes Pain improves with application of heat, ice and Tylenol Pain today is rated as a 1/10 constant and worse in the mornings with intermittent shooting, burning pain down the left arm Completed physical therapy two months ago without resolution of her symptoms. In terms of muscle damage condition is described as aching stabbing, burning, shooting, stabbing, sharp, dull, sore Pain is negatively impacting patient's enjoyment of life, general activity, ability to perform activities of daily living, mood, work Denies implantable devices, pacemaker or defibrillator Denies current use of anticoagulants Denies nicotine, tobacco or illicit substance use. Endorses social alcohol intake, wine. FORMERLY [facility], LATER [facility] Medical History Cervical cancer screening Physical exam Abdominal pain Flank pain Tick bite of back History of right breast cancer Hx of radiation therapy Migraines Arthritis Hyperlipidemia GERD (gastroesophageal reflux disease) Surgical History Hx of unilateral oophorectomy History of lumpectomy of right breast History of esophagogastroduodenoscopy (EGD) Hx of colonoscopy History of excision of lesion History of salpingo-oophorectomy History of cholecystectomy History of wisdom tooth extraction H/O right mastectomy Family History Father Diabetes Mother Osteoporosis Mental health disorder Paternal Aunt Colon cancer Other Family history of breast cancer Family history of gastric cancer Family history of pancreatic cancer Family history of prostate cancer Social History Housing: House Are you a primary hospice home care coordinator to a significant other at home: No Do you presently have visiting nurse or other home services: No Alcohol intake: current Alcohol intake frequency: holidays/special occasions only Patient Tobacco Use Status: Never used Tobacco e-Cigarette/Vaping Use: Never Used Second Hand Smoke Exposure: No service: No Current occupational status: employed 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 Answers questions appropriately. Fully engaged in examination. Skin: warm, dry, intact HEENT: Normocephalic. Hearing intact. Cardiac: External chest normal in appearance. Respiratory: No cough, audible wheezing or stridor. Abdomen: without gross distension. MS: No obvious swelling or deformities. Cervical Spine: Visible inspection without gross abnormality Tender to palpation midline cervical vertebrae and cervical paraspinal muscles Cervical range of motion full Spurling compression test positive BUE strength 5/5 Neurological: Oriented to person, place, time and situation. Thought process intact. No gait abnormalities appreciated. Psychiatric: Appropriate mood and affect. Good judgment and insight. Results Reviewed Results Reviewed: 01/17/24 MR/MR cervical spine wo con FINDINGS: The craniocervical junction is intact. The cervical lordosis is preserved. Grade 1 retrolisthesis at C5-C6. Vertebral body heights are normal without acute compression fracture. No suspicious osseous lesion. Diffuse disc desiccation with moderate to severe C5-C6, moderate C6-C7, and otherwise mild disc height loss. Mild degenerative endplate irregularity at C5-C6. There are multilevel degenerative changes with level by level detail as follows: C2-C3: No spinal canal or neural foraminal stenosis. C3-C4: Shallow central disc protrusion with minor uncovertebral spurring and mild right greater than left facet arthrosis. No spinal canal stenosis. Minimal right without left neural foraminal encroachment. C4-C5: Disc osteophyte complex with bilateral uncovertebral joint hypertrophy and mild facet arthrosis. No spinal canal stenosis. Severe right and moderate left neural foraminal stenosis. C5-C6: Disc osteophyte complex with right than left uncovertebral joint hypertrophy and mild facet arthrosis. Mild spinal canal and severe bilateral neural foraminal stenosis. C6-C7: Disc osteophyte complex with broad-based right paracentral disc protrusion, bilateral uncovertebral joint hypertrophy and mild facet arthrosis. Mild spinal canal stenosis. Severe left and moderate right neural foraminal stenosis. C7-T1: No spinal canal or neural foraminal stenosis. Focal mild prominence of the central canal at C7 without overt syrinx formation. No epidural fluid collection, mass, or hematoma. No significant abnormalities of the paraspinal musculature. The flow voids of the major cervical vessels are maintained. The visualized intracranial structures are normal. Biapical pleural-parenchymal scarring. IMPRESSION: Multilevel cervical spondylosis as described above with mild spinal canal stenosis at C5-C6 and C6-C7. Multilevel neural foraminal stenosis, worst and severe on the right at C4-C5, bilaterally at C5-C6, and on the left at C6-C7. EMG 12/13/2023 IMPRESSION: 1. This is an abnormal study. 2. There is electrodiagnostic findings suggestive of left C6/7 cervical radiculopathy. 3. There is no electrodiagnostic evidence for median neuropathy, ulnar neuropathy, or brachial plexopathy. Assessment & Plan Assessment & Plan (1) Cervical radiculopathy at C6: Code(s): M54.12 - Radiculopathy, cervical region Category: Medical (2) Cervical spondylosis: Code(s): M47.812 - Spondylosis without myelopathy or radiculopathy, cervical region Category: Medical (3) Cervical radiculitis: Code(s): M54.12 - Radiculopathy, cervical region Category: Medical Plan Patient presents the office today for follow-up 1 month status post left C6-7 parasagittal ELIZA Radicular symptoms have resolved, she continues with symptoms consistent with cervical spondylosis Patient has exhausted conservative therapy including PT, ouni-ucc-reiyldw medications and topical medications. She is unable to take nonsteroidal anti- inflammatory medications due to history of kidney disease Will try amitriptyline 10 mg p.o. at bedtime. Patient advised on cautions for use. Discussed at length diagnosis and treatment options. Patient would like to proceed with bilateral C3-C4 C5 medial branch blocks with local anesthetic. Risks and benefits were discussed. If patient reports good results will plan for bilateral sprint PNS. She is aware that her insurance requires middle evaluation prior to proceeding with spr int trial. All questions and concerns were answered, patient agrees with the plan. Follow up after injections, sooner if needed Medications: New amitriptyline 10 mg PO BEDTIME 30 tabs 2RF Coding Level of Care Code Est Pt Level 3 (15921) Complex EM visit Add On G2211 Diagnoses Cervical radiculopathy at C6 M54.12 Cervical spondylosis M47.812 Cervical radiculitis M54.12
== END 2024-04-16 09:58 | disposition home or self-care (01) ==
PROVIDERS: PCP Internal Medicine; Visit Provider Registered Nurse Emergency
DX: M54.12 Radiculopathy, cervical region (principal); M47.812 Spondylosis without myelopathy or radiculopathy, cervical region
CPT/HCPCS: 99213

== ENCOUNTER → 2024-04-16 08:44 | Outpatient (BNVA) | payer OTHER, SELFPAY | PROVIDERS: PCP Internal Medicine; Visit Provider Registered Nurse Emergency ==

== ENCOUNTER 2024-05-07 06:12 | Outpatient (REF) | payer OTHER, SELFPAY | END 2024-05-07 06:13 | disposition home or self-care (01) | LOC: CF 06:12 | PROVIDERS: Visit Provider Internal Medicine | DX: M47.812 Spondylosis without myelopathy or radiculopathy, cervical region (principal) | CPT/HCPCS: 64490; 64491; J2795; Q9967 ==

== ENCOUNTER 2024-05-07 08:42 | Outpatient (AMB) | payer OTHER, SELFPAY ==
--- NOTE | 2024-05-07 08:46 | A.OFFVIS_ITS ---
Vital Signs 05/07/24 08:51 05/07/24 09:47 BP 110/63 121/70 Blood Pressure Location Lt brachial Lt brachial Position Sitting Sitting Pulse 72 72 Pulse Source Pulse Oximeter Pulse Oximeter Pulse Oximetry (%) 100 100 Oxygen Delivery Method Room Air Room Air Intake Visit Reasons: Right Dx C3-C4-C5 MBB Allergies adhesive tape Allergy (Intermediate, Verified 04/16/24 09:09) BLISTERS bacitracin [From Neosporin] Allergy (Mild, Verified 04/16/24 09:09) RASH gramicidin D [From Neosporin] Allergy (Mild, Verified 04/16/24 09:09) RASH neomycin [From Neosporin] Allergy (Mild, Verified 04/16/24 09:09) RASH Penicillins Adverse Reaction (Mild, Verified 04/16/24 09:09) VOMITING HPI HPI Right Dx C3-C4-C5 MBB: Details: Patient presents for scheduled procedure. Denies any recent cough, cold, infection, fever or other significant changes in medical history since last office visit. [facility] Medical History Cervical cancer screening Physical exam Abdominal pain Flank pain Tick bite of back History of right breast cancer Hx of radiation therapy Migraines Arthritis Hyperlipidemia GERD (gastroesophageal reflux disease) Surgical History Hx of unilateral oophorectomy History of lumpectomy of right breast History of esophagogastroduodenoscopy (EGD) Hx of colonoscopy History of excision of lesion History of salpingo-oophorectomy History of cholecystectomy History of wisdom tooth extraction H/O right mastectomy Family History Father Diabetes Mother Osteoporosis Mental health disorder Paternal Aunt Colon cancer Other Family history of breast cancer Family history of gastric cancer Family history of pancreatic cancer Family history of prostate cancer Social History Housing: House Are you a primary inpatient care manager rn to a significant other at home: No Do you presently have visiting nurse or other home services: No Alcohol intake: current Alcohol intake frequency: holidays/special occasions only Patient Tobacco Use Status: Never used Tobacco e-Cigarette/Vaping Use: Never Used Second Hand Smoke Exposure: No service: No Current occupational status: employed 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 The patient was placed in a lateral position. The respective cervical area was prepped with chloraprep and draped in sterile fashion. The skin over the target medial branch nerves was anesthetized with 0.5% lidocaine. A 25 gauge 1.5 inch needle was inserted into the target medial branch nerve under fluoroscopic guidance. No paresthesias were elicited with needle placement and aspiration was negative for blood and CSF. Next, 0.2cc of omnipaque 180 was injected to verify positioning. Next 0.5 ml 0.5% ropivicaine was injected (0.5 cc total per level). The identical procedure was performed at the remaining levels. The skin was cleansed and a sterile bandage was applied. Following the procedure the patient's vital signs were stable. The patient tolerated the procedure well and no complications were encountered. Following the procedure the patient's vital signs were stable. The patient was discharged home in good condition with post-procedural instructions. Time Out: Immediately prior to the procedure, the following was verbally confirmed that there is a signed consent form and that the correct patient, planned procedure, site and side are consistent with documentation and that necessary equipment and/or blood products are available prior to the start of the case. Complications: none EBL: <5 cc 78860 - with Fluoroscopy 15165 - second level, with Fluoroscopy Procedure code (CPT) selection complete Assessment & Plan Assessment & Plan (1) Cervical spondylosis: Code(s): M47.812 - Spondylosis without myelopathy or radiculopathy, cervical region Category: Medical Plan Patient is status post right C3, C4, C5 medial branch diagnostic blocks. Patient tolerated procedure well and was discharged home in stable condition with discharge instructions. All questions were answered. We will follow-up via telephone or in clinic to assess response to therapy. A follow-up appointment was made during today's visit. Orders: Orders FL guidance in treatment room Today M47.812 - Spondylosis without myelopathy or radiculopathy, cervical region Coding Level of Care Code Procedure Only Diagnoses Cervical spondylosis M47.812 CPT Codes Facet Injection Cervical/Thoracic - CPT: 61426 - with Fluoroscopy ([id number]) Facet Injection Cervical/Thoracic - CPT: 51455 - second level, with Fluoroscopy ([id number])
[2024-05-07 08:51] VITALS: BP 110/63; PULSE 72; O2SAT 100
[2024-05-07 09:47] VITALS: BP 121/70; PULSE 72; O2SAT 100
== END 2024-05-07 09:48 | disposition home or self-care (01) ==
LOC: HO.PMCPRC 08:42
PROVIDERS: PCP Internal Medicine; Visit Provider Internal Medicine
DX: M47.812 Spondylosis without myelopathy or radiculopathy, cervical region (principal)
CPT/HCPCS: 64490; 64491

== ENCOUNTER 2024-05-14 07:59 | Outpatient (REF) | payer OTHER, SELFPAY ==
--- NOTE | ~2024-05-14 | FL_ITS ---
EXAMINATION: FLUORO GUIDANCE IN TREATMENT ROOM CLINICAL INFORMATION: Spondylosis without myelopathy or radiculopathy, cervical region. COMPARISON: None available. TECHNIQUE: Fluoroscopy supervised by: Dr. Thomas Flannery. Fluoroscopy time: 0.0 minutes. Cumulative Dose: 0.198 mGy. DAP: 0.96322 mGy-m2 (milligray-meter squared). Images: 2. FINDINGS: 3 consecutive level needles are seen on the left in the cervical spine with contrast injected. FL/FL guidance in treatment room IMPRESSION: Fluoroscopy during procedure. Please see procedure report for additional information. Electronically signed by: Nickolas Lee MD 07/22/2024 12:33 PM [facility]
== END 2024-05-14 08:00 | disposition home or self-care (01) ==
LOC: CF 07:59
PROVIDERS: Visit Provider Internal Medicine
DX: M47.812 Spondylosis without myelopathy or radiculopathy, cervical region (principal)
CPT/HCPCS: 64490; 64491; J2795; Q9967

== ENCOUNTER 2024-05-14 09:05 | Outpatient (AMB) | payer OTHER, SELFPAY ==
[2024-05-14 09:16] VITALS: BP 119/63; PULSE 77; O2SAT 99
--- NOTE | 2024-05-14 09:16 | MHC.OFFVIS ---
Vital Signs 05/14/24 09:16 05/14/24 10:17 BP 119/63 116/74 Blood Pressure Location Lt brachial Lt brachial Position Sitting Sitting Pulse 77 73 Pulse Source Pulse Oximeter Pulse Oximeter Pulse Oximetry (%) 99 100 Oxygen Delivery Method Room Air Room Air Intake Visit Reasons: Left Dx C3-C4-C5 MBB Allergies adhesive tape Allergy (Intermediate, Verified 04/16/24 09:09) BLISTERS bacitracin [From Neosporin] Allergy (Mild, Verified 04/16/24 09:09) RASH gramicidin D [From Neosporin] Allergy (Mild, Verified 04/16/24 09:09) RASH neomycin [From Neosporin] Allergy (Mild, Verified 04/16/24 09:09) RASH Penicillins Adverse Reaction (Mild, Verified 04/16/24 09:09) VOMITING HPI HPI Left Dx C3-C4-C5 MBB: Details: Patient presents for scheduled procedure. Denies any recent cough, cold, infection, fever or other significant changes in medical history since last office visit. FORMERLY [facility], [facility] Medical History Cervical cancer screening Physical exam Abdominal pain Flank pain Tick bite of back History of right breast cancer Hx of radiation therapy Migraines Arthritis Hyperlipidemia GERD (gastroesophageal reflux disease) Surgical History Hx of unilateral oophorectomy History of lumpectomy of right breast History of esophagogastroduodenoscopy (EGD) Hx of colonoscopy History of excision of lesion History of salpingo-oophorectomy History of cholecystectomy History of wisdom tooth extraction H/O right mastectomy Family History Father Diabetes Mother Osteoporosis Mental health disorder Paternal Aunt Colon cancer Other Family history of breast cancer Family history of gastric cancer Family history of pancreatic cancer Family history of prostate cancer Social History Housing: House Are you a primary home health caregiver to a significant other at home: No Do you presently have visiting nurse or other home services: No Alcohol intake: current Alcohol intake frequency: holidays/special occasions only Patient Tobacco Use Status: Never used Tobacco e-Cigarette/Vaping Use: Never Used Second Hand Smoke Exposure: No service: No Current occupational status: employed 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 The patient was placed in a lateral position. The respective cervical area was prepped with chloraprep and draped in sterile fashion. The skin over the target medial branch nerves was anesthetized with 0.5% lidocaine. A 25 gauge 1.5 inch needle was inserted into the target medial branch nerve under fluoroscopic guidance. No paresthesias were elicited with needle placement and aspiration was negative for blood and CSF. Next, 0.2cc of omnipaque 180 was injected to verify positioning. Next 0.5 ml 0.5% ropivicaine was injected (0.5 cc total per level). The identical procedure was performed at the remaining levels. The skin was cleansed and a sterile bandage was applied. Following the procedure the patient's vital signs were stable. The patient tolerated the procedure well and no complications were encountered. Following the procedure the patient's vital signs were stable. The patient was discharged home in good condition with post-procedural instructions. Time Out: Immediately prior to the procedure, the following was verbally confirmed that there is a signed consent form and that the correct patient, planned procedure, site and side are consistent with documentation and that necessary equipment and/or blood products are available prior to the start of the case. Complications: none EBL: <5 cc 53192 - with Fluoroscopy 46177 - second level, with Fluoroscopy Procedure code (CPT) selection complete Assessment & Plan Assessment & Plan (1) Cervical spondylosis: Code(s): M47.812 - Spondylosis without myelopathy or radiculopathy, cervical region Category: Medical Plan Patient is status post left C3, C4, C5 diagnostic medial branch blocks. Patient tolerated procedure well and was discharged home in stable condition with discharge instructions. All questions were answered. We will follow-up via telephone or in clinic to assess response to therapy. A follow-up appointment was made during today's visit. Orders: Orders FL guidance in treatment room Today M47.812 - Spondylosis without myelopathy or radiculopathy, cervical region Coding Level of Care Code Procedure Only Diagnoses Cervical spondylosis M47.812 CPT Codes Facet Injection Cervical/Thoracic - CPT: 64253 - with Fluoroscopy ([id number]) Facet Injection Cervical/Thoracic - CPT: 46488 - second level, with Fluoroscopy ([id number])
[2024-05-14 10:17] VITALS: BP 116/74; PULSE 73; O2SAT 100
== END 2024-05-14 10:19 | disposition home or self-care (01) ==
LOC: HO.PMCPRC 09:05
PROVIDERS: PCP Internal Medicine; Visit Provider Internal Medicine
DX: M47.812 Spondylosis without myelopathy or radiculopathy, cervical region (principal)
CPT/HCPCS: 64490; 64491

== ENCOUNTER 2024-05-20 08:17 | Outpatient (AMB) | payer OTHER, SELFPAY ==
[2024-05-20 08:36] VITALS: BP 120/63; PULSE 75; O2SAT 100; BMI 20.8
--- NOTE | 2024-05-20 08:36 | A.OFFVIS_ITS ---
Vital Signs 05/20/24 08:36 Height 5 ft 10 in Weight 145 lb BMI 20.8 BP 120/63 Blood Pressure Location Lt brachial Position Sitting Pulse 75 Pulse Source Pulse Oximeter Pulse Oximetry (%) 100 Oxygen Delivery Method Room Air Intake Visit Reasons: s/p thelma Dx C3-C4-C5 MBB Allergies adhesive tape Allergy (Intermediate, Verified 05/20/24 08:37) BLISTERS bacitracin [From Neosporin] Allergy (Mild, Verified 05/20/24 08:37) RASH gramicidin D [From Neosporin] Allergy (Mild, Verified 05/20/24 08:37) RASH neomycin [From Neosporin] Allergy (Mild, Verified 05/20/24 08:37) RASH Penicillins Adverse Reaction (Mild, Verified 05/20/24 08:37) VOMITING Medication List - Last Reconciled 05/20/24 by Selene Morales amitriptyline 10 mg PO BEDTIME atorvastatin 20 mg PO DAILY coQ10 (ubiquinol) 200 mg PO DAILY esomeprazole magnesium 20 mg PO DAILY 90 days lamotrigine 25 mg PO DAILY mastectomy bra (bra, mastectomy) As directed simethicone 180 mg PO TID PRN sumatriptan succinate 50 mg PO DAILY PRN sqhvupmm-fvbg-wcntr-oreg-capry 100 mg-150 mg- 50 mg-150 mg 1,000 PO DAILY HPI Comments Details: Patient presents back to the office today for follow up, 2 weeks status post right C3-C4 C5 diagnostic MBB and one-week status post left C3-C4 C5 diagnostic MBB[ She reports 75% pain relief with improvement in functional mobility. States range motion is significantly improved. She is no longer waking up with headaches every day. Some days she will develop a headache throughout the day but these are also much improved Denies any untoward effects of the injection Pain today is rated as a 1/10 Prior: Patient presents the office today for follow-up, 1 month status post left C6-7 paracentral ELIZA. She reports 80% pain relief with improvement in functional mobility. The radicular pain down both arms has resolved. She continues was midline cervical neck pain and posterior headaches. She states the headaches had resolved for a couple of weeks but about 1 week ago they returned. Headaches are worse in the morning. Denies any untoward effects of the injection Prior: Sabrina is a very pleasant 63-year-old female who presents to the office today for evaluation management of her chronic neck pain She was referred here by physiatry for consideration of C6 epidural steroid injection for cervical radiculopathy Recent MRI and EMG reviewed, results as per below Patient states this pain started approximately 10 months ago after a fall. Endorses midline cervical neck pain with radiation down the left arm. Pain is worse with movement and weather changes Pain improves with application of heat, ice and Tylenol Pain today is rated as a 1/10 constant and worse in the mornings with intermittent shooting, burning pain down the left arm Completed physical therapy two months ago without resolution of her symptoms. In terms of muscle damage condition is described as aching stabbing, burning, shooting, stabbing, sharp, dull, sore Pain is negatively impacting patient's enjoyment of life, general activity, ability to perform activities of daily living, mood, work Denies implantable devices, pacemaker or defibrillator Denies current use of anticoagulants Denies nicotine, tobacco or illicit substance use. Endorses social alcohol intake, wine. [facility] Medical History Cervical cancer screening Physical exam Abdominal pain Flank pain Tick bite of back History of right breast cancer Hx of radiation therapy Migraines Arthritis Hyperlipidemia GERD (gastroesophageal reflux disease) Surgical History Hx of unilateral oophorectomy History of lumpectomy of right breast History of esophagogastroduodenoscopy (EGD) Hx of colonoscopy History of excision of lesion History of salpingo-oophorectomy History of cholecystectomy History of wisdom tooth extraction H/O right mastectomy Family History Father Diabetes Mother Osteoporosis Mental health disorder Paternal Aunt Colon cancer Other Family history of breast cancer Family history of gastric cancer Family history of pancreatic cancer Family history of prostate cancer Social History Housing: House Are you a primary day care attendant to a significant other at home: No Do you presently have visiting nurse or other home services: No Alcohol intake: current Alcohol intake frequency: holidays/special occasions only Patient Tobacco Use Status: Never used Tobacco e-Cigarette/Vaping Use: Never Used Second Hand Smoke Exposure: No service: No Current occupational status: employed 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 Answers questions appropriately. Fully engaged in examination. Skin: warm, dry, intact HEENT: Normocephalic. Hearing intact. Cardiac: External chest normal in appearance. Respiratory: No cough, audible wheezing or stridor. Abdomen: without gross distension. MS: No obvious swelling or deformities. Neurological: Oriented to person, place, time and situation. Thought process intact. No gait abnormalities appreciated. Psychiatric: Appropriate mood and affect. Good judgment and insight. Results Reviewed Results Reviewed: 01/17/24 MR/MR cervical spine wo con FINDINGS: The craniocervical junction is intact. The cervical lordosis is preserved. Grade 1 retrolisthesis at C5-C6. Vertebral body heights are normal without acute compression fracture. No suspicious osseous lesion. Diffuse disc desiccation with moderate to severe C5-C6, moderate C6-C7, and otherwise mild disc height loss. Mild degenerative endplate irregularity at C5-C6. There are multilevel degenerative changes with level by level detail as follows: C2-C3: No spinal canal or neural foraminal stenosis. C3-C4: Shallow central disc protrusion with minor uncovertebral spurring and mild right greater than left facet arthrosis. No spinal canal stenosis. Minimal right without left neural foraminal encroachment. C4-C5: Disc osteophyte complex with bilateral uncovertebral joint hypertrophy and mild facet arthrosis. No spinal canal stenosis. Severe right and moderate left neural foraminal stenosis. C5-C6: Disc osteophyte complex with right than left uncovertebral joint hypertrophy and mild facet arthrosis. Mild spinal canal and severe bilateral neural foraminal stenosis. C6-C7: Disc osteophyte complex with broad-based right paracentral disc protrusion, bilateral uncovertebral joint hypertrophy and mild facet arthrosis. Mild spinal canal stenosis. Severe left and moderate right neural foraminal stenosis. C7-T1: No spinal canal or neural foraminal stenosis. Focal mild prominence of the central canal at C7 without overt syrinx formation. No epidural fluid collection, mass, or hematoma. No significant abnormalities of the paraspinal musculature. The flow voids of the major cervical vessels are maintained. The visualized intracranial structures are normal. Biapical pleural-parenchymal scarring. IMPRESSION: Multilevel cervical spondylosis as described above with mild spinal canal stenosis at C5-C6 and C6-C7. Multilevel neural foraminal stenosis, worst and severe on the right at C4-C5, bilaterally at C5-C6, and on the left at C6-C7. EMG 12/13/2023 IMPRESSION: 1. This is an abnormal study. 2. There is electrodiagnostic findings suggestive of left C6/7 cervical radiculopathy. 3. There is no electrodiagnostic evidence for median neuropathy, ulnar neuropathy, or brachial plexopathy. Assessment & Plan Assessment & Plan (1) Cervical radiculopathy at C6: Code(s): M54.12 - Radiculopathy, cervical region Category: Medical (2) Cervical spondylosis: Code(s): M47.812 - Spondylosis without myelopathy or radiculopathy, cervical region Category: Medical (3) Cervical radiculitis: Code(s): M54.12 - Radiculopathy, cervical region Category: Medical Plan Patient presents the office today for follow-up bilateral C3-C4 C5 medial branch blocks with local anesthetic She reports 70% pain relief with improvement in functional ability since the procedure. Also endorses significant improvement in her daily headaches. Patient has exhausted conservative therapy including PT, qbok-xux-msnartu medications and topical medications. She is unable to take nonsteroidal anti- inflammatory medications due to history of kidney disease Continue with amitriptyline at bedtime Patient would like to proceed with bilateral cervical sprint PNS trial with local anesthetic. She has discussed with her health insurance company, is uncertain if this requires mental health evaluation but if it does she is prepared to proceed with this. We will schedule her for bilateral C4, maybe C3, maybe C5 sprint peripheral nerve stimulator with local anesthetic. Will start with right side 1st, left side to follow after 2 weeks. All questions and concerns were answered, patient agrees with the plan. Follow up after procedure, sooner if needed Coding Level of Care Code Tele Est Pt Level 3 (69390) Complex EM visit Add On G2211 Diagnoses Cervical radiculopathy at C6 M54.12 Cervical spondylosis M47.812 Cervical radiculitis M54.12
== END 2024-05-20 08:47 | disposition home or self-care (01) ==
PROVIDERS: PCP Internal Medicine; Visit Provider Registered Nurse Emergency
DX: M54.12 Radiculopathy, cervical region (principal); M47.812 Spondylosis without myelopathy or radiculopathy, cervical region
CPT/HCPCS: 99213

== ENCOUNTER → 2024-05-20 08:17 | Outpatient (BNVA) | payer OTHER, SELFPAY | PROVIDERS: PCP Internal Medicine; Visit Provider Registered Nurse Emergency ==

== ENCOUNTER 2024-05-26 09:00 | Outpatient (AMB) | payer OTHER, SELFPAY ==
--- NOTE | 2024-05-26 09:21 | A.OFFVIS_ITS ---
Vital Signs 05/26/24 09:30 Height 5 ft 10 in Weight 144 lb 13.499 oz BMI 20.8 Pulse 72 Intake Visit Reasons: yearly breast exam Intake Note: Patient is seen in office for yearly breast exam. Pt c/o:n denies any concerns regarding the breast mm:08/14/23 Radio Board Operator Required: No Accompanied by: Self / Same As Patient Allergies adhesive tape Allergy (Intermediate, Verified 05/26/24 09:23) BLISTERS bacitracin [From Neosporin] Allergy (Mild, Verified 05/26/24 09:23) RASH gramicidin D [From Neosporin] Allergy (Mild, Verified 05/26/24 09:23) RASH neomycin [From Neosporin] Allergy (Mild, Verified 05/26/24 09:23) RASH Penicillins Adverse Reaction (Mild, Verified 05/26/24 09:23) VOMITING Medication List - Last Reconciled 05/26/24 by Robert Lawrence MD amitriptyline 10 mg PO BEDTIME atorvastatin 20 mg PO DAILY coQ10 (ubiquinol) 200 mg PO DAILY esomeprazole magnesium 20 mg PO DAILY 90 days lamotrigine 25 mg PO DAILY mastectomy bra (bra, mastectomy) As directed simethicone 180 mg PO TID PRN sumatriptan succinate 50 mg PO DAILY PRN jckvsjbn-jssx-hayev-oreg-capry 100 mg-150 mg- 50 mg-150 mg 1,000 PO DAILY HPI Comments Details: 63-year-old female patient, former patient of Dr. Carl returning for breast cancer follow-up. 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 She subsequently developed a recurrent right breast ductal carcinoma and underwent a right simple mastectomy with axillary sentinel node biopsy in May 2012. A focus of invasive ductal carcinoma grade 1 was identified, ER/[place] positive. She completed 5 years of anastrozole in August 2017. She developed a swollen lymph node in the left axilla after her 2nd COVID shot. This has subsequently resolved. Genetic testing was negative for the BRCA gene. Her most recent left mammogram on 08/14/2023 revealed no suspicious findings (BI-RADS 1) A PET scan obtained on 08/28/2022 revealed no evidence of metastatic disease. She reports feeling well and denies any ongoing breast symptoms. PFSH Medical History Cervical cancer screening Physical exam Abdominal pain Flank pain Tick bite of back History of right breast cancer Hx of radiation therapy Migraines Arthritis Hyperlipidemia GERD (gastroesophageal reflux disease) Surgical History Hx of unilateral oophorectomy History of lumpectomy of right breast History of esophagogastroduodenoscopy (EGD) Hx of colonoscopy History of excision of lesion History of salpingo-oophorectomy History of cholecystectomy History of wisdom tooth extraction H/O right mastectomy Family History Father Diabetes Mother Osteoporosis Mental health disorder Paternal Aunt Colon cancer Other Family history of breast cancer Family history of gastric cancer Family history of pancreatic cancer Family history of prostate cancer Social History Housing: House Are you a primary reservoir caretaker to a significant other at home: No Do you presently have visiting nurse or other home services: No Alcohol intake: current Alcohol intake frequency: holidays/special occasions only Patient Tobacco Use Status: Never used Tobacco e-Cigarette/Vaping Use: Never Used Second Hand Smoke Exposure: No service: No Current occupational status: employed 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, 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 Cognitive needs: No Hearing needs: No Vision needs: Yes (glasses) Female Reproductive History Menstrual Age of Menarche: 13 Review of Systems Const All systems reviewed & are unremarkable except as noted in HPI and below Physical Exam Vital Signs: Last Vital Signs Pulse 72 05/26/24 09:30 BMI result Body Mass Index 20.8 Const General: cooperative, healthy appearing, comfortable, no acute distress, well developed, alert and awake Neck Neck: Yes normal visual inspection, Yes full ROM, Yes no lymphadenopathy, Yes trachea midline and Yes supple Thyroid: Thyroid normal Lymphatic: no lymphadenopathy noted Chest Other: Right breast status post simple mastectomy, wounds clean and intact with no subcutaneous nodules or lymphadenopathy. Left breast: No skin change, no tenderness, no palpable mass, no nipple discharge, no nipple retraction, and no enlarged lymph nodes. Skin Other: Warm, dry, no rash Neuro Other: Mobility Assessment: 1. 3 meter assessment time (seconds) 5 2. Gait observations: Normal balance and gait Extrem General: Yes no clubbing, cyanosis or edema Assessment & Plan Assessment & Plan (1) H/O right mastectomy: Comment: 2012 w/lymph node excision Code(s): Z90.11 - Acquired absence of right breast and nipple Category: Surgical (2) Ductal carcinoma in situ of right breast: Code(s): D05.11 - Intraductal carcinoma in situ of right breast Category: Medical (3) History of right breast cancer: Comment: X2-2000 & 2012 Code(s): Z85.3 - Personal history of malignant neoplasm of breast Category: Medical Plan 63-year-old female patient presenting with a previous history of DCIS with focus of invasive ductal carcinoma grade 1 of the right breast status post simple mastectomy. Pathology revealed invasive ductal carcinoma grade 1 with ductal carcinoma in situ which was ER, [place] pos. She is s/p simple mastectomy and has no evidence of recurrence disease. Her most recent left mammogram on 08/14/2023 revealed no mammographic evidence of malignancy (BI-RADS 1). Examination today revealed no evidence of recurrent disease. She will return in 1 year for follow-up examination. She is welcome to call sooner for any concerns. Coding Level of Care Code Est Pt Level 3 (20935) Diagnoses H/O right mastectomy Z90.11 Ductal carcinoma in situ of right breast D05.11 History of right breast cancer Z85.3
[2024-05-26 09:30] VITALS: PULSE 72; BMI 20.8
== END 2024-05-26 09:38 | disposition home or self-care (01) ==
PROVIDERS: PCP Internal Medicine; Visit Provider Surgery
DX: Z90.11 Acquired absence of right breast and nipple (principal); D05.11 Intraductal carcinoma in situ of right breast; Z85.3 Personal history of malignant neoplasm of breast
CPT/HCPCS: 99213

== ENCOUNTER → 2024-05-26 09:00 | Outpatient (BNVA) | payer OTHER, SELFPAY | PROVIDERS: PCP Internal Medicine; Visit Provider Surgery | DX: D05.11 Intraductal carcinoma in situ of right breast (principal); Z90.11 Acquired absence of right breast and nipple; Z85.3 Personal history of malignant neoplasm of breast ==

== ENCOUNTER 2024-05-29 13:59 | Outpatient (REF) | payer OTHER, SELFPAY ==
[2024-05-29 14:49] LABS: MANUAL DIFF FLAG NO
[2024-05-29 15:11] LABS: Basophils Absolute Auto 0.1 X10*3/uL (0.0-0.2); Basophils Percent Auto 0.7 % (0-2); Eosinophils Percent Auto 0.3 % (0-4); Hematocrit 38.3 % (37.0-47.0); Hemoglobin 12.3 g/dl (12.0-16.0); Imm Gran Abs Auto 0.03 X10*3/uL (0.00-0.03); Imm Gran Pct Auto 0.4 % (0.0-0.4); Lymphocytes Absolute Auto 1.6 X10*3/uL (1.2-4.9); Lymphocytes Percent Auto 20.8 % (20-40); Mean Corpuscular HGB Conc 32.1 g/dl (31.0-35.0); Mean Corpuscular Hemoglobin 28.3 pg (27.0-33.0); Mean Platelet Volume 9.4 fL (9.4-12.3); Monocytes Absolute Auto 0.7 X10*3/uL (0.1-1.2); Monocytes Percent Auto 8.6 % (2-11); Neutrophils Absolute Auto 5.3 x10*3/uL (2.0-8.3); Neutrophils Percent Auto 69.2 % (45-73); Platelet Count 310 X10*3/uL (160-400); Red Blood Count 4.35 X10*6/uL (4.20-5.50); Red Cell Distribution Width 12.6 % (11.0-16.0); White Blood Count 7.7 X10*3/uL (4.8-10.8)
[2024-05-29 15:14] LABS: Appearance Urine Clear; Color Urine Yellow; Glucose Urine UA Negative (Negative); Leukocyte Esterase Urine Trace (Negative); Nitrite Urine Negative (Negative); PH 5.5 (5.0-9.0); Specific Gravity - Urine 1.025 (1.005-1.025); UMIC TRIGGER UA YES; Urine Blood Moderate (2+) (Negative); Urine Ketones 40 mg/dL (Negative); Urine Protein Trace mg/dL (Neg-Trace)
[2024-05-29 15:16] LABS: Bacteria Urine None Seen (None Seen); Hyaline Casts Urine 0-2 /LPF (0-2); Squamous Epithelial Cell Urine 0-2 /HPF (0-2); WBC Urine 0-5 /HPF (0-5)
[2024-05-29 16:11] LABS: Cholesterol 191 mg/dL (<200); HDL Cholesterol 92 mg/dL (>40); LDL Cholesterol Calculated 86 mg/dL (<100); Triglycerides 69 mg/dL (<150)
[2024-05-29 16:26] LABS: Thyroid Stimulating Hormone 0.73 uIU/mL (0.32-4.0)
== END 2024-05-29 14:00 | disposition home or self-care (01) ==
LOC: HO.LAB 13:59
PROVIDERS: PCP Internal Medicine; Visit Provider Internal Medicine
DX: Z13.29 Encounter for screening for other suspected endocrine disorder (principal); Z13.220 Encounter for screening for lipoid disorders; Z13.0 Encounter for screening for diseases of the blood and blood-forming organs and certain disorders involving the immune mechanism; M54.9 Dorsalgia, unspecified; E78.5 Hyperlipidemia, unspecified
CPT/HCPCS: 36415; 72100; 80061; 81001; 84443; 85025

== ENCOUNTER 2024-05-29 13:59 | Outpatient (AMB) | payer OTHER, SELFPAY ==
--- NOTE | 2024-05-29 14:06 | MHC.PC.OV ---
Vital Signs 05/29/24 14:08 Height 5 ft 10 in Weight 148 lb 6 oz BMI 21.3 BP 128/70 Blood Pressure Location Lt brachial Position Sitting Pulse 58 Pulse Source Pulse Oximeter Pulse Oximetry (%) 95 Oxygen Delivery Method Room Air Intake Visit Reasons: Hip Pain both hips Intake Note: Patient is here to follow up on Pain in both hips. Router Operator Radial Required: No Certified Genetic Counselor: Not Required per policy Accompanied by: Self / Same As Patient Allergies adhesive tape Allergy (Intermediate, Verified 05/29/24 14:07) BLISTERS bacitracin [From Neosporin] Allergy (Mild, Verified 05/29/24 14:07) RASH gramicidin D [From Neosporin] Allergy (Mild, Verified 05/29/24 14:07) RASH neomycin [From Neosporin] Allergy (Mild, Verified 05/29/24 14:07) RASH Penicillins Adverse Reaction (Mild, Verified 05/29/24 14:07) VOMITING Medication List - Last Reconciled 06/01/24 by Miah Day MD amitriptyline 10 mg PO BEDTIME atorvastatin 20 mg PO DAILY coQ10 (ubiquinol) 200 mg PO DAILY esomeprazole magnesium 20 mg PO DAILY 90 days lamotrigine 25 mg PO DAILY mastectomy bra (bra, mastectomy) As directed simethicone 180 mg PO TID PRN sumatriptan succinate 50 mg PO DAILY PRN tramadol 50 mg PO Q8H PRN srztustz-gbrz-jjblf-oreg-capry 100 mg-150 mg- 50 mg-150 mg 1,000 PO DAILY Tobacco use date assessed: 05/29/24 Dental Screening Dental Screen Date: 10/08/23 HPI Hip Pain both hips HPI Details lower abd pain and pelvic pain for a week PFSH Medical History Cervical cancer screening Physical exam Abdominal pain Flank pain Tick bite of back History of right breast cancer Hx of radiation therapy Migraines Arthritis Hyperlipidemia GERD (gastroesophageal reflux disease) Surgical History Hx of unilateral oophorectomy History of lumpectomy of right breast History of esophagogastroduodenoscopy (EGD) Hx of colonoscopy History of excision of lesion History of salpingo-oophorectomy History of cholecystectomy History of wisdom tooth extraction H/O right mastectomy Family History Father Diabetes Mother Osteoporosis Mental health disorder Paternal Aunt Colon cancer Other Family history of breast cancer Family history of gastric cancer Family history of pancreatic cancer Family history of prostate cancer Social History Housing: House Are you a primary family member caretaker to a significant other at home: No Do you presently have visiting nurse or other home services: No Alcohol intake: current Alcohol intake frequency: holidays/special occasions only Patient Tobacco Use Status: Never used Tobacco e-Cigarette/Vaping Use: Never Used Second Hand Smoke Exposure: No service: No Current occupational status: employed 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 How many drinks containing alcohol do you have on a typical day when you are drinking?: 1 or 2 3. How often do you have six or more drinks on one occasion?: Never Total Score: 0 CRISTINA-7 AMB Questionnaire CRISTINA-7 Date CRISTINA - 7 assessed: 10/08/23 Source: Developed by Drs. Kenneth Martínez, Lisseth Oates, Gurwinder Ross and colleagues, with an educational norma from [employer]. Review of Systems Const Denies chills, Denies headache(s) and Denies weight loss ENT Denies headache(s) Card Denies chest pain, Denies syncope, Denies irregular heart rhythm and Denies dyspnea Resp Denies chest congestion, Denies cough and Denies dyspnea GI Reports abdominal pain, Denies change in stool character, Denies nausea and Denies vomiting Musc Denies deformity and Denies joint swelling Neuro Denies syncope and Denies headache(s) Physical exam (Primary Care) Vital Signs: Last Vital Signs Pulse 58 05/29/24 14:08 BP 128/70 05/29/24 14:08 Pulse Ox 95 05/29/24 14:08 Oxygen Delivery Method Room Air 05/29/24 14:08 BMI result Body Mass Index 21.3 Tobacco/Smoking Status: Tobacco use Status Tobacco use date assessed 05/29/24 05/29/24 14:11 Patient Tobacco Use Status Never used Tobacco 05/29/24 14:11 e-Cigarette/Vaping Use Never Used 05/29/24 14:11 Thrive Assessment: Date of Thrive Assessment Date Thrive assessed 10/08/23 05/29/24 14:11 Const General: cooperative, comfortable, no acute distress and alert Neck Neck: Yes no lymphadenopathy Thyroid: Thyroid normal Resp Effort & Inspection: normal respiratory effort Auscultation: clear to auscultation bilaterally Percussion: percussion normal Cardio Jugular venous distension: no JVD Palpation: normal PMI Rate: regular rate Rhythm: regular rhythm Heart sounds: S1 normal heart sound present and S2 normal heart sound present GI Inspection: Yes normal to inspection Palpation (GI): No hepatosplenomegaly present Skin General skin exam: no rashes or lesions noted Extrem General: Yes no clubbing, cyanosis or edema Coding Level of Care Code Est Pt Level 3 (71559) Diagnoses Abdominal pain R10.9 Assessment & Plan Assessment & Plan (1) Abdominal pain: Code(s): R10.9 - Unspecified abdominal pain Plan: labs and US ordered Orders: Orders Complete Blood Count Auto Diff 05/29/24 Z13.0 - Encounter for screening for diseases of the blood and blood-forming organs and certain disorders involving the immune mechanism UA and rflx microscopic 05/29/24 N39.0 - Urinary tract infection, site not specified XR lumbar spine 2-3V 05/29/24 M54.9 - Dorsalgia, unspecified Medications: New tramadol 50 mg PO Q8H PRN 20 tabs 0RF pain
[2024-05-29 14:08] VITALS: BP 128/70; PULSE 58; O2SAT 95; BMI 21.3
== END 2024-05-29 14:21 | disposition home or self-care (01) ==
PROVIDERS: PCP Internal Medicine; Visit Provider Internal Medicine
DX: R10.9 Unspecified abdominal pain (principal)

== ENCOUNTER → 2024-05-29 14:53 | Outpatient (BNV) | payer OTHER, SELFPAY | PROVIDERS: PCP Internal Medicine; Visit Provider Radiology Diagnostic Radiology | DX: M54.9 Dorsalgia, unspecified (principal) | CPT/HCPCS: 72100 ==

== ENCOUNTER 2024-06-18 10:13 | Outpatient (REF) | payer OTHER, SELFPAY ==
--- NOTE | ~2024-06-18 | US_ITS ---
EXAMINATION: US ABDOMEN COMPLETE CLINICAL INFORMATION: Unspecified abdominal pain. COMPARISON: Ultrasound renal 05/10/2021. Ultrasound abdomen 07/28/2020. CT abdomen and pelvis 09/06/2020. TECHNIQUE: Real-time imaging of the abdominal viscera. Limited visualization due to bowel gas. FINDINGS: PANCREAS: Limited visualization of pancreatic tail and head. Imaged portion of pancreatic body is unremarkable. ABDOMINAL AORTA: The proximal, mid, and distal segments are normal in caliber. INFERIOR VENA CAVA: Visualized portions are normal. LIVER: Diffusely heterogeneous hepatic echotexture, possibly related to hepatocellular disease. Limited visualization. Correlation with clinical and laboratory exam recommended. GALLBLADDER: Surgically absent. COMMON BILE DUCT: Measures 0.73 cm in diameter. RIGHT KIDNEY: No hydronephrosis. No renal calculi. Limited visualization. The kidney measures 10.3 cm in maximum dimension. LEFT KIDNEY: No hydronephrosis. No renal calculi. Limited visualization. The kidney measures 10.5 cm in maximum dimension. SPLEEN: The spleen measures 8.7 cm in maximum dimension. FREE FLUID: None. US/US abdomen complete IMPRESSION: 1. Gallbladder is surgically absent. Common duct measures 0.7 cm in diameter. 2. Diffusely heterogeneous hepatic echotexture, possibly related to hepatocellular disease. Limited visualization. Correlation with clinical and laboratory exam recommended. Electronically signed by: Cehrie Thompson MD 06/21/2024 09:32 AM EST
--- OUTSIDE RECORDS SUMMARY | 2024-06-18 10:15 | XMS_ITS ---
Author Organization Kenneth Samuel III, MD Address [address] [place] [address] Care Team Providers Care Employee Communications Intern Name Role Phone Miah Day MD Primary Care Provider Kenneth [facility] [phone] REASON FOR VISIT orthopedic appointment Social History Sex Assigned At : Social History Observation Description Sex Assigned At Female Encounters Encounter Location Date Provider Diagnosis Kenneth Samuel III, MD [address] [place] [address] [place] [address] 09/09/2023 Kenneth Samuel Plan Of Treatment Next Appt Details Provider Name:Kenneth Sameul, 07/06/2024 09:00:00 AM, [address] [place] [address] [place], [address], Progress Notes * Geeta EPTERB: [birth year] (62 yo F)Acc No.[id number]:09/09/2023 Patient:?Sabrina Peter :1960???Age:62 Y???Sex:Female Address:[place] [address] * true * Date:? Generated for Printi ng/Faxing/eTransmitting on:?06/18/2024 10:15 AM EST
--- OUTSIDE RECORDS SUMMARY | 2024-06-18 10:15 | XMS_ITS | Patient Health Record ---
Author Organization Kenneth Samuel III, MD Address [address] [facility] [place] [place] [address] Care Team Providers Care Principal Systems Engineer Name Role Phone Miah Day MD Primary Care Provider Kenneth Godoy [facility] [phone] Allergies Allergen (clinical drug ingredient) Drug/Non Drug Allergy documented on EMR Reaction Allergy Type Onset Date Status Penicillin Unknown Drug Allergy Active neomycin Neomycin rash Drug Allergy Active Adhesive rash Allergy Active Results Component Value Reference Range Notes Complete Blood Count Auto Di ff Reviewed date:06/30/2023 06:52:05 PM Interpretation: Performing Lab:[facility], [address] [place] [id number] Notes/Report: White Blood Count 5.4 4.8-10.8 X10*3/uL Red Blood Count 4.41 4.20-5.50 X10*6/uL Hemoglobin 12.7 12.0-16.0 g/dl Hematocrit 39.3 37.0-47.0 % Mean Corpuscular Volume 89.1 80.0-98.0 fL Mean Corpuscular Hemoglobin 28.8 27.0-33.0 pg Mean Corpuscular HGB Conc 32.3 31.0-35.0 g/dl Red Cell Distribution Width 12.8 11.0-16.0 % Platelet Count 277 160-400 X10*3/uL Mean Platelet Volume 9.6 9.4-12.3 fL Neutrophils Percent Auto 56.9 45-73 % Imm Gran Pct Auto 0.4 0.0-0.4 % Lymphocytes Percent Auto 30.8 20-40 % Monocytes Percent Auto 8.0 2-11 % Eosinophils Percent Auto 2.8 0-4 % Basophils Percent Auto 1.1 0-2 % NRBC Pct Auto 0.0 0.0-0.2 /100WBC Neutrophils Absolute Auto 3.1 2.0-8.3 x10*3/u L Imm Gran Abs Auto 0.02 0.00-0.03 X10*3/uL Lymphocytes Absolute Auto 1.7 1.2-4.9 X10*3/u L Monocytes Absolute Auto 0.4 0.1-1.2 X10*3/uL Eosinophils Absolute Auto 0.2 0.0-0.4 X10*3/u L Basophils Absolute Auto 0.1 0.0-0.2 X10*3/uL NRBC Abs Auto 0.000 0.0-0.012 X10*3/uL Comprehensive [place]. Panel Fa st Reviewed date:06/30/2023 06:52:05 PM Interpretation: Performing Lab:[facility], [address] [place] [phone] Notes/Report: Sodium 144 135-145 mmol/L Potassium 4.3 3.3-5.1 mmol/L Chloride 108 96-108 mmol/L Carbon Dioxide 28 22-29 mmol/L Anion Gap 12 12-20 Blood Urea Nitrogen 14 9-16 mg/dL Creatinine 0.89 0.5-1.4 mg/dL Estimated Glomerular Filt Rate > 60 NOTE: For -[place] individuals, multiply the result by 1.210. Chronic Kidney Disease: Estimated GFR < 60 mL/min/1.73m2 Severe Kidney Disease: Estimated GFR < 15 mL/min/1.73m2 Glucose Fasting 98 60-99 mg/dL Calcium 9.4 8.4-10.2 mg/dL Bilirubin Total 0.7 0.0-1.0 mg/dL Aspartate Amino Transferase 22 5-31 U/L Alanine Aminotransferase 16 0-31 U/L Total Protein 6.9 6.5-8.0 g/dL Albumin Level 4.2 3.5-5.0 g/dL Alkaline Phosphatase 52 39-117 U/L Lipid Panel Reviewed date:06/30/2023 06:52:05 PM Interpretation: Performing Lab:[facility], [address], [place] [address] Notes/Report: Triglycerides 48 <150 mg/dL Desirable Triglyceride: less than 150 mg/dL Borderline High Triglyceride 150-199 mg/dL High Triglyceride: 200-499 mg/dL Very High Triglyceride: greater than or equal to 5OO mg/dL Cholesterol 184 <200 mg/dL Desirable Cholesterol: less than 200 mg/dL Borderline High Cholesterol: 200-239 mg/dL High Cholesterol: greater than 239 mg/dL LDL Cholesterol Calculated 95 <100 mg/dL Desirable LDL: less than 100 mg/dL Near Optimal/Above Optimal LDL: 110-129 mg/dL Borderline High LDL: 130-159 mg/dL High LDL: 160-189 mg/dL Very High LDL: greater than or equal to 190 mg/dL HDL Cholesterol 80 >40 mg/dL Desirable HDL: greater than 40 mg/dL Note: This HDL assay may give artificially low results in patients with liver disease. Reason For Referral Reason Consult and Treat Left Shoulder Pain due to a Fall Diagnosis 1 Shoulder pain, left (M25.512) Referral Organization Kenneth Samuel III, MD Referring Provider First Name Kenneth Referring Provider Last Name Jimmie Referring Provider Speciality Internal M edicine Referred Provider [facility], Orthopedic Surgeons Referred Provider Specialty Orthopedic S urgery General Notes Marzena Nuñez 2023 10:56:42 AM EDT > Faxed referral, progress note and Margaret burgos Suzanne CMA 09/10/2023 09:46:16 AM EDT > Pt sent message thru portal that she has appt with [facility] on 2023 at 9am Referral Priority Routine Referral Appointment Date 2023 Medications Medication SIG (Take, Route, Frequency, Duration) [...] tablet Orally Twic e a day Active NexIUM 24HR 20 MG TAKE ONE CAPSULE BY MOUTH TWICE A DAY Oral Active Fish Oil 1000 MG 1 capsule Orally Onc e a day Active Imitrex 25 MG 1 tablet at least 2 hours between doses as needed Orally Twice a day Active CoQ-10 30 MG 1 capsule with a lindsay l Orally Once a day Active Immunizations Vaccine Route Administration Date Status Comme nts Influenza Unknown 04/09/2014 Administered Social History Tobacco Use: Social History Observation Description Date Details (start date - stop date) Never Smoker NA - NA Sex Assigned At : Social History Observation Description Sex Assigned At Female Tobacco Use/Smoking Question Answer Notes Patient is a nonsmoker Additional Findings: Tobacco Non-User Aggressive non-smoker Alcohol Screen Question Answer Notes Did you have a drink containing alcohol in the p ast year? No Points 0 Interpretation Negative Problems Problem Type SNOMED Code ICD Code Onset Dates Problem Status W/U Status Risk Notes Problem 49493180 Weight loss (R63.4) Active confirmed She has gained 1pound since her last visit. Her body mass index has increased to 20. Problem Breast cancer (772986956) Breast cancer (C50.919) Active confirmed There was no sign of recurrent breast cancer on her last examination. Her current PET/CT scan shows no sign of breast cancer. Problem 171779525 Malignant neopla sm of unspecified site of right female breast (C50.911) Active confirmed She has completed her adjuvant endocrine therapy. Her examination today is normal. There is no sign of a new primary or relapse. She is up-to-date with mammography. Problem 23153920 Calculus of gallbladder without cholecystitis without obstruction (K80.20) Active confirmed These are asymptomatic and that there is no pain in the right upper quadrant on deep palpation. Problem 33604234 Age-related osteoporosis without current pathological fracture (M81.0) Active confirmed She has bee n compliant with her medications. No change in her regimen was made. Problem Osteoporosis (62437456) Other osteoporosis without current pathological fracture (M81.8) Active confirmed This has be en treated on current therapy will continue. Problem Sensory disorder of smell and/or taste (126703462095 3) Unspecified disturbances of smell and taste (R43.9) Active confirmed She has been to the neurologist and evaluation for seizure disorder is under way. She continues to experience is smelled something burning intermittently. 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 She will be seen in August 2017 at which time her endocrine therapy will be discontinued. She will be due for a bone density. Problem 337478141 Pure hypercholesterolemia (E78.00) Active confirmed Her lipids are being checked 3 times a year. No change in her regimen was needed. Problem 72462650 Osteoporosis, unspecified osteoporosis type, unspecified pathological fracture presence (M81.0) Active confirmed She continues on her regimen. She has no bone pain. She will have a bone density test next July. Problem 125039475 Nonintractable epilepsy without status epilepticus, unspecified epilepsy type (G40.909) Active confirmed She has been compliant with her regimen. The old factory hallucinations have resolved. Problem 114221485 RLQ abdominal pa in (R10.31) Active confirmed There was no pain to palpation of the right lower quadrant today in this pain has resolved. Vital Signs Heart Rate 77 /min 03/02/2024 Temperature 97.1 degrees Fahrenheit 03/02/2024 Blood pressure diastolic 68 mm Hg 03/02/2024 Height 71 in 03/02/2024 Blood pressure systolic 99 mm Hg 03/02/2024 Weight 147 lbs 03/02/2024 BMI 20.5 kg/m2 03/02/2024 Encounters Encounter Location Date Provider Diagnosis Kenneth Samuel III, MD [address] [place] [address] [place] [address] 07/05/2023 Kenneth Samuel Weight loss R63.4 ; Malignant neoplasm of unspecified site of right female breast C50.911 ; DCIS (ductal carcinoma in situ), right D05.11 ; Other osteoporosis without current pathological fracture M81.8 ; Pure hypercholesterolemia E78.00 ; Age-related osteoporosis without current pathological fracture M81.0 and Nonintractable epilepsy without status epilepticus, unspecified epilepsy type G40.909 Kennteh Samuel III, MD [address] [place] [address] [place] [address] 08/29/2023 Kenneth Samuel Malignant neoplasm o f unspecified site of right female breast C50.911 ; Age-related osteoporosis without current pathological fracture M81.0 ; DCIS (ductal carcinoma in situ), right D05.11 and Pure hypercholesterolemia E78.00 Kenneth Samuel III, MD [address] [place] [address] [place] [phone] 03/02/2024 Kenneth Samuel Osteoporosis, unspec ified osteoporosis type, unspecified pathological fracture presence M81.0 ; Malignant neoplasm of unspecified site of right female breast C50.911 ; Pure hypercholesterolemia E78.00 ; Weight loss R63.4 and Nonintractable epilepsy without status epilepticus, unspecified epilepsy type G40.909 Kenneth Samuel III, MD [address] [place] [address] [address] [place] [phone] 08/29/2023 Kenneth Samuel III, MD [address] [place] [address] [address] [place] [phone] 09/09/2023 Kenneth Samuel Assessments Encounter Date Diagnosis (ICD Code) Assessment Notes T reatment Notes Treatment Clinical Notes 07/05/2023 Weight loss (ICD-10 - R63.4) She has gained 8 pounds since her last visit. Her body mass index has increased to 20. 07/05/2023 Malignant neoplasm o f unspecified site of right female breast (ICD-10 - C50.911) There is no sign of recurrent breast cancer or a new primary. She continues on adjuvant therapy without side effects. She is up-to-date with mammography. 08/29/2023 Malignant neoplasm o f unspecified site of right female breast (ICD-10 - C50.911) There is no sign of recurrent breast cancer or a new primary. She continues on adjuvant therapy without side effects. She is up-to-date with mammography. 08/29/2023 Age-related osteopor osis without current pathological fracture (ICD-10 - M81.0) She has been compliant with her medications. No change in her regimen was made. 03/02/2024 Malignant neoplasm o f unspecified site of right female breast (ICD-10 - C50.911) She has completed her adjuvant endocrine therapy. Her examination today is normal. There is no sign of a new primary or relapse. She is up-to-date with mammography. 03/02/2024 Osteoporosis, unspec ified osteoporosis type, unspecified pathological fracture presence (ICD-10 - M81.0) She continues on her regimen. She has no bone pain. She will have a bone density test next July. 07/05/2023 DCIS (ductal carcino ma in situ), right (ICD-10 - D05.11) She remains free of disease and she continues on her anastrozole. She will be seen in August 2017 at which time her endocrine therapy will be discontinued. She will be due for a bone density. 08/29/2023 DCIS (ductal carcino ma in situ), right (ICD-10 - D05.11) She remains free of disease and she continues on her anastrozole. She will be seen in August 2017 at which time her endocrine therapy will be discontinued. She will be due for a bone density. 03/02/2024 Pure hypercholestero lemia (ICD-10 - E78.00) Her lipids are being checked 3 times a year. No change in her regimen was needed. 07/05/2023 Other osteoporosis without current pathological fracture (ICD-10 - M81.8) This has been treated on current therapy will continue. 08/29/2023 Pure hypercholestero lemia (ICD-10 - E78.00) Her lipid profile shows elevation of her HDL and LDL. I have referred her back to primary care for evaluation of this problem. I have discussed with her lengthy use of a statin drug. She is going to try. I explained that this was the [place] of the primary care physician regularly oncologist that she should speak to him about that. 03/02/2024 Weight loss (ICD-10 - R63.4) She has gained 1pound since her last visit. Her body mass index has increased to 20. 07/05/2023 Pure hypercholestero lemia (ICD-10 - E78.00) Her lipid profile shows elevation of her HDL and LDL. I have referred her back to primary care for evaluation of this problem. I have discussed with her lengthy use of a statin drug. She is going to try. I explained that this was the [place] of the primary care physician regularly oncologist that she should speak to him about that. 03/02/2024 Nonintractable epile psy without status epilepticus, unspecified epilepsy type (ICD-10 - G40.909) She has been compliant with her regimen. The old factory hallucinations have resolved. 07/05/2023 Age-related osteopor osis without current pathological fracture (ICD-10 - M81.0) She has been compliant with her medications. No change in her regimen was made. 07/05/2023 Nonintractable epile psy without status epilepticus, unspecified epilepsy type (ICD-10 - G40.909) Diagnosis has been made and she has been treated. He'll factory hallucinations have resolved. Plan Of Treatment Pending Test Test Name Order Date ELECTROLYTES 06/20/2021 PREALBUMIN 08/03/2022 PROFILE, FASTING (COMPREHENSIVE METABOLI C) 03/02/2024 PROFILE, RANDOM (COMPREHENSIVE METABOLIC ) 07/12/2020 PROFILE, RANDOM (COMPREHENSIVE METABOLIC ) 11/27/2021 PROFILE, RANDOM (COMPREHENSIVE METABOLIC ) 01/11/2020 BUN 06/20/2021 CREATININE 06/20/2021 LIPID PANEL 03/02/2024 FREE T4 (FT4) 08/03/2022 TSH (THYROID STIMULATING HORMONE) 2022 VITAMIN B12 AND FOLATE 08/03/2022 CBC w DIFF 01/11/2020 CBC w DIFF 03/02/2024 CBC w DIFF 07/12/2020 CBC w DIFF 11/27/2021 SED RATE (ESR) 07/12/2020 CA 27.29 08/03/2022 CA 27.29 07/12/2020 BONE DENSITY DEXA 03/02/2024 Next Appt Details Provider Name:Kenneth Samuel, 07/06/2024 09:00:00 AM, [address] [place] [address] [address], [address], [place], [address], Insurance Providers Payer Name Payer Address Payer Phone Subscriber Number Group Number Insured Name Patient Relationship to Insured Coverage Start Date Coverage End Date [address] [facility] [place] [phone] [id number] Sabrina Peter Self - patient is the insured Medical (General) History Medical History History ICD Code 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
--- OUTSIDE RECORDS SUMMARY | 2024-06-18 10:15 | XMS_ITS ---
Author Organization Kenneth Samuel III, MD Address [address] [place] [address] Care Team Providers Care Branch Officer Name Role Phone Miah Day MD Primary Care Provider Kenneth Godoy [facility] [phone] REASON FOR VISIT Mammogram Social History Sex Assigned At : Social History Observation Description Sex Assigned At Female Encounters Encounter Location Date Provider Diagnosis Kenneth Samuel III, MD [address] [place] [address] [place] [address] 08/29/2023 Kenneth Samuel Plan Of Treatment Next Appt Details Provider Name:Kenneth Samuel, 07/06/2024 09:00:00 AM, [address] [place] [address] [place], [address], Progress Notes * Geeta PETERB: [birth year] (62 yo F)Acc No.[id number]:08/29/2023 Patient:?Sabrina Peter :1960???Age:62 Y???Sex:Female Address:[place] [address] * true * Date:? Generated for Printi ng/Faxing/eTransmitting on:?06/18/2024 10:15 AM EST
== END 2024-06-18 10:14 | disposition home or self-care (01) ==
LOC: HO.HMGCX 10:13
PROVIDERS: PCP Internal Medicine; Visit Provider Internal Medicine
DX: R10.9 Unspecified abdominal pain (principal)
CPT/HCPCS: 76700

== ENCOUNTER 2024-06-23 09:36 | Outpatient (REF) | payer OTHER, SELFPAY ==
--- OUTSIDE RECORDS SUMMARY | 2024-06-23 09:42 | XMS_ITS | Patient Health Record ---
Author Organization Kenneth Samuel III, MD Address [address] [facility] [place] [address] Care Team Providers Care Drywall Taper Name Role Phone Miah Day MD Primary Care Provider Kenneth Godoy [facility] [phone] Allergies Allergen (clinical drug ingredient) Drug/Non Drug Allergy documented on EMR Reaction Allergy Type Onset Date Status Penicillin Unknown Drug Allergy Active neomycin Neomycin rash Drug Allergy Active Adhesive rash Allergy Active Results Component Value Reference Range Notes Complete Blood Count Auto Di ff Reviewed date:06/30/2023 06:52:05 PM Interpretation: Performing Lab:[facility], [address] [place] [address] Notes/Report: White Blood Count 5.4 4.8-10.8 X10*3/uL [...] NRBC Abs Auto 0.000 0.0-0.012 X10*3/uL Comprehensive [place]. Panel Fa st Reviewed date:06/30/2023 06:52:05 PM Interpretation: Performing Lab:[facility], [address] [place] [address] Notes/Report: Sodium 144 135-145 mmol/L Potassium 4.3 3.3-5.1 mmol/L Chloride 108 96-108 mmol/L Carbon Dioxide 28 22-29 mmol/L Anion Gap 12 12-20 Blood Urea Nitrogen 14 9-16 mg/dL Creatinine 0.89 0.5-1.4 mg/dL Estimated Glomerular Filt Rate > 60 NOTE: For -[place]oliv[place] individuals, multiply the result by 1.210. Chronic [...] Panel Reviewed date:06/30/2023 06:52:05 PM Interpretation: Performing Lab:[facility], [address] [facility] [facility], [place] [address] Notes/Report: Triglycerides 48 <150 mg/dL Desirable Triglyceride: [...] Provider Speciality Internal M edicine Referred Provider [facility] er, Orthopedic Surgeons Referred Provider Specialty Orthopedic S urgery General Notes Marzena Nuñez 2023 10:56:42 AM EDT > Faxed referral, progress note and Margaret burgos Suzanne CMA 09/10/2023 09:46:16 AM EDT > Pt sent message thru portal that she has appt with [place] on 2023 at 9am Referral Priority [...] Problem Status W/U Status Risk Notes Problem 97504856 Weight loss (R63.4) Active confirmed She has gained 1pound since her last visit. Her body mass index has increased to 20. Problem Breast cancer (853399561) Breast cancer (C50.919) Active confirmed There was no sign of recurrent breast cancer on her last examination. Her current PET/CT scan shows no sign of breast cancer. Problem 173858616 Malignant neopla sm of unspecified site of right female breast (C50.911) Active confirmed She has completed her adjuvant endocrine therapy. Her examination today is normal. There is no sign of a new primary or relapse. She is up-to-date with mammography. Problem 72781317 Calculus of gallbladder without cholecystitis without obstruction (K80.20) Active confirmed These are asymptomatic and that there is no pain in the right upper quadrant on deep palpation. Problem 23546187 Age-related osteoporosis without current pathological fracture (M81.0) Active confirmed She has bee n compliant with her medications. No change in her regimen was made. Problem Osteoporosis (99033907) Other osteoporosis without current pathological fracture (M81.8) Active confirmed This has be en treated on current therapy will continue. Problem Sensory disorder of smell and/or taste (671907378063 3) Unspecified disturbances of smell and taste (R43.9) Active confirmed She has been to the neurologist and evaluation for seizure disorder is under way. She continues to experience is smelled something burning intermittently. 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 She will be seen in August 2017 at which time her endocrine therapy will be discontinued. She will be due for a bone density. Problem 185451810 Pure hypercholesterolemia (E78.00) Active confirmed Her lipids are being checked 3 times a year. No change in her regimen was needed. Problem 99437221 Osteoporosis, unspecified osteoporosis type, unspecified pathological fracture presence (M81.0) Active confirmed She continues on her regimen. She has no bone pain. She will have a bone density test next July. Problem 723469251 Nonintractable epilepsy without status epilepticus, unspecified epilepsy type (G40.909) Active confirmed She has been compliant with her regimen. The old factory hallucinations have resolved. Problem 358217197 RLQ abdominal pa in (R10.31) Active confirmed [...] Date Provider Diagnosis Kenneth Samuel III, MD [address] [place] [address] [place] [address] 07/05/2023 Kenneth Samuel Weight loss R63.4 ; Malignant neoplasm of unspecified site of right female breast C50.911 ; DCIS (ductal carcinoma in situ), right D05.11 ; Other osteoporosis without current pathological fracture M81.8 ; Pure hypercholesterolemia E78.00 ; Age-related osteoporosis without current pathological fracture M81.0 and Nonintractable epilepsy without status epilepticus, unspecified epilepsy type G40.909 Kenneth Samuel III, MD [address] [place] [address] [place] [address] 08/29/2023 Kenneth Samuel Malignant neoplasm o f unspecified site of right female breast C50.911 ; Age-related osteoporosis without current pathological fracture M81.0 ; DCIS (ductal carcinoma in situ), right D05.11 and Pure hypercholesterolemia E78.00 Kenneth Samuel III, MD [address] [place] [address] [place] [address] 03/02/2024 Kenneth Samuel Osteoporosis, unspec ified osteoporosis type, unspecified pathological fracture presence M81.0 ; Malignant neoplasm of unspecified site of right female breast C50.911 ; Pure hypercholesterolemia E78.00 ; Weight loss R63.4 and Nonintractable epilepsy without status epilepticus, unspecified epilepsy type G40.909 Kenneth Samuel III, MD [address] [place] [address] [address] [place] [address] 08/29/2023 Kenneth Samuel III, MD [address] [place] [address] [address] [place] [address] 09/09/2023 Kenneth Samuel Assessments Encounter Date Diagnosis [...] Details Provider Name:Kenneth Samuel, 07/06/2024 09:00:00 AM, [address] [place] [address] [address], [address], [place], [address], Insurance Providers Payer Name Payer Address Payer Phone Subscriber Number Group Number Insured Name Patient Relationship to Insured Coverage Start Date Coverage End Date [address] [facility] [place] [phone] [id number] Sabrina Peter Self - patient is the insured Medical (General) History Medical History History ICD Code stage I invasive carcinoma right breast with DCIS [id number] cholelithiasis anastrozole ended August 2017 Surgical History Surgery Date(Month/Year) mastectomy right breast, sentinel node b iopsy 07/22/2012 lumpectomy, right breast 2001 oophorectomy of the right ov jagdish and fallopian tube, negative pathlogy 09/2007 cholecystectomy 11/2010
--- OUTSIDE RECORDS SUMMARY | 2024-06-23 09:42 | XMS_ITS ---
Author Organization Kenneth Samuel III, MD Address [address] [facility] [address] [place] [address] Care Team Providers Care Timber Rider Name Role Phone Miah Day MD Primary Care Provider Kenneth Godoy [facility] [phone] REASON FOR VISIT Mammogram Social History Sex Assigned At : Social History Observation Description Sex Assigned At Female Encounters Encounter Location Date Provider Diagnosis Kenneth Samuel III, MD [address] [place] [address] [place] [address] 08/29/2023 Kenneth Samuel Plan Of Treatment Next Appt Details Provider Name:Kenneth Samuel, 07/06/2024 09:00:00 AM, [address] [place] [address] [place], [address], Progress Notes * Geeta PETERB: 961 (62 yo F)Acc No.[id number]:08/29/2023 Patient:?Sabrina Peter :1960???Age:62 Y???Sex:Female Address:[place] [address] * true * Date:? Generated for Printi ng/Faxing/eTransmitting on:?06/23/2024 09:42 AM EST
--- OUTSIDE RECORDS SUMMARY | 2024-06-23 09:42 | XMS_ITS ---
Author Organization Kenneth Samuel III, MD Address [address] [place] [address] [place] [address] Care Team Providers Care Artist Woodblock Name Role Phone Miah Day MD Primary Care Provider Kenneth Godoy [facility] [phone] Allergies Allergen (clinical drug ingredient) Drug/Non Drug [...] nonsmoker Additional Findings: Tobacco Non-User Aggressive non-smoker Problems Problem Type SNOMED Code ICD Code Onset Dates Problem Status W/U Status Risk Notes Problem 00441374 Osteoporosis, unspecified osteoporosis type, unspecified pathological fracture presence (M81.0) Active confirmed She continues on her regimen. She has no bone pain. She will have a bone density test next July. Vital Signs Temperature 97.1 degrees Fahrenheit 03/02/20 24 Blood pressure systolic 99 mm Hg 03/02/20 24 Blood pressure diastolic 68 mm Hg 024 Heart Rate 77 /min 03/02/2024 Height 71 in 03/02/2024 Weight 147 lbs 03/02/2024 BMI 20.5 kg/m2 03/02/2024 Encounters Encounter Location Date Provider Diagnosis Kenneth Samuel III, MD [address] [place] [address] [address] [place], [place] [address] 03/02/2024 Kenneth Samuel Osteoporosis, unspec ified osteoporosis [...] day Pending Test Test Name Order Date PROFILE, FASTING (COMPREHENSIVE METABOLI C) 03/02/2024 LIPID PANEL 03/02/2024 CBC w DIFF 03/02/2024 BONE DENSITY DEXA 03/02/2024 Next Appt Details Follow Up: June Reclast, Reason: Chemo Reclast review LABS Provider Name:Kenneth Samuel, 07/06/2024 09:00:00 AM, [address] [place] [address] [address] [facility] [place], [place], [address], Progress Notes * Tramaine PETERPrincessB: 9[birth year] (63 yo F)Acc No.[id number]:03/02/2024 Progress Notes Patient:?Sabrina Peter Provider:?Kenneth Samuel MD :1960???Age:63 Y???Sex:Female D ate:03/02/2024 Address:[address] [place] [address], [phone] Pcp:Miah Day MD Subjective: * Chief Complaints: * ???Breast cancerOsteoporosis HyperlipidemiaWeight loss * HPI: ???COVID-19 Screening:? She returns for follow-up of recent weight [...] on March 19, 2024 by pain management. ?Questions?Have you experienced fever, chills, cough, sore throat, shortness of breath, difficulty breathing, muscle aches, loss of taste or smell??No ?Have you been exposed to the virus within the last 10 days??No ?Have you travelled internationally in the last 10 days??No ?Have you been exposed to COVID-19 in the past??No * ROS:?General/Constitutional:?pain?Neck pain causing headaches.?Chills?denies.?Fatigue?admits.?Fever?denies.?ENT:?Decreased hearing?denies.?Respiratory:?Cough?denies.?Cardiovascular:?Chest pain with exertion?denies.?Dyspnea on exertion?denies.?Shortness of breath?denies.?Gastrointestinal:?Constipation?occasional.?Decreased appetite?denies.?Diarrhea?denies.?Heartburn?denies.?Nausea?denies.?Rectal bleeding?denies.?Vomiting?denies.?Hematology:?bruising?denies.?petechiae?denies.?Swollen glands?none have been noted.?Genitourinary:?Frequent urination?at night.?Musculoskeletal:?Muscle aches?denies.?Painful joints?denies.?Sciatica?denies.?Weakness?denies.?Skin:?Itching?denies.?Rash?denies.?Skin lesion(s)?denies.?Neurologic:?Difficulty speaking?denies.?Dizziness?denies.?Headache?denies.?Low back pain?denies.?Psychiatric:?Depressed mood?which is mild.? * Medical History:? * Surgical History:?cholecyste ctomy 11/2010oophorectomy of the right ovary and fallopian tube, negative pathlogy 09/2007lumpectomy, right breast 2001mastectomy right breast, sentinel node biopsy 07/22/2012 * Hospitalization/Major Diagno stic Procedure:?Denies Past Hospitalization * Family History:?Father: linda oseguera 82 yrs, diabetes mellitus, abdominal aortic aneurysm repair, diagnosed with DM.?Mother: alive 75 yrs, leaky heart valves.?1 sister(s) - healthy. .? She has no children. There is a family history of prostate, gastric, and breast cancers. A third cousin had breast cancer, an uncle had prostate cancer, an aunt had colon cancer and a first cousin had pancreatic cancer. She is not aware of any family history of mental illness or substance use disorder. * Social History:?Tobacco Use:?Tobacco Use/Smoking?Patient is a?nonsmoker ?Additional Findings: Tobacco Non-User?Aggressive non-smoker ???She was born in [place]. She has been to Benja for 18 years. They have no children. 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 * Medications:?TakingNexIUM 24 HR 20 MG Capsule Delayed Release TAKE ONE [...] reviewed and reconciled with the patient * Allergies:?Adhesive: rash - AllergyPenicillinNeomycin: rash - Allergyno[Allergies Verified] Objective: * Vitals:?Ht: 71, Wt: 147, BMI :20.5, BP: 99/68, HR: 77, Temp: 97.1, Wt-k.68. * Examination: ???General Examination: ?GENERAL APPEARANCE:?pleasant, well nourished, well developed, in no acute distress, calm and relaxed , woman.?HEAD:?atraumatic, normocephalic.?EYES:?eomi, perrla, anicteric, conjugate.?EARS:?normal.?NOSE:?septum intact.?ORAL CAVITY:?normal, unremarkable.?NECK/THYROID:?no jugular venous distention, no carotid bruit, thyroid normal.?LYMPH NODES:?no enlarged lymph nodes,spleen normal.?SKIN:?no suspicious lesions, anicteric.?HEART:?no clicks, gallops, murmurs, or rubs, regular rhythm, S1, S2 normal, no s3, or vascular bruits.?LUNGS:?clear to auscultation .?BREASTS:?The left breast is unremarkable, the right mastectomy site is free of relapse..?ABDOMEN:?bowel sounds normal, no ascites, no organomegaly, no mass.?RECTAL EXAM:?not examined.?MUSCULOSKELETAL:?extremities unremarkable, no clubbing, cyanosis or edema.?PERIPHERAL PULSES:?normal.?NEUROLOGIC:?alert and oriented, cranial nerves 2-12 grossly intact, deep tendon reflexes 2+ symmetrical, motor strength normal upper and lower extremities, sensory exam intact.?PSYCH:?alert, oriented.? Assessment: * Assessment: 1.?Osteoporosis, unspecified osteoporosis type, unspecified pathological fracture presence - M81.0 (Primary), She continues on her regimen. She has no bone pain. She will have a bone density test next July.?2.?Malignant neoplasm of unspecified site of right female breast - C50.911, She has completed her adjuvant endocrine therapy. Her examination today is normal. There is no sign of a new primary or relapse. She is up-to-date with mammography.?3.?Pure hypercholesterolemia - E78.00, Her lipids are being checked 3 times a year. No change in her regimen was needed. 4.?Weight loss - R63.4, She has gained 1pound since her last visit. Her body mass index has increased to 20.?5.?Nonintractable epilepsy without status epilepticus, unspecified epilepsy type - G40.909, She has been compliant with her regimen. The old factory hallucinations have resolved.? Plan: * Treatment: 2.?Malignant neoplasm of uns pecified site of right female breast?LAB: PROFILE, FASTING (COMPREHENSIVE METABOLIC) ?LAB: LIPID PANEL ?LAB: CBC w DIFF 3.?Pure hypercholesterolemia ?LAB: PROFILE, FASTING (COMPREHENSIVE METABOLIC) ?LAB: LIPID PANEL ?LAB: CBC w DIFF 4.?Others? Continue NexIUM 24HR Capsule Delayed Release, 20 MG, TAKE ONE CAPSULE BY MOUTH TWICE A DAY, Oral;?Continue Fish Oil Capsule, 1000 MG, 1 capsule, Orally, Once a day;?Continue Imitrex Tablet, 25 MG, 1 tablet at least 2 hours between doses as needed, Orally, Twice a day;?Continue CoQ-10 Capsule, 30 MG, 1 capsule with a meal, Orally, Once a day;?Continue Atorvastatin Calcium Tablet, 10 MG, 1 tablet, Orally, Once a day;?Continue SUMAtriptan Succinate Tablet, 50 MG, TAKE 1 TABLET BY MOUTH ONCE A DAY AT ONSET OF HEADACHE; MAY REPEAT DOSE ONE TIME AFTER 2 HOURS IF NEEDED, Oral;?Continue LaMICtal Tablet, 25 MG, 2 tablet, Orally, Twice a day.?? * Procedure Codes:? * Follow Up:?June Reclast ( Reason: Chemo Reclast review LABS) * Images: * Sign off status: Completed true * Provider:?Kenneth Samuel MD Date:?02/2024 Generated for Riccardo dunn/Юлия/eTransmitting on:?06/23/2024 09:41 AM EST History and Physical Notes * HPI (History of Present Illness) Category Sub-Category Detail Notes COVID-19 Screening Questions Have you had any new onset fever, chills, cough, congestion, sore throat, shortness of breath, muscle aches?: No Have you been exposed to the virus withi n the last 10 days?: No Have you travelled internationally in [facility] last 10 days?: No Have you [...]
--- OUTSIDE RECORDS SUMMARY | 2024-06-23 09:42 | XMS_ITS ---
Author Organization Kenneth Samuel III, MD Address [address] [facility] [address] [place] [address] Care Team Providers Care Household Cook Name Role Phone Miah Day MD Primary Care Provider Kenneth Godoy [facility] [phone] REASON FOR VISIT orthopedic appointment Social History Sex Assigned At : Social History Observation Description Sex Assigned At Female Encounters Encounter Location Date Provider Diagnosis Kenneth Samuel III, MD [address] [place] [address] [place] [address] 09/09/2023 Kenneth Samuel Plan Of Treatment Next Appt Details Provider Name:Kenneth Samuel, 07/06/2024 09:00:00 AM, [address] [place] [address] [place], [address], Progress Notes * Geeta PETERB: 961 (62 yo F)Acc No.[id number]:09/09/2023 Patient:?Sabrina Peter :1960???Age:62 Y???Sex:Female Address:[place] [address] * true * Date:? Generated for Printi ng/Faxing/eTransmitting on:?06/23/2024 09:41 AM EST
[2024-06-23 13:33] LABS: MANUAL DIFF FLAG NO
[2024-06-23 13:39] LABS: Basophils Percent Auto 0.7 % (0-2); Eosinophils Absolute Auto 0.1 X10*3/uL (0.0-0.4); Eosinophils Percent Auto 1.6 % (0-4); Hematocrit 37.4 % (37.0-47.0); Imm Gran Abs Auto 0.02 X10*3/uL (0.00-0.03); Imm Gran Pct Auto 0.4 % (0.0-0.4); Lymphocytes Absolute Auto 1.1 X10*3/uL (1.2-4.9); Lymphocytes Percent Auto 19.7 % (20-40); Mean Corpuscular HGB Conc 32.1 g/dl (31.0-35.0); Mean Corpuscular Hemoglobin 28.3 pg (27.0-33.0); Mean Corpuscular Volume 88.2 fL (80.0-98.0); Mean Platelet Volume 9.6 fL (9.4-12.3); Monocytes Absolute Auto 0.4 X10*3/uL (0.1-1.2); Monocytes Percent Auto 6.9 % (2-11); Neutrophils Percent Auto 70.7 % (45-73); Platelet Count 336 X10*3/uL (160-400); Red Blood Count 4.24 X10*6/uL (4.20-5.50); Red Cell Distribution Width 12.3 % (11.0-16.0); White Blood Count 5.7 X10*3/uL (4.8-10.8)
[2024-06-23 13:50] LABS: Alanine Aminotransferase 22 U/L (0-31); Albumin Level 4.2 g/dL (3.5-5.0); Alkaline Phosphatase 94 U/L (39-117); Anion Gap 10 (12-20); Aspartate Amino Transferase 27 U/L (5-31); Bilirubin Total 0.6 mg/dL (0.0-1.0); Blood Urea Nitrogen 10 mg/dL (9-16); Calcium 9.3 mg/dL (8.4-10.2); Carbon Dioxide 27 mmol/L (22-29); Chloride 108 mmol/L (96-108); Cholesterol 167 mg/dL (<200); Estimated Glomerular Filt Rate > 60; Glucose Fasting 109 mg/dL (60-99); HDL Cholesterol 65 mg/dL (>40); LDL Cholesterol Calculated 90 mg/dL (<100); Potassium 3.9 mmol/L (3.3-5.1); Sodium 141 mmol/L (135-145); Triglycerides 64 mg/dL (<150)
== END 2024-06-23 09:37 | disposition home or self-care (01) ==
LOC: HO.HMGCLDS 09:36
PROVIDERS: PCP Internal Medicine; Visit Provider Internal Medicine Medical Oncology
DX: M81.0 Age-related osteoporosis without current pathological fracture (principal); C50.911 Malignant neoplasm of unspecified site of right female breast; E78.00 Pure hypercholesterolemia, unspecified
CPT/HCPCS: 36415; 80053; 80061; 85025

== ENCOUNTER 2024-07-16 06:19 | Outpatient (REF) | payer OTHER, SELFPAY ==
--- NOTE | ~2024-07-16 | FL_ITS ---
EXAMINATION: FL GUIDANCE ONLY HISTORY: M47.812 - Spondylosis without myelopathy or radiculopathy, cervical region COMPARISON: None available. TECHNIQUE: Fluoroscopy time: 0.1 minutes. Cumulative Dose: 0.343 mGy. DAP: 0.72769 uGy-m2 (microgray-meter squared). Images: 3. FINDINGS: Images demonstrate placement of a stimulator lead in the right neck. FL/FL guidance in treatment room IMPRESSION: Fluoroscopy during procedure. Please see procedure report for additional information. Electronically signed by: Kenneth Mirza MD 07/17/2024 07:51 AM [place]
--- OUTSIDE RECORDS SUMMARY | 2024-07-16 06:21 | XMS_ITS ---
Author Organization Kenneth Samuel III, MD Address [address] [place] [address] [place] [address] Care Team Providers Care Paper Cone Grader Name Role Phone Miah Day MD Primary Care Provider Kenneth Godoy [facility] [phone] Medications Medication SIG (Take, Route, Fr equency, Duration) Notes Start Date End Date Status Azithromycin 250 MG as directed Orally 2 Tablets on the first day, one tablet the rest of the days for 5 days 07/07/2024 Acti ve Social History Sex Assigned At : Social History Observation Description Sex Assigned At Female Encounters Encounter Location Date Provider Diagnosis Kenneth Samuel III, MD [address] [place] [address] [place] [address] 07/07/2024 Kenneth Samuel Plan Of Treatment Medication Medication Name Sig Start Date Stop Date Notes Azithromycin 250 MG as directed Orally 2 Tablets on the first day, one tablet the rest of the days for 5 days 07/07/2024 Next Appt Details Provider Name:Kenneth Samuel, 12/30/2024 09:00:00 AM, [address] [place] [address] [place], [address], Progress Notes * Geeta PETERB: [birth year] (63 yo F)Acc No.[id number]:07/07/2024 Patient:?Sabrina PETER :1960???Age:63 Y???Sex:Female Address:[address] [place] [address], [place] [address] * Refills? Start Azithromycin Tablet, 250 MG, Orally, 6, as directed, 2 Tablets on the first day, one tablet the rest of the days, 5 days, Refills=0 * true * Date:? Generated for Riccardo dunn/Юлия/Mahendrasmitting on:?07/16/2024 06:21 AM EST
--- OUTSIDE RECORDS SUMMARY | 2024-07-16 06:22 | XMS_ITS | Patient Health Record ---
Author Organization Kenneth Samuel III, MD Address [address] [facility] [place] [address] Care Team Providers Care Help Desk Representative Name Role Phone Miah Day MD Primary Care Provider Kenneth Godoy [facility] [phone] Allergies Allergen (clinical drug ingredient) Drug/Non Drug Allergy documented on EMR Reaction Allergy Type Onset Date Status Penicillin Unknown Drug Allergy Active neomycin Neomycin rash Drug Allergy Active Adhesive rash Allergy Active Results Component Value Reference Range Notes Complete Blood Count Auto Di ff Reviewed date:06/23/2024 05:40:57 PM Interpretation: Performing Lab:[facility], [address] [place] [address] Notes/Report: White Blood Count 5.7 4.8-10.8 X10*3/uL Red Blood Count 4.24 4.20-5.50 X10*6/uL Hemoglobin 12.0 12.0-16.0 g/dl Hematocrit 37.4 37.0-47.0 % Mean Corpuscular Volume 88.2 80.0-98.0 fL Mean Corpuscular Hemoglobin 28.3 27.0-33.0 pg Mean Corpuscular HGB Conc 32.1 31.0-35.0 g/dl Red Cell Distribution Width 12.3 11.0-16.0 % Platelet Count 336 160-400 X10*3/uL Mean Platelet Volume 9.6 9.4-12.3 fL Neutrophils Percent Auto 70.7 45-73 % Imm Gran Pct Auto 0.4 0.0-0.4 % Lymphocytes Percent Auto 19.7 20-40 % Monocytes Percent Auto 6.9 2-11 % Eosinophils Percent Auto 1.6 0-4 % Basophils Percent Auto 0.7 0-2 % NRBC Pct Auto 0.0 0.0-0.2 /100WBC Neutrophils Absolute Auto 4.0 2.0-8.3 x10*3/u L Imm Gran Abs Auto 0.02 0.00-0.03 X10*3/uL Lymphocytes Absolute Auto 1.1 1.2-4.9 X10*3/u L Monocytes Absolute Auto 0.4 0.1-1.2 X10*3/uL Eosinophils Absolute Auto 0.1 0.0-0.4 X10*3/u L Basophils Absolute Auto 0.0 0.0-0.2 X10*3/uL NRBC Abs Auto 0.000 0.0-0.012 X10*3/uL Comprehensive [place]. Panel Fa st Reviewed date:06/23/2024 05:40:57 PM Interpretation: Performing Lab:[facility], [address] [place] [phone] Notes/Report: Sodium 141 135-145 mmol/L Potassium 3.9 3.3-5.1 mmol/L Chloride 108 96-108 mmol/L Carbon Dioxide 27 22-29 mmol/L Anion Gap 10 12-20 Blood Urea Nitrogen 10 9-16 mg/dL Creatinine 0.84 0.5-1.4 mg/dL Estimated Glomerular Filt Rate > 60 Chronic Kidney Disease: Estimated GFR < 60 mL/min/1.73m2 Severe Kidney Disease: Estimated GFR < 15 mL/min/1.73m2 Glucose Fasting 109 60-99 mg/dL A fasting glucose from 100-125 mg/dl is considered impaired (pre-diabetes). Calcium 9.3 8.4-10.2 mg/dL Bilirubin Total 0.6 0.0-1.0 mg/dL Aspartate Amino Transferase 27 5-31 U/L Alanine Aminotransferase 22 0-31 U/L Total Protein 7.0 6.5-8.0 g/dL Albumin Level 4.2 3.5-5.0 g/dL Alkaline Phosphatase 94 39-117 U/L Lipid Panel Reviewed date:06/23/2024 05:40:57 PM Interpretation: Performing Lab:[facility], [address] [facility], [place] [address] Notes/Report: Triglycerides 64 <150 mg/dL Desirable Triglyceride: less than 150 mg/dL Borderline High Triglyceride 150-199 mg/dL High Triglyceride: 200-499 mg/dL Very High Triglyceride: greater than or equal to 5OO mg/dL Cholesterol 167 <200 mg/dL Desirable Cholesterol: less than 200 mg/dL Borderline High Cholesterol: 200-239 mg/dL High Cholesterol: greater than 239 mg/dL LDL Cholesterol Calculated 90 <100 mg/dL Desirable LDL: less than 100 mg/dL Near Optimal/Above Optimal LDL: 110-129 mg/dL Borderline High LDL: 130-159 mg/dL High LDL: 160-189 mg/dL Very High LDL: greater than or equal to 190 mg/dL HDL Cholesterol 65 >40 mg/dL Desirable HDL: greater than 40 [...] Provider Speciality Internal M edicine Referred Provider [facility] er, Orthopedic Surgeons Referred Provider [facility]ty [facility] Notes Marzena Nuñez 2023 10:56:42 AM EDT > Faxed referral, progress note and Margaret burgos Suzanne CMA 09/10/2023 09:46:16 AM EDT > Pt sent message thru portal that she has appt with [facility] on 2023 at 9am Referral Priority [...] capsule Orally Onc e a day Active Azithromycin 250 MG as directed Orally 2 Tablets on the first day, one tablet the rest of the days for 5 days 07/07/2024 Active CoQ-10 30 MG 1 [...] tablet Orally Twic e a day Active Immunizations Vaccine Route Administration [...] Problem Status W/U Status Risk Notes Problem 42326054 Weight loss (R63.4) Active confirmed She has gained 1pound since her last visit. Her body mass index has increased to 20. Problem Breast cancer (136012059) Breast cancer (C50.919) Active confirmed There was no sign of recurrent breast cancer on her last examination. Her current PET/CT scan shows no sign of breast cancer. Problem 949786353 Malignant neopla sm of unspecified site of right female breast (C50.911) Active confirmed She has completed her adjuvant endocrine therapy. Her examination today is normal. There is no sign of a new primary or relapse. She is up-to-date with mammography. Problem 26547419 Calculus of gallbladder without cholecystitis without obstruction (K80.20) Active confirmed These are asymptomatic and that there is no pain in the right upper quadrant on deep palpation. Problem 39265379 Age-related osteoporosis without current pathological fracture (M81.0) Active confirmed She has bee n compliant with her medications. No change in her regimen was made.She received 5 mg of zoledronic acid intravenously today over 30 min. without difficulty. Problem Osteoporosis (63798317) Other osteoporosis without current pathological fracture (M81.8) Active confirmed This has be en treated on current therapy will continue. Problem Sensory disorder of smell and/or taste (293046322077 3) Unspecified disturbances of smell and taste (R43.9) Active confirmed She has been to the neurologist and evaluation for seizure disorder is under way. She continues to experience is smelled something burning intermittently. 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 She will be seen in August 2017 at which time her endocrine therapy will be discontinued. She will be due for a bone density. Problem 387946301 Pure hypercholesterolemia (E78.00) Active confirmed Her lipids are being checked 3 times a year. No change in her regimen was needed. Problem 92263795 Osteoporosis, unspecified osteoporosis type, unspecified pathological fracture presence (M81.0) Active confirmed She continues on her regimen. She has no bone pain. She will have a bone density test next July. Problem 542268780 Nonintractable epilepsy without status epilepticus, unspecified epilepsy type (G40.909) Active confirmed She has been compliant with her regimen. The old factory hallucinations have resolved. Problem 252316614 RLQ abdominal pa in (R10.31) Active confirmed There was no pain to palpation of the right lower quadrant today in this pain has resolved. Vital Signs Heart Rate 80 /min 07/06/2024 Temperature 98.0 degrees Fahrenheit 07/06/2024 Blood pressure diastolic 64 mm Hg 07/06/2024 Height 71 in 07/06/2024 Blood pressure systolic 120 mm Hg 07/06/2024 Weight 147 lbs 07/06/2024 BMI 20.5 kg/m2 07/06/2024 Encounters Encounter Location Date Provider Diagnosis Kenneth Samuel III, MD [address] [place] [address] [place] [address] 08/29/2023 Kenneth Samuel Malignant neoplasm o f unspecified site of right female breast C50.911 ; Age-related osteoporosis without current pathological fracture M81.0 ; DCIS (ductal carcinoma in situ), right D05.11 and Pure hypercholesterolemia E78.00 Kenneth Samuel III, MD [address] [place] [address] [place] [address] 03/02/2024 Kenneth Samuel Osteoporosis, unspec ified osteoporosis type, unspecified pathological fracture presence M81.0 ; Malignant neoplasm of unspecified site of right female breast C50.911 ; Pure hypercholesterolemia E78.00 ; Weight loss R63.4 and Nonintractable epilepsy without status epilepticus, unspecified epilepsy type G40.909 Kenneth Samuel III, MD [address] [place] [address] [place] [address] 07/06/2024 Kenneth Samuel Age-related osteopor osis without current pathological fracture M81.0 ; Breast cancer C50.919 ; DCIS (ductal carcinoma in situ), right D05.11 and Malignant neoplasm of unspecified site of right female breast C50.911 Kenneth Samuel III, MD [address] [place] [address] [place] [address] 07/07/2024 Kenneth Samuel III, MD [address] [place] [address] [place] [address] 07/07/2024 Kenneth Samuel III, MD [address] [place] [address] [place] [address] 08/29/2023 Kenneth Samuel III, MD [address] [place] [address] [place] [address] 09/09/2023 Kenneth Samuel III, MD [address] [place] [address] [place] [address] 06/24/2024 Kenneth Samuel III, MD [address] [place] [address] [place] [address] 06/25/2024 Kenneth Samuel Assessments Encounter Date Diagnosis (ICD Code) Assessment Notes T reatment Notes Treatment Clinical Notes 08/29/2023 Malignant neoplasm o f unspecified site [...] have a bone density test next July. 07/06/2024 Breast cancer (ICD-1 0 - C50.919) There was no sign of recurrent breast cancer on her last examination. Her current PET/CT scan shows no sign of breast cancer. 07/06/2024 Age-related osteopor osis without current pathological fracture (ICD-10 - M81.0) She has been compliant with her medications. No change in her regimen was made.She received 5 mg of zoledronic acid intravenously today over 30 min. without difficulty. 08/29/2023 DCIS (ductal carcino ma in situ), [...] No change in her regimen was needed. 07/06/2024 DCIS (ductal carcino ma in situ), right (ICD-10 - D05.11) She remains free of disease and she continues on her anastrozole. She will be seen in August 2017 at which time her endocrine therapy will be discontinued. She will be due for a bone density. 08/29/2023 Pure hypercholestero lemia (ICD-10 - E78.00) [...] body mass index has increased to 20. 07/06/2024 Malignant neoplasm o f unspecified site of right female breast (ICD-10 - C50.911) She has completed her adjuvant endocrine therapy. Her examination today is normal. There is no sign of a new primary or relapse. She is up-to-date with mammography. 03/02/2024 Nonintractable epile psy without status epilepticus, unspecified epilepsy type (ICD-10 - G40.909) She has been compliant with her regimen. The old factory hallucinations have resolved. Plan Of Treatment Pending Test Test Name Order Date PROFILE, RANDOM (COMPREHENSIVE METABOLIC ) 01/11/2020 PROFILE, RANDOM (COMPREHENSIVE METABOLIC ) 07/12/2020 CBC w DIFF 01/11/2020 CBC w DIFF 07/12/2020 SED RATE (ESR) 07/12/2020 CA 27.29 07/12/2020 BONE DENSITY DEXA 03/02/2024 Next Appt Details Provider Name:Kenneth Samuel, 12/30/2024 09:00:00 AM, [address] [place] [address] [address], [place], [address], Insurance Providers Payer Name Payer Address Payer Phone Subscriber Number Group Number Insured Name Patient Relationship to Insured Coverage Start Date Coverage End Date [address] [facility] [place] FAJARDO [phone] [id number] Sabrina Peter Self - patient is the insured Medical (General) History Medical History History ICD Code stage I invasive carcinoma right breast with DCIS [id number] cholelithiasis anastrozole ended August 2017 Surgical History Surgery Date(Month/Year) mastectomy right breast, sentinel node b iopsy 07/22/2012 lumpectomy, right breast 2000 oophorectomy of the right ov jagdish and fallopian tube, negative pathlogy 09/2007 cholecystectomy 11/2010
--- OUTSIDE RECORDS SUMMARY | 2024-07-16 06:22 | XMS_ITS ---
Author Organization Kenneth Samuel III, MD Address [address] [place] [address] Care Team Providers Care Malt House Operator Name Role Phone Miah Day MD Primary Care Provider Kenneth Godoy [facility] [phone] REASON FOR VISIT Rx Request Social History Sex Assigned At : Social History Observation Description Sex Assigned At Female Encounters Encounter Location Date Provider Diagnosis Kenneth Samuel III, MD [address] [place] [address] [place] [address] 07/07/2024 Kenneth Samuel Plan Of Treatment Next Appt Details Provider Name:Kenneth Samuel, 12/30/2024 09:00:00 AM, [address] [place] [address] [place], [address], Progress Notes * Geeta PETERB: [birth year] (63 yo F)Acc No.[id number]:07/07/2024 Patient:?Sabrina PETER :1960???Age:63 Y???Sex:Female Address:[place] [address] * * Date:?
--- OUTSIDE RECORDS SUMMARY | 2024-07-16 06:22 | XMS_ITS ---
Author Organization Kenneth Samuel III, MD Address [address] [place] [address] Care Team Providers Care Trailer Tank Truck Driver Name Role Phone Miah Day MD Primary Care Provider Kenneth Godoy [facility] [phone] Allergies Allergen (clinical drug ingredient) Drug/Non Drug [...] Provider Diagnosis Kenneth Samuel III, MD [address] [place] [address] [place] [address] 07/06/2024 Kenneth Samuel Age-related osteoporosis without current [...] Up: 6 Months, Reason: ov Provider Name:Kenneth Samuel, 12/30/2024 09:00:00 AM, [address] [place] [address] [address] [place] [place] [address], [place], [address], Procedure Notes * Category Sub-Category Detail Notes Chemotherapy Start and End Time: , start, 9:0 0 am, end, 10:00 am Site: left hand Consent: verbal consent was o btained prior to procedure Medications given: Zoledronic acid 5 mg ([facility] 72077-283-73) Monitored by: SANTOS Velez port flush none route IV Progress Notes * Geeta PETERB: [birth year] (63 yo F)Acc No.[id number]:07/06/2024 Patient:?JACKIYADIELREINIER Sabrina Provider:?Kenneth Samuel MD :1960???Age:63 Y???Sex:Female D ate:07/06/2024 Address:[address] [place], [place] [id number] Pcp:Miah Day MD Subjective: * Chief Complaints: * ???History of right breast c ancerOsteoporosisDCIS * HPI: ???COVID-19 Screening:? She returns for a 6 month checkup of her carcinoma of the breast and to receive an intravenous infusion of 5 mg of zoledronic acid which she receives once a year for osteoporosis.? She felt said Gail which she spent alone.? She has developed low back pain.? X-rays of her spine showed scoliosis.? She says she has a one half inch leg length discrepancy managed by her primary care physician, Dr. Day her examination today was unremarkable. ?Questions?Have you had any new onset fever, chills, cough, congestion, sore throat, shortness of breath, muscle aches??No * ROS:?General/Constitutional:?pain?Lumbar spine.?Chills?denies.?Fatigue?admits.?Fever?denies.?ENT:?Decreased hearing?denies.?Respiratory:?Cough?denies.?Cardiovascular:?Chest pain with exertion?denies.?Dyspnea on exertion?denies.?Shortness of breath?denies.?Gastrointestinal:?Constipation?occasional.?Decreased appetite?denies.?Diarrhea?denies.?Heartburn?denies.?Nausea?denies.?Rectal bleeding?denies.?Vomiting?denies.?Hematology:?bruising?denies.?petechiae?denies.?Swollen glands?none have been noted.?Genitourinary:?Frequent urination?denies.?Musculoskeletal:?Muscle aches?denies.?Painful joints?denies.?Sciatica?denies.?Weakness?denies.?Skin:?Itching?denies.?Rash?denies.?Skin lesion(s)?denies.?Neurologic:?Difficulty speaking?denies.?Dizziness?denies.?Headache?denies.?Low back pain?that is chronic.?Psychiatric:?Depressed mood?denies.? * Medical History:? * Surgical History:?cholecyste ctomy [...] Tobacco Non-User?Aggressive non-smoker ???She was born in [place]. She has been to Benja for 18 years. They have no children. 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 * Medications:?TakingNexIUM 24 HR 20 MG Capsule [...] Vitals:?Ht: 71, Wt: 147, BMI :20.5, BP: 120/64, HR: 80, Temp: 98.0, Wt-k.68. * ???Past Orders: Lab:Lipid Panel * Collection Date 06/23/2024 [...] mg/dL) 80 (Ref Range: >40 mg/dL) * Lab:[facility] [place]. Pane l Fast * Collection Date 06/23/2024 06/27/2023 [...] 28 (Ref Range: 22-29 mmol/L) Anion Gap 10?L (Ref Range: 12-20) 12 (Ref Range: 12-20) Blood Urea Nitrogen 10 (Ref Range: 9-16 mg/dL) 14 (Ref Range: 9-16 mg/dL) Creatinine 0.84 (Ref Range: 0.5-1.4 mg/dL) 0.89 (Ref Range: 0.5-1.4 mg/dL) Estimated Glomerular Filt Rate > 60 > 60 Glucose Fasting 109?H (Ref Range: 60-99 mg/dL) 98 (Ref Range: [...] (Ref Range: 0.0-0.4 %) Lymphocytes Percent Auto 19.7?L (Ref Range: 20-40 %) 30.8 (Ref Range: [...] (Ref Range: 0.00-0.03 X10*3/uL) Lymphocytes Absolute Auto 1.1?L (Ref Range: 1.2-4.9 X10*3/uL) 1.7 (Ref Range: [...] 0.000 (Ref Range: 0.0-0.012 X10*3/uL) * Examination: ???General Examination: ?GENERAL APPEARANCE:?pleasant, well nourished, well developed, in no acute distress, calm and relaxed, woman.?HEAD:?atraumatic, normocephalic.?EYES:?eomi, perrla, anicteric, conjugate.?EARS:?normal.?NOSE:?septum intact.?ORAL CAVITY:?normal, unremarkable.?NECK/THYROID:?no jugular venous distention, no carotid bruit, thyroid normal.?LYMPH NODES:?no enlarged lymph nodes,spleen normal.?SKIN:?no suspicious lesions, anicteric.?HEART:?no clicks, gallops, murmurs, or rubs, regular rhythm, S1, S2 normal, no s3, or vascular bruits.?LUNGS:?clear to auscultation .?BREASTS:?Left breast unremarkable.? Right mastectomy site free of disease.?ABDOMEN:?bowel sounds normal, no ascites, no organomegaly, no mass.?RECTAL EXAM:?not examined.?MUSCULOSKELETAL:?extremities unremarkable, no clubbing, cyanosis or edema.?PERIPHERAL PULSES:?normal.?NEUROLOGIC:?alert and oriented, cranial nerves 2-12 grossly intact, deep tendon reflexes 2+ symmetrical, motor strength normal upper and lower extremities, sensory exam intact.?PSYCH:?alert, oriented.? Assessment: * Assessment: 1.?Age-related osteoporosis without current pathological fracture - M81.0 (Primary)???Notes :She has been compliant with her medications. No change in her regimen was made.She received 5 mg of zoledronic acid intravenously today over 30 min. without difficulty.???2.?Breast cancer - C50.919???Notes :There was no sign of recurrent breast cancer on her last examination. 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 She will be seen in August 2017 at which time her endocrine therapy will be discontinued. She will be due for a bone density.???4.?Malignant neoplasm of unspecified site of right female breast - C50.911???Notes :She has completed her adjuvant endocrine therapy. Her examination today is normal. There is no sign of a new primary or relapse. She is up-to-date with mammography.??? Plan: * Treatment: 2.?Others? Continue NexIUM 24HR Capsule Delayed Release, 20 [...] 2 tablet, Orally, Twice a day.?? * Procedures:?Chemotherapy:?Start and End Time:?, start, 9:00 am, end, 10:00 am.?Site:?left hand.?Consent:?verbal consent was obtained prior to procedure.?Medications given:?Zoledronic acid 5 mg ([facility] 08286-769-46).?Monitored by:?SANTOS Velez.?port flush?none.?route?IV.? * Procedure Codes:?J3489 INJEC TION ZOLEDRONIC ACID 1 [id number] CHEMO, IV INFUSION, 1 HR * Follow Up:?6 Months (Reason: ov) * Images: * Sign off status: Completed true * Provider:?Kenneth Samuel MD Date:?06/24 Generated for Riccardo dunn/Юлия/eTchapincitosmitting on:?07/16/2024 06:22 AM EST History and Physical Notes * [...]
== END 2024-07-16 06:20 | disposition home or self-care (01) ==
LOC: CF 06:19
PROVIDERS: Visit Provider Internal Medicine
DX: M47.812 Spondylosis without myelopathy or radiculopathy, cervical region (principal); M54.2 Cervicalgia; G89.29 Other chronic pain
CPT/HCPCS: 64555; C1778; J2003

== ENCOUNTER 2024-07-16 10:35 | Outpatient (AMB) | payer OTHER, SELFPAY ==
--- NOTE | 2024-07-16 10:42 | A.OFFVIS_ITS ---
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 Required: No Allergies adhesive tape Allergy (Intermediate, Verified 07/16/24 10:50) BLISTERS bacitracin [From Neosporin] Allergy (Mild, Verified 07/16/24 10:50) RASH gramicidin D [From Neosporin] Allergy (Mild, Verified 07/16/24 10:50) RASH neomycin [From Neosporin] Allergy (Mild, Verified 07/16/24 10:50) RASH Penicillins Adverse Reaction (Mild, Verified 07/16/24 10:50) VOMITING Medication List - Last Reconciled 07/16/24 by Sophia Lewis, CLAM SORTER amitriptyline 10 mg PO BEDTIME atorvastatin 20 mg PO DAILY coQ10 (ubiquinol) 200 mg PO DAILY esomeprazole magnesium 20 mg PO DAILY 90 days lamotrigine 25 mg PO DAILY mastectomy bra (bra, mastectomy) As directed simethicone 180 mg PO TID PRN sumatriptan succinate 50 mg PO DAILY PRN tramadol 50 mg PO Q8H PRN iwlrbifm-xxcm-nutdb-oreg-capry 100 mg-150 mg- 50 mg-150 mg 1,000 PO DAILY Is last menstrual period known: No Post menopausal: Yes Patient : No HPI HPI Right C3-C4 Sprint: Details: Patient presents for scheduled procedure. Denies any recent cough, cold, infection, fever or other significant changes in medical history since last office visit. [facility] Medical History Cervical cancer screening Physical exam Abdominal pain Flank pain Tick bite of back History of right breast cancer Hx of radiation therapy Migraines Arthritis Hyperlipidemia GERD (gastroesophageal reflux disease) Surgical History Hx of unilateral oophorectomy History of lumpectomy of right breast History of esophagogastroduodenoscopy (EGD) Hx of colonoscopy History of excision of lesion History of salpingo-oophorectomy History of cholecystectomy History of wisdom tooth extraction H/O right mastectomy Family History Father Diabetes Mother Osteoporosis Mental health disorder Paternal Aunt Colon cancer Other Family history of breast cancer Family history of gastric cancer Family history of pancreatic cancer Family history of prostate cancer Social History Housing: House Are you a primary long term care phlebotomist to a significant other at home: No Do you presently have visiting nurse or other home services: No Alcohol intake: current Alcohol intake frequency: holidays/special occasions only Patient Tobacco Use Status: Never used Tobacco e-Cigarette/Vaping Use: Never Used Second Hand Smoke Exposure: No service: No Current occupational status: employed 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 After the risks, benefits and alternatives were discussed with the patient and informed consent was obtained, patient was placed in the prone position and padded to foster comfort. The patient's usual area of pain was assessed under fluoroscopy and noted to be in the distribution of the C5 medial branch nerve. The skin overlying the cervical spine was prepped and draped in sterile fashion. Fluoroscopy was used to identify the spinous process and lamina over the C5 articular pillar. After identifying and marking the intended target along the course of the medial branch nerve, the skin around the planned entry point and the subcutaneous tissues were injected with lidocaine 1%. An introducer needle and stimulating probe were assembled, inserted and advanced along the intended course of the medial branch nerve, taking care to maintain the proper depth of insertion as the introducer was advanced under fluoroscopic guidance. The introducer needle was delivered to a location in proximity to the nerve. Multiple stimulation parameters were used to deliver stimulation to the target medial branch nerve in concert with stimulating at multiple positions around the nerve. Nerve target acquisition was confirmed noting generation of paresthesias in the paravertebral regions corresponding to the level being stimulated. Various electrical parameter combinations were tested, and the lead location was adjusted (physically relocated) until the patient indicated paresthesia/muscle tension overlapping the distribution of the patient?s typical region of pain, including neck and occipital region. The stimulating probe was removed from the introducer and a percutaneous lead was guided through the needle and delivered to a location in similar proximity to the nerve. Final location was verified with electrical stimulation and documented with fluoroscopy. The introducer needle was removed, and the exposed end of the percutaneous lead was attached to an external stimulator unit. Various electrical parameter combinations were again tested until the patient indicated paresthesia or muscle tension overlapping the distribution of the patient?s typical region of pain. Fluoroscopy was used to document the location of the percutaneous lead in the deployed position. After confirming that lead impedance was in the normal range, the external unit was detached, the needle was removed, and the lead was anchored at the skin. The lead was threaded into the connector block and electrical continuity and desired patient response was confirmed. The connector block was attached to the external stimulator unit. The site was covered with a sterile occlusive pressure dressing. The patient was observed for stability of vital signs and comfort. Patient was dischared in stable condition. Sprint PNS Device: Sprint PNS Device [id number] Percutaneous Peripheral Neuroelectrode Procedure: 06270 - Percutaneous Peripheral Neuroelectrode Procedure code (CPT) selection complete Office Meds lidocaine HCl 10 mg/mL (1 %) injection solution Performing Provider: Dorita Goldberg APRN, CNP Performing Location: [facility] Administered by: Mar Chou LPN on 07/16/24 11:16 Dose Route Admin Location Dispensed Lot Number Expiration Date FORMERLY NAMED [facility] Lead Clinical Research Coordinator 50 mg subcut 5 mL Assessment & Plan Assessment & Plan (1) Cervical spondylosis: Code(s): M47.812 - Spondylosis without myelopathy or radiculopathy, cervical region Category: Medical (2) Chronic neck pain: Code(s): M54.2 - Cervicalgia; G89.29 - Other chronic pain Category: Medical Plan Patient is status post temporary right C5 medial branch nerve stimulator placement. Patient tolerated procedure well and was discharged home in stable condition with discharge instructions. All questions were answered. We will follow-up via telephone or in clinic to assess response to therapy. A follow-up appointment was made during today's visit. Orders: Orders FL guidance in treatment room Today M47.812 - Spondylosis without myelopathy or radiculopathy, cervical region Coding Level of Care Code Procedure Only Diagnoses Cervical spondylosis M47.812 Chronic neck pain M54.2; G89.29 CPT Codes Sprint PNS - Sprint PNS Device: Sprint PNS Device ([id number]) Sprint PNS - SPRINT: 94034 - Percutaneous Peripheral Neuroelectrode ([id number]) Implantable Device Implantable Device Implantable Devices Qty Lead Clinical Research Coordinator Implant Date Expiration Date Analgesic PENS system 1 [employer] 07/16/24 08/15/25
[2024-07-16 10:50] VITALS: BP 146/83; PULSE 102; O2SAT 95; BMI 21.2
== END 2024-07-16 11:42 | disposition home or self-care (01) ==
LOC: HO.PMCPRC 10:35
PROVIDERS: PCP Internal Medicine; Visit Provider Internal Medicine
DX: M47.812 Spondylosis without myelopathy or radiculopathy, cervical region (principal)
CPT/HCPCS: 64555

== ENCOUNTER 2024-07-22 09:57 | Outpatient (AMB) | payer OTHER, SELFPAY ==
--- NOTE | 2024-07-22 10:06 | A.OFFVIS_ITS ---
Vital Signs 07/22/24 10:07 Height 5 ft 10 in Weight 145 lb BMI 20.8 BP 124/67 Blood Pressure Location Lt brachial Position Sitting Respiration 16 Pulse 94 Pulse Source Pulse Oximeter Pulse Oximetry (%) 97 Oxygen Delivery Method Room Air Intake Visit Reasons: s/p right C3-C4 Sprint Track Repairer Required: No Allergies adhesive tape Allergy (Intermediate, Verified 07/30/24 09:21) BLISTERS bacitracin [From Neosporin] Allergy (Mild, Verified 07/30/24 09:21) RASH gramicidin D [From Neosporin] Allergy (Mild, Verified 07/30/24 09:21) RASH neomycin [From Neosporin] Allergy (Mild, Verified 07/30/24 09:21) RASH Penicillins Adverse Reaction (Mild, Verified 07/30/24 09:21) VOMITING Medication List - Last Reconciled 07/22/24 by Mar Chou LPN amitriptyline 10 mg PO BEDTIME atorvastatin 20 mg PO DAILY coQ10 (ubiquinol) 200 mg PO DAILY esomeprazole magnesium 20 mg PO DAILY 90 days lamotrigine 25 mg PO DAILY mastectomy bra (bra, mastectomy) As directed simethicone 180 mg PO TID PRN sumatriptan succinate 50 mg PO DAILY PRN tramadol 50 mg PO Q8H PRN mehtycot-hhix-emkir-oreg-capry 100 mg-150 mg- 50 mg-150 mg 1,000 PO DAILY HPI HPI s/p right C3-C4 Sprint: Details: History of Present Illness The patient is a 63-year-old female presenting with follow-up concerns after the placement of a right C5 medial branch interstimulator. She has a history of cervical radiculopathy, which has resulted in neck pain and secondary headaches. The interstimulator was placed to alleviate these symptoms. Post-procedure, the patient experienced significant soreness in the neck for a couple of days, which subsequently improved. She reports a reduction in pain, with morning headaches largely resolved. The patient has not noted any issues or complications with the device at this time. She experiences relief from the symptoms due to the intervention and appears compliant with device management. There have been no incidents of device malfunction or adverse reactions. An upcoming procedure is planned for the placement of a left-sided device, acknowledging the positive response from the current intervention. Pain Description - Onset: Experienced soreness immediately post-procedure. - Quality: Pain is described as sore initially post-procedure, with general improvement. - Location: Neck region, specifically C5 cervical branch area. - Radiation: No mention of radiation. - Exacerbating Factors: Initial soreness following device placement. - Relieving Factors: Time since procedure, effective placement of interstimulator. - Function Interference: Improvement in morning headaches noted, suggesting decreased interference with daily activities. Physical Exam - Integumentary- Lead insertion site clean, dry, and intact. Results Pain Management - Affect: Improvement in headaches suggests positive impact on mood. - Analgesia: Reports a little improvement in neck pain; headaches nearly resolved. - Adverse Effects: No adverse effects reported with device usage. - Activities of Daily Living: Improvement in headaches suggests enhanced daily functioning. - Aberrant Drug Related Behaviors: None reported. [facility] Medical History Cervical cancer screening Physical exam Abdominal pain Flank pain Tick bite of back History of right breast cancer Hx of radiation therapy Migraines Arthritis Hyperlipidemia GERD (gastroesophageal reflux disease) Surgical History Hx of unilateral oophorectomy History of lumpectomy of right breast History of esophagogastroduodenoscopy (EGD) Hx of colonoscopy History of excision of lesion History of salpingo-oophorectomy History of cholecystectomy History of wisdom tooth extraction H/O right mastectomy Family History Father Diabetes Mother Osteoporosis Mental health disorder Paternal Aunt Colon cancer Other Family history of breast cancer Family history of gastric cancer Family history of pancreatic cancer Family history of prostate cancer Social History (Updated 07/27/24 @ 14:30 by ARNULFO Hughes) Housing: House Are you a primary healthcare or medical to a significant other at home: No Do you presently have visiting nurse or other home services: No Alcohol intake: current Alcohol intake frequency: a few times a month Patient Tobacco Use Status: Never used Tobacco e-Cigarette/Vaping Use: Never Used Second Hand Smoke Exposure: No service: No Current occupational status: employed 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, 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 Cognitive needs: No Hearing needs: No Vision needs: Yes (glasses) Female Reproductive History Menstrual Age of Menarche: 13 Physical Exam Vital Signs: Last Vital Signs Pulse 94 07/22/24 10:07 Resp 16 07/22/24 10:07 BP 124/67 07/22/24 10:07 Pulse Ox 97 07/22/24 10:07 Oxygen Delivery Method Room Air 07/22/24 10:07 BMI result Body Mass Index 20.8 Assessment & Plan Assessment & Plan (1) Chronic neck pain: Code(s): M54.2 - Cervicalgia; G89.29 - Other chronic pain Category: Medical (2) Cervical spondylosis: Code(s): M47.812 - Spondylosis without myelopathy or radiculopathy, cervical region Category: Medical Plan Plan - Continue monitoring and managing the right C5 medial branch interstimulator; observe for continued symptom relief and absence of complications. - Scheduled placement of left-sided device next week to potentially provide further relief of symptoms. Patient was informed and verbally consented to the use of an ambient scribe for clinic note documentation during this visit. Discussion Notes I discussed with the patient that the cervical right C5 medial branch interstimulator placement appears successful given improvement in headaches and pain. We reviewed the absence of complications and satisfactory management of the device. Future plans include the placement of a left-sided device next week to achieve further improvement. The patient was informed of an appointment scheduled for next for this procedure, confirming her understanding and agreement. Patient Instructions - Monitor the lead insertion site for any signs of infection such as redness or discharge. - Report any changes in pain or new symptoms promptly. - Ensure proper maintenance and management of the current device. - Attend scheduled follow-up appointment next for planned left-sided device placement. Coding Level of Care Code Est Pt Level 3 (75614) Diagnoses Chronic neck pain M54.2; G89.29 Cervical spondylosis M47.812
[2024-07-22 10:07] VITALS: BP 124/67; PULSE 94; RESP 16; O2SAT 97; BMI 20.8
--- OUTSIDE RECORDS SUMMARY | 2024-07-22 11:45 | XMS_ITS ---
Author Organization Kenneth Samuel III, MD Address [address] [place] [address] Care Team Providers Care Manager Distribution Center Name Role Phone Miah Day MD Primary Care Provider Kenneth Godoy [facility] [phone] Allergies Allergen (clinical drug ingredient) Drug/Non Drug [...] Date Provider Diagnosis Kenneth Samuel III, MD [address] [place] [address] [place] [address] 07/06/2024 Kenneth Samuel Age-related osteoporosis without current [...] ov Provider Name:Kenneth Samuel, 12/30/2024 09:00:00 AM, [address] [place] [address] [address] [place] [address], [place], [address], Procedure Notes * Category Sub-Category Detail Notes Chemotherapy Start and End Time: , start, 9:0 0 am, end, 10:00 am Site: left hand Consent: verbal consent was o btained prior to procedure Medications given: Zoledronic acid 5 mg ([facility] 55841-345-43) Monitored by: SANTOS Velez port flush none route IV Progress Notes * Geeta PETERB: [birth year] (63 yo F)Acc No.[id number]:07/06/2024 Patient:?JACKIYADIELREINIER Sabrina Provider:?Kenneth Samuel MD :1960???Age:63 Y???Sex:Female D ate:07/06/2024 Address:[address] [place], [place] [id number] Pcp:Miah Day MD Subjective: * Chief Complaints: [...] Tobacco Non-User?Aggressive non-smoker ???She was born in [place]. She has been to Benja for 18 years. They have no children. 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 * Medications:?TakingNexIUM 24 HR 20 MG Capsule [...] 80 (Ref Range: >40 mg/dL) * Lab:[facility] [place]. Pane l Fast * Collection Date 06/23/2024 [...] prior to procedure.?Medications given:?Zoledronic acid 5 mg ([facility] 77411-110-89).?Monitored by:?SANTOS Velez.?port flush?none.?route?IV.? * Procedure Codes:?J3489 INJEC TION ZOLEDRONIC ACID 1 [id number] CHEMO, IV INFUSION, 1 HR * Follow Up:?6 Months (Reason: ov) * Images: * Sign off status: Completed true * Provider:?Kenneth Samuel MD Date:?06/24 Generated for Riccardo dunn/Юлия/eTchapincitosmitting on:?07/22/2024 11:45 AM EST History and Physical Notes * [...]
--- OUTSIDE RECORDS SUMMARY | 2024-07-22 11:45 | XMS_ITS ---
Author Organization Kenneth Samuel III, MD Address [address] [place] [address] Care Team Providers Care Racing Secretary Name Role Phone Miah Day MD Primary Care Provider Kenneth [facility] [phone] REASON FOR VISIT Rx Request Social History Sex Assigned At : Social History Observation Description Sex Assigned At Female Encounters Encounter Location Date Provider Diagnosis Kenneth Samuel III, MD [address] [place] [address] [place] [address] 07/07/2024 Kenneth Samuel Plan Of Treatment Next Appt Details Provider Name:Kenneth Samuel, 12/30/2024 09:00:00 AM, [address] [place] [address] [place], [address], Progress Notes * Geeta PETERB: [birth year] (63 yo F)Acc No.[id number]:07/07/2024 Patient:?Sabrina PETER :1960???Age:63 Y???Sex:Female Address:[place] [address] * * Date:?
--- OUTSIDE RECORDS SUMMARY | 2024-07-22 11:45 | XMS_ITS ---
Author Organization Kenneth Samuel III, MD Address [address] [place] [address] [place] [address] Care Team Providers Care Reporting Developer Name Role Phone Miah Dya MD Primary Care Provider Chela Kenneth Sharma [facility] [phone] Medications Medication SIG (Take, Route, Fr equency, [...] Provider Diagnosis Kenneth Samuel III, MD [address] [place] [address] [place] [address] 07/07/2024 Kenneth Samuel Plan Of Treatment Medication Medication Name Sig Start Date Stop Date Notes Azithromycin 250 MG as directed Orally 2 Tablets on the first day, one tablet the rest of the days for 5 days 07/07/2024 Next Appt Details Provider Name:Kenneth Samuel, 12/30/2024 09:00:00 AM, [address] [place] [address] [place], [address], Progress Notes * Geeta PETERB: [birth year] (63 yo F)Acc No.[id number]:07/07/2024 Patient:?Sabrina PETER :1960???Age:63 Y???Sex:Female Address:[address] [place] [address], [place] [address] * Refills? Start Azithromycin Tablet, 250 MG, Orally, 6, as directed, 2 Tablets on the first day, one tablet the rest of the days, 5 days, Refills=0 * true * Date:? Generated for Riccardo dunn/Юлия/Mahendrasmitting on:?07/22/2024 11:44 AM EST
== END 2024-07-22 10:32 | disposition home or self-care (01) ==
PROVIDERS: PCP Internal Medicine; Visit Provider Internal Medicine
DX: M54.2 Cervicalgia (principal); G89.29 Other chronic pain; M47.812 Spondylosis without myelopathy or radiculopathy, cervical region
CPT/HCPCS: 99024

== ENCOUNTER → 2024-07-22 09:57 | Outpatient (BNVA) | payer OTHER, SELFPAY | PROVIDERS: PCP Internal Medicine; Visit Provider Internal Medicine ==

== ENCOUNTER 2024-07-27 14:24 | Outpatient (AMB) | payer OTHER, SELFPAY ==
--- NOTE | 2024-07-27 14:25 | A.OFFPC_ITS ---
Vital Signs 07/27/24 14:28 Height 5 ft 10 in Weight 147 lb BMI 21.1 BP 120/62 Blood Pressure Location Lt brachial Position Sitting Pulse 89 Pulse Source Pulse Oximeter Temp 97.3 F Temp Source Skin Pulse Oximetry (%) 99 Oxygen Delivery Method Room Air Intake Visit Reasons: 6 month Intake Note: Patient is here to follow up on Chronic pain, HLD. Mechanical Oxidizer Required: No Car Pincher: Not Required per policy Accompanied by: Self / Same As Patient Allergies adhesive tape Allergy (Intermediate, Verified 07/27/24 14:27) BLISTERS bacitracin [From Neosporin] Allergy (Mild, Verified 07/27/24 14:27) RASH gramicidin D [From Neosporin] Allergy (Mild, Verified 07/27/24 14:27) RASH neomycin [From Neosporin] Allergy (Mild, Verified 07/27/24 14:27) RASH Penicillins Adverse Reaction (Mild, Verified 07/27/24 14:27) VOMITING Medication List - Last Reconciled 07/28/24 by Miah Day MD amitriptyline 10 mg PO BEDTIME atorvastatin 20 mg PO DAILY coQ10 (ubiquinol) 200 mg PO DAILY esomeprazole magnesium 20 mg PO DAILY 90 days lamotrigine 25 mg PO DAILY mastectomy bra (bra, mastectomy) As directed simethicone 180 mg PO TID PRN sumatriptan succinate 50 mg PO DAILY PRN tramadol 50 mg PO Q8H PRN cbutlinl-ifpz-vkphd-oreg-capry 100 mg-150 mg- 50 mg-150 mg 1,000 PO DAILY Tobacco use date assessed: 07/27/24 Dental Screening Dental Screen Date: 07/27/24 Did you have a dental visit in the last 12 months?: No Did you have a dental problem in the last 6 months where you did not have access to dental care?: No Was dental information given to patient?: No HPI 6 month HPI Details hyperlipidemia on rx; doing well and compliant [facility] Medical History Cervical cancer screening Physical exam Abdominal pain Flank pain Tick bite of back History of right breast cancer Hx of radiation therapy Migraines Arthritis Hyperlipidemia GERD (gastroesophageal reflux disease) Surgical History Hx of unilateral oophorectomy History of lumpectomy of right breast History of esophagogastroduodenoscopy (EGD) Hx of colonoscopy History of excision of lesion History of salpingo-oophorectomy History of cholecystectomy History of wisdom tooth extraction H/O right mastectomy Family History Father Diabetes Mother Osteoporosis Mental health disorder Paternal Aunt Colon cancer Other Family history of breast cancer Family history of gastric cancer Family history of pancreatic cancer Family history of prostate cancer Social History (Updated 07/27/24 @ 14:30 by ARNULFO Hughes) Housing: House Are you a primary housekeeper caregiver to a significant other at home: No Do you presently have visiting nurse or other home services: No Alcohol intake: current Alcohol intake frequency: a few times a month Patient Tobacco Use Status: Never used Tobacco e-Cigarette/Vaping Use: Never Used Second Hand Smoke Exposure: No service: No Current occupational status: employed 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 1. Little interest or pleasure in doing things: not at all 2. Feeling down, depressed, or hopeless: not at all 3. Trouble falling or staying asleep, or sleeping too much: not at all 4. Feeling tired or having little energy: not at all 5. Poor appetite or overeating: not at all 6. Feeling bad about yourself - or that you are a failure or have let yourself or your family down: not at all 7. Trouble concentrating on things, such as reading the newspaper or watching television: not at all 8. Moving or speaking so slowly that other people could have noticed. Or the opposite - being so fidgety or restless that you have been moving around a lot more than usual: not at all 9. Thoughts that you would be better off or of hurting yourself in some way: not at all Total score: 0 Depression Screening Interpretation: Negative Depression Screening Done: Yes Source: Developed by Drs. Kenneth Martínez, Lisseth B.Gurwinder Bolaños and colleagues, with an educational norma from [employer]. Thrive Questionnaire Date Thrive assessed: 07/27/24 I am a: Patient What is your living situation today?: I have a steady place to live Within the past 12 months, did the food you bought not last and you didn't have the money to get more?: Never true Within the past 12 months, did you worry whether your food would run out before you got money to buy more?: Never true Do you have trouble paying for medicines?: No Do you have trouble getting transportation to medical appointments?: No Do you have trouble paying your heating and electricity bill?: No Do you have trouble taking care of your child, family member or friend?: No Do you have trouble with day-to-day activities such as bathing, preparing meals, shopping, managing finances, etc.?: No Are you currently unemployed and looking for a job?: No Are you interested in more education?: No Please select the resources that you would like help with: None Currently or been in a relationship where the following occur: No concerns reported THRIVE Score: 0 AUDIT C Alcohol Use Questionnaire (AUDIT-C) 1. How often do you have a drink containing alcohol?: Never 3. How often do you have six or more drinks on one occasion?: Never Total Score: 0 CRISTINA-7 AMB Questionnaire CRISTINA-7 Date CRISTINA - 7 assessed: 07/27/24 Feeling nervous, anxious, or on edge: 1 = Several days Not being able to stop or control worryin = Not at all Worrying too much about different things: 0 = Not at all Trouble relaxin = Not at all Being so restless that it is hard to sit still: 0 = Not at all Becoming easily annoyed or irritable: 0 = Not at all Feeling afraid as if something awful might happen: 0 = Not at all Total CRISTINA-7 score (0-4 normal; 5-9 mild; 10-14 moderate; 15-21 severe): 1 Source: Developed by Drs. Kenneth Martínez, Gurwinder Rothman and colleagues, with an educational norma from [employer] [facility]. Fall Risk Assessment Fall Risk Assessment Fall risk assessment: 1 Fall in past year (07/20/24) Review of Systems Const Denies chills, Denies headache(s) and Denies weight loss ENT Denies headache(s) Card Denies chest pain, Denies syncope, Denies irregular heart rhythm and Denies dyspnea Resp Denies chest congestion, Denies cough and Denies dyspnea GI Denies abdominal pain, Denies change in stool character, Denies nausea and Denies vomiting Musc Denies deformity and Denies joint swelling Neuro Denies syncope and Denies headache(s) Physical exam (Primary Care) Vital Signs: Last Vital Signs Temp 97.3 F 07/27/24 14:28 Pulse 89 07/27/24 14:28 BP 120/62 07/27/24 14:28 Pulse Ox 99 07/27/24 14:28 Oxygen Delivery Method Room Air 07/27/24 14:28 BMI result Body Mass Index 21.1 Tobacco/Smoking Status: Tobacco use Status Tobacco use date assessed 07/27/24 07/27/24 14:32 Patient Tobacco Use Status Never used Tobacco 07/27/24 14:32 e-Cigarette/Vaping Use Never Used 07/27/24 14:32 PHQ-9: PHQ-9 Score PHQ-9: Total score 0 07/27/24 14:32 Depression Screening Interpretation: Negative Thrive Assessment: Date of Thrive Assessment Date Thrive assessed 07/27/24 07/27/24 14:32 Currently or been in a relationship where the following occur: No concerns reported Const General: cooperative, comfortable, no acute distress and alert Neck Neck: Yes no lymphadenopathy Thyroid: Thyroid normal Resp Effort & Inspection: normal respiratory effort Auscultation: clear to auscultation bilaterally Percussion: percussion normal Cardio Jugular venous distension: no JVD Palpation: normal PMI Rate: regular rate Rhythm: regular rhythm Heart sounds: S1 normal heart sound present and S2 normal heart sound present GI Inspection: Yes normal to inspection Palpation (GI): No hepatosplenomegaly present Skin General skin exam: no rashes or lesions noted Extrem General: Yes no clubbing, cyanosis or edema Coding Level of Care Code Est Pt Level 3 (79748) Diagnoses Hyperlipidemia E78.5 Assessment & Plan Assessment & Plan (1) Hyperlipidemia: Code(s): E78.5 - Hyperlipidemia, unspecified Category: Medical Plan: stable; same rx
[2024-07-27 14:28] VITALS: BP 120/62; PULSE 89; TEMP 36.3; O2SAT 99; BMI 21.1
== END 2024-07-27 14:50 | disposition home or self-care (01) ==
PROVIDERS: PCP Internal Medicine; Visit Provider Internal Medicine
DX: E78.5 Hyperlipidemia, unspecified (principal)

== ENCOUNTER → 2024-07-27 14:24 | Outpatient (BNVA) | payer OTHER, SELFPAY | PROVIDERS: PCP Internal Medicine; Visit Provider Internal Medicine ==

== ENCOUNTER 2024-07-30 06:20 | Outpatient (REF) | payer OTHER, SELFPAY ==
--- NOTE | ~2024-07-30 | FL_ITS ---
EXAMINATION: FL GUIDANCE ONLY HISTORY: M47.812 - Spondylosis without myelopathy or radiculopathy, cervical region COMPARISON: None available. TECHNIQUE: Fluoroscopy time: 0.1 minutes. Cumulative Dose: 0.347 mGy. DAP: [id number] mGym2 Images: 2. FINDINGS: AP and lateral spot films of the cervical spine demonstrate leads in place bilaterally. FL/FL guidance in treatment room IMPRESSION: Fluoroscopy during procedure. Please see procedure report for additional information. Electronically signed by: Kenneth Mirza MD 07/30/2024 12:13 PM YESICA LE
== END 2024-07-30 06:21 | disposition home or self-care (01) ==
LOC: CF 06:20
PROVIDERS: Visit Provider Internal Medicine
DX: M47.812 Spondylosis without myelopathy or radiculopathy, cervical region (principal); M54.2 Cervicalgia; G89.29 Other chronic pain
CPT/HCPCS: 64555; C1778; J2003

== ENCOUNTER → 2024-07-30 09:13 | Outpatient (AMB) | payer OTHER, SELFPAY ==
--- NOTE | 2024-07-30 09:20 | A.OFFVIS_ITS ---
Vital Signs 07/30/24 09:20 Height 5 ft 10 in Weight 147 lb BMI 21.1 BP 93/69 Blood Pressure Location Lt brachial Position Sitting Pulse 100 Pulse Source Pulse Oximeter Pulse Oximetry (%) 100 Oxygen Delivery Method Room Air Intake Visit Reasons: Left C3-C4 Sprint Sizing End Bander Required: No Allergies adhesive tape Allergy (Intermediate, Verified 07/30/24 09:21) BLISTERS bacitracin [From Neosporin] Allergy (Mild, Verified 07/30/24 09:21) RASH gramicidin D [From Neosporin] Allergy (Mild, Verified 07/30/24 09:21) RASH neomycin [From Neosporin] Allergy (Mild, Verified 07/30/24 09:21) RASH Penicillins Adverse Reaction (Mild, Verified 07/30/24 09:21) VOMITING Medication List - Last Reconciled 07/30/24 by Sophia Lewis, GOVERNMENT RELATIONS DIRECTOR amitriptyline 10 mg PO BEDTIME atorvastatin 20 mg PO DAILY coQ10 (ubiquinol) 200 mg PO DAILY esomeprazole magnesium 20 mg PO DAILY 90 days lamotrigine 25 mg PO DAILY mastectomy bra (bra, mastectomy) As directed simethicone 180 mg PO TID PRN sumatriptan succinate 50 mg PO DAILY PRN tramadol 50 mg PO Q8H PRN nhttfjth-axfz-xwkwz-oreg-capry 100 mg-150 mg- 50 mg-150 mg 1,000 PO DAILY HPI HPI Left C3-C4 Sprint: Details: Patient presents for scheduled procedure. Denies any recent cough, cold, infection, fever or other significant changes in medical history since last office visit. [facility] Medical History Cervical cancer screening Physical exam Abdominal pain Flank pain Tick bite of back History of right breast cancer Hx of radiation therapy Migraines Arthritis Hyperlipidemia GERD (gastroesophageal reflux disease) Surgical History Hx of unilateral oophorectomy History of lumpectomy of right breast History of esophagogastroduodenoscopy (EGD) Hx of colonoscopy History of excision of lesion History of salpingo-oophorectomy History of cholecystectomy History of wisdom tooth extraction H/O right mastectomy Family History Father Diabetes Mother Osteoporosis Mental health disorder Paternal Aunt Colon cancer Other Family history of breast cancer Family history of gastric cancer Family history of pancreatic cancer Family history of prostate cancer Social History (Updated 07/27/24 @ 14:30 by ARNULFO Hughes) Housing: House Are you a primary caregivers non medical to a significant other at home: No Do you presently have visiting nurse or other home services: No Alcohol intake: current Alcohol intake frequency: a few times a month Patient Tobacco Use Status: Never used Tobacco e-Cigarette/Vaping Use: Never Used Second Hand Smoke Exposure: No service: No Current occupational status: employed 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 After the risks, benefits and alternatives were discussed with the patient and informed consent was obtained, patient was placed in the prone position and padded to foster comfort. The patient's usual area of pain was assessed under fluoroscopy and noted to be in the distribution of the C5 medial branch nerve. The skin overlying the cervical spine was prepped and draped in sterile fashion. Fluoroscopy was used to identify the spinous process and lamina over the C5 articular pillar. After identifying and marking the intended target along the course of the medial branch nerve, the skin around the planned entry point and the subcutaneous tissues were injected with lidocaine 1%. An introducer needle and stimulating probe were assembled, inserted and advanced along the intended course of the medial branch nerve, taking care to maintain the proper depth of insertion as the introducer was advanced under fluoroscopic guidance. The introducer needle was delivered to a location in proximity to the nerve. Multiple stimulation parameters were used to deliver stimulation to the target medial branch nerve in concert with stimulating at multiple positions around the nerve. Nerve target acquisition was confirmed noting generation of paresthesias in the paravertebral regions corresponding to the level being stimulated. Various electrical parameter combinations were tested, and the lead location was adjusted (physically relocated) until the patient indicated paresthesia/muscle tension overlapping the distribution of the patient?s typical region of pain, including neck and occipital region. The stimulating probe was removed from the introducer and a percutaneous lead was guided through the needle and delivered to a location in similar proximity to the nerve. Final location was verified with electrical stimulation and documented with fluoroscopy. The introducer needle was removed, and the exposed end of the percutaneous lead was attached to an external stimulator unit. Various electrical parameter combinations were again tested until the patient indicated paresthesia or muscle tension overlapping the distribution of the patient?s typical region of pain. Fluoroscopy was used to document the location of the percutaneous lead in the deployed position. After confirming that lead impedance was in the normal range, the external unit was detached, the needle was removed, and the lead was anchored at the skin. The lead was threaded into the connector block and electrical continuity and desired patient response was confirmed. The connector block was attached to the external stimulator unit. The site was covered with a sterile occlusive pressure dressing. The patient was observed for stability of vital signs and comfort. Patient was dischared in stable condition. Sprint PNS Device: Sprint PNS Device [id number] Percutaneous Peripheral Neuroelectrode Procedure: 19091 - Percutaneous Peripheral Neuroelectrode Procedure code (CPT) selection complete Office Meds lidocaine HCl 10 mg/mL (1 %) injection solution Performing Provider: Dorita Goldberg APRN, CNP Performing Location: [facility] Administered by: Mar Chou LPN on 07/30/24 10:10 Dose Route Admin Location Dispensed Lot Number Expiration Date [facility] Human [employer] Professional 50 mg subcut 5 mL Assessment & Plan Assessment & Plan (1) Chronic neck pain: Code(s): M54.2 - Cervicalgia; G89.29 - Other chronic pain Category: Medical (2) Cervical spondylosis: Code(s): M47.812 - Spondylosis without myelopathy or radiculopathy, cervical region Category: Medical Plan Patient is status post left C5 temporary medial branch nerve stimulator placement. Patient tolerated procedure well and was discharged home in stable condition with discharge instructions. All questions were answered. We will follow-up via telephone or in clinic to assess response to therapy. A follow-up appointment was made during today's visit. Orders: Orders AMB Sprint PNS Today M47.812 - Spondylosis without myelopathy or radiculopathy, cervical region FL guidance in treatment room Today M47.812 - Spondylosis without myelopathy or radiculopathy, cervical region Coding Level of Care Code Procedure Only Diagnoses Chronic neck pain M54.2; G89.29 Cervical spondylosis M47.812 CPT Codes Sprint PNS - Sprint PNS Device: Sprint PNS Device ([id number]) Sprint PNS - SPRINT: 92815 - Percutaneous Peripheral Neuroelectrode ([id number]) Implantable Device Implantable Device Implantable Devices [employer] Professional Implant Date Expiration Date Analgesic PENS system 1 [employer] 07/16/24 08/15/25 Analgesic PENS system 1 [employer] 07/30/24 03/09/26
== END | disposition home or self-care (01) ==
PROVIDERS: PCP Internal Medicine; Visit Provider Internal Medicine
DX: M54.2 Cervicalgia (principal); G89.29 Other chronic pain; M47.812 Spondylosis without myelopathy or radiculopathy, cervical region
CPT/HCPCS: 64555

== ENCOUNTER 2024-08-05 09:04 | Outpatient (AMB) | payer OTHER, SELFPAY ==
--- NOTE | 2024-08-05 09:06 | MHC.OFFVIS ---
Vital Signs 08/05/24 09:07 Height 5 ft 10 in Weight 147 lb BMI 21.1 BP 117/61 Blood Pressure Location Lt brachial Position Sitting Respiration 16 Pulse 126 H Pulse Source Pulse Oximeter Pulse Oximetry (%) 100 Oxygen Delivery Method Room Air Intake Visit Reasons: s/p left cervical Sprint Aircraft Body Repairer Required: No Allergies adhesive tape Allergy (Intermediate, Verified 08/05/24 09:08) BLISTERS bacitracin [From Neosporin] Allergy (Mild, Verified 08/05/24 09:08) RASH gramicidin D [From Neosporin] Allergy (Mild, Verified 08/05/24 09:08) RASH neomycin [From Neosporin] Allergy (Mild, Verified 08/05/24 09:08) RASH Penicillins Adverse Reaction (Mild, Verified 08/05/24 09:08) VOMITING Medication List - Last Reconciled 08/05/24 by Mar Chou LPN amitriptyline 10 mg PO BEDTIME atorvastatin 20 mg PO DAILY coQ10 (ubiquinol) 200 mg PO DAILY esomeprazole magnesium 20 mg PO DAILY 90 days lamotrigine 25 mg PO DAILY mastectomy bra (bra, mastectomy) As directed simethicone 180 mg PO TID PRN sumatriptan succinate 50 mg PO DAILY PRN tramadol 50 mg PO Q8H PRN sugayvbp-nuqv-agjmt-oreg-capry 100 mg-150 mg- 50 mg-150 mg 1,000 PO DAILY HPI HPI s/p left cervical Sprint: Details: History of Present Illness The patient is a 63-year-old female presenting with a follow-up visit concerning recently implanted cervical medial branch nerve stimulator. This follow-up is to evaluate the effectiveness of the hardware in managing her cervical radiculopathy. The procedure was performed one week ago, and the patient reports over 60% improvement in her neck pain. She experiences some soreness on the right side, attributed to overstimulation, which she adjusts herself. The stimulator's insertion sites remain clean, dry, and intact. The patient has also noted the resolution of previous morning headaches. A timeline has been established for the removal of the stimulators, with the right-sided removal scheduled for five weeks from today and the left-sided removal in seven weeks, preceding her planned cruise. Pain Description - Improvement in neck pain by at least 60% - Soreness experienced on the right side of the neck - Quality: Intermittent soreness - Aggravating Factors: Overstimulation - Alleviating Factors: Adjustment of stimulator settings and potential short-term deactivation - Previous morning headaches: Resolved Physical Exam - General- Patient appears well. - Integumentary- Lead insertion sites noted to be clean, dry, and intact with no signs of infection. Pain Management - Affect: The patient reports significant relief from her pain, resulting in improved mood. - Analgesia: The cervical C5 medial branch nerve stimulator shows >60% reduction in pain. - Adverse Effects: Reports of right side soreness due to overstimulation. - Activities of Daily Living: Improvement noted with the resolution of morning headaches. - Aberrant Drug Related Behaviors: None reported or observed. [facility] Medical History Cervical cancer screening Physical exam Abdominal pain Flank pain Tick bite of back History of right breast cancer Hx of radiation therapy Migraines Arthritis Hyperlipidemia GERD (gastroesophageal reflux disease) Surgical History Hx of unilateral oophorectomy History of lumpectomy of right breast History of esophagogastroduodenoscopy (EGD) Hx of colonoscopy History of excision of lesion History of salpingo-oophorectomy History of cholecystectomy History of wisdom tooth extraction H/O right mastectomy Family History Father Diabetes Mother Osteoporosis Mental health disorder Paternal Aunt Colon cancer Other Family history of breast cancer Family history of gastric cancer Family history of pancreatic cancer Family history of prostate cancer Social History (Updated 07/27/24 @ 14:30 by ARNULFO Hughes) Housing: House Are you a primary hourly caregiver to a significant other at home: No Do you presently have visiting nurse or other home services: No Alcohol intake: current Alcohol intake frequency: a few times a month Patient Tobacco Use Status: Never used Tobacco e-Cigarette/Vaping Use: Never Used Second Hand Smoke Exposure: No service: No Current occupational status: employed 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, 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 Cognitive needs: No Hearing needs: No Vision needs: Yes (glasses) Female Reproductive History Menstrual Age of Menarche: 13 Physical Exam Vital Signs: Last Vital Signs Pulse 126 H 08/05/24 09:07 Resp 16 08/05/24 09:07 BP 117/61 08/05/24 09:07 Pulse Ox 100 08/05/24 09:07 Oxygen Delivery Method Room Air 08/05/24 09:07 BMI result Body Mass Index 21.1 Assessment & Plan Assessment & Plan (1) Cervical spondylosis: Code(s): M47.812 - Spondylosis without myelopathy or radiculopathy, cervical region Category: Medical (2) Chronic neck pain: Code(s): M54.2 - Cervicalgia; G89.29 - Other chronic pain Category: Medical Plan Plan The cervical C5 medial branch nerve stimulator is effectively reducing the patient's neck pain. The patient is advised to manage soreness due to overstimulation by adjusting the settings or taking brief breaks from stimulation. Right-sided stimulator removal is planned in five weeks, and left-sided in seven weeks. No further interventions are necessary at this time, but the lead sites should be monitored for complications. Patient was informed and verbally consented to the use of an ambient scribe for clinic note documentation during this visit. Discussion Notes We discussed the management and effectiveness of the cervical medial branch nerve stimulator. The patient expressed relief with pain improvement and the resolution of morning headaches. I advised on managing overstimulation by adjusting the stimulator or discontinuing usage temporarily. We agreed on the timeline for removal of the right and left-sided stimulators, with plans to proceed according to her personal schedule. The patient understands the course of action if soreness or complications arise and will maintain vigilance over the lead insertion sites. Patient Instructions - Continue monitoring the stimulator settings and adjust as needed to manage soreness. - If soreness becomes prominent, give yourself a short break from using the stimulator. - Keep the insertion sites clean and monitor for signs of infection. - Follow the scheduled removal dates for the right-sided (5 weeks) and left-sided (7 weeks) stimulators. - Report any new symptoms or issues with the stimulator immediately. Coding Level of Care Code Est Pt Level 3 (23538) Diagnoses Cervical spondylosis M47.812 Chronic neck pain M54.2; G89.29
[2024-08-05 09:07] VITALS: BP 117/61; PULSE 126; RESP 16; O2SAT 100; BMI 21.1
--- OUTSIDE RECORDS SUMMARY | 2024-08-05 09:59 | XMS_ITS ---
Author Organization Kenneth Samuel III, MD Address [address] [place] [address] [place] [address] Care Team Providers Care Mixing Operator Name Role Phone Miah Day MD Primary Care Provider Chela Kenneth Sharma [facility] [phone] Medications Medication SIG (Take, Route, Fr equency, Duration) Notes Start Date End Date Status Azithromycin 250 MG as directed Orally 2 Tablets on the first day, one tablet the rest of the days for 5 days 07/07/2024 Acti ve Social History Sex Assigned At : Social History Observation Description Sex Assigned At Female Encounters Encounter Location Date Provider Diagnosis Kenneth Samuel III, MD [address] [place] [address] [place] [address] 07/07/2024 Kenneth Samuel Plan Of Treatment Medication Medication Name Sig Start Date Stop Date Notes Azithromycin 250 MG as directed Orally 2 Tablets on the first day, one tablet the rest of the days for 5 days 07/07/2024 Next Appt Details Provider Name:Kenneth Samuel, 12/30/2024 09:00:00 AM, [address] [place] [address] [place], [address], Progress Notes * Geeta PETERB: 9[birth year] (63 yo F)Acc No.[id number]:07/07/2024 Patient:?Sabrina PETER :1960???Age:63 Y???Sex:Female Address:[address] [place] [address], [place] [address] * Refills? Start Azithromycin Tablet, 250 MG, Orally, 6, as directed, 2 Tablets on the first day, one tablet the rest of the days, 5 days, Refills=0 * true * Date:? Generated for Riccardo dunn/Юлия/Mahendrasmitting on:?08/05/2024 09:59 AM EST
--- OUTSIDE RECORDS SUMMARY | 2024-08-05 09:59 | XMS_ITS ---
Author Organization Kenneth Samuel III, MD Address [address] [place] [address] Care Team Providers Care Tabulating Machine Mechanic Name Role Phone Miah Day MD Primary Care Provider Kenneth Godoy [facility] [phone] Allergies Allergen (clinical drug ingredient) Drug/Non Drug [...] Date Provider Diagnosis Kenneth Samuel III, MD [address] [place] [address] [place] [address] 07/06/2024 Kenneth Samuel Age-related osteoporosis without current [...] ov Provider Name:Kenneth Samuel, 12/30/2024 09:00:00 AM, [address] [place] [address] [address] [place] [address], [place], [address], Procedure Notes * Category Sub-Category Detail Notes Chemotherapy Start and End Time: , start, 9:0 0 am, end, 10:00 am Site: left hand Consent: verbal consent was o btained prior to procedure Medications given: Zoledronic acid 5 mg ([facility] 04214-440-94) Monitored by: SANTOS Velez port flush none route IV Progress Notes * Geeta PETERB: [birth year] (63 yo F)Acc No.[id number]:07/06/2024 Patient:?JCAKIYADIELREINIER Sabrina Provider:?Kenneth Samuel MD :1960???Age:63 Y???Sex:Female D ate:07/06/2024 Address:[address] [place], [place] [address] Pcp:Miah Day MD Subjective: * Chief Complaints: * ???History of right breast c ancerOsteoporosisDCIS * HPI: ???COVID-19 Screening:? She returns for a 6 month checkup of her carcinoma of the breast and to receive an intravenous infusion of 5 mg of zoledronic acid which she receives once a year for osteoporosis.? She felt said [place] which she spent alone.? She has developed [...] Tobacco Non-User?Aggressive non-smoker ???She was born in [place]. She has been to Benja for 18 years. They have no children. 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 * Medications:?TakingNexIUM 24 HR 20 MG Capsule [...] 80 (Ref Range: >40 mg/dL) * Lab:[facility] [place]. Pane l Fast * Collection Date 06/23/2024 [...] prior to procedure.?Medications given:?Zoledronic acid 5 mg ([facility] 24216-151-19).?Monitored by:?SANTOS Velez.?port flush?none.?route?IV.? * Procedure Codes:?J3489 INJEC TION ZOLEDRONIC ACID 1 AT21223 CHEMO, IV INFUSION, 1 HR * Follow Up:?6 Months (Reason: ov) * Images: * Sign off status: Completed true * Provider:?Kenneth Samuel MD Date:?06/24 Generated for Riccardo dunn/Юлия/eTchapincitosmitting on:?08/05/2024 09:59 AM EST History and Physical Notes * [...]
--- OUTSIDE RECORDS SUMMARY | 2024-08-05 10:00 | XMS_ITS ---
Author Organization Kenneth Samuel III, MD Address [address] [place] [address] Care Team Providers Care Customer Counter Representative Name Role Phone Miah Day MD Primary Care Provider Kenneth Godoy [phone] REASON FOR VISIT Rx Request Social History Sex Assigned At : Social History Observation Description Sex Assigned At Female Encounters Encounter Location Date Provider Diagnosis Kenneth Samuel III, MD [address] [place] [address] [place] [address] 07/07/2024 Kenneth Samuel Plan Of Treatment Next Appt Details Provider Name:Kenneth Samuel, 12/30/2024 09:00:00 AM, [address] [place] [address] [place], [address], Progress Notes * Geeta PETERB: 9[birth year] (63 yo F)Acc No.[id number]:07/07/2024 Patient:?Sabrina PETER :1960???Age:63 Y???Sex:Female Address:[place] [address] * true * Date:? Generated for Printi ng/Faxing/eTransmitting on:?08/05/2024 09:59 AM EST
== END 2024-08-05 09:21 | disposition home or self-care (01) ==
PROVIDERS: PCP Internal Medicine; Visit Provider Internal Medicine
DX: M47.812 Spondylosis without myelopathy or radiculopathy, cervical region (principal); M54.2 Cervicalgia; G89.29 Other chronic pain
CPT/HCPCS: 99024

== ENCOUNTER 2024-08-20 13:01 | Outpatient (REF) | payer OTHER, SELFPAY ==
--- NOTE | ~2024-08-20 | MM_ITS ---
EXAMINATION: MM SCREENING DIGITAL BREAST TOMOSYNTHESIS, LEFT CLINICAL INFORMATION: Screening. Asymptomatic. Right mastectomy.. COMPARISON: Mammography: This study is compared with prior exams dating back to TECHNIQUE: Digital breast tomosynthesis is performed in both the craniocaudal and mediolateral oblique views along with computer-aided detection (CAD). Synthesized 2D images are generated from the tomosynthesis. FINDINGS: There are scattered areas of fibroglandular density (ACR BI-RADS breast composition Category b). There are no significant masses, abnormal calcifications, or other abnormalities. MM/MM tomosynthesis screening LT IMPRESSION: No mammographic evidence of malignancy. ASSESSMENT: BI-RADS BI-RADS 1 - Negative RECOMMENDATION: Routine annual mammography screening. 1 year F/U This examination should not preclude the clinical evaluation of a suspicious palpable abnormality. This patient's information was entered into a reminder system with a target due date for their next mammogram. Electronically signed by: Blanquita Serna DO 08/24/2024 03:02 PM [facility]
--- NOTE | ~2024-08-20 | MM_ITS ---
EXAMINATION: DXA BONE DENSITY AXIAL HISTORY: Estrogen deficiency TECHNIQUE: Can'tWait Dual energy absorptiometry (DEXA) of the lumbar spine, total left hip, and femoral neck was performed. COMPARISON: Comparison is made with the prior examination dated 08/07/2022. FINDINGS: The bone mineral density of the lumbar spine is 1.102 with a T-score of -0.6, and a Z-score of 1.3. This represents a BMD change of 3.7% compared to the prior exam. This is statistically significant. The bone mineral density of the left total hip is 0.745 with a T-score of -2.1, and a Z-score of -0.7. This represents BMD change of -2.2% compared to the prior exam. This is not statistically significant. The bone mineral density of the left femoral neck is 0.677 with a T-score of -2.6, and a Z-score of -0.9. This represents BMD change of -7.6% compared to the prior exam. MM/XR DEXA axial skeleton IMPRESSION: Based on bone mineral density, and according to World Health Organization (WHO) criteria, the diagnosis is consistent with osteoporosis. All bone density values are in grams per centimeter squared (g/cm2). Statistically, 68% of repeat scans fall within 1 SD (+/- 0.010 g/cm2 for AP spine L1-L4) and 1 SD (+/- 0.012 g/cm2 for femur total) FRAX is a trademark of the [employer], a World Health Organization (WHO) Collaborating Center. Electronically signed by: Kenneth Mirza MD 08/20/2024 02:05 PM [facility]
--- OUTSIDE RECORDS SUMMARY | 2024-08-20 15:30 | XMS_ITS ---
Author Organization Kenneth Samuel III, MD Address [address] [place] [address] [place] [address] Care Team Providers Care Neon Glass Blower Name Role Phone Miah Day MD Primary Care Provider Chela Kenneth Sharma [facility] [phone] Medications Medication SIG (Take, Route, Fr equency, Duration) Notes Start Date End Date Status Azithromycin 250 MG as directed Orally 2 Tablets on the first day, one tablet the rest of the days for 5 days 07/07/2024 Acti ve Social History Sex Assigned At : Social History Observation Description Sex Assigned At Female Encounters Encounter Location Date Provider Diagnosis Kenneth Samuel III, MD [address] [place] [address] [place] [address] 07/07/2024 Kenneth Samuel Plan Of Treatment Medication Medication Name Sig Start Date Stop Date Notes Azithromycin 250 MG as directed Orally 2 Tablets on the first day, one tablet the rest of the days for 5 days 07/07/2024 Next Appt Details Provider Name:Kenneth Samuel, 12/30/2024 09:00:00 AM, [address] [place] [address] J[place], [address], Progress Notes * Geeta PETERB: [birth year] (63 yo F)Acc No.[id number]:07/07/2024 Patient:?Sabrina PETER :1960???Age:63 Y???Sex:Female Address:[address] [place] [address], [place] [address] * Refills? Start Azithromycin Tablet, 250 MG, Orally, 6, as directed, 2 Tablets on the first day, one tablet the rest of the days, 5 days, Refills=0 * true * Date:? Generated for Riccardo dunn/Юлия/Mahendrasmitting on:?08/20/2024 03:30 PM EST
--- OUTSIDE RECORDS SUMMARY | 2024-08-20 15:30 | XMS_ITS ---
Author Organization Kenneth Samuel III, MD Address [address] [place] [address] Care Team Providers Care Dealer Development Manager Name Role Phone Miah Day MD Primary Care Provider Kenneth Godoy [facility] [phone] Allergies Allergen (clinical drug ingredient) Drug/Non Drug [...] Date Provider Diagnosis Kenneth Samuel III, MD [address] [place] [address] [place] [address] 07/06/2024 Kenneth Samuel Age-related osteoporosis without current [...] ov Provider Name:Kenneth Samuel, 12/30/2024 09:00:00 AM, [address] [place] [address] [address] [place] [address], [place], [address], Procedure Notes * Category Sub-Category Detail Notes Chemotherapy Start and End Time: , start, 9:0 0 am, end, 10:00 am Site: left hand Consent: verbal consent was o btained prior to procedure Medications given: Zoledronic acid 5 mg ([facility] 18438-644-36) Monitored by: SANTOS Velez port flush none route IV Progress Notes * Geeta PETERB: [birth year] (63 yo F)Acc No.[id number]:07/06/2024 Patient:?JACKIYADIELREINIER Sabrina Provider:?Kenneth Samuel MD :1960???Age:63 Y???Sex:Female D ate:07/06/2024 Address:[address] [place], [place] [address] Pcp:Miah Day MD Subjective: * Chief Complaints: * ???History of right breast c ancerOsteoporosisDCIS * HPI: ???COVID-19 Screening:? She returns for a 6 month checkup of her carcinoma of the breast and to receive an intravenous infusion of 5 mg of zoledronic acid which she receives once a year for osteoporosis.? She felt said [place] which she spent alone.? She has developed [...] Tobacco Non-User?Aggressive non-smoker ???She was born in [place]. She has been to Benja for 18 years. They have no children. 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 * Medications:?TakingNexIUM 24 HR 20 MG Capsule [...] 80 (Ref Range: >40 mg/dL) * Lab:[facility] [place]. Pane l Fast * Collection Date 06/23/2024 [...] prior to procedure.?Medications given:?Zoledronic acid 5 mg ([facility] 86422-161-79).?Monitored by:?SANTOS Velez.?port flush?none.?route?IV.? * Procedure Codes:?J3489 INJEC TION ZOLEDRONIC ACID 1 [id number] CHEMO, IV INFUSION, 1 HR * Follow Up:?6 Months (Reason: ov) * Images: * Sign off status: Completed true * Provider:?Kenneth Samuel MD Date:?06/24 Generated for Riccardo dunn/Юлия/eTchapincitosmitting on:?08/20/2024 03:30 PM EST History and Physical Notes * [...]
--- OUTSIDE RECORDS SUMMARY | 2024-08-20 15:31 | XMS_ITS ---
Author Organization Kenneth Samuel III, MD Address [address] [place] [address] Care Team Providers Care Crucible Furnace Tender Name Role Phone Miah Day MD Primary Care Provider Kenneth Godoy [phone] REASON FOR VISIT Rx Request Social History Sex Assigned At : Social History Observation Description Sex Assigned At Female Encounters Encounter Location Date Provider Diagnosis Kenneth Samuel III, MD [address] [place] [address] [place] [address] 07/07/2024 Kenneth Samuel Plan Of Treatment Next Appt Details Provider Name:Kenneth Samuel, 12/30/2024 09:00:00 AM, [address] [place] [address] [place], [address], Progress Notes * Geeta PETERB: [birth year] (63 yo F)Acc No.[id number]:07/07/2024 Patient:?Sabrina PETER :1960???Age:63 Y???Sex:Female Address:[place] [address] * true * Date:? Generated for Printi ng/Faxing/eTransmitting on:?08/20/2024 03:30 PM EST
== END 2024-08-20 13:02 | disposition home or self-care (01) ==
LOC: HO.MAMMO 13:01
PROVIDERS: PCP Internal Medicine; Visit Provider Internal Medicine Medical Oncology
DX: M81.0 Age-related osteoporosis without current pathological fracture (principal); Z12.31 Encounter for screening mammogram for malignant neoplasm of breast; Z90.11 Acquired absence of right breast and nipple
CPT/HCPCS: 77061; 77063; 77065; 77067; 77080

== ENCOUNTER → 2024-08-20 13:30 | Outpatient (BNV) | payer OTHER, SELFPAY | PROVIDERS: PCP Internal Medicine; Visit Provider Radiology Diagnostic Radiology | DX: Z12.31 Encounter for screening mammogram for malignant neoplasm of breast (principal) | CPT/HCPCS: 77063; 77067 ==

== ENCOUNTER 2024-09-08 12:53 | Outpatient (REF) | payer OTHER, SELFPAY ==
--- NOTE | ~2024-09-08 | XR_ITS ---
EXAMINATION: XR ANKLE 3 OR MORE VIEWS RIGHT HISTORY: M79.671 - Pain in right foot COMPARISON: There are no prior studies available for comparison. FINDINGS: Three views of the right ankle are submitted. Osseous mineralization is normal. There is no fracture or dislocation. The joint spaces are preserved. There is soft tissue swelling over the lateral malleolus. XR/XR ankle RT min 3V IMPRESSION: Soft tissue swelling over the lateral malleolus. No evidence of fracture of the right ankle. Electronically signed by: Kenneth Mirza MD 09/08/2024 01:48 PM EDT
== END 2024-09-08 12:54 | disposition home or self-care (01) ==
LOC: HO.HMGCX 12:53
PROVIDERS: PCP Internal Medicine; Visit Provider Physician Assistant
DX: S93.491A Sprain of other ligament of right ankle, initial encounter (principal)
CPT/HCPCS: 73610

== ENCOUNTER 2024-09-08 12:53 | Outpatient (AMB) | payer OTHER, SELFPAY ==
[2024-09-08 13:14] VITALS: BP 122/88; PULSE 108; TEMP 36.9; O2SAT 97; BMI 21.1
--- NOTE | 2024-09-08 13:14 | AM.OFFWIN_ITS ---
Intake Vital Signs 09/08/24 13:14 Height 5 ft 10 in Weight 147 lb 6 oz BMI 21.1 BP 122/88 Blood Pressure Location Lt brachial Position Sitting Pulse 108 H Pulse Source Pulse Oximeter Temp 98.4 F Temp Source Oral Pulse Oximetry (%) 97 Oxygen Delivery Method Room Air Intake Visit Reasons: EP-rt ankle swollen & pain Intake Note: Pt presents to the office today for c/o right ankle and foot swelling and pain. Pt states at midnight 2 nights ago she got up from a chair and states her foot fell asleep and she twisted her ankle. Patient Tobacco Use Status: Never used Tobacco Allergies adhesive tape Allergy (Intermediate, Verified 09/08/24 13:17) BLISTERS bacitracin [From Neosporin] Allergy (Mild, Verified 09/08/24 13:17) RASH gramicidin D [From Neosporin] Allergy (Mild, Verified 09/08/24 13:17) RASH neomycin [From Neosporin] Allergy (Mild, Verified 09/08/24 13:17) RASH Penicillins Adverse Reaction (Mild, Verified 09/08/24 13:17) VOMITING HPI HPI Comments History of Present Illness Details Patient is a 63-year-old female complaining of 2 days of right ankle pain. She states that 2 nights ago she went to go stand up at her foot was asleep so when she put weight on it she twisted it as she was falling. She has taken 1000mg tylenol and ice to try to make it feel better which allowed her to drive home. It has since swollen, painful to ambulate, taking 500mg tylenol as needed. Has been using compression socks. Hx of fractured 2nd metatarsal in each foot. Patient has a tall boot at home for her right foot from that injury but hasn't used it today. [facility] Medical History Cervical cancer screening Physical exam Abdominal pain Flank pain Tick bite of back History of right breast cancer Hx of radiation therapy Migraines Arthritis Hyperlipidemia GERD (gastroesophageal reflux disease) Surgical History Hx of unilateral oophorectomy History of lumpectomy of right breast History of esophagogastroduodenoscopy (EGD) Hx of colonoscopy History of excision of lesion History of salpingo-oophorectomy History of cholecystectomy History of wisdom tooth extraction H/O right mastectomy Family History Father Diabetes Mother Osteoporosis Mental health disorder Paternal Aunt Colon cancer Other Family history of breast cancer Family history of gastric cancer Family history of pancreatic cancer Family history of prostate cancer Social History (Updated 07/27/24 @ 14:30 by ARNULFO Hughes) Housing: House Are you a primary animal daycare provider to a significant other at home: No Do you presently have visiting nurse or other home services: No Alcohol intake: current Alcohol intake frequency: a few times a month Patient Tobacco Use Status: Never used Tobacco e-Cigarette/Vaping Use: Never Used Second Hand Smoke Exposure: No service: No Current occupational status: employed 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, 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 Cognitive needs: No Hearing needs: No Vision needs: Yes (glasses) Female Reproductive History Menstrual Age of Menarche: 13 Review of Systems Const All systems reviewed & are unremarkable except as noted in HPI and below Physical Exam Vital Signs: Last Vital Signs Temp 98.4 F 09/08/24 13:14 Pulse 108 H 09/08/24 13:14 BP 122/88 09/08/24 13:14 Pulse Ox 97 09/08/24 13:14 Oxygen Delivery Method Room Air 09/08/24 13:14 BMI result Body Mass Index 21.1 Const General: cooperative, healthy appearing, comfortable and no acute distress Orientation/consciousness: patient oriented x3 Limitations: no limitations HEENT Head: Yes normal to inspection Resp Effort & Inspection: normal respiratory effort and able to speak in complete sentences Neuro General: patient oriented x3 Extrem Right lower extremity: ankle Details: abnormal to inspection (swelling, ecchymosis), tenderness Location: of the lateral malleolus, of the anterior talofibular ligament, anterolaterally and other (navicular bone), swelling, normal ROM and ecchymosis (2cm area inferior to lateral malleolus); no unusual warmth, no abrasions, no lacerations and achilles tendon exam normal Assessment & Plan Assessment & Plan (1) Sprain of anterior talofibular ligament of right ankle: Code(s): S93.491A - Sprain of other ligament of right ankle, initial encounter Qualifiers: Encounter type: initial encounter Qualified Code(s): S93.491A - Sprain of other ligament of right ankle, initial encounter Plan: Will get XR as per [place] ankle rules with TTP posterior lateral malleolus and navicular bone. My interpretation of the right ankle x-ray shows no acute fracture or dislocation. Pending final rads read. We will call patient if there is any discrepancy. Applied an Jimmy wrap, told the patient she can use a combination of the boot and the Jimmy wrap, whichever is more comfortable for her to rest the right ankle. She should use ice and Aleve as needed. If no improvement in her pain gradually over the next few weeks, she should follow up with her primary care doctor. Orders: Orders XR ankle RT min 3V Today M79.671 - Pain in right foot Coding Level of Care Code Est Pt Level 4 (03282) Diagnoses Sprain of anterior talofibular ligament of right ankle, initial encounter S93.491A Encounter type: initial encounter
--- OUTSIDE RECORDS SUMMARY | 2024-09-08 15:06 | XMS_ITS | Patient Health Record ---
Author Organization Kenneth Samuel III, MD Address [address] [place] [address] Care Team Providers Care Dental Professional Name Role Phone Miah Day MD Primary Care Provider Kenneth Godoy [facility] [phone] Allergies Allergen (clinical drug ingredient) Drug/Non Drug Allergy documented on EMR Reaction Allergy Type Onset Date Status Penicillin Unknown Drug Allergy Active neomycin Neomycin rash Drug Allergy Active Adhesive rash Allergy Active Results Component Value Reference Range Notes Complete Blood Count Auto Di ff Reviewed date:06/23/2024 05:40:57 PM Interpretation: Performing Lab:[facility] [place], [address] [place] [phone] Notes/Report: White Blood Count 5.7 4.8-10.8 X10*3/uL [...] NRBC Abs Auto 0.000 0.0-0.012 X10*3/uL Comprehensive [place]. Panel Fa st Reviewed date:06/23/2024 05:40:57 PM Interpretation: Performing Lab:[facility] [place], [address] [place] [phone] Notes/Report: Sodium 141 135-145 mmol/L Potassium 3.9 [...] Panel Reviewed date:06/23/2024 05:40:57 PM Interpretation: Performing Lab:[facility] [place], [address] [place] [address] Notes/Report: Triglycerides 64 <150 mg/dL Desirable Triglyceride: [...] low results in patients with liver disease. MM tomosynthesis screening L T (Not yet reviewed by provider) Interpretation: Performing Lab: Notes/Report: [facility] [address] [place] [address] Mammography Report Signed Patient: Sabrina Peter MR#: [id number] : 1960 Acct:[id number] Age/Sex: 63 / F ADM Date: 08/20/24 Loc: HO.MAMMO Attending Dr: Kenneth Samuel MD Ordering Physician: Kenneth Samuel MD Results: 1Negativ e Date of Service: 08/20/24 Follow Up: 1 Year From [facility] ina Mammogram Procedure(s): MM tomosynthesis screening Accession Number(s): [id number] cc: Kenneth Samuel MD; Miah Day MD EXAMINATION: MM SCREENING DIGITAL BREAST TOMOSYNTHESIS, LEFT CLINICAL INFORMATION: Screening. Asymptomatic. Right mastectomy.. COMPARISON: Mammography: This study is compared with prior exams dating back to TECHNIQUE: Digital breast tomosynthesis is performed in both the craniocaudal and mediolateral oblique views along with computer-aided detection (CAD). Synthesized 2D images are generated from the tomosynthesis. FINDINGS: There are scattered areas of fibroglandular density (ACR BI-RADS breast composition Category b). There are no significant masses, abnormal calcifications, or other abnormalities. MM/MM tomosynthesis screening LT IMPRESSION: No mammographic evidence of malignancy. ASSESSMENT: BI-RADS BI-RADS 1 - Negative RECOMMENDATION: Routine annual mammography screening. 1 year F/U This examination should not preclude the clinical evaluation of a suspicious palpable abnormality. This patient's information was entered into a reminder system with a target due date for their next mammogram. Electronically signed by: Blanquita Serna DO 08/24/2024 03:02 PM EST Dictated By: Blanquita Serna DO Signed By: <Electronically signed by Blanquita Serna DO in OV> 08/24/24 1502 DD/ 1315 TD/TT: 08/20/24 1325 Long Distance Operator: [facility] [address] [place] [address] Mammography Report Signed Patient: Sabrina Peter MR#: [id number] : 1960 Acct:[id number] Age/Sex: 63 / F ADM Date: 08/20/24 Loc: HO.MAMMO Attending Dr: Kenneth Samuel MD Ordering Physician: Kenneth Samuel MD Results: 1Negativ e Date of Service: 08/20/24 Follow Up: 1 Year From [facility] Mammogram Procedure(s): MM tomosynthesis screening LT Accession Number(s): [id number] cc: Kenneth Samuel MD; Miah Day MD EXAMINATION: MM SCREENING DIGITAL BREAST TOMOSYNTHESIS, LEFT CLINICAL INFORMATION: Screening. Asymptomatic. Right mastectomy.. COMPARISON: Mammography: This st udy is compared with prior exams dating back to TECHNIQUE: Digital breast tomosynthesis is performed in both the craniocaudal and mediolateral oblique views along with computer-aided detection (CAD). Synthesized 2D image s are generated from the tomosynthesis. FINDINGS: There are scattered areas of fibroglandular density (ACR BI-RADS breast composition Category b). There are no significant masses, abnormal calcifications, or other abnormalities. MM/MM tomosynthesis screening LT IMPRESSION: No mammographic evidence of malignancy. ASSESSMENT: BI-RADS BI-RADS 1 - Negative RECOMMENDATION: Routine annual mammography screening. 1 year F/U This examination tamara uld not preclude the clinical evaluation of a suspicious palpable abnormality. This patient's information was entered into a reminder system with a target due date for their next mammogram. Electronically eliud d by: Blanquita Serna DO 08/24/2024 03:02 PM [facility] Dictated By: Blanquita Serna DO Signed By: <Electronically signed by Blanquita Serna DO in OV> 08/24/24 1502 DD/ 1315 TD/TT: 08/20/24 1325 Long Distance Operator: XR DEXA axial skeleton (Not yet reviewed by provider) Interpretation: Performing Lab: Notes/Report: [facility] [address] [place] [address] Mammography Report Signed Patient: Sabrina Peter MR#: [id number] : 1960 Acct:[id number] Age/Sex: 63 / F ADM Date: 08/20/24 Loc: HOBradMAMMO Attending Dr: Kenneth Samuel MD Ordering Physician: Kenneth Samuel MD Results: Date of Service: 08/20/24 Follow Up: Procedure(s): XR DEXA axial skeleton Accession Number(s): [id number] cc: Kenneth Samuel MD; Miah Day MD EXAMINATION: DXA BONE DENSITY AXIAL HISTORY: Estrogen deficiency TECHNIQUE: [employer] Dual energy absorptiometry (DEXA) of the lumbar spine, total left hip, and femoral neck was performed. COMPARISON: Comparison is made with the prior examination dated 08/07/2022. FINDINGS: The bone mineral density of the lumbar spine is 1.102 with a T-score of -0.6, and a Z-score of 1.3. This represents a BMD change of 3.7% compared to the prior exam. This is statistically significant. The bone mineral density of the left total hip is 0.745 with a T-score of -2.1, and a Z-score of -0.7. This represents BMD change of -2.2% compared to the prior exam. This is not statistically significant. The bone mineral density of the left femoral neck is 0.677 with a T-score of -2.6, and a Z-score of -0.9. This represents BMD change of -7.6% compared to the prior exam. MM/XR DEXA axial skeleton IMPRESSION: Based on bone mineral density, and according to World Health Organization (WHO) criteria, the diagnosis is consistent with osteoporosis. All bone density values are in grams per centimeter squared (g/cm2). Statistically, 68% of repeat scans fall within 1 SD (+/- 0.010 g/cm2 for AP spine L1-L4) and 1 SD (+/- 0.012 g/cm2 for femur total) FRAX is a trademark of the [employer]'s [place] for Metabolic Bone Disease, a World Health Organization (WHO) Collaborating Center. Electronically signed by: Kenneth Mirza MD 08/20/2024 02:05 PM [facility] Dictated By: Kenneth Mirza MD Signed By: <Electronically signed by Kenneth Mirza MD in OV> 08/20/24 1405 DD/ 1330 TD/TT: 08/20/24 1402 Long Distance Operator: [facility] [address] [place] [address] Mammography Report Signed Patient: Sabrina Peter MR#: [id number] : 1960 Acct:[id number] Age/Sex: 63 / F ADM Date: 08/20/24 Loc: MAMMO Attending Dr: Kenneth Samuel MD Ordering Physician: Kenneth Samuel MD Results: Date of Service: 08/20/24 Follow Up: Procedure(s): XR DEX A axial skeleton Accession Number(s): [id number] cc: Kenneth Samuel MD; Miah Day MD EXAMINATION: DXA BON E DENSITY AXIAL HISTORY: Estrogen deficiency TECHNIQUE: [employer] Dual energy absorptiometry (DEXA) of the lumbar spine, total left hip, and femoral neck was performed. COMPARISON: Comparis on is made with the prior examination dated 08/07/2022. FINDINGS: The bone mineral density of the lumbar spine is 1.102 with a T-score of -0.6, and a Z-score of 1.3. This represents a BM D change of 3.7% compared to the prior exam. This is statistically significant. The bone mineral density of the left total hip is 0.745 with a T-score of -2.1, and a Z-sco re of -0.7. This represents BMD change of -2.2% compared to the prior exam. This is not statistically significant. The bone mineral density of the left femoral neck is 0.677 with a T-score of -2.6, and a Z-score of -0.9. This represents BMD change of -7.6% compared to the prior exam. ___ MM/XR DEXA axial skeleton IMPRESSION: Based on bone minera l density, and according to World Health Organization (WHO) criteria, the diagnosis is consistent with osteoporosis. All bone density austen ues are in grams per centimeter squared (g/cm2). Statistically, 68% o f repeat scans fall within 1 SD (+/- 0.010 g/cm2 for AP spine L1-L4) and 1 SD (+/- 0.012 g/cm2 for femur total) FRAX is a trademark of the [employer] [place] for Metabolic Bone Disease, a World Health Organization (WHO) Collaborating Center. Electronically eliud d by: Kenneth Mirza MD 08/20/2024 02:05 PM [facility] Dictated By: Kenneth Mirza MD Signed By: <Electronically signed by Kenneth Mirza MD in OV> 08/20/24 1405 DD/ 1330 TD/TT: 08/20/24 1402 Long Distance Operator: Reason For Referral No Information Medications Medication SIG (Take, Route, Frequency, Duration) [...] Problem Status W/U Status Risk Notes Problem 09463154 Weight loss (R63.4) Active confirmed She has gained 1pound since her last visit. Her body mass index has increased to 20. Problem Breast cancer (160777133) Breast cancer (C50.919) Active confirmed There was no sign of recurrent breast cancer on her last examination. Her current PET/CT scan shows no sign of breast cancer. Problem 572665236 Malignant neopla sm of unspecified site of right female breast (C50.911) Active confirmed She has completed her adjuvant endocrine therapy. Her examination today is normal. There is no sign of a new primary or relapse. She is up-to-date with mammography. Problem 09326810 Calculus of gallbladder without cholecystitis without obstruction (K80.20) Active confirmed These are asymptomatic and that there is no pain in the right upper quadrant on deep palpation. Problem 44130560 Age-related osteoporosis without current pathological fracture (M81.0) Active confirmed She has bee n compliant with her medications. No change in her regimen was made.She received 5 mg of zoledronic acid intravenously today over 30 min. without difficulty. Problem Osteoporosis (20365592) Other osteoporosis without current pathological fracture (M81.8) Active confirmed This has be en treated on current therapy will continue. Problem Sensory disorder of smell and/or taste ([id number] 3) Unspecified disturbances of smell and taste (R43.9) Active confirmed She has been to the neurologist and evaluation for seizure disorder is under way. She continues to experience is smelled something burning intermittently. 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 She will be seen in August 2017 at which time her endocrine therapy will be discontinued. She will be due for a bone density. Problem 000197212 Pure hypercholesterolemia (E78.00) Active confirmed Her lipids are being checked 3 times a year. No change in her regimen was needed. Problem 72403784 Osteoporosis, unspecified osteoporosis type, unspecified pathological fracture presence (M81.0) Active confirmed She continues on her regimen. She has no bone pain. She will have a bone density test next July. Problem 957708605 Nonintractable epilepsy without status epilepticus, unspecified epilepsy type (G40.909) Active confirmed She has been compliant with her regimen. The old factory hallucinations have resolved. Problem 054258166 RLQ abdominal pa in (R10.31) Active confirmed [...] Date Provider Diagnosis Kenneth Samuel III, MD [address] [place] [address] [place] [address] 03/02/2024 Kenneth Samuel Osteoporosis, unspec ified osteoporosis type, unspecified pathological fracture presence M81.0 ; Malignant neoplasm of unspecified site of right female breast C50.911 ; Pure hypercholesterolemia E78.00 ; Weight loss R63.4 and Nonintractable epilepsy without status epilepticus, unspecified epilepsy type G40.909 Kenneth Samuel III, MD [address] [place] [address] [place] [address] 07/06/2024 Kenneth Samuel Age-related osteopor osis without current pathological fracture M81.0 ; Breast cancer C50.919 ; DCIS (ductal carcinoma in situ), right D05.11 and Malignant neoplasm of unspecified site of right female breast C50.911 Kenneth Samuel III, MD [address] [place] [address] [place] [address] 07/07/2024 Kenneth Samuel III, MD [address] [place] [address] [place] [address] 07/07/2024 Kenneth Samuel III, MD [address] [place] [address] [place] [address] 09/09/2023 Kenneth Samuel III, MD [address] [place] [address] [place] [address] 06/24/2024 Kenneth Samuel III, MD [address] [place] [address] [place] [address] 06/25/2024 Kenneth Samuel Assessments Encounter Date Diagnosis (ICD Code) Assessment Notes T reatment Notes Treatment Clinical Notes 03/02/2024 Malignant neoplasm o f unspecified site [...] intravenously today over 30 min. without difficulty. 03/02/2024 Pure hypercholestero lemia (ICD-10 - E78.00) [...] be due for a bone density. 03/02/2024 Weight loss (ICD-10 - R63.4) She [...] CA 27.29 07/12/2020 BONE DENSITY DEXA 03/02/2024 MM tomosynthesis screening LT 08/20/2024 XR DEXA axial skeleton 08/20/2024 Next Appt Details Provider Name:Kenneth Breauxne, 12/30/2024 09:00:00 AM, [address] [place] [address] , [facility] [address], [place], [address], Insurance Providers Payer Name Payer Address Payer Phone Subscriber Number Group Number Insured Name Patient Relationship to Insured Coverage Start Date Coverage End Date [address] [facility] [place] [id number] Sabrina Peter Self - patient is the insured Medical (General) History Medical History History ICD Code stage I invasive carcinoma right breast with DCIS [id number] cholelithiasis anastrozole ended August 2017 Surgical History Surgery Date(Month/Year) mastectomy right breast, sentinel node b iopsy 07/22/2012 lumpectomy, right breast 2001 oophorectomy of the right ov jagdish and fallopian tube, negative pathlogy 09/2007 cholecystectomy 11/2010
--- OUTSIDE RECORDS SUMMARY | 2024-09-08 15:06 | XMS_ITS ---
Author Organization Kenneth Samuel III, MD Address [address] [place] [address] [place] [address] Care Team Providers Care Bus And Rail Operator Name Role Phone Miah Day MD Primary Care Provider Chela Kenneth Sharma [facility] [phone] Medications Medication SIG (Take, Route, Fr equency, [...] Provider Diagnosis Kenneth Samuel III, MD [address] [place] [address] [place] [address] 07/07/2024 Kenneth Samuel Plan Of Treatment Medication Medication Name Sig Start Date Stop Date Notes Azithromycin 250 MG as directed Orally 2 Tablets on the first day, one tablet the rest of the days for 5 days 07/07/2024 Next Appt Details Provider Name:Kenneth Samuel, 12/30/2024 09:00:00 AM, [address] [place] [address] [address] [place] [place], [address], Progress Notes * Geeta PETERB: [birth year] (63 yo F)Acc No.[id number]:07/07/2024 Patient:?Sabrina PETER :1960???Age:63 Y???Sex:Female Address:[address] [place] [address], [place] [address] * Refills? Start Azithromycin Tablet, 250 MG, Orally, 6, as directed, 2 Tablets on the first day, one tablet the rest of the days, 5 days, Refills=0 * true * Date:? Generated for Riccardo dunn/Юлия/Mahendrasmitting on:?09/08/2024 03:06 PM EDT
--- OUTSIDE RECORDS SUMMARY | 2024-09-08 15:07 | XMS_ITS ---
Author Organization Kenneth Samuel III, MD Address [address] [place] [address] Care Team Providers Care Peg Driver Name Role Phone Miah Day MD Primary Care Provider Kenneth Godoy [facility] [phone] Allergies Allergen (clinical drug ingredient) Drug/Non Drug [...] Date Provider Diagnosis Kenneth Samuel III, MD [address] [place] [address] [place] [address] 07/06/2024 Kenneth Samuel Age-related osteoporosis without current [...] ov Provider Name:Kenneth Samuel, 12/30/2024 09:00:00 AM, [address] [place] [address] [address] [place] [address], [place], [address], Procedure Notes * Category Sub-Category Detail Notes Chemotherapy Start and End Time: , start, 9:0 0 am, end, 10:00 am Site: left hand Consent: verbal consent was o btained prior to procedure Medications given: Zoledronic acid 5 mg ([facility] 89655-136-09) Monitored by: SANTOS Velez port flush none route IV Progress Notes * Geeta PETERB: [birth year] (63 yo F)Acc No.[id number]:07/06/2024 Patient:?JACKIYADIELREINIER Sabrina Provider:?Kenneth Samuel MD :1960???Age:63 Y???Sex:Female D ate:07/06/2024 Address:[address] [place], [place] [phone] Pcp:Miah Day MD Subjective: * Chief Complaints: * ???History of right breast c ancerOsteoporosisDCIS * HPI: ???COVID-19 Screening:? She returns for a 6 month checkup of her carcinoma of the breast and to receive an intravenous infusion of 5 mg of zoledronic acid which she receives once a year for osteoporosis.? She felt said [place] which she spent alone.? She has developed [...] Tobacco Non-User?Aggressive non-smoker ???She was born in [place]. She has been to Benja for 18 years. They have no children. 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 * Medications:?TakingNexIUM 24 HR 20 MG Capsule [...] 80 (Ref Range: >40 mg/dL) * Lab:[facility] [place]. Pane l Fast * Collection Date 06/23/2024 [...] ([facility] [id number]).?Monitored by:?SANTOS Velez.?port flush?none.?route?IV.? * Procedure Codes:?J3489 INJEC TION ZOLEDRONIC ACID 1 [id number] CHEMO, IV INFUSION, 1 HR * Follow Up:?6 Months (Reason: ov) * Images: * Sign off status: Completed true * Provider:?Kenneth Samuel MD Date:?06/24 Generated for Riccardo dunn/Юлия/eTransmitting on:?09/08/2024 03:06 PM EDT History and Physical Notes * [...]
--- OUTSIDE RECORDS SUMMARY | 2024-09-08 15:07 | XMS_ITS ---
Author Organization Kenneth Samuel III, MD Address [address] [place] [address] Care Team Providers Care Time Study Clerk Name Role Phone Miah Day MD Primary Care Provider Kenneth Godoy [phone] REASON FOR VISIT Rx Request Social History Sex Assigned At : Social History Observation Description Sex Assigned At Female Encounters Encounter Location Date Provider Diagnosis Kenneth Samuel III, MD [address] [place] [address] [place] [address] 07/07/2024 Kenneth Samuel Plan Of Treatment Next Appt Details Provider Name:Kenneth Samuel, 12/30/2024 09:00:00 AM, [address] [place] [address] [place], [address], Progress Notes * Geeta PETERB: [birth year] (63 yo F)Acc No.[id number]:07/07/2024 Patient:?Sabrina PETER :1960???Age:63 Y???Sex:Female Address:[place] [address] * true * Date:? Generated for Printi ng/Faxing/eTransmitting on:?09/08/2024 03:06 PM EDT
== END 2024-09-08 13:45 | disposition home or self-care (01) ==
PROVIDERS: PCP Internal Medicine; Visit Provider Physician Assistant
DX: S93.491A Sprain of other ligament of right ankle, initial encounter (principal)

== ENCOUNTER → 2024-09-08 13:33 | Outpatient (BNV) | payer OTHER, SELFPAY | PROVIDERS: PCP Internal Medicine; Visit Provider Radiology Diagnostic Radiology | DX: R22.41 Localized swelling, mass and lump, right lower limb (principal) | CPT/HCPCS: 73610 ==

== ENCOUNTER 2024-09-09 09:53 | Outpatient (AMB) | payer OTHER, SELFPAY ==
[2024-09-09 09:59] VITALS: BP 128/60; PULSE 78; RESP 16; O2SAT 99; BMI 21.1
--- NOTE | 2024-09-09 09:59 | A.OFFVIS_ITS ---
Vital Signs 09/09/24 09:59 Height 5 ft 10 in Weight 147 lb BMI 21.1 BP 128/60 Blood Pressure Location Lt brachial Position Sitting Respiration 16 Pulse 78 Pulse Source Pulse Oximeter Pulse Oximetry (%) 99 Oxygen Delivery Method Room Air Intake Visit Reasons: Right Sprint removal Senior Hydrogeologist Required: No Allergies adhesive tape Allergy (Intermediate, Verified 09/23/24 09:10) BLISTERS bacitracin [From Neosporin] Allergy (Mild, Verified 09/23/24 09:10) RASH gramicidin D [From Neosporin] Allergy (Mild, Verified 09/23/24 09:10) RASH neomycin [From Neosporin] Allergy (Mild, Verified 09/23/24 09:10) RASH Penicillins Adverse Reaction (Mild, Verified 09/23/24 09:10) VOMITING Medication List - Last Reconciled 09/09/24 by Mar Chou LPN amitriptyline 10 mg PO BEDTIME atorvastatin 20 mg PO DAILY coQ10 (ubiquinol) 200 mg PO DAILY esomeprazole magnesium 20 mg PO DAILY 90 days lamotrigine 25 mg PO DAILY mastectomy bra (bra, mastectomy) As directed simethicone 180 mg PO TID PRN sumatriptan succinate 50 mg PO DAILY PRN vrfjahip-etmv-qyfdj-oreg-capry 100 mg-150 mg- 50 mg-150 mg 1,000 PO DAILY HPI HPI Right Sprint removal: Details: History of Present Illness The patient is a 63-year-old female presenting with neck pain. Following a Sprint peripheral nerve stimulation replacement, she reports improvement in symptoms such as the elimination of morning headaches and increased neck mobility. However, an allergic reaction has developed at the insertion site on the knee, manifesting as a mild rash. This rash has not improved and appears to worsen, leading to considerations of adjusting treatment measures. The patient's condition was initially managed through nerve stimulation, which has provided substantial relief. However, additional management is required for the allergic reaction to the knee site, using cortisone sprays. Pain Description - Onset: Initial procedure in spring. - Quality and Character: Significant improvement in neck pain; 80% overall i mprovement reported. - Primary Location: Neck. - Exacerbating Factors: Rash at knee insertion site likely aggravates focus on pain. - Relieving Factors: Peripheral nerve stimulation. - Functional Impact: Resolution of morning headaches, improved neck mobility. Physical Exam - Integumentary- Mild rash noted around the lead insertion site. - Musculoskeletal- Improved range of motion noted in the neck, with enhanced mobility. Pain Management - Affect: Improvement in mood noted with resolution of morning headaches and improved mobility. - Analgesia: Peripheral nerve stimulation replacement; significant pain relief with 80% improvement. - Adverse Effects: Allergic reaction identified at the knee insertion site, presenting as a rash. - Activities of Daily Living: Enhanced mobility and resolution of morning headaches; improvement in neck movements. - Aberrant Drug Related Behaviors: None noted. [facility] Medical History Cervical cancer screening Physical exam Abdominal pain Flank pain Tick bite of back History of right breast cancer Hx of radiation therapy Migraines Arthritis Hyperlipidemia GERD (gastroesophageal reflux disease) Surgical History Hx of unilateral oophorectomy History of lumpectomy of right breast History of esophagogastroduodenoscopy (EGD) Hx of colonoscopy History of excision of lesion History of salpingo-oophorectomy History of cholecystectomy History of wisdom tooth extraction H/O right mastectomy Family History Father Diabetes Mother Osteoporosis Mental health disorder Paternal Aunt Colon cancer Other Family history of breast cancer Family history of gastric cancer Family history of pancreatic cancer Family history of prostate cancer Social History (Updated 07/27/24 @ 14:30 by ARNULFO Hughes) Housing: House Are you a primary rn managed care to a significant other at home: No Do you presently have visiting nurse or other home services: No Alcohol intake: current Alcohol intake frequency: a few times a month Patient Tobacco Use Status: Never used Tobacco e-Cigarette/Vaping Use: Never Used Second Hand Smoke Exposure: No service: No Current occupational status: employed 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, 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 Cognitive needs: No Hearing needs: No Vision needs: Yes (glasses) Female Reproductive History Menstrual Age of Menarche: 13 Physical Exam Vital Signs: Last Vital Signs Pulse 78 09/09/24 09:59 Resp 16 09/09/24 09:59 BP 128/60 09/09/24 09:59 Pulse Ox 99 09/09/24 09:59 Oxygen Delivery Method Room Air 09/09/24 09:59 BMI result Body Mass Index 21.1 Assessment & Plan Assessment & Plan (1) Chronic neck pain: Code(s): M54.2 - Cervicalgia; G89.29 - Other chronic pain Category: Medical (2) Cervical spondylosis: Code(s): M47.812 - Spondylosis without myelopathy or radiculopathy, cervical region Category: Medical Plan Plan Management includes continuation of the beneficial peripheral nerve stimulation for neck pain, contributing to substantial relief and improved mobility. For the allergic reaction at the lead insertion site, wreb-vjr-cylzatf cortisone spray is recommended. The patient is instructed on application techniques for optimal results, and follow-up is scheduled in two weeks. Patient was informed and verbally consented to the use of an ambient scribe for clinic note documentation during this visit. Discussion Notes During the visit, I discussed the management of the neck pain post-peripheral nerve stimulation replacement, emphasizing the significant improvement in symptoms. I addressed the allergic reaction at the lead insertion site, recommending cortisone spray as a management strategy. The success of the peripheral stimulation in addressing pain and daily functions, such as the resolution of morning headaches and improved neck mobility, was highlighted. We discussed a follow-up plan in two weeks to monitor the allergic reaction and consider further interventions if necessary. The patient was advised about the potential improvement trajectory and benefits of current management while acknowledging the allergic reaction at the insertion site. Patient Instructions - Continue using peripheral nerve stimulation for neck pain. - Apply yctx-pqu-wqatyqs cortisone spray to the knee rash. Let it dry for five minutes. - Monitor the rash. If worsening, seek consultation with Dr. Cooper before the next visit. - Return for follow-up in two weeks for further evaluation and potential device removal. Coding Level of Care Code Est Pt Level 3 (20707) Diagnoses Chronic neck pain M54.2; G89.29 Cervical spondylosis M47.812
== END 2024-09-09 10:19 | disposition home or self-care (01) ==
LOC: HO.PMC 09:54
PROVIDERS: PCP Internal Medicine; Visit Provider Internal Medicine
DX: M54.2 Cervicalgia (principal); G89.29 Other chronic pain; M47.812 Spondylosis without myelopathy or radiculopathy, cervical region
CPT/HCPCS: 99213

== ENCOUNTER 2024-09-23 09:06 | Outpatient (AMB) | payer OTHER, SELFPAY ==
--- NOTE | 2024-09-23 09:07 | MHC.OFFVIS ---
Vital Signs 09/23/24 09:08 Height 5 ft 10 in Weight 147 lb BMI 21.1 BP 130/72 Blood Pressure Location Lt brachial Position Sitting Respiration 16 Pulse 96 Pulse Source Pulse Oximeter Pulse Oximetry (%) 99 Oxygen Delivery Method Room Air Intake Visit Reasons: Left Sprint removal Licensed Sales Producer Required: No Allergies adhesive tape Allergy (Intermediate, Verified 10/05/24 13:48) BLISTERS bacitracin [From Neosporin] Allergy (Mild, Verified 10/05/24 13:48) RASH gramicidin D [From Neosporin] Allergy (Mild, Verified 10/05/24 13:48) RASH neomycin [From Neosporin] Allergy (Mild, Verified 10/05/24 13:48) RASH Penicillins Adverse Reaction (Mild, Verified 10/05/24 13:48) VOMITING Medication List - Last Reconciled 09/23/24 by Mar Chou LPN amitriptyline 10 mg PO BEDTIME atorvastatin 20 mg PO DAILY coQ10 (ubiquinol) 200 mg PO DAILY esomeprazole magnesium 20 mg PO DAILY 90 days lamotrigine 25 mg PO DAILY mastectomy bra (bra, mastectomy) As directed simethicone 180 mg PO TID PRN sumatriptan succinate 50 mg PO DAILY PRN llgyacdn-germ-ogshw-oreg-capry 100 mg-150 mg- 50 mg-150 mg 1,000 PO DAILY HPI HPI Left Sprint removal: Details: History of Present Illness The patient is a 63-year-old female presenting with issues related to the management of her neck pain due to a bulging cervical disc and associated concerns with post-device implantation effects. Her neck pain had been previously treated effectively with a cortisone injection, and the implantation of a sprint device was a subsequent intervention. She currently reports a minor discharge and itchiness at the implantation site, inferred to be a mild allergic reaction, temporally characterized by occasional discomfort but no signs suggestive of infection. The itchiness correlates with fluid loss typical of an allergic response. A proactive measure included maintaining cleanliness and possible application of cortisone cream should the symptoms not resolve soon. Pain Description - Onset and Timing: Neck pain management with historically resolving headaches - Quality and Character: Intermittent neck pain with episodes of itchiness at the implantation site - Location: Cervical region - Areas of Radiation: Not specified - Exacerbating Factors: Not explicitly noted - Relieving Factors: Cortisone injections and proper posture - Interference: Previous morning headaches have resolved and improved neck mobility Physical Exam - Appears afebrile. - Alert and oriented. - Mood and affect appropriate. - Follows and participates in conversation appropriately. - Respiratory effort is unlabored. - Able to transition from sit to stand unassisted. - Ambulates with bilaterally normal heel strike and toe off. - Able to stand and walk on toes and heels. - Lead site c/d/i, mild rash Pain Management - Affect: Patient reports happiness with resolved headaches and improved neck mobility - Analgesia: Cortisone injection was effective; current symptomatic relief with the device - Adverse Effects: Itchiness and mild discharge at the implantation site suggesting an allergic response - Activities of Daily Living: Improved neck mobility, resolved headaches, general functional wellbeing - Aberrant Drug Related Behaviors: None reported PFSH Medical History Cervical cancer screening Physical exam Abdominal pain Flank pain Tick bite of back History of right breast cancer Hx of radiation therapy Migraines Arthritis Hyperlipidemia GERD (gastroesophageal reflux disease) Surgical History Hx of unilateral oophorectomy History of lumpectomy of right breast History of esophagogastroduodenoscopy (EGD) Hx of colonoscopy History of excision of lesion History of salpingo-oophorectomy History of cholecystectomy History of wisdom tooth extraction H/O right mastectomy Family History Father Diabetes Mother Osteoporosis Mental health disorder Paternal Aunt Colon cancer Other Family history of breast cancer Family history of gastric cancer Family history of pancreatic cancer Family history of prostate cancer Social History Housing: House Are you a primary healthcare sales representative to a significant other at home: No Do you presently have visiting nurse or other home services: No Alcohol intake: current Alcohol intake frequency: a few times a month Patient Tobacco Use Status: Never used Tobacco e-Cigarette/Vaping Use: Never Used Second Hand Smoke Exposure: No service: No Current occupational status: employed 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, 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 Cognitive needs: No Hearing needs: No Vision needs: Yes (glasses) Female Reproductive History Menstrual Age of Menarche: 13 Physical Exam Vital Signs: Last Vital Signs Pulse 96 09/23/24 09:08 Resp 16 09/23/24 09:08 BP 130/72 09/23/24 09:08 Pulse Ox 99 09/23/24 09:08 Oxygen Delivery Method Room Air 09/23/24 09:08 BMI result Body Mass Index 21.1 Assessment & Plan Assessment & Plan (1) Chronic neck pain: Code(s): M54.2 - Cervicalgia; G89.29 - Other chronic pain Category: Medical (2) Cervical radiculopathy at C6: Code(s): M54.12 - Radiculopathy, cervical region Category: Medical (3) Cervical spondylosis: Code(s): M47.812 - Spondylosis without myelopathy or radiculopathy, cervical region Category: Medical Plan Plan The patient should continue monitoring the device site for any ongoing symptoms. An observed mild allergic reaction with itch and discharge should be treated with cortisone cream if persistent. It's crucial to maintain cleanliness at the site. The patient should continue exercises and use proper posture management to maintain neck mobility and comfort. If there is a recurrence of symptoms or if the issues persist, she should contact the office. Further interventions like cortisone injections or adjusting device settings may be reconsidered based on future assessments. Overall, she is quite pleased with the relief obtained from temporart PNS. Lead removed with tip intact. Patient was informed and verbally consented to the use of an ambient scribe for clinic note documentation during this visit. Discussion Notes I discussed with the patient that the mild discharge and itchy symptoms likely indicate an allergic reaction at the implantation site, recommending maintaining cleanliness and possibly using cortisone cream. We discussed the importance of monitoring these symptoms and keeping in contact should they persist. Proper neck posture and support were emphasized and acknowledged by the patient as beneficial for her ongoing recovery. I assured her that further interventions, including possible cortisone injections or device adjustments, can be considered if current relief strategies fail. Future follow-ups were suggested if her condition changes or symptoms return. Patient Instructions - Keep the site of the device clean. - Use cortisone cream if the discharge and itch persist beyond a year. - Maintain good posture, proper neck support, and exercise regularly. - Contact us should neck pain return or symptoms persist. - Report any increase in symptoms or concerns immediately. Coding Level of Care Code Est Pt Level 3 (65319) Diagnoses Chronic neck pain M54.2; G89.29 Cervical radiculopathy at C6 M54.12 Cervical spondylosis M47.812
[2024-09-23 09:08] VITALS: BP 130/72; PULSE 96; RESP 16; O2SAT 99; BMI 21.1
--- OUTSIDE RECORDS SUMMARY | 2024-09-23 09:59 | XMS_ITS ---
Author Organization Kenneth Samuel III, MD Address [address] [place] [address] Care Team Providers Care Functional Support Analyst Name Role Phone Miah Day MD Primary Care Provider Kenneth Godoy [facility] [phone] Allergies Allergen (clinical drug ingredient) Drug/Non Drug [...] Date Provider Diagnosis Kenneth Samuel III, MD [address] [place] [address] [place] [address] 07/06/2024 Kenneth Samuel Age-related osteoporosis without current [...] ov Provider Name:Kenneth Samuel, 12/30/2024 09:00:00 AM, [address] [place] [address] [address] [place] [address], [place], [address], Procedure Notes * Category Sub-Category Detail Notes Chemotherapy Start and End Time: , start, 9:0 0 am, end, 10:00 am Site: left hand Consent: verbal consent was o btained prior to procedure Medications given: Zoledronic acid 5 mg ([facility] 02639-857-98) Monitored by: SANTOS Velez port flush none route IV Progress Notes * Geeta PETERB: [birth year] (63 yo F)Acc No.[id number]:07/06/2024 Patient:?JACKIYADIELREINIER Sabrina Provider:?Kenneth Samuel MD :1960???Age:63 Y???Sex:Female D ate:07/06/2024 Address:[address] [place], [place] [id number] Pcp:Miah Day MD Subjective: * Chief Complaints: * ???History of right breast c ancerOsteoporosisDCIS * HPI: ???COVID-19 Screening:? She returns for a 6 month checkup of her carcinoma of the breast and to receive an intravenous infusion of 5 mg of zoledronic acid which she receives once a year for osteoporosis.? She felt said [place] which she spent alone.? She has developed [...] Tobacco Non-User?Aggressive non-smoker ???She was born in [place]. She has been to Benja for 18 years. They have no children. 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 * Medications:?TakingNexIUM 24 HR 20 MG Capsule [...] 80 (Ref Range: >40 mg/dL) * Lab:[facility] * Collection Date 06/23/2024 [...] procedure.?Medications given:?Zoledronic acid 5 mg ([facility] 68065-145-54).?Monitored by:?SANTOS Velez.?port flush?none.?route?IV.? * Procedure Codes:?J3489 INJEC TION ZOLEDRONIC ACID 1 [id number] CHEMO, IV INFUSION, 1 HR * Follow Up:?6 Months (Reason: ov) * Images: * Sign off status: Completed true * Provider:?Kenneth Samuel MD Date:?06/24 Generated for Riccardo dunn/Юлия/eTransmitting on:?09/23/2024 09:59 AM EDT History and Physical Notes * [...]
--- OUTSIDE RECORDS SUMMARY | 2024-09-23 09:59 | XMS_ITS ---
Author Organization Kenneth Samuel III, MD Address [address] [place] [address] [place] [address] Care Team Providers Care Station Tender Name Role Phone Miah Day MD Primary Care Provider Kenneth Godoy [facility] [phone] Medications Medication SIG (Take, Route, Fr equency, Duration) Notes Start Date End Date Status Azithromycin 250 MG as directed Orally 2 Tablets on the first day, one tablet the rest of the days for 5 days 07/07/2024 Acti ve Social History Sex Assigned At : Social History Observation Description Sex Assigned At Female Encounters Encounter Location Date Provider Diagnosis Kenneth Samuel III, MD [address] [place] [address] [place] [address] 07/07/2024 Kenneth Samuel Plan Of Treatment Medication Medication Name Sig Start Date Stop Date Notes Azithromycin 250 MG as directed Orally 2 Tablets on the first day, one tablet the rest of the days for 5 days 07/07/2024 Next Appt Details Provider Name:Kenneth Samuel, 12/30/2024 09:00:00 AM, [address] [place] [address] [place] [facility], [address], Progress Notes * Geeta PETERB: [birth year] (63 yo F)Acc No.[id number]:07/07/2024 Patient:?Sabrina PETER :1960???Age:63 Y???Sex:Female Address:[address] [place] [address], [place] [address] * Refills? Start Azithromycin Tablet, 250 MG, Orally, 6, as directed, 2 Tablets on the first day, one tablet the rest of the days, 5 days, Refills=0 * true * Date:? Generated for Riccardo dunn/Юлия/Mahendrasmitting on:?09/23/2024 09:58 AM EDT
--- OUTSIDE RECORDS SUMMARY | 2024-09-23 09:59 | XMS_ITS ---
Author Organization Kenneth Samuel III, MD Address [address] [place] [address] Care Team Providers Care Factory Manager Name Role Phone Miah Day MD Primary Care Provider Kenneth Godoy [facility] [phone] REASON FOR VISIT Rx Request Social History Sex Assigned At : Social History Observation Description Sex Assigned At Female Encounters Encounter Location Date Provider Diagnosis Kenneth Samuel III, MD [address] [place] [address] [place] [address] 07/07/2024 Kenneth Samuel Plan Of Treatment Next Appt Details Provider Name:Kenneth Samuel, 12/30/2024 09:00:00 AM, [address] [place] [address] [place], [address], Progress Notes * Geeta PETERB: [birth year] (63 yo F)Acc No.[id number]:07/07/2024 Patient:?Sabrina PETER :1960???Age:63 Y???Sex:Female Address:[place] [address] * true * Date:? Generated for Printi ng/Faxing/eTransmitting on:?09/23/2024 09:59 AM EDT
== END 2024-09-23 09:38 | disposition home or self-care (01) ==
LOC: HO.PMC 09:06
PROVIDERS: PCP Internal Medicine; Visit Provider Internal Medicine
DX: M54.2 Cervicalgia (principal); G89.29 Other chronic pain; M54.12 Radiculopathy, cervical region; M47.812 Spondylosis without myelopathy or radiculopathy, cervical region
CPT/HCPCS: 99213

== ENCOUNTER → 2024-09-23 09:06 | Outpatient (BNVA) | payer OTHER, SELFPAY | PROVIDERS: PCP Internal Medicine; Visit Provider Internal Medicine ==

== ENCOUNTER 2024-10-05 13:34 | Outpatient (AMB) | payer OTHER, SELFPAY ==
--- NOTE | 2024-10-05 13:44 | A.OFFVIS_ITS ---
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 Landscape Supervisor: Landscape Supervisor Present (Darshana) Accompanied by: Self / Same As Patient Allergies adhesive tape Allergy (Intermediate, Verified 10/05/24 13:48) BLISTERS bacitracin [From Neosporin] Allergy (Mild, Verified 10/05/24 13:48) RASH gramicidin D [From Neosporin] Allergy (Mild, Verified 10/05/24 13:48) RASH neomycin [From Neosporin] Allergy (Mild, Verified 10/05/24 13:48) RASH Penicillins Adverse Reaction (Mild, Verified 10/05/24 13:48) VOMITING Medication List - Last Reconciled 10/05/24 by Jia Sharpe CNM amitriptyline 10 mg PO BEDTIME atorvastatin 20 mg PO DAILY coQ10 (ubiquinol) 200 mg PO DAILY esomeprazole magnesium 20 mg PO DAILY 90 days lamotrigine 25 mg PO DAILY mastectomy bra (bra, mastectomy) As directed simethicone 180 mg PO TID PRN sumatriptan succinate 50 mg PO DAILY PRN aimypuwq-pzcg-aicpu-oreg-capry 100 mg-150 mg- 50 mg-150 mg 1,000 PO DAILY Is last menstrual period known: No Post menopausal: Yes Patient : No HPI HPI 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 She lost her after a long illness a couple of years ago and at the beginning of this year both of her parents within a very short time of 1 another she was very active in their care. Additionally other family members have this year. She did however just get back from a cruise with some friends that take cruises together and that was a very good break. She follows with her doctors for follow-up on all of her health concerns including the breast cancer history. She says she recently found out she has osteoporosis and will be dealing with that soon. In years past she had struggled with maintaining her weight and she has actually gained weight now. (she very much enjoyed the 3 prepared meals a day on the cruise) [facility] Medical History Cervical cancer screening Physical exam Abdominal pain Flank pain Tick bite of back History of right breast cancer Hx of radiation therapy Migraines Arthritis Hyperlipidemia GERD (gastroesophageal reflux disease) Surgical History Hx of unilateral oophorectomy History of lumpectomy of right breast History of esophagogastroduodenoscopy (EGD) Hx of colonoscopy History of excision of lesion History of salpingo-oophorectomy History of cholecystectomy History of wisdom tooth extraction H/O right mastectomy Family History Father Diabetes Mother Osteoporosis Mental health disorder Paternal Aunt Colon cancer Other Family history of breast cancer Family history of gastric cancer Family history of pancreatic cancer Family history of prostate cancer Social History Housing: House Are you a primary floor care specialist to a significant other at home: No Do you presently have visiting nurse or other home services: No Alcohol intake: current Alcohol intake frequency: a few times a month Patient Tobacco Use Status: Never used Tobacco e-Cigarette/Vaping Use: Never Used Second Hand Smoke Exposure: No service: No Current occupational status: employed 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, 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 Cognitive needs: No Hearing needs: No Vision needs: Yes (glasses) Female Reproductive History Menstrual Age of Menarche: 13 Total pregnancies: 0 Date of last pap smear: 09/26/22 (negative hpv, negative pap smear) Date of Mammogram: 08/20/24 (bi rad 1) Date of last Bone Density Screenin08/20/24 Physical Exam Vital Signs: Last Vital Signs BP 128/74 10/05/24 13:51 BMI result Body Mass Index 21.7 Const General: healthy appearing, comfortable, no acute distress, well developed and alert Nutritional Appearance: average body habitus Orientation/consciousness: patient oriented x3 Limitations: no limitations HEENT Head: Yes normocephalic Neck Neck: Yes normal visual inspection Chest Other: Patient has had right breast mastectomy, and has scars from same. Left breast within normal limits no masses palpated. Breast/axilla palpation: normal palpation of the breasts and normal palpation of the axillae Resp Effort & Inspection: normal respiratory effort GI Inspection: Yes normal to inspection, No Abdominal wall edema and No distended Palpation (GI): Soft to palpation and nontender Other: Atrophic changes evident single digit exam done to palpate cervix difficult to f eel uterus secondary to small and atrophic adnexa nontender good muscle tone with Kegel. General: Yes bladder normal to palpation External Female Exam: normal external appearance and normal appearance of the urethra Speculum Exam - Vagina: normal appearance of the vagina, normal palpation and normal vaginal discharge Speculum Exam - Cervix: normal appearance of the cervix, normal palpation and nontender Bimanual exam- vagina & uterus: normal bimanual exam, normal palpation, uterine size normal, bladder normal to palpation, consistency normal, normal palpation, uterine mobility normal, uterine shape normal, No Cervical tenderness present, non-tender and no cervical motion tenderness Bimanual Exam- Adnexa, other: normal adnexae, no masses, normal and No adnexal tenderness Neuro General: patient oriented x3 Assessment & Plan Assessment & Plan (1) H/O right mastectomy: Comment: 2012 w/lymph node excision Code(s): Z90.11 - Acquired absence of right breast and nipple Category: Medical (2) Cervical cancer screening: Comment: 07/12 pap unsatisfactory- repeated 10/30/21= neg w neg hpv. Pap repeated as patient is being closely followed for any cancer metastases and says her oncologist requested full evaluation.... 09/26/2022 Pap is negative with negative HPV. Code(s): Z12.4 - Encounter for screening for malignant neoplasm of cervix Category: Medical (3) Women's annual routine gynecological examination: Code(s): Z01.419 - Encounter for gynecological examination (general) (routine) without abnormal findings Category: Medical (4) Grieving: Comment: grieving the loss of her ... 2024 both her mother and father within a few days of each other earlier in the year, as well as other family members. Code(s): F43.21 - Adjustment disorder with depressed mood Category: Medical Plan She is obtaining all of her health screens as appropriate she is doing actually very well having just returned from her enjoyable trip with her friends and is actively processing the of her 2 parents. Much of the visit was spent reviewing what had occurred. She will be meeting with other doctors to discuss the osteoporosis for now she is feeling well and doing well and she gets regular screening for her breast cancer as well. Pap smear not done this year discussed that we will not be doing them after age 65 she has never had an abnormal. Coding Level of Care Code Est Pt Prev Care 40-64y(12147) Diagnoses H/O right mastectomy Z90.11 Cervical cancer screening Z12.4 Women's annual routine gynecological examination Z01.419 Grieving F43.21
[2024-10-05 13:51] VITALS: BP 128/74; BMI 21.7
--- OUTSIDE RECORDS SUMMARY | 2024-10-05 15:35 | XMS_ITS ---
Author Organization Kenneth Samuel III, MD Address [address] [place] [address] [place] [address] Care Team Providers Care Cloud Administrator Name Role Phone Miah Day MD Primary Care Provider Chela Kenneth Sh[facility] [phone] Medications Medication SIG (Take, Route, Fr equency, Duration) Notes Start Date End Date Status Azithromycin 250 MG as directed Orally 2 Tablets on the first day, one tablet the rest of the days for 5 days 07/07/2024 Acti ve Social History Sex Assigned At : Social History Observation Description Sex Assigned At Female Encounters Encounter Location Date Provider Diagnosis Kenneth Samuel III, MD [address] [place] [address] [place] [address] 07/07/2024 Kenneth Samuel Plan Of Treatment Medication Medication Name Sig Start Date Stop Date Notes Azithromycin 250 MG as directed Orally 2 Tablets on the first day, one tablet the rest of the days for 5 days 07/07/2024 Next Appt Details Provider Name:Kenneth Samuel, 12/30/2024 09:00:00 AM, [address] [place] [address] [address] [place] [address], Progress Notes * Geeta PETERB: 961 (63 yo F)Acc No.[id number]:07/07/2024 Patient:?Sabrina PETER :1960???Age:63 Y???Sex:Female Address:[address] [place] [address], [place] [address] * Refills? Start Azithromycin Tablet, 250 MG, Orally, 6, as directed, 2 Tablets on the first day, one tablet the rest of the days, 5 days, Refills=0 * true * Date:? Generated for Riccardo dunn/Юлия/Mahendrasmitting on:?10/05/2024 03:35 PM EDT
--- OUTSIDE RECORDS SUMMARY | 2024-10-05 15:36 | XMS_ITS ---
Author Organization Kenneth Samuel III, MD Address [address] [place] [address] Care Team Providers Care Vehicle Insurance Agent Name Role Phone Miah Day MD Primary Care Provider Kenneth Godoy [phone] REASON FOR VISIT Rx Request Social History Sex Assigned At : Social History Observation Description Sex Assigned At Female Encounters Encounter Location Date Provider Diagnosis Kenneth Samuel III, MD [address] [place] [address] [place] [address] 07/07/2024 Kenneth Samuel Plan Of Treatment Next Appt Details Provider Name:Kenneth Samuel, 12/30/2024 09:00:00 AM, [address] [place] [address] [place], [address], Progress Notes * Geeta PETERB: 9[birth year] (63 yo F)Acc No.[id number]:07/07/2024 Patient:?Sabrina PETER :1960???Age:63 Y???Sex:Female Address:[place] [address] * true * Date:? Generated for Printi ng/Faxing/eTransmitting on:?10/05/2024 03:36 PM EDT
--- OUTSIDE RECORDS SUMMARY | 2024-10-05 15:36 | XMS_ITS ---
Author Organization Kenneth Samuel III, MD Address [address] [place] [address] Care Team Providers Care Labeling Associate Name Role Phone Miah Day MD Primary Care Provider Kenneth Godoy [facility] [phone] Allergies Allergen (clinical drug ingredient) Drug/Non Drug [...] Date Provider Diagnosis Kenneth Samuel III, MD [address] [place] [address] [place] [address] 07/06/2024 Kenneth Samuel Age-related osteoporosis without current [...] ov Provider Name:Kenneth Samuel, 12/30/2024 09:00:00 AM, [address] [place] [address] [address] [place] [address], [place], [address], Procedure Notes * Category Sub-Category Detail Notes Chemotherapy Start and End Time: , start, 9:0 0 am, end, 10:00 am Site: left hand Consent: verbal consent was o btained prior to procedure Medications given: Zoledronic acid 5 mg ([facility] 76831-786-36) Monitored by: SANTOS Velez port flush none route IV Progress Notes * Geeta PETERB: [birth year] (63 yo F)Acc No.[id number]:07/06/2024 Patient:?JACKIYADIELREINIER Sabrina Provider:?Kenneth Samuel MD :1960???Age:63 Y???Sex:Female D ate:07/06/2024 Address:[address] [place], [place] [id number] Pcp:Miah Day MD Subjective: * Chief Complaints: * ???History of right breast c ancerOsteoporosisDCIS * HPI: ???COVID-19 Screening:? She returns for a 6 month checkup of her carcinoma of the breast and to receive an intravenous infusion of 5 mg of zoledronic acid which she receives once a year for osteoporosis.? She felt said [place] which she spent alone.? She has developed [...] Tobacco Non-User?Aggressive non-smoker ???She was born in [place]. She has been to Benja for 18 years. They have no children. 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 * Medications:?TakingNexIUM 24 HR 20 MG Capsule [...] 80 (Ref Range: >40 mg/dL) * Lab:[facility] [place]. P[facility] * Collection Date 06/23/2024 [...] to procedure.?Medications given:?Zoledronic acid 5 mg ([facility] 68312-045-99).?Monitored by:?SANTOS Velez.?port flush?none.?route?IV.? * Procedure Codes:?J3489 INJEC TION ZOLEDRONIC ACID 1 [id number] CHEMO, IV INFUSION, 1 HR * Follow Up:?6 Months (Reason: ov) * Images: * Sign off status: Completed true * Provider:?Kenneth Samuel MD Date:?06/24 Generated for Riccardo dunn/Юлия/eTransmitting on:?10/05/2024 03:35 PM EDT History and Physical Notes * [...]
== END 2024-10-05 14:33 | disposition home or self-care (01) ==
LOC: HO.HWS 13:34
PROVIDERS: PCP Internal Medicine; Visit Provider Advanced Practice Midwife
DX: Z01.419 Encounter for gynecological examination (general) (routine) without abnormal findings (principal); Z90.11 Acquired absence of right breast and nipple; F43.21 Adjustment disorder with depressed mood
CPT/HCPCS: 99396; 99459

== ENCOUNTER → 2024-10-05 13:34 | Outpatient (BNVA) | payer OTHER, SELFPAY | PROVIDERS: PCP Internal Medicine; Visit Provider Advanced Practice Midwife ==

== ENCOUNTER 2024-11-18 13:33 | Outpatient (AMB) | payer OTHER, SELFPAY ==
--- NOTE | 2024-11-18 13:34 | A.OFFVIS_ITS ---
Vital Signs 11/18/24 13:35 Height 5 ft 10 in Weight 138 lb 14.259 oz BMI 19.9 BP 116/59 L Blood Pressure Location Lt brachial Position Sitting Pulse 92 Intake Visit Reasons: 1 year f/u Intake Note: Sabrina presents in the office as a 1 year follow up. CC: States that her GERD is coming back and acting up a lot. Starts acting up 2 hours after eating. She states that there has been no changes in her diet. Professor Of Pathology Required: No Allergies adhesive tape Allergy (Intermediate, Verified 11/18/24 13:37) BLISTERS bacitracin [From Neosporin] Allergy (Mild, Verified 11/18/24 13:37) RASH gramicidin D [From Neosporin] Allergy (Mild, Verified 11/18/24 13:37) RASH neomycin [From Neosporin] Allergy (Mild, Verified 11/18/24 13:37) RASH Penicillins Adverse Reaction (Mild, Verified 11/18/24 13:37) VOMITING HPI HPI 1 year f/u: Details: Assessment & Plan (1) GERD (gastroesophageal reflux disease): Code(s): K21.9 - Gastro-esophageal reflux disease without esophagitis (2) Esophageal dysmotility: Code(s): K22.4 - Dyskinesia of esophagus Plan She continues to do well. Her heartburn is well controlled except if she indulges in dietary indiscretions and her swallowing has been manageable. She also continues on simethicone as needed for gas. She asks for a 90 day prescription of her generic Nexium which of course I will provide. She is going on vacation soon to [place] in [place]! Return office visit in 1 year Medications: Changed From esomeprazole magnesium 20 mg PO DAILY 30 caps 6RF To esomeprazole magnesium 20 mg PO DAILY 90 caps 6RF 90 days TODAY'S VISIT Her GERD has worsened lately. This despite taking her generic nexium 20mg daily. No wt loss of gain, no diet changes, no new medications or dose changes. She did have a stressful year with both parents passing away, but now things are better and the GERD was not bad when things were more stressful. She can't really identify any particular offending foods, the other night she ate chicken parmesan with no GERD - BUT it is occurring more frequently and any time of the day. Get barium swallow and HP stool. She had a hx of slight esophageal dysmotility on past barium swallow about 10 years ago. No EGD since 2008. ROV after barium swallow. PFSH Medical History (Updated 11/18/24 @ 13:42 by JUNAID Carpio) Acute pain of right foot Cervical radiculitis Physical exam Women's annual routine gynecological examination Cervical cancer screening Hyperlipidemia Abdominal pain, right upper quadrant Ductal carcinoma in situ of right breast Hip pain, right Family history of colon cancer Physical exam Abdominal pain Flank pain Tick bite of back History of right breast cancer Hx of radiation therapy Migraines Arthritis GERD (gastroesophageal reflux disease) Surgical History (Updated 11/18/24 @ 13:42 by JUNAID Carpio) H/O right mastectomy Hx of unilateral oophorectomy History of lumpectomy of right breast History of esophagogastroduodenoscopy (EGD) Hx of colonoscopy History of excision of lesion History of salpingo-oophorectomy History of cholecystectomy History of wisdom tooth extraction Family History Father Diabetes Mother Osteoporosis Mental health disorder Paternal Aunt Colon cancer Other Family history of breast cancer Family history of gastric cancer Family history of pancreatic cancer Family history of prostate cancer Social History Housing: House Are you a primary certified social workers in health care to a significant other at home: No Do you presently have visiting nurse or other home services: No Alcohol intake: current Alcohol intake frequency: a few times a month Patient Tobacco Use Status: Never used Tobacco e-Cigarette/Vaping Use: Never Used Second Hand Smoke Exposure: No service: No Current occupational status: employed 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, 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 Cognitive needs: No Hearing needs: No Vision needs: Yes (glasses) Female Reproductive History Menstrual Age of Menarche: 13 Review of Systems Const Denies fatigue, Denies fever(s), Denies night sweats, Denies poor appetite and Denies weight loss Eyes Details: glasses Reports requires corrective lenses ENT Reports Normal hearing present, Denies dental pain, Denies dysphagia, Denies hearing loss, Denies mouth pain, Denies odynophagia, Denies throat swelling, Denies tongue swelling and Reports other (Dentition adequate) Card Reports no additional complaints Resp Reports no additional complaints GI Details: Denies abdominal pain, Denies melena, Denies bloating, Denies hematochezia, Denies constipation, Denies GI cramping, Denies dysphagia, Denies excessive flatus, Denies early satiety, Reports heartburn, Denies diarrhea, Denies nausea, Denies odynophagia, Denies vomiting and Denies hematemesis Skin/Breast Denies pruritus, Denies lesions, Denies rash and Denies jaundice Neuro Reports Normal hearing present and Denies Abnormal speech present Endo Denies fatigue Aller/Immun Denies throat swelling and Denies tongue swelling Physical Exam Vital Signs: Last Vital Signs Pulse 92 11/18/24 13:35 BP 116/59 L 11/18/24 13:35 BMI result Body Mass Index 19.9 Const General: cooperative, no acute distress, well developed and well groomed Nutritional Appearance: average body habitus and well nourished Orientation/consciousness: oriented to person, oriented to place and oriented to time Limitations: No language barrier HEENT Head: Yes normocephalic and Yes atraumatic Eyes General: appearance normal, both eyes and all related structures Pupils: Equal, round and reactive pupils present Neck Neck: Yes normal visual inspection and Yes no lymphadenopathy Thyroid: Thyroid normal Resp Effort & Inspection: normal respiratory effort and able to speak in complete sentences Auscultation: clear to auscultation bilaterally Cardio Rate: regular rate Rhythm: regular rhythm Heart sounds: Normal, physiologic split S2 sound present Peripheral pulses: radial pulses present and posterior tibial pulses present GI Inspection: No distended and No Abdominal panniculus present Palpation (GI): Soft to palpation, nontender, no guarding, not rigid and No hepatosplenomegaly present Percussion: Yes normal to percussion Auscultation: normal bowel sounds Rectal Exam - Female: deferred Skin General skin exam: no rashes or lesions noted, turgor normal, skin not dry, no jaundice, No spider nevi and no striae Rashes: no rashes Nails: normal Neuro General: oriented to person, oriented to place and oriented to time Cranial nerves: Yes Equal, round and reactive pupils present and Yes Normal hearing present Speech: No Abnormal speech present Extrem General: Yes normal to inspection, No clubbing, No cyanosis and No edema Psych Appearance: grossly normal and well kempt Mental Status: mental status grossly normal Speech and movement: Normal speech and movement present Affect: normal affect Attitude: cooperative Thought process: Normal thought process present and not confabulating Thought content: Normal thought content present Insight: Good insight present (Psych) Judgement: Good judgement present (Psych) Assessment & Plan Assessment & Plan (1) GERD (gastroesophageal reflux disease): Code(s): K21.9 - Gastro-esophageal reflux disease without esophagitis Category: Medical (2) Esophageal dysmotility: Code(s): K22.4 - Dyskinesia of esophagus Category: Medical (3) Abdominal bloating: Code(s): R14.0 - Abdominal distension (gaseous) Category: Medical Plan Her GERD has worsened lately. This despite taking her generic nexium 20mg daily. No wt loss of gain, no diet changes, no new medications or dose changes. She did have a stressful year with both parents passing away, but now things are better and the GERD was not bad when things were more stressful. She can't really identify any particular offending foods, the other night she ate chicken parmesan with no GERD - BUT it is occurring more frequently and any time of the day. Get barium swallow and HP stool. She had a hx of slight esophageal dysmotility on past barium swallow about 10 years ago. No EGD since 2008. ROV after barium swallow. Orders: Orders 2 [place] barium swallow Today K21.9 - Gastro-esophageal reflux disease without esophagitis H pylori Ag Stool Today K21.9 - Gastro-esophageal reflux disease without esophagitis Medications: Refilled simethicone 180 mg PO TID PRN 90 caps 6RF abdominal distention esomeprazole magnesium 20 mg PO DAILY 90 caps 6RF Coding Level of Care Code Est Pt Level 3 (19682) Diagnoses GERD (gastroesophageal reflux disease) K21.9 Esophageal dysmotility K22.4 Abdominal bloating R14.0
[2024-11-18 13:35] VITALS: BP 116/59; PULSE 92; BMI 19.9
--- OUTSIDE RECORDS SUMMARY | 2024-11-18 14:25 | XMS_ITS | Patient Health Record ---
Author Organization Kenneth Samuel III, MD Address [address] [facility] [place] [address] Care Team Providers Care Hog Counter Name Role Phone Miah Day MD Primary Care Provider Kenneth Godoy [facility] [phone] Allergies Allergen (clinical drug ingredient) Drug/Non Drug Allergy documented on EMR Reaction Allergy Type Onset Date Status Penicillin Unknown Drug Allergy Active neomycin Neomycin rash Drug Allergy Active Adhesive rash Allergy Active Results Component Value Reference Range Notes Complete Blood Count Auto Di ff Reviewed date:06/23/2024 05:40:57 PM Interpretation: Performing Lab:[facility], [address] [place] [phone] Notes/Report: White Blood Count 5.7 4.8-10.8 X10*3/uL [...] NRBC Abs Auto 0.000 0.0-0.012 X10*3/uL Comprehensive [place]. Panel Fa st Reviewed date:06/23/2024 05:40:57 PM Interpretation: Performing Lab:[facility], [address] [place] [phone] Notes/Report: Sodium 141 135-145 mmol/L Potassium 3.9 [...] Panel Reviewed date:06/23/2024 05:40:57 PM Interpretation: Performing Lab:[facility], [address] [place] [address] Notes/Report: Triglycerides 64 <150 mg/dL Desirable Triglyceride: [...] liver disease. MM tomosynthesis screening L T Reviewed date:10/03/2024 04:57:38 AM Interpretation: Performing Lab: Notes/Report: [facility] [address] [place] [address] Mammography Report Signed Patient: Sabrina Peter MR#: [id number] : 1960 Acct:[id number] Age/Sex: 63 / F ADM Date: 08/20/24 Loc: HO.MAMMO Attending Dr: Kenneth Samuel MD Ordering Physician: Kenneth Samuel MD Results: 1Negativ e Date of Service: 08/20/24 Follow Up: 1 Year From Orig ina Mammogram Procedure(s): MM tomosynthesis screening Accession Number(s): [id number] cc: Kenneth Samuel MD; Miah Day MD [...] 08/24/24 1502 DD/ 1315 TD/TT: 08/20/24 1325 Quality Assurance Monitor Final: [facility] [address] [place] [address] Mammography Report Signed Patient: Sabrina Peter MR#: [id number] : 1960 Acct:[id number] Age/Sex: 63 / F ADM Date: 08/20/24 Loc: HO.MAMMO Attending Dr: Kenneth Samuel MD Ordering Physician: Kenneth Samuel MD Results: 1Negativ e Date of Service: 08/20/24 Follow Up: 1 Year From [facility] Mammogram Procedure(s): MM tomosynthesis screening LT Accession Number(s): [id number] cc: Kenneth Samuel MD; Miah Day MD [...] by: Blanquita Serna DO 08/24/2024 03:02 PM [facility] Dictated By: Blanquita Serna DO Signed By: <Electronically signed by Blanquita Serna DO in OV> 08/24/24 1502 DD/ 1315 TD/TT: 08/20/24 1325 Quality Assurance Monitor Final: XR DEXA axial skeleton Reviewed date:10/03/2024 04:57:38 AM Interpretation: Performing Lab: Notes/Report: [facility] [address] [place] [address] Mammography Report Signed Patient: Sabrina Peter MR#: [id number] : 1960 Acct:[id number] Age/Sex: 63 / F ADM Date: 08/20/24 Loc: HO.MAMMO Attending Dr: Kenneth Samuel MD Ordering Physician: Kenneth Samuel MD Results: Date of Service: 08/20/24 Follow Up: Procedure(s): XR DEXA axial skeleton Accession Number(s): [id number] cc: Kenneth Samuel MD; Miah Day MD EXAMINATION: DXA BONE DENSITY AXIAL HISTORY: Estrogen deficiency TECHNIQUE: RVE.SOL - [employer] Dual energy absorptiometry (DEXA) of the lumbar [...] is a trademark of the [employer] [place] for Metabolic Bone Disease, a World Health Organization (WHO) Collaborating Center. Electronically signed by: Kenneth Mirza MD 08/20/2024 02:05 PM [facility] Dictated By: Kenneth Mirza MD Signed By: <Electronically signed by Kenneth Mirza MD in OV> 08/20/24 1405 DD/ 1330 TD/TT: 08/20/24 1402 Quality Assurance Monitor Final: [facility] [address] [place] [address] Mammography Report Signed Patient: Sabrina Peter MR#: [id number] : 1960 Acct:[id number] Age/Sex: 63 / F ADM Date: 08/20/24 Loc: HO.MAMMO Attending Dr: Kenneth Samuel MD Ordering Physician: Kenneth Samuel MD Results: Date of Service: 08/20/24 Follow Up: Procedure(s): XR DEX A axial skeleton Accession Number(s): [id number] cc: Kenneth Samuel MD; Miah Day MD EXAMINATION: DXA BON E DENSITY AXIAL HISTORY: Estrogen deficiency TECHNIQUE: RVE.SOL - [employer] Dual energy absorptiometry (DEXA) of the lumbar [...] is a trademark of the [employer]'s [place] for Metabolic Bone Disease, a World Health Organization (WHO) Collaborating Center. Electronically eliud d by: Kenneth Mirza MD 08/20/2024 02:05 PM [facility] Dictated By: eKnneth Mirza MD Signed By: <Electronically signed by Kenneth Mirza MD in OV> 08/20/24 1405 DD/ 1330 TD/TT: 08/20/24 1402 Quality Assurance Monitor Final: Reason For Referral No Information Medications Medication [...] Problem Status W/U Status Risk Notes Problem 36168759 Weight loss (R63.4) Active confirmed She has gained 1pound since her last visit. Her body mass index has increased to 20. Problem Breast cancer (140498008) Breast cancer (C50.919) Active confirmed There was no sign of recurrent breast cancer on her last examination. Her current PET/CT scan shows no sign of breast cancer. Problem 094679881 Malignant neopla sm of unspecified site of right female breast (C50.911) Active confirmed She has completed her adjuvant endocrine therapy. Her examination today is normal. There is no sign of a new primary or relapse. She is up-to-date with mammography. Problem 84960529 Calculus of gallbladder without cholecystitis without obstruction (K80.20) Active confirmed These are asymptomatic and that there is no pain in the right upper quadrant on deep palpation. Problem 52725045 Age-related osteoporosis without current pathological fracture (M81.0) Active confirmed She has bee n compliant with her medications. No change in her regimen was made.She received 5 mg of zoledronic acid intravenously today over 30 min. without difficulty. Problem Osteoporosis (70613820) Other osteoporosis without current pathological fracture (M81.8) Active confirmed This has be en treated on current therapy will continue. Problem Sensory disorder of smell and/or taste (559356462546 3) Unspecified disturbances of smell and taste (R43.9) Active confirmed She has been to the neurologist and evaluation for seizure disorder is under way. She continues to experience is smelled something burning intermittently. 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 She will be seen in August 2017 at which time her endocrine therapy will be discontinued. She will be due for a bone density. Problem 193911204 Pure hypercholesterolemia (E78.00) Active confirmed Her lipids are being checked 3 times a year. No change in her regimen was needed. Problem 05614118 Osteoporosis, unspecified osteoporosis type, unspecified pathological fracture presence (M81.0) Active confirmed She continues on her regimen. She has no bone pain. She will have a bone density test next July. Problem 137324450 Nonintractable epilepsy without status epilepticus, unspecified epilepsy type (G40.909) Active confirmed She has been compliant with her regimen. The old factory hallucinations have resolved. Problem 561208508 RLQ abdominal pa in (R10.31) Active confirmed [...] Date Provider Diagnosis Kenneth Samuel III, MD [address] [place] [address] [place] [address] 03/02/2024 Kenneth Samuel Osteoporosis, unspec ified osteoporosis type, unspecified pathological fracture presence M81.0 ; Malignant neoplasm of unspecified site of right female breast C50.911 ; Pure hypercholesterolemia E78.00 ; Weight loss R63.4 and Nonintractable epilepsy without status epilepticus, unspecified epilepsy type G40.909 Kenneth Samuel III, MD [address] [place] [address] [place] [address] 07/06/2024 Kenneth Samuel Age-related osteopor osis without current pathological fracture M81.0 ; Breast cancer C50.919 ; DCIS (ductal carcinoma in situ), right D05.11 and Malignant neoplasm of unspecified site of right female breast C50.911 Kenneth Samuel III, MD [address] [place] [address] [place] [address] 07/07/2024 Kenneth Samuel III, MD [address] [place] [address] [place] [address] 07/07/2024 Kenneth Samuel III, MD [address] [place] [address] [place] [address] 06/24/2024 Kenneth Samuel III, MD [address] [place] [address] [place] [address] 06/25/2024 Kenneth Samuel Assessments Encounter Date Diagnosis [...] Next Appt Details Provider Name:Kenneth Samuel, 12/30/2024 09:30:00 AM, [address] [place] [address] , [address], [place], [address], Insurance Providers Payer Name Payer Address Payer Phone Subscriber Number Group Number Insured Name Patient Relationship to Insured Coverage Start Date Coverage End Date [address] [place] [address] [id number] Sabrina Peter Self - patient is the insured Medical (General) History Medical History History ICD Code 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
== END 2024-11-18 14:30 ==
LOC: HO.HGI 13:33
PROVIDERS: PCP Internal Medicine; Visit Provider Nurse Practitioner
DX: K21.9 Gastro-esophageal reflux disease without esophagitis (principal); K22.4 Dyskinesia of esophagus; R14.0 Abdominal distension (gaseous)
CPT/HCPCS: 99213

== ENCOUNTER 2024-11-20 11:34 | Outpatient (REF) | payer OTHER, SELFPAY ==
--- OUTSIDE RECORDS SUMMARY | 2024-11-20 12:29 | XMS_ITS | Patient Health Record ---
Author Organization Kenneth Samuel III, MD Address [address] [facility] [place] [address] Care Team Providers Care Occupational Health Specialist Name Role Phone Miah Day MD Primary Care Provider Kenneth Godoy [facility] [phone] Allergies Allergen (clinical drug ingredient) Drug/Non Drug Allergy documented on EMR Reaction Allergy Type Onset Date Status Penicillin Unknown Drug Allergy Active neomycin Neomycin rash Drug Allergy Active Adhesive rash Allergy Active Results Component Value Reference Range Notes Complete Blood Count Auto Di ff Reviewed date:06/23/2024 05:40:57 PM Interpretation: Performing Lab:[facility], [address] [place] [address] Notes/Report: White Blood Count 5.7 4.8-10.8 X10*3/uL [...] NRBC Abs Auto 0.000 0.0-0.012 X10*3/uL Comprehensive [place]. Panel Fa st Reviewed date:06/23/2024 05:40:57 PM Interpretation: Performing Lab:[facility], [address] [place] [phone] Notes/Report: Sodium 141 135-145 mmol/L Potassium 3.9 [...] Panel Reviewed date:06/23/2024 05:40:57 PM Interpretation: Performing Lab:[facility], [address] [place] [address] Notes/Report: Triglycerides 64 <150 mg/dL Desirable Triglyceride: [...] date:10/03/2024 04:57:38 AM Interpretation: Performing Lab: Notes/Report: [facility] [address] [place] [address] Mammography Report Signed Patient: Sabrina Peter MR#: [id number] : 1960 Acct:[id number] Age/Sex: 63 / F ADM Date: 08/20/24 Loc: HO.MAMMO Attending Dr: Kenneth Samuel MD Ordering Physician: Kenneth Samuel MD Results: 1Negativ e Date of Service: 08/20/24 Follow Up: 1 Year From Orig ina Mammogram Procedure(s): MM tomosynthesis screening Accession Number(s): [id number] cc: Kenneth Samuel MD; Miah Day MD [...] 08/24/24 1502 DD/ 1315 TD/TT: 08/20/24 1325 District Administrative Assistant: [facility]'s [address] [place] [address] Mammography Report Signed Patient: Sabrina Peter MR#: [id number] : 1960 Acct:[id number] Age/Sex: 63 / F ADM Date: 08/20/24 Loc: HO.MAMMO Attending Dr: Kenneth Samuel MD Ordering Physician: Kenneth Samuel MD Results: 1Negativ e Date of Service: 08/20/24 Follow Up: 1 Year From [facility] Mammogram Procedure(s): MM tomosynthesis screening LT Accession Number(s): [id number] cc: Kenneth Samuel MD; Miah Day MD [...] by: Blanquita Serna DO 08/24/2024 03:02 PM [facility] Dictated By: Blanquita Serna DO Signed By: <Electronically signed by Blanquita Serna DO in OV> 08/24/24 1502 DD/ 1315 TD/TT: 08/20/24 1325 District Administrative Assistant: XR DEXA axial skeleton Reviewed date:10/03/2024 04:57:38 AM Interpretation: Performing Lab: Notes/Report: [facility] [address] [place] [address] Mammography Report Signed Patient: Sabrina Petre MR#: [id number] : 1960 Acct:[id number] Age/Sex: 63 / F ADM Date: 08/20/24 Loc: HO.MAMMO Attending Dr: Kenneth Samuel MD Ordering Physician: Kenneth Samuel MD Results: Date of Service: 08/20/24 Follow Up: Procedure(s): XR DEXA axial skeleton Accession Number(s): [id number] cc: Kenneth Samuel MD; Miah Day MD EXAMINATION: DXA BONE DENSITY AXIAL HISTORY: Estrogen deficiency TECHNIQUE: [employer] Dual energy absorptiometry (DEXA) of the lumbar [...] of the [employer] [place] for Metabolic Bone Disease, a World Health Organization (WHO) Collaborating Center. Electronically signed by: Kenneth Mirza MD 08/20/2024 02:05 PM [facility] Dictated By: Kenneth Mirza MD Signed By: <Electronically signed by Kenneth Mirza MD in OV> 08/20/24 1405 DD/ 1330 TD/TT: 08/20/24 1402 District Administrative Assistant: [facility] [address] [place] [address] Mammography Report Signed Patient: Sabrina Peter MR#: [id number] : 1960 Acct:[id number] Age/Sex: 63 / F ADM Date: 08/20/24 Loc: HO.MAMMO Attending Dr: Kenneth Samuel MD Ordering Physician: Kenneth Samuel MD Results: Date of Service: 08/20/24 Follow Up: Procedure(s): XR DEX A axial skeleton Accession Number(s): [id number] cc: Kenneth Samuel MD; Miah Day MD EXAMINATION: DXA BON E DENSITY AXIAL HISTORY: Estrogen deficiency TECHNIQUE: [employer] Dual energy absorptiometry (DEXA) of the lumbar [...] of the [employer] [place] for Metabolic Bone Disease, a World Health Organization (WHO) Collaborating Center. Electronically eliud d by: Kenneth Mirza MD 08/20/2024 02:05 PM [facility] Dictated By: Kenneth Mirza MD Signed By: <Electronically signed by Kenneth Mirza MD in OV> 08/20/24 1405 DD/ 1330 TD/TT: 08/20/24 1402 District Administrative Assistant: Reason For Referral No Information Medications Medication [...] Problem Status W/U Status Risk Notes Problem 76450069 Weight loss (R63.4) Active confirmed She has gained 1pound since her last visit. Her body mass index has increased to 20. Problem Breast cancer (494238411) Breast cancer (C50.919) Active confirmed There was no sign of recurrent breast cancer on her last examination. Her current PET/CT scan shows no sign of breast cancer. Problem 324250713 Malignant neopla sm of unspecified site of right female breast (C50.911) Active confirmed She has completed her adjuvant endocrine therapy. Her examination today is normal. There is no sign of a new primary or relapse. She is up-to-date with mammography. Problem 84478831 Calculus of gallbladder without cholecystitis without obstruction (K80.20) Active confirmed These are asymptomatic and that there is no pain in the right upper quadrant on deep palpation. Problem 89959082 Age-related osteoporosis without current pathological fracture (M81.0) Active confirmed She has bee n compliant with her medications. No change in her regimen was made.She received 5 mg of zoledronic acid intravenously today over 30 min. without difficulty. Problem Osteoporosis (54052849) Other osteoporosis without current pathological fracture (M81.8) Active confirmed This has be en treated on current therapy will continue. Problem Sensory disorder of smell and/or taste (503806909998 3) Unspecified disturbances of smell and taste (R43.9) Active confirmed She has been to the neurologist and evaluation for seizure disorder is under way. She continues to experience is smelled something burning intermittently. 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 She will be seen in August 2017 at which time her endocrine therapy will be discontinued. She will be due for a bone density. Problem 930844027 Pure hypercholesterolemia (E78.00) Active confirmed Her lipids are being checked 3 times a year. No change in her regimen was needed. Problem 52380135 Osteoporosis, unspecified osteoporosis type, unspecified pathological fracture presence (M81.0) Active confirmed She continues on her regimen. She has no bone pain. She will have a bone density test next July. Problem 074824166 Nonintractable epilepsy without status epilepticus, unspecified epilepsy type (G40.909) Active confirmed She has been compliant with her regimen. The old factory hallucinations have resolved. Problem 193229691 RLQ abdominal pa in (R10.31) Active confirmed [...] Provider Diagnosis Kenneth Samuel III, MD [address] [place] [address] [place] [address] 03/02/2024 Kenneth Samuel Osteoporosis, unspec ified osteoporosis type, unspecified pathological fracture presence M81.0 ; Malignant neoplasm of unspecified site of right female breast C50.911 ; Pure hypercholesterolemia E78.00 ; Weight loss R63.4 and Nonintractable epilepsy without status epilepticus, unspecified epilepsy type G40.909 Kenneth Samuel III, MD [address] [place] [address] [place] [address] 07/06/2024 Kenneth Samuel Age-related osteopor osis without current pathological fracture M81.0 ; Breast cancer C50.919 ; DCIS (ductal carcinoma in situ), right D05.11 and Malignant neoplasm of unspecified site of right female breast C50.911 Kenneth Samuel III, MD [address] [place] [address] [place] [address] 07/07/2024 Kenneth Samuel III, MD [address] [place] [address] [place] [address] 07/07/2024 Kenneth Samuel III, MD [address] [place] [address] [place] [address] 06/24/2024 Kenneth Samuel III, MD [address] [place] [address] [place] [address] 06/25/2024 Kenneth Samuel Assessments Encounter Date Diagnosis [...] Details Provider Name:Kenneth Samuel, 12/30/2024 09:30:00 AM, [address] [place] [address] , [address], [place], [address], Insurance Providers Payer Name Payer Address Payer Phone Subscriber Number Group Number Insured Name Patient Relationship to Insured Coverage Start Date Coverage End Date [address] [place] [address] [id number] Sabrina Peter Self - patient is the insured Medical (General) History Medical History History ICD Code 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
== END 2024-11-20 11:35 | disposition home or self-care (01) ==
LOC: HO.LNP 11:34
PROVIDERS: Visit Provider Nurse Practitioner
DX: K21.9 Gastro-esophageal reflux disease without esophagitis (principal)
CPT/HCPCS: 87338

== ENCOUNTER 2024-12-30 08:32 | Outpatient (AMB) | payer OTHER, SELFPAY ==
--- NOTE | 2024-12-30 08:37 | A.OFFVIS_ITS ---
Vital Signs 12/30/24 08:39 Height 5 ft 10 in Intake Visit Reasons: 6m Allergies adhesive tape Allergy (Intermediate, Verified 12/30/24 08:42) BLISTERS bacitracin (From Neosporin) Allergy (Mild, Verified 12/30/24 08:42) RASH gramicidin D (From Neosporin) Allergy (Mild, Verified 12/30/24 08:42) RASH neomycin (From Neosporin) Allergy (Mild, Verified 12/30/24 08:42) RASH Penicillins Adverse Reaction (Mild, Verified 12/30/24 08:42) VOMITING Medication List - Last Reconciled 12/30/24 by Lizy Torres CNP amitriptyline 10 mg PO BEDTIME atorvastatin 20 mg PO DAILY coQ10 (ubiquinol) 200 mg PO DAILY esomeprazole magnesium 20 mg PO DAILY lamotrigine 50 mg PO BID mastectomy bra (bra, mastectomy) As directed omega 7-ion-uqe-fish oil 1,000 (120-180) mg (Fish Oil) 1 cap PO DAILY simethicone 180 mg PO TID PRN sumatriptan succinate 50 mg PO DAILY PRN xantkecl-txfq-rbqtp-oreg-capry 100 mg-150 mg- 50 mg-150 mg 1,000 PO DAILY HPI Comments Details: 64 y/o RH woman with h/o breast cancer, s/p surgery, XRT, Tamoxifen for 5 years, recurrence of cancer treated with surgery and Anastozole for 5 years, partial seizures (smelling smoke, sometimes waking up at night to think the house was on fire), and migraine with visual obscurations. She was doing okay. No seizures. She had 2-3 episodes of visual aura without migraine in the last 6 months that lasted for about 20 minutes each time. She had 4 migraines without aura in the last 6 months. Sumatriptan as needed helps. Neck pain has been okay. She was under a lot of stress recently as both her mother and father passed earlier this year. Her sister was moving back to the area. Sleep was up and down. [facility] Medical History (Updated 12/30/24 @ 08:53 by Lizy Torres CNP) Esophageal dysmotility Breast cancer Migraine aura without headache Acute pain of right foot Cervical radiculitis Physical exam Women's annual routine gynecological examination Cervical cancer screening Hyperlipidemia Abdominal pain, right upper quadrant Ductal carcinoma in situ of right breast Hip pain, right Family history of colon cancer Physical exam Abdominal pain Flank pain Tick bite of back History of right breast cancer Hx of radiation therapy Migraines Arthritis GERD (gastroesophageal reflux disease) Surgical History (Updated 11/18/24 @ 13:42 by JUNAID Caprio) H/O right mastectomy Hx of unilateral oophorectomy History of lumpectomy of right breast History of esophagogastroduodenoscopy (EGD) Hx of colonoscopy History of excision of lesion History of salpingo-oophorectomy History of cholecystectomy History of wisdom tooth extraction Family History Father Diabetes Mother Osteoporosis Mental health disorder Paternal Aunt Colon cancer Other Family history of breast cancer Family history of gastric cancer Family history of pancreatic cancer Family history of prostate cancer Social History Housing: House Are you a primary health care administrator to a significant other at home: No Do you presently have visiting nurse or other home services: No Alcohol intake: current Alcohol intake frequency: a few times a month Patient Tobacco Use Status: Never used Tobacco e-Cigarette/Vaping Use: Never Used Second Hand Smoke Exposure: No service: No Current occupational status: employed 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, 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 Cognitive needs: No Hearing needs: No Vision needs: Yes (glasses) Female Reproductive History Menstrual Age of Menarche: 13 Review of Systems Const Denies chills, Denies daytime sleepiness, Reports difficulty sleeping, Denies fatigue, Denies fever(s), Denies frequent falls, Reports headache(s), Denies increased appetite, Denies poor appetite, Denies snoring, Denies weakness, Denies weight gain and Denies weight loss Eyes Denies loss of vision ENT Denies vertigo, Denies dizziness and Reports headache(s) Card Denies chest pain at rest, Denies chest pain with activity, Denies leg edema and Denies palpitations Resp Denies snoring GI Denies constipation, Denies heartburn, Denies diarrhea and Denies nausea Denies urinary frequency, Denies urinary incontinence and Denies urinary urgency Musc Denies abnormal gait, Denies numbness and Denies tingling Skin/Breast Denies dry skin and Denies rash Neuro Denies abnormal gait, Denies vertigo, Denies dizziness, Denies frequent falls, Reports headache(s), Denies lack of coordination, Denies loss of vision, Denies memory loss, Denies numbness, Denies restless legs, Denies seizure-like activity, Denies tingling, Denies paresthesias, Denies tremor(s) and Denies weakness Psych Reports anxiety, Reports depression, Denies auditory hallucinations, Denies memory loss, Denies visual hallucinations, Denies suicidal ideation and Reports other (stress) Endo Denies fatigue and Denies palpitations Physical Exam Const Other: General Appearance:? normal, in no acute distress. Skin:? no rashes, no significant birthmarks. Heart:? S1, S2 normal, no murmurs. Lungs:? clear anteriorly and posteriorly. Extremities:? no edema. Psych:? alert, oriented, cognitive function intact, cooperative with exam. Neuro Other: Mental Status:?Normal attention, orientation, memory and affect.? Cranial Nerves:?Pupils are equal, round and reactive to light. External occular muscles are intact. Visual mejia are full. Face is symmetrical. Facial sensations are normal. Tongue is midline. Palate elevates symmetrically. Shoulder shrugging is normal. Hearing to bedside conversation is normal. Motor Examination:?Normal muscle tone, bulk and strength,?Deep tendon reflexes are 2+,?Plantars are flexor.? Sensory Exam:?....? Coordination:?No ataxia,?no titubation.? Gait Exam: Within normal limits. Cerebellar Signs:?Sewoxw-da-bfwq and zzhw-fg-fvpx is normal.? Extrapyramidal System:?No tremor, rigidity with normal facial expressions.? Pronator Drift:?Not present.? Involuntary Movements:?No tremors seen.? Speech:?Normal.? Assessment & Plan Assessment & Plan (1) Partial seizures: Code(s): R56.9 - Unspecified convulsions Category: Medical Plan: Continue lamotrigine 25mg 2 tablets twice a day (2) Migraine with aura: Code(s): G43.109 - Migraine with aura, not intractable, without status migrainosus Category: Medical Qualifiers: Status migrainosus presence: without status migrainosus Intractability: not intractable Qualified Code(s): G43.109 - Migraine with aura, not intractable, without status migrainosus Plan: Continue sumatriptan 50mg 1 tablet as needed for migraine (3) Migraine aura without headache: Code(s): G43.109 - Migraine with aura, not intractable, without status migrainosus Category: Medical Plan: . (4) Cervical radiculopathy: Code(s): M54.12 - Radiculopathy, cervical region Category: Medical Plan: . Plan . Coding Level of Care Code Est Pt Level 4 (34262) Diagnoses Partial seizures R56.9 Migraine with aura and without status migrainosus, not intractable G43.109 Status migrainosus presence: without status migrainosus Intractability: not intractable Migraine aura without headache G43.109 Cervical radiculopathy M54.12
--- OUTSIDE RECORDS SUMMARY | 2024-12-30 08:46 | XMS_ITS | Patient Health Record ---
Author Organization Kenneth Samuel III, MD Address [address] [place] [address] Care Team Providers Care Tourist Adviser Name Role Phone Miah Day MD Primary Care Provider Kenneth Godoy [facility] [phone] Allergies Allergen (clinical drug ingredient) Drug/Non Drug Allergy documented on EMR Reaction Allergy Type Onset Date Status Penicillin Unknown Drug Allergy Active neomycin Neomycin rash Drug Allergy Active Adhesive rash Allergy Active Results Component Value Reference Range Notes Complete Blood Count Auto Di ff Reviewed date:06/23/2024 05:40:57 PM Interpretation: Performing Lab:[facility], [address] [place] [id number] Notes/Report: White Blood Count 5.7 4.8-10.8 X10*3/uL [...] NRBC Abs Auto 0.000 0.0-0.012 X10*3/uL Comprehensive [facility]. Panel Fa st Reviewed date:06/23/2024 05:40:57 PM Interpretation: Performing Lab:[facility], [address] [place] [phone] Notes/Report: Sodium 141 135-145 mmol/L Potassium 3.9 [...] Panel Reviewed date:06/23/2024 05:40:57 PM Interpretation: Performing Lab:[facility], [address] [place] [address] Notes/Report: Triglycerides 64 <150 mg/dL Desirable Triglyceride: [...] date:10/03/2024 04:57:38 AM Interpretation: Performing Lab: Notes/Report: [facility] [address] [place] [address] Mammography Report Signed Patient: Sabrina Peter MR#: [id number] : 1960 Acct:[id number] Age/Sex: 63 / F ADM Date: 08/20/24 Loc: HO.MAMMO Attending Dr: Kenneth Samuel MD Ordering Physician: Kenneth Samuel MD Results: 1Negativ e Date of Service: 08/20/24 Follow Up: 1 Year From Orig ina Mammogram Procedure(s): MM tomosynthesis screening Accession Number(s): [id number] cc: Kenneth Samuel MD; Miah Day MD [...] 08/24/24 1502 DD/ 1315 TD/TT: 08/20/24 1325 Project Manager Finance: [place] [facility] [address] [place] [address] Mammography Report Signed Patient: Sabrina Peter MR#: [id number] : 1960 Acct:[id number] Age/Sex: 63 / F ADM Date: 08/20/24 Loc: HO.MAMMO Attending Dr: Kenneth Samuel MD Ordering Physician: Kenneth Samuel MD Results: 1Negativ e Date of Service: 08/20/24 Follow Up: 1 Year From [facility] Mammogram Procedure(s): MM tomosynthesis screening LT Accession Number(s): [id number] cc: Kenneth Samuel MD; Miah Day MD [...] by: Blanquita Serna DO 08/24/2024 03:02 PM [facility] Dictated By: Blanquita Serna DO Signed By: <Electronically signed by Blanquita Serna DO in OV> 08/24/24 1502 DD/ 1315 TD/TT: 08/20/24 1325 Project Manager Finance: XR DEXA axial skeleton Reviewed date:10/03/2024 04:57:38 AM Interpretation: Performing Lab: Notes/Report: [facility] [address] [place] [address] Mammography Report Signed Patient: Sabrina Peter MR#: [id number] : 1960 Acct:[id number] Age/Sex: 63 / F ADM Date: 08/20/24 Loc: HO.MAMMO Attending Dr: Kenneth Samuel MD Ordering Physician: Kenneth Samuel MD Results: Date of Service: 08/20/24 Follow Up: Procedure(s): XR DEXA axial skeleton Accession Number(s): [id number] cc: Kenneth Samuel MD; Miah Day MD EXAMINATION: DXA BONE DENSITY AXIAL HISTORY: Estrogen deficiency TECHNIQUE: [facility] [employer] Dual energy absorptiometry (DEXA) of the lumbar [...] of the [employer] [place] for Metabolic Bone Disease, a World Health Organization (WHO) Collaborating Center. Electronically signed by: Kenneth Mirza MD 08/20/2024 02:05 PM [facility] Dictated By: Kenneth Mirza MD Signed By: <Electronically signed by Kenneth Mirza MD in OV> 08/20/24 1405 DD/ 1330 TD/TT: 08/20/24 1402 Project Manager Finance: [place] [address] [place] [address] Mammography Report Signed Patient: Sabrina Peter MR#: [id number] : 1960 Acct:[id number] Age/Sex: 63 / F ADM Date: 08/20/24 Loc: HO.MAMMO Attending Dr: Kenneth Samuel MD Ordering Physician: Kenneth Samuel MD Results: Date of Service: 08/20/24 Follow Up: Procedure(s): XR DEX A axial skeleton Accession Number(s): [id number] cc: Kenneth Samuel MD; Miah Day MD EXAMINATION: DXA BON E DENSITY AXIAL HISTORY: Estrogen deficiency TECHNIQUE: [employer] Dual energy absorptiometry (DEXA) of the lumbar [...] of the [employer] [place] for Metabolic Bone Disease, a World Health Organization (WHO) Collaborating Center. Electronically eliud d by: Kenneth Mirza MD 08/20/2024 02:05 PM [facility] Dictated By: Kenneth Mirza MD Signed By: <Electronically signed by Kenneth Mirza MD in OV> 08/20/24 1405 DD/ 1330 TD/TT: 08/20/24 1402 Project Manager Finance: Reason For Referral No Information Medications Medication SIG (Take, Route, Frequency, Duration) Notes Start Date End Date Status NexIUM 24HR 20 MG TAKE ONE CAPSULE [...] Problem Status W/U Status Risk Notes Problem 13032601 Weight loss (R63.4) Active confirmed She has gained 1pound since her last visit. Her body mass index has increased to 20. Problem Breast cancer (092736040) Breast cancer (C50.919) Active confirmed There was no sign of recurrent breast cancer on her last examination. Her current PET/CT scan shows no sign of breast cancer. Problem 235950462 Malignant neopla sm of unspecified site of right female breast (C50.911) Active confirmed She has completed her adjuvant endocrine therapy. Her examination today is normal. There is no sign of a new primary or relapse. She is up-to-date with mammography. Problem 31510281 Calculus of gallbladder without cholecystitis without obstruction (K80.20) Active confirmed These are asymptomatic and that there is no pain in the right upper quadrant on deep palpation. Problem 12811825 Age-related osteoporosis without current pathological fracture (M81.0) Active confirmed She has bee n compliant with her medications. No change in her regimen was made.She received 5 mg of zoledronic acid intravenously today over 30 min. without difficulty. Problem Osteoporosis (81941740) Other osteoporosis without current pathological fracture (M81.8) Active confirmed This has be en treated on current therapy will continue. Problem Sensory disorder of smell and/or taste (130603445225 3) Unspecified disturbances of smell and taste (R43.9) Active confirmed She has been to the neurologist and evaluation for seizure disorder is under way. She continues to experience is smelled something burning intermittently. 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 She will be seen in August 2017 at which time her endocrine therapy will be discontinued. She will be due for a bone density. Problem 561722143 Pure hypercholesterolemia (E78.00) Active confirmed Her lipids are being checked 3 times a year. No change in her regimen was needed. Problem 69970541 Osteoporosis, unspecified osteoporosis type, unspecified pathological fracture presence (M81.0) Active confirmed She continues on her regimen. She has no bone pain. She will have a bone density test next July. Problem 575554548 Nonintractable epilepsy without status epilepticus, unspecified epilepsy type (G40.909) Active confirmed She has been compliant with her regimen. The old factory hallucinations have resolved. Problem 106242283 RLQ abdominal pa in (R10.31) Active confirmed [...] Date Provider Diagnosis Kenneth Samuel III, MD [address] [place] [address] [place] [id number] 03/02/2024 Kenneth Samuel Osteoporosis, unspec ified osteoporosis type, unspecified pathological fracture presence M81.0 ; Malignant neoplasm of unspecified site of right female breast C50.911 ; Pure hypercholesterolemia E78.00 ; Weight loss R63.4 and Nonintractable epilepsy without status epilepticus, unspecified epilepsy type G40.909 Kenneth Samuel III, MD [address] [place] [address] [place] [phone] 07/06/2024 Kenneth Samuel Age-related osteopor osis without current pathological fracture M81.0 ; Breast cancer C50.919 ; DCIS (ductal carcinoma in situ), right D05.11 and Malignant neoplasm of unspecified site of right female breast C50.911 Kenneth Samuel III, MD [address] [place] [address] [place] [address] 07/07/2024 Kenneth Samuel III, MD [address] [place] [address] [address] [place], [place] [phone] 07/07/2024 Kenneth Samuel III, MD [address] [place] [address] [address] [place], [place] [phone] 06/24/2024 Kenneth Samuel III, MD [address] [place] [address] [address] [place], [place] [phone] 06/25/2024 Kenneth Samuel Assessments Encounter Date Diagnosis [...] Details Provider Name:Kenneth Samuel, 12/30/2024 09:30:00 AM, [address] [place] [address] [address], [place], [address], Insurance Providers Payer Name Payer Address Payer Phone Subscriber Number Group Number Insured Name Patient Relationship to Insured Coverage Start Date Coverage End Date [address] [place] [address] [id number] Sabrina Peter Self - patient is the insured Medical (General) History Medical History History ICD Code stage I invasive carcinoma right breast with DCIS [id number] cholelithiasis anastrozole ended August 2017 Surgical History Surgery Date(Month/Year) mastectomy right breast, sentinel node b iopsy 07/22/2012 lumpectomy, right breast 2000 oophorectomy of the right ov jagdish and fallopian tube, negative pathlogy 09/2007 cholecystectomy 11/2010
--- OUTSIDE RECORDS SUMMARY | 2024-12-30 08:47 | XMS_ITS | Patient Health Record ---
Author Organization [facility] Address [address] [place] [address] Care Team Providers Care Infectious Disease Physician Name Role Phone Carlitos Bender Jr [phone] Reason For Referral No Information Plan Of Treatment No Information
== END 2024-12-30 08:57 | disposition home or self-care (01) ==
LOC: HO.HSM 08:33
PROVIDERS: PCP Internal Medicine; Referring Provider Internal Medicine; Visit Provider Registered Nurse
DX: R56.9 Unspecified convulsions (principal); G43.109 Migraine with aura, not intractable, without status migrainosus; M54.12 Radiculopathy, cervical region
CPT/HCPCS: 99214

== ENCOUNTER 2025-01-25 12:21 | Outpatient (AMB) | payer OTHER, SELFPAY ==
--- NOTE | 2025-01-25 12:28 | MHC.PC.OV ---
Vital Signs 01/25/25 12:33 Height 5 ft 10 in Weight 154 lb BMI 22.1 BP 120/82 Blood Pressure Location Lt brachial Position Sitting Pulse 120 H Pulse Source Pulse Oximeter Pulse Oximetry (%) 97 Oxygen Delivery Method Room Air Intake Visit Reasons: Transfer Care from Dr. Day / f/u Organ Teacher Required: No Accompanied by: Self / Same As Patient Allergies adhesive tape Allergy (Intermediate, Verified 01/25/25 13:01) BLISTERS bacitracin (From Neosporin) Allergy (Mild, Verified 01/25/25 13:01) RASH gramicidin D (From Neosporin) Allergy (Mild, Verified 01/25/25 13:01) RASH neomycin (From Neosporin) Allergy (Mild, Verified 01/25/25 13:01) RASH Penicillins Adverse Reaction (Mild, Verified 01/25/25 13:01) VOMITING Medication List - Last Reconciled 01/25/25 by Hussein Shaffer MD amitriptyline 10 mg PO BEDTIME atorvastatin 20 mg PO DAILY coQ10 (ubiquinol) 200 mg PO DAILY esomeprazole magnesium 20 mg PO DAILY lamotrigine 50 mg PO BID mastectomy bra (bra, mastectomy) As directed omega 8-etf-mtq-fish oil 1,000 (120-180) mg (Fish Oil) 1 cap PO DAILY simethicone 180 mg PO TID PRN sumatriptan succinate 50 mg PO DAILY PRN xqqcmcni-ztdu-zamhd-oreg-capry 100 mg-150 mg- 50 mg-150 mg 1,000 PO DAILY Tobacco use date assessed: 01/25/25 Fall risk assessment: No Falls in past year Last assessed Fall Risk: 01/25/25 Dental Screening Dental Screen Date: 01/25/25 Did you have a dental visit in the last 12 months?: No Did you have a dental problem in the last 6 months where you did not have access to dental care?: No Was dental information given to patient?: No HPI Transfer Care from Dr. Day / f/u HPI Details Patient comes in today for her follow up visit - is transferring over from Dr. Day, who retired from the practice a few months ago States that she currently feels okay but would like to request for a referral to physical therapy again for her low back pain She is also seeing pain management for her chronic neck pain and just had her Sprint device removed a few months ago States that so far, she has not yet experienced any significant increase in her neck pain She denies any headaches or dizziness lately - states that her migraine headaches have also been well-controlled lately Denies any chest pains, no increased SOB No nausea/vomiting, no abdominal pain No change in bowel habits noted She has not follow up labs done recently [facility] Medical History (Updated 01/25/25 @ 15:21 by Hussein Shaffer MD) Osteoporosis Mixed hyperlipidemia Lumbar degenerative disc disease Esophageal dysmotility Breast cancer Migraine aura without headache Acute pain of right foot Cervical radiculitis Physical exam Women's annual routine gynecological examination Cervical cancer screening Hyperlipidemia Abdominal pain, right upper quadrant Ductal carcinoma in situ of right breast Hip pain, right Family history of colon cancer Physical exam Abdominal pain Flank pain Tick bite of back History of right breast cancer Hx of radiation therapy Migraines Arthritis GERD (gastroesophageal reflux disease) Surgical History H/O right mastectomy Hx of unilateral oophorectomy History of lumpectomy of right breast History of esophagogastroduodenoscopy (EGD) Hx of colonoscopy History of excision of lesion History of salpingo-oophorectomy History of cholecystectomy History of wisdom tooth extraction Family History Father Diabetes Mother Osteoporosis Mental health disorder Paternal Aunt Colon cancer Other Family history of breast cancer Family history of gastric cancer Family history of pancreatic cancer Family history of prostate cancer Social History Housing: House Are you a primary personal care attendant to a significant other at home: No Do you presently have visiting nurse or other home services: No Alcohol intake: current Alcohol intake frequency: a few times a month Patient Tobacco Use Status: Never used Tobacco e-Cigarette/Vaping Use: Never Used Second Hand Smoke Exposure: No service: No Current occupational status: employed 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 1. Little interest or pleasure in doing things: not at all 2. Feeling down, depressed, or hopeless: not at all 3. Trouble falling or staying asleep, or sleeping too much: not at all 4. Feeling tired or having little energy: not at all 5. Poor appetite or overeating: not at all 6. Feeling bad about yourself - or that you are a failure or have let yourself or your family down: not at all 7. Trouble concentrating on things, such as reading the newspaper or watching television: not at all 8. Moving or speaking so slowly that other people could have noticed. Or the opposite - being so fidgety or restless that you have been moving around a lot more than usual: not at all 9. Thoughts that you would be better off or of hurting yourself in some way: not at all Total score: 0 Depression Screening Interpretation: Negative Depression Screening Done: Yes 67168 - PHQ-9 Billing: Yes Source: Developed by Drs. Kenneth Martínez, Lisseth Oates, Gurwinder Ross and colleagues, with an educational norma from [email or web address]. Thrive Questionnaire Date Thrive assessed: 01/25/25 I am a: Patient What is your living situation today?: I have a steady place to live Within the past 12 months, did the food you bought not last and you didn't have the money to get more?: Never true Within the past 12 months, did you worry whether your food would run out before you got money to buy more?: Never true Do you have trouble paying for medicines?: No Do you have trouble getting transportation to medical appointments?: No Do you have trouble paying your heating and electricity bill?: No Do you have trouble taking care of your child, family member or friend?: No Do you have trouble with day-to-day activities such as bathing, preparing meals, shopping, managing finances, etc.?: No Are you currently unemployed and looking for a job?: No Are you interested in more education?: No Please select the resources that you would like help with: None Currently or been in a relationship where the following occur: No concerns reported THRIVE Score: 0 AUDIT C Alcohol Use Questionnaire (AUDIT-C) 1. How often do you have a drink containing alcohol?: Monthly or less 2. How many drinks containing alcohol do you have on a typical day when you are drinking?: 1 or 2 3. How often do you have six or more drinks on one occasion?: Never Total Score: 1 Score Reviewed/Action Taken: Yes CRISTINA-7 AMB Questionnaire CRISTINA-7 Date CRISTINA - 7 assessed: 01/25/25 Feeling nervous, anxious, or on edge: 0 = Not at all Not being able to stop or control worryin = Not at all Worrying too much about different things: 0 = Not at all Trouble relaxin = Not at all Being so restless that it is hard to sit still: 0 = Not at all Becoming easily annoyed or irritable: 1 = Several days Feeling afraid as if something awful might happen: 0 = Not at all Total CRISTINA-7 score (0-4 normal; 5-9 mild; 10-14 moderate; 15-21 severe): 1 Source: Developed by Drs. Kenneth Martínez, Lisseth Oates, Gurwinder Ross and colleagues, with an educational norma from [email or web address]. Review of Systems Const Denies chills, Denies fatigue, Denies fever(s) and Denies headache(s) ENT Denies dysphagia, Denies dizziness, Denies otalgia, Denies headache(s), Reports neck pain (chronic), Denies odynophagia and Denies sore throat Card Denies chest pain, Denies palpitations and Denies dyspnea Resp Denies chest congestion, Denies cough and Denies dyspnea GI Denies abdominal pain, Denies constipation, Denies dysphagia, Denies heartburn, Denies diarrhea, Denies nausea, Denies odynophagia and Denies vomiting Denies difficulty voiding, Denies nocturia, Denies dysuria and Denies urinary urgency Musc Reports back pain (over the lower back - chronic) and Reports neck pain (chronic) Skin/Breast Denies rash Neuro Denies dizziness, Denies headache(s) and Denies convulsions Endo Denies fatigue and Denies palpitations Physical exam (Primary Care) Vital Signs: Last Vital Signs Pulse 120 H 01/25/25 12:33 BP 120/82 01/25/25 12:33 Pulse Ox 97 01/25/25 12:33 Oxygen Delivery Method Room Air 01/25/25 12:33 BMI result Body Mass Index 22.1 Tobacco/Smoking Status: Tobacco use Status Tobacco use date assessed 01/25/25 01/25/25 12:38 Patient Tobacco Use Status Never used Tobacco 01/25/25 12:31 e-Cigarette/Vaping Use Never Used 01/25/25 12:31 PHQ-9: PHQ-9 Score PHQ-9: Total score 0 01/25/25 12:31 Depression Screening Interpretation: Negative Thrive Assessment: Date of Thrive Assessment Date Thrive assessed 01/25/25 01/25/25 12:38 Currently or been in a relationship where the following occur: No concerns reported Const General: no acute distress and alert HENMT Ears: TM's normal bilaterally and EAC's normal Throat: Yes posterior oropharynx normal and Yes tonsils normal (no TP congestion) Neck Neck: No lymphadenopathy and Yes tender Thyroid: Thyroid normal Resp Auscultation: clear to auscultation bilaterally, no rales and no wheezes Cardio Rate: tachycardic Rhythm: regular rhythm Heart sounds: no murmurs GI Palpation (GI): Soft to palpation and nontender Auscultation: normal bowel sounds General: Yes no CVA tenderness Back/Spine/Pelvis Back: no CVA tenderness Cervical Spine: Cervical spine tenderness Thoracic/Lumbar Spine: lumbar spinal tenderness Skin Rashes: no rashes Extrem General: Yes no clubbing, cyanosis or edema Coding Level of Care Code Est Pt Level 4 (96758) Diagnoses Degeneration of intervertebral disc of lumbar region with discogenic back pain M51.360 Disc-related pain type: discogenic back pain only Cervical spondylosis M47.812 Mixed hyperlipidemia E78.2 Migraine with aura and without status migrainosus, not intractable G43.109 Status migrainosus presence: without status migrainosus Intractability: not intractable Partial seizures R56.9 Gastroesophageal reflux disease without esophagitis K21.9 Esophagitis presence: without esophagitis History of breast cancer Z85.3 Age-related osteoporosis without current pathological fracture M81.0 Osteoporosis type: age-related Presence of current pathological fracture: without current pathological fracture Additional Codes PHQ-9 - 67283 - PHQ-9 Billing: Yes ([id number]) Assessment & Plan Assessment & Plan (1) Lumbar degenerative disc disease: Code(s): M51.369 - Other intervertebral disc degeneration, lumbar region without mention of lumbar back pain or lower extremity pain Category: Medical Qualifiers: Disc-related pain type: discogenic back pain only Qualified Code(s): M51.360 - Other intervertebral disc degeneration, lumbar region with discogenic back pain only Plan: Per request, will refer her to physical therapy to help calm and relieve her low back pain Lumbar spine x-rays last done pn 05/29/2024 revealed (+) levoscoliosis of the lumbar spine, with (+) degenerative disc changes at L2-3, L4-5 and L5-S1 disc levels. No visible acute fracture, dislocation or lytic process were seen (2) Cervical spondylosis: Code(s): M47.812 - Spondylosis without myelopathy or radiculopathy, cervical region Category: Medical Plan: Patient states that her chronic neck pains have been mostly manageable lately Her chronic neck pains reportedly responded well to peripheral nerve stimulation but she had to have her Sprint device removed a couple of months ago due to (allergic) reaction at the implantation site Patient states that her chronic neck pains have not really flared up much since her stim device was removed Follow up with pain management as scheduled (3) Mixed hyperlipidemia: Code(s): E78.2 - Mixed hyperlipidemia Category: Medical Plan: Reinforced low cholesterol diet Continue Atoravstatin 20 mg QD Will have patient recheck her labs and fasting lipids in 4 months for follow up (4) Migraine with aura: Code(s): G43.109 - Migraine with aura, not intractable, without status migrainosus Category: Medical Qualifiers: Status migrainosus presence: without status migrainosus Intractability: not intractable Qualified Code(s): G43.109 - Migraine with aura, not intractable, without status migrainosus Plan: Patient states that this has been well-controlled lately Continue Amitriptyline 10 mg Q HS for migraine headache prophylaxis and Sumatriptan 50 mg PRN Follow up with neurology as scheduled (5) Partial seizures: Code(s): R56.9 - Unspecified convulsions Category: Medical Plan: Patient reports no seizures in a long time now Continue Lamotrigine 50 mg BID Follow up with neurology as scheduled (6) GERD (gastroesophageal reflux disease): Code(s): K21.9 - Gastro-esophageal reflux disease without esophagitis Category: Medical Qualifiers: Esophagitis presence: without esophagitis Qualified Code(s): K21.9 - Gastro-esophageal reflux disease without esophagitis Plan: Dietary restrictions reinforced Continue Esomeprazole 20 mg BID (7) History of breast cancer: Code(s): Z85.3 - Personal history of malignant neoplasm of breast Category: Medical Plan: (+) Hx of right breast DCIS, diagnosed in 2000 - treated with lumpectomy and radiation Tx, followed by oral Tamoxifen x 5 years (+) recurrence of right breast DCIS, diagnosed in 2012 - this time treated with right mastectomy and with Anastrozole Tx x 5 years Follow up with Dr. Samuel as scheduled for continuing surveillance (8) Osteoporosis: Code(s): M81.0 - Age-related osteoporosis without current pathological fracture Category: Medical Qualifiers: Osteoporosis type: age-related Presence of current pathological fracture: without current pathological fracture Qualified Code(s): M81.0 - Age-related osteoporosis without current pathological fracture Plan: Her BMD was last done in July 2024 Continue Reclast 5 mg IV infusion once a year Plan Follow up in 6 months Orders: Orders PT Evaluation and Treatment Today M54.50 - Low back pain, unspecified Comprehensive [place]ell. Panel Fast 6 Months E78.00 - Pure hypercholesterolemia, unspecified TSH reflex Free T4 6 Months E78.00 - Pure hypercholesterolemia, unspecified Vitamin D 25-OH Total 6 Months E55.9 - Vitamin D deficiency, unspecified Lamotrigine Lamictal 6 Months R56.9 - Unspecified convulsions Complete Blood Count Auto Diff 6 Months D64.9 - Anemia, unspecified Lipid Panel 6 Months E78.00 - Pure hypercholesterolemia, unspecified UA CC w/rflx Micro + Cult 6 Months R30.0 - Dysuria Vitamin B12 and Folate 6 Months E53.8 - Deficiency of other specified B group vitamins
[2025-01-25 12:33] VITALS: BP 120/82; PULSE 120; O2SAT 97; BMI 22.1
--- OUTSIDE RECORDS SUMMARY | 2025-01-25 12:54 | XMS_ITS | Patient Health Record ---
Author Organization [facility] Address [address] [place] [address] Care Team Providers Care Plating Engineer Name Role Phone Carlitos Bender Jr Reason For Referral No Information Plan Of Treatment No Information
--- OUTSIDE RECORDS SUMMARY | 2025-01-25 12:54 | XMS_ITS | Patient Health Record ---
Author Organization Kenneth Samuel III, MD Address [address] [facility] [place] [address] Care Team Providers Care Bouffant Curtain Machine Tender Name Role Phone Edmund JONES, [place] Primary Care Provider UnaKenneth Trotter Unavailable [phone] Allergies Allergen (clinical drug ingredient) Drug/Non Drug Allergy documented on EMR Reaction Allergy Type Onset Date Status Penicillin Unknown Drug Allergy Active No Known Food Allergy Unknown Drug Allergy Active neomycin Neomycin rash Drug Allergy Active Adhesive rash Allergy Active Results Component Value Reference Range Notes Complete Blood Count Auto Di ff Reviewed date:06/23/2024 05:40:57 PM Interpretation: Performing Lab:[facility], [address] [place] [id number] Notes/Report: White Blood Count 5.7 4.8-10.8 X10*3/uL [...] NRBC Abs Auto 0.000 0.0-0.012 X10*3/uL Comprehensive [place]. Panel Fa st Reviewed date:06/23/2024 05:40:57 PM Interpretation: Performing Lab:[facility], [address] [place] [address] Notes/Report: Sodium 141 135-145 mmol/L Potassium 3.9 [...] Panel Reviewed date:06/23/2024 05:40:57 PM Interpretation: Performing Lab:[facility], [address] [place] [address] [place] [address] Notes/Report: Triglycerides 64 <150 mg/dL Desirable Triglyceride: [...] date:10/03/2024 04:57:38 AM Interpretation: Performing Lab: Notes/Report: [address] [place] [address] Mammography Report Signed Patient: Sabrina Peter MR#: [id number] : 1960 Acct:[id number] Age/Sex: 63 / F ADM Date: 08/20/24 Loc: HO.MAMMO Attending Dr: Kenneth Samuel MD Ordering Physician: Kenneth Samuel MD Results: 1Negativ e Date of Service: 08/20/24 Follow Up: 1 Year From [facility] Mammogram Procedure(s): MM tomosynthesis screening Accession Number(s): [id number] cc: Kenneth Samuel MD; Miah Day MD [...] by: Blanquita Serna DO 08/24/2024 03:02 PM [facility] Dictated By: Blanquita Serna DO Signed By: <Electronically signed by Blanquita Serna DO in OV> 08/24/24 1502 DD/ 1315 TD/TT: 08/20/24 1325 Pharmacy Informatics Specialist: [place] [facility] [address] [place] [address] Mammography Report Signed Patient: Sabrina Peter MR#: [id number] : 1960 Acct:[id number] Age/Sex: 63 / F ADM Date: 08/20/24 Loc: HO.MAMMO Attending Dr: Kenneth Samuel MD Ordering Physician: Kenneth Samuel MD Results: 1Negativ e Date of Service: 08/20/24 Follow Up: 1 Year From [facility] Mammogram Procedure(s): MM tomosynthesis screening LT Accession Number(s): [id number] cc: Kenneth Samuel MD; Miah Day MD [...] 08/24/24 1502 DD/ 1315 TD/TT: 08/20/24 1325 Pharmacy Informatics Specialist: XR DEXA axial skeleton Reviewed date:10/03/2024 04:57:38 AM Interpretation: Performing Lab: Notes/Report: [address] [place] [address] Mammography Report Signed Patient: Sabrina Peter MR#: [id number] : 1960 Acct:[id number] Age/Sex: 63 / F ADM Date: 08/20/24 Loc: HO.MAMMO Attending Dr: Kenneth Samuel MD Ordering Physician: Kenneth Samuel MD Results: Date of Service: 08/20/24 Follow Up: Procedure(s): XR DEXA axial skeleton Accession Number(s): [id number] cc: Kenneth Samuel MD; Miah Day MD EXAMINATION: DXA BONE DENSITY AXIAL HISTORY: Estrogen deficiency TECHNIQUE: Wallerius Dual energy absorptiometry (DEXA) of the lumbar [...] of the [employer] [place] for Metabolic Bone Disease, a World Health Organization (WHO) Collaborating Center. Electronically signed by: Kenneth Mirza MD 08/20/2024 02:05 PM [facility] Dictated By: Kenneth Mirza MD Signed By: <Electronically signed by Kenneth Mirza MD in OV> 08/20/24 1405 DD/ 1330 TD/TT: 08/20/24 1402 Pharmacy Informatics Specialist: [facility] [address] [place] [address] Mammography Report Signed Patient: Sabrina Peter MR#: [id number] : 1960 Acct:[id number] Age/Sex: 63 / F ADM Date: 08/20/24 Loc: HO.MAMMO Attending Dr: Kenneth Samuel MD Ordering Physician: Kenneth Samuel MD Results: Date of Service: 08/20/24 Follow Up: Procedure(s): XR DEX A axial skeleton Accession Number(s): [id number] cc: Kenneth Samuel MD; Miah Day MD EXAMINATION: DXA BON E DENSITY AXIAL HISTORY: Estrogen deficiency TECHNIQUE: Wallerius Dual energy absorptiometry (DEXA) of the lumbar [...] is a trademark of the [employer] [place] for Metabolic Bone Disease, a World Health Organization (WHO) Collaborating Center. Electronically eliud d by: Kenneth Mirza MD 08/20/2024 02:05 PM [facility] Dictated By: Kenneth Mirza MD Signed By: <Electronically signed by Kenneth Mirza MD in OV> 08/20/24 1405 DD/ 1330 TD/TT: 08/20/24 1402 Pharmacy Informatics Specialist: Reason For Referral No Information Medications Medication [...] Problem Status W/U Status Risk Notes Problem 390496843 Malignant neopla sm of unspecified site of right female breast (C50.911) Active confirmed She remains in remission. Surveillance continues. Problem 88876430 Calculus of gallbladder without cholecystitis without obstruction (K80.20) Active confirmed These are asymptomatic and that there is no pain in the right upper quadrant on deep palpation. Problem 77955643 Age-related osteoporosis without current pathological fracture (M81.0) Active confirmed She has bee n compliant with her medications. No change in her regimen was made.She received 5 mg of zoledronic acid intravenously today over 30 min. without difficulty. Problem Osteoporosis (49600341) Other osteoporosis without current pathological fracture (M81.8) Active confirmed She will receive the Reclast on schedule. She is asymptomatic. Problem Sensory disorder of smell and/or taste (377192640815 3) Unspecified disturbances of smell and taste (R43.9) Active confirmed She has been to the neurologist and evaluation for seizure disorder is under way. She continues to experience is smelled something burning intermittently. 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 She will be seen in August 2017 at which time her endocrine therapy will be discontinued. She will be due for a bone density. Problem 069358079 Pure hypercholesterolemia (E78.00) Active confirmed Her lipids are being checked 3 times a year. No change in her regimen was needed. Problem 157635259 Nonintractable epilepsy without status epilepticus, unspecified epilepsy type (G40.909) Active confirmed She has been compliant with her regimen. The old factory hallucinations have resolved. Vital Signs Heart Rate 76 /min 12/30/2024 Temperature 98.6 degrees Fahrenheit 12/30/2024 Blood pressure diastolic 72 mm Hg 12/30/2024 Height 71 in 12/30/2024 Blood pressure systolic 118 mm Hg 12/30/2024 Weight 156 lbs 12/30/2024 BMI 21.76 kg/m2 12/30/2024 Encounters Encounter Location Date Provider Diagnosis Kenneth Samuel III, MD [address] [place] [address] [place] [address] 03/02/2024 Kenneth Samuel Osteoporosis, unspec ified osteoporosis type, unspecified pathological fracture presence M81.0 ; Malignant neoplasm of unspecified site of right female breast C50.911 ; Pure hypercholesterolemia E78.00 ; Weight loss R63.4 and Nonintractable epilepsy without status epilepticus, unspecified epilepsy type G40.909 Kenneth Samuel III, MD [address] [place] [address] [place] [address] 07/06/2024 Kenneth Samuel Age-related osteopor osis without current pathological fracture M81.0 ; Breast cancer C50.919 ; DCIS (ductal carcinoma in situ), right D05.11 and Malignant neoplasm of unspecified site of right female breast C50.911 Kenneth Samuel III, MD [address] [place] [address] [place] [address] 12/30/2024 Kenneth Samuel Other osteoporosis w ithout current pathological fracture M81.8 ; Malignant neoplasm of unspecified site of right female breast C50.911 and Unspecified disturbances of smell and taste R43.9 Kenneth Samuel III, MD [address] [place] [address] [place] [address] 07/07/2024 Kenneth Samuel III, MD [address] [place] [address] [place] [address] 07/07/2024 Kenneth Samuel III, MD [address] [place] [address] [address] [place] [address] 06/24/2024 Kenneth Samuel III, MD [address] [place] [address] [address] [place], [place] [address] 06/25/2024 Kenneth Samuel Assessments Encounter Date Diagnosis [...] intravenously today over 30 min. without difficulty. 12/30/2024 Malignant neoplasm o f unspecified site of right female breast (ICD-10 - C50.911) She remains in remission. Surveillance continues. 12/30/2024 Other osteoporosis without current pathological fracture (ICD-10 - M81.8) She will receive the Reclast on schedule. She is asymptomatic. 03/02/2024 Pure hypercholestero lemia (ICD-10 - E78.00) [...] will be due for a bone density. 12/30/2024 Unspecified disturba nces of smell and taste (ICD-10 - R43.9) She has been to the neurologist and evaluation for seizure disorder is under way. She continues to experience is smelled something burning intermittently.This problem is now resolved 03/02/2024 Weight loss (ICD-10 - R63.4) She [...] Date PROFILE, FASTING (COMPREHENSIVE METABOLI C) 12/30/2024 PROFILE, RANDOM (COMPREHENSIVE METABOLIC ) 07/12/2020 PROFILE, RANDOM (COMPREHENSIVE METABOLIC ) 01/11/2020 CBC w DIFF 01/11/2020 CBC w DIFF 12/30/2024 CBC w DIFF 07/12/2020 SED RATE (ESR) 07/12/2020 CA 27.29 07/12/2020 BONE DENSITY DEXA 03/02/2024 Lipid Panel 12/30/2024 Next Appt Details Provider Name:Kenneth Samuel, 07/13/2025 09:00:00 AM, [address] [place] [address] , [facility] [address], [place], [address], Insurance Providers Payer Name Payer Address Payer Phone Subscriber Number Group Number Insured Name Patient Relationship to Insured Coverage Start Date Coverage End Date [address] [facility] [place] [phone] [id number] Sabrina Peter Self - patient is the insured Medical (General) History Medical History History ICD Code stage I invasive carcinoma right breast with DCIS [id number] cholelithiasis anastrozole ended August 2017 Surgical History Surgery Date(Month/Year) mastectomy right breast, sentinel node b iopsy 07/22/2012 lumpectomy, right breast 2001 oophorectomy of the right ov jagdish and fallopian tube, negative pathlogy 09/2007 cholecystectomy 11/2010
== END 2025-01-25 13:11 | disposition home or self-care (01) ==
LOC: HO.HMCH 12:22
PROVIDERS: PCP Internal Medicine; Visit Provider Internal Medicine
DX: M51.360 Other intervertebral disc degeneration, lumbar region with discogenic back pain only (principal); M47.812 Spondylosis without myelopathy or radiculopathy, cervical region; E78.2 Mixed hyperlipidemia; G43.109 Migraine with aura, not intractable, without status migrainosus; K21.9 Gastro-esophageal reflux disease without esophagitis; Z85.3 Personal history of malignant neoplasm of breast; M81.0 Age-related osteoporosis without current pathological fracture

== ENCOUNTER → 2025-01-25 12:21 | Outpatient (BNVA) | payer OTHER, SELFPAY | PROVIDERS: PCP Internal Medicine; Visit Provider Internal Medicine | DX: M51.360 Other intervertebral disc degeneration, lumbar region with discogenic back pain only (principal); M47.812 Spondylosis without myelopathy or radiculopathy, cervical region; G89.29 Other chronic pain; E78.2 Mixed hyperlipidemia; G43.109 Migraine with aura, not intractable, without status migrainosus; R56.9 Unspecified convulsions; K21.9 Gastro-esophageal reflux disease without esophagitis; M81.0 Age-related osteoporosis without current pathological fracture; E78.00 Pure hypercholesterolemia, unspecified; E55.9 Vitamin D deficiency, unspecified; D64.9 Anemia, unspecified; R30.0 Dysuria; E53.8 Deficiency of other specified B group vitamins; Z85.3 Personal history of malignant neoplasm of breast | CPT/HCPCS: 96127 ==

== ENCOUNTER 2025-02-12 07:49 | Outpatient (REF) | payer OTHER, SELFPAY ==
--- OUTSIDE RECORDS SUMMARY | 2025-02-12 07:52 | XMS_ITS | Patient Health Record ---
Author Organization Kenneth Samuel III, MD Address [address] [facility] [place] [address] Care Team Providers Care Orthopaedic Nurse Name Role Phone Edmund JONES, [place] Primary Care Provider UnaKenneth Trotter Unavailable [phone] Allergies Allergen (clinical drug ingredient) Drug/Non Drug Allergy documented on EMR Reaction Allergy Type Onset Date Status Penicillin Unknown Drug Allergy Active No Known Food Allergy Unknown Drug Allergy Active neomycin Neomycin rash Drug Allergy Active Adhesive rash Allergy Active Results Component Value Reference Range Notes Complete Blood Count Auto Di ff Reviewed date:06/23/2024 05:40:57 PM Interpretation: Performing Lab:[facility], [address] [place] [address] Notes/Report: White Blood Count 5.7 4.8-10.8 X10*3/uL [...] NRBC Abs Auto 0.000 0.0-0.012 X10*3/uL Comprehensive [place]. Panel Fa st Reviewed date:06/23/2024 05:40:57 PM Interpretation: Performing Lab:[facility], [address] [place] [address] Notes/Report: Sodium 141 135-145 mmol/L Potassium 3.9 [...] Panel Reviewed date:06/23/2024 05:40:57 PM Interpretation: Performing Lab:[facility], [address] [place] [address] [place] [address] Notes/Report: Triglycerides 64 <150 mg/dL Desirable Triglyceride: [...] date:10/03/2024 04:57:38 AM Interpretation: Performing Lab: Notes/Report: [address] [place] [address] Mammography Report Signed Patient: Sabrina Peter MR#: [id number] : 1960 Acct:[id number] Age/Sex: 63 / F ADM Date: 08/20/24 Loc: HO.MAMMO Attending Dr: Kenneth Samuel MD Ordering Physician: Kenneth Samuel MD Results: 1Negativ e Date of Service: 08/20/24 Follow Up: 1 Year From [facility] Mammogram Procedure(s): MM tomosynthesis screening Accession Number(s): [id number] cc: Kenneth Samuel MD; Miah Day MD [...] by: Blanquita Serna DO 08/24/2024 03:02 PM [facility] Dictated By: Blanquita Serna DO Signed By: <Electronically signed by Blanquita Serna DO in OV> 08/24/24 1502 DD/ 1315 TD/TT: 08/20/24 1325 Project Asst: [place] [facility]'s [address] [place] [address] Mammography Report Signed Patient: Sabrina Peter MR#: [id number] : 1960 Acct:[id number] Age/Sex: 63 / F ADM Date: 08/20/24 Loc: HO.MAMMO Attending Dr: Kenneth Samuel MD Ordering Physician: Kenneth Samuel MD Results: 1Negativ e Date of Service: 08/20/24 Follow Up: 1 Year From [facility] Mammogram Procedure(s): MM tomosynthesis screening LT Accession Number(s): [id number] cc: Kenneth Samuel MD; Miah Day MD [...] 1502 DD/ 1315 TD/TT: 08/20/24 1325 Project Asst: XR DEXA axial skeleton Reviewed date:10/03/2024 04:57:38 AM Interpretation: Performing Lab: Notes/Report: [address] [place] [address] Mammography Report Signed Patient: Sabrina Peter MR#: [id number] : 1960 Acct:[id number] Age/Sex: 63 / F ADM Date: 08/20/24 Loc: HO.MAMMO Attending Dr: Kenneth Samuel MD Ordering Physician: Kenneth Samuel MD Results: Date of Service: 08/20/24 Follow Up: Procedure(s): XR DEXA axial skeleton Accession Number(s): [id number] cc: Kenneth Samuel MD; Miah Day MD EXAMINATION: DXA BONE DENSITY AXIAL HISTORY: Estrogen deficiency TECHNIQUE: [place]y's Dual energy absorptiometry (DEXA) of the lumbar [...] is a trademark of the [employer] [place] for Metabolic Bone Disease, a World Health Organization (WHO) Collaborating Center. Electronically signed by: Kenneth Mirza MD 08/20/2024 02:05 PM [facility] Dictated By: Kenneth Mirza MD Signed By: <Electronically signed by Kenneth Mirza MD in OV> 08/20/24 1405 DD/ 1330 TD/TT: 08/20/24 1402 Project Asst: [facility] [address] [place] [address] Mammography Report Signed Patient: Sabrina Peter MR#: [id number] : 1960 Acct:[id number] Age/Sex: 63 / F ADM Date: 08/20/24 Loc: HO.MAMMO Attending Dr: Kenneth Samuel MD Ordering Physician: Kenneth Samuel MD Results: Date of Service: 08/20/24 Follow Up: Procedure(s): XR DEX A axial skeleton Accession Number(s): [id number] cc: Kenneth Samuel MD; Miah Day MD EXAMINATION: DXA BON E DENSITY AXIAL HISTORY: Estrogen deficiency TECHNIQUE: Bergey's Dual energy absorptiometry (DEXA) of the lumbar [...] of the [employer] [place] for Metabolic Bone Disease, a World Health Organization (WHO) Collaborating Center. Electronically eliud d by: Kenneth Mirza MD 08/20/2024 02:05 PM [facility] Dictated By: Kenneth Mirza MD Signed By: <Electronically signed by Kenneth Mirza MD in OV> 08/20/24 1405 DD/ 1330 TD/TT: 08/20/24 1402 Project Asst: Reason For Referral No Information Medications Medication [...] Problem Status W/U Status Risk Notes Problem 442941695 Malignant neopla sm of unspecified site of right female breast (C50.911) Active confirmed She remains in remission. Surveillance continues. Problem 84435369 Calculus of gallbladder without cholecystitis without obstruction (K80.20) Active confirmed These a re asymptomatic and that there is no pain in the right upper quadrant on deep palpation. Problem 42899699 Age-related osteoporosis without current pathological fracture (M81.0) Active confirmed She has bee n compliant with her medications. No change in her regimen was made.She received 5 mg of zoledronic acid intravenously today over 30 min. without difficulty. Problem Other osteoporos is without current pathological fracture (M81.8) Active confirmed She will receive the Reclast on schedule. She is asymptomatic. Problem Sensory disorder of smell and/or taste (5537665432 103) Unspecified disturbances of smell and taste (R43.9) Active confirmed She has be en to the neurologist and evaluation for seizure disorder is under way. She continues to experience is smelled something burning intermittently. 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 She will be seen in August 2017 at which time her endocrine therapy will be discontinued. She will be due for a bone density. Problem 762007821 Pure hypercholesterolemia (E78.00) Active confirmed Her lipids are being checked 3 times a year. No change in her regimen was needed. Problem 143843185 Nonintractable epilepsy without status epilepticus, unspecified epilepsy [...] Date Provider Diagnosis Kenneth Samuel III, MD [address] [place] [address] [place] [address] 03/02/2024 Kenneth Samuel Osteoporosis, unspec ified osteoporosis type, unspecified pathological fracture presence M81.0 ; Malignant neoplasm of unspecified site of right female breast C50.911 ; Pure hypercholesterolemia E78.00 ; Weight loss R63.4 and Nonintractable epilepsy without status epilepticus, unspecified epilepsy type G40.909 Kenneth Samuel III, MD [address] [place] [address] [place] [address] 07/06/2024 Kenneth Samuel Age-related osteopor osis without current pathological fracture M81.0 ; Breast cancer C50.919 ; DCIS (ductal carcinoma in situ), right D05.11 and Malignant neoplasm of unspecified site of right female breast C50.911 Kenneth Samuel III, MD [address] [place] [address] [place] [address] 12/30/2024 Kenneth Samuel Other osteoporosis w ithout current pathological fracture M81.8 ; Malignant neoplasm of unspecified site of right female breast C50.911 and Unspecified disturbances of smell and taste R43.9 Kenneth Samuel III, MD [address] [place] [address] [place] [address] 07/07/2024 Kenneth Samuel III, MD [address] [place] [address] [place] [address] 07/07/2024 Kenneth Samuel III, MD [address] [place] [address] [address] [place], [place] [address] 06/24/2024 Kenneth Samuel III, MD [address] [place] [address] [address] [place], [place] [address] 06/25/2024 Kenneth Samuel Assessments Encounter Date Diagnosis [...] Details Provider Name:Kenneth Samuel, 07/13/2025 09:00:00 AM, [address] [place] [address] , [address], [place], [address], Insurance Providers Payer Name Payer Address Payer Phone Subscriber Number Group Number Insured Name Patient Relationship to Insured Coverage Start Date Coverage End Date [address] [facility] [place] [phone] [id number] Sabrina Peter Self - patient is the insured Medical (General) History Medical History History ICD Code stage I invasive carcinoma right breast with DCIS [id number] cholelithiasis anastrozole ended August 2017 Surgical History Surgery Date(Month/Year) mastectomy right breast, sentinel node b iopsy 07/22/2012 lumpectomy, right breast 2001 oophorectomy of the right ov jagdish and fallopian tube, negative pathlogy 09/2007 cholecystectomy 11/2010
--- OUTSIDE RECORDS SUMMARY | 2025-02-12 07:52 | XMS_ITS | Patient Health Record ---
Author Organization [facility] Address [address] [place] [address] Care Team Providers Care Senior Net Web Developer Name Role Phone Carlitos Bender Jr Reason For Referral No Information Plan Of Treatment No Information
== END 2025-02-12 07:50 | disposition home or self-care (01) ==
LOC: HO.LAB 07:49
PROVIDERS: PCP Internal Medicine; Visit Provider Registered Nurse
DX: G43.109 Migraine with aura, not intractable, without status migrainosus (principal)
CPT/HCPCS: 36415; 85652

== ENCOUNTER 2025-03-12 08:36 | Outpatient (REF) | payer OTHER, SELFPAY ==
--- NOTE | ~2025-03-12 | FL_ITS ---
EXAMINATION: XR BARIUM SWALLOW CLINICAL INFORMATION: Gastroesophageal reflux disease without esophagitis. COMPARISON: None available. TECHNIQUE: Routine barium swallow was performed in upright view with thick barium and saltine crackers and thin barium in prone lying position. FINDINGS: Following oral administration of thick barium there is normal propagation bolus from the oral cavity through the pharynx, esophagus into stomach without obstruction, narrowing of stricture. No intraluminal filling defect or extrinsic compression seen. On oral administration of saltine crackers and thick barium there is normal oral mastication and propagation of solid food from the oral cavity, pharynx, esophagus into stomach. On placing patient prone lying and oral administration of thin barium there is good distention of the esophagus without obstruction, narrowing or stricture. There is a small sliding hiatal hernia without gastroesophageal reflux. FLUOROSCOPY TIME: 2 minute 14 seconds DOSE AREA PRODUCT: 23.37 uGy-m2 (microgray-meter squared) FL/FL barium swallow IMPRESSION: Small sliding hiatal hernia. No gastroesophageal reflux, obstruction or narrowing seen in the esophagus. Electronically signed by: Sridhar Meyers MD 03/12/2025 10:04 AM EDT
== END 2025-03-12 08:37 | disposition home or self-care (01) ==
LOC: HO.XRAY 08:36
PROVIDERS: PCP Internal Medicine; Visit Provider Nurse Practitioner
DX: K21.9 Gastro-esophageal reflux disease without esophagitis (principal)
CPT/HCPCS: 74220

== ENCOUNTER → 2025-03-12 08:37 | Outpatient (BNV) | payer OTHER, SELFPAY | PROVIDERS: PCP Internal Medicine; Visit Provider Radiology Diagnostic Radiology | DX: K21.9 Gastro-esophageal reflux disease without esophagitis (principal); K44.9 Diaphragmatic hernia without obstruction or gangrene | CPT/HCPCS: 74220 ==

== ENCOUNTER 2025-03-20 10:10 | Outpatient (AMB) | payer OTHER, SELFPAY ==
--- OUTSIDE RECORDS SUMMARY | 2024-06-25 11:42 | XMS_ITS ---
Author Organization Kenneth Samuel III, MD Address [address] [place] [address] Care Team Providers Care Ship Officer Name Role Phone Edmund JONES [place] Primary Care Provider Unava ilDr. Kenneth Devlin III [facility] REASON FOR VISIT Ultrasound Social History Sex Assigned At : Social History Observation Description Sex Assigned At Female Encounters Encounter Location Date Provider Diagnosis Kenneth Samuel III, MD [address] [place] [address] [place] [address] 06/25/2024 Kenneth Samuel Plan Of Treatment Next Appt Details Provider Name:Kenneth Samuel , 07/13/2025 09:00:00 AM, [address] [place] [address] [place], [address], Progress Notes * Geeta PETERB: 9[birth year] (63 yo F)Acc No.[id number]:06/25/2024 Patient: Va Sabrina BIRD :1960 A ge:63 Y S ex:Female Address:[place] [address] * true * Date: Generated for Printi ng/Faxing/eTransmitting on: 0 03/20/2025 10:13 AM EDT
--- OUTSIDE RECORDS SUMMARY | 2024-07-06 05:00 | XMS_ITS ---
Author Organization Kenneth Samuel III, MD Address [address] [place] [address] [place] [address] Care Team Providers Care Railcar Mechanic Name Role Phone Nicolas Shaffer MDneth Primary Care Provider Dr. Kenneth Alvarado III [facility] Allergies Allergen (clinical [...] Provider Diagnosis Kenneth Samuel III, MD [address] [place] [address] [place] [address] 07/06/2024 Kenneth Samuel Age-related osteoporosis without current [...] Name:Kenneth Samuel , 07/13/2025 09:00:00 AM, [address] [place] [address] [address], [place], [address], Procedure Notes * Category Sub-Category Detail Notes Chemotherapy Start and End Time: , start, 9:0 0 am, end, 10:00 am Site: left hand Consent: verbal consent was o btained prior to procedure Medications given: Zoledronic acid 5 mg ([facility] 72511-475-35) Monitored by: SANTOS Velez port flush none route IV Progress Notes * DESTINEYREINIER GeetaB: [birth year] (63 yo F)Acc No.[id number]:07/06/2024 Patient: Sabrina GARZA Provider: Dania Samuel MD :1960 A ge:63 Y S ex:Female Date:07/06/2024 Address:[address] [place] [address], [facility] Pcp:Miah Day MD Subjective: * Chief Complaints: * H istory of right breast cancerOsteoporosisDCIS * HPI: C OVID-19 Screening: She returns for a 6 month checkup of her carcinoma of the breast and to receive an intravenous infusion of 5 mg of zoledronic acid which she receives once a year for osteoporosis. She felt said [place] which she spent alone. She has developed [...] ggressive non-smoker S he was born in [place]. She has been to Benja for 18 years. They have no children. 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 Site: [facility]. Consent: v erbal consent was obtained prior to procedure.? Medications given: Z oledronic acid 5 mg ([facility] 94845-667-13). Monitored by: SANTOS Olsen. port flush n one. route I V. * Procedure Codes: J 3489 INJECTION ZOLEDRONIC ACID 1 [id number] CHEMO, IV INFUSION, 1 HR * Follow Up: 6 Months (Reason: ov) * Images: * Sign off status: Completed true * Provider: Dania Samuel MD Date: 0 07/06/2024 Generated for Riccardo dunn/Юлия/Alexandreitting on: 0 03/20/2025 10:12 AM EDT History and Physical Notes * [...]
--- OUTSIDE RECORDS SUMMARY | 2024-07-07 09:31 | XMS_ITS ---
Author Organization Kenneth Samuel III, MD Address [address] [place] [address] Care Team Providers Care Bindery Supervisor Name Role Phone Edmund JONES [place] Primary Care Provider Unava ilDr. Kenneth Devlin III [facility] [phone] REASON FOR VISIT Rx Request Social History Sex Assigned At : Social History Observation Description Sex Assigned At Female Encounters Encounter Location Date Provider Diagnosis Kenneth Samuel III, MD [address] [place] [address] [place] [address] 07/07/2024 Kenneth Samuel Plan Of Treatment Next Appt Details Provider Name:Kenneth Samuel , 07/13/2025 09:00:00 AM, [address] [place] [address] [place], [address], Progress Notes * Geeta PETERB: [birth year] (63 yo F)Acc No.[id number]:07/07/2024 Patient: Va Sabrina BIRD :1960 A ge:63 Y S ex:Female Address:[place] [address] * true * Date: Generated for Printi ng/Faxing/eTransmitting on: 0 03/20/2025 10:13 AM EDT
--- OUTSIDE RECORDS SUMMARY | 2024-07-07 10:00 | XMS_ITS ---
Author Organization Kenneth Samuel III, MD Address [address] [place] [address] [place] [address] Care Team Providers Care Vocal Performer Name Role Phone Edmund JONES Hussein Primary Care Provider Unava Dr. Kenneth Kuhn III [facility] Medications Medication SIG (Take, Route, Fr [...] Date Provider Diagnosis Kenneth Samuel III, MD [address] [place] [address] [place] [address] 07/07/2024 Kenneth Samuel Plan Of Treatment Medication Medication Name Sig Start Date Stop Date Notes Azithromycin 250 MG as directed Orally 2 Tablets on the first day, one tablet the rest of the days for 5 days 07/07/2024 Next Appt Details Provider Name:Kenneth Samuel , 07/13/2025 09:00:00 AM, [address] [place] [address] [place], [address], Progress Notes * Geeta PETERB: [birth year] (63 yo F)Acc No.[id number]:07/07/2024 Patient: Sabrina GARZA :1960 A ge:63 Y S ex:Female Address:[address] [place] [address] * Refills Start Azithromycin Tablet, 250 MG, Orally, 6, as directed, 2 Tablets on the first day, one tablet the rest of the days, 5 days, Refills=0 * true * Date: Generated for Riccardo dunn/Юлия/Alexandreitting on: 0 03/20/2025 10:12 AM EDT
--- OUTSIDE RECORDS SUMMARY | 2024-12-30 05:30 | XMS_ITS ---
Author Organization Kenneth Samuel III, MD Address [address] [place] [address] [place] [address] Care Team Providers Care Material Cutter Name Role Phone Edmund JONES Hussein Primary Care Provider Dr. Kenneth Alvarado III [facility] Allergies Allergen (clinical [...] Problem Sensory disorder of smell and/or taste ([id number] 103) Unspecified disturbances of smell and taste [...] Date Provider Diagnosis Kenneth Samuel III, MD [address] [place] [address] [place] [address] 12/30/2024 Kenneth Samuel Other osteoporosis without current [...] Provider Name:Kenneth Breauxne , 07/13/2025 09:00:00 AM, [address] [place] [address], [place] [address], [place], [address], Progress Notes * Geeta PETERB: [birth year] (64 yo F)Acc No.[id number]:12/30/2024 Progress Notes Patient: Sabrina GARZA Provider: Dania Samuel MD :1960 A ge:64 Y S ex:Female Date:12/30/2024 Address:[address] [place], [place] [id number] Pcp:Hussein Shaffer MD Subjective: * Chief Complaints: [...] ggressive non-smoker S he was born in [place]. She has been to Benja for 18 years. They have no children. 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 * Medications: N ot-Taking/PRNNexIUM 24HR 20 MG [...] 0 12/30/2024 Generated for Eni ng/Favanceg/eTransmitting on: 0 03/20/2025 10:13 AM EDT History and Physical Notes * [...]
--- OUTSIDE RECORDS SUMMARY | 2025-03-20 10:12 | XMS_ITS | Patient Health Record ---
Author Organization Kenneth Samuel III, MD Address [address] [place] [address] Care Team Providers Care Youth Manager Name Role Phone Edmund JONES, Hussein Primary Care Provider Dr. Kenneth Alvarado III Unavailable [phone] Allergies Allergen (clinical drug ingredient) Drug/Non Drug Allergy documented on EMR Reaction Allergy Type Onset Date Status Penicillin Unknown Drug Allergy Active No Known Food Allergy Unknown Drug Allergy Active neomycin Neomycin rash Drug Allergy Active Adhesive rash Allergy Active Results Component Value Reference Range Notes Complete Blood Count Auto Di ff Reviewed date:06/23/2024 05:40:57 PM Interpretation: Performing Lab:[facility], [address] [place] [id number] Notes/Report: White Blood Count 5.7 4.8-10.8 X10*3/uL [...] NRBC Abs Auto 0.000 0.0-0.012 X10*3/uL Comprehensive [place]. Panel Fa st Reviewed date:06/23/2024 05:40:57 PM Interpretation: Performing Lab:[facility], [address] [place] [id number] Notes/Report: Sodium 141 135-145 mmol/L Potassium 3.9 [...] Panel Reviewed date:06/23/2024 05:40:57 PM Interpretation: Performing Lab:[facility], [address] [facility] [address] Notes/Report: Triglycerides 64 <150 mg/dL Desirable Triglyceride: [...] date:10/03/2024 04:57:38 AM Interpretation: Performing Lab: Notes/Report: [address] [place] [address] Mammography Report Signed Patient: Sabrina Peter MR#: [id number] : 1960 Acct:[id number] Age/Sex: 63 / F ADM Date: 08/20/24 Loc: HO.MAMMO Attending Dr: Kenneth Samuel MD Ordering Physician: Kenneth Samuel MD Results: 1Negativ e Date of Service: 08/20/24 Follow Up: 1 Year From [facility] Mammogram Procedure(s): MM tomosynthesis screening Accession Number(s): [id number] cc: Kenneth Samuel MD; Miah Day MD [...] 08/24/24 1502 DD/ 1315 TD/TT: 08/20/24 1325 Soccer Commentator: [place] [facility] [address] [place] [address] Mammography Report Signed Patient: Sabrina Peter MR#: [id number] : 1960 Acct:[id number] Age/Sex: 63 / F ADM Date: 08/20/24 Loc: HO.MAMMO Attending Dr: Kenneth Samuel MD Ordering Physician: Kenneth Samuel MD Results: 1Negativ e Date of Service: 08/20/24 Follow Up: 1 Year From [facility] Mammogram Procedure(s): MM tomosynthesis screening LT Accession Number(s): [id number] cc: Kenneth Samuel MD; Miah Day MD [...] by: Blanquita Serna DO 08/24/2024 03:02 PM [facility] Dictated By: Blanquita Serna DO Signed By: <Electronically signed by Blanquita Serna DO in OV> 08/24/24 1502 DD/ 1315 TD/TT: 08/20/24 1325 Soccer Commentator: XR DEXA axial skeleton Reviewed date:10/03/2024 04:57:38 AM Interpretation: Performing Lab: Notes/Report: [address] [place] [address] Mammography Report Signed Patient: Sabrina Peter MR#: [id number] : 1960 Acct:[id number] Age/Sex: 63 / F ADM Date: 08/20/24 Loc: HO.MAMMO Attending Dr: Kenneth Samuel MD Ordering Physician: Kenneth Samuel MD Results: Date of Service: 08/20/24 Follow Up: Procedure(s): XR DEXA axial skeleton Accession Number(s): [id number] cc: Kenneth Samuel MD; Miah Day MD EXAMINATION: DXA BONE DENSITY AXIAL HISTORY: Estrogen deficiency TECHNIQUE: [place] S&T Dual energy absorptiometry (DEXA) of the lumbar [...] of the [employer] [place] for Metabolic Bone Disease, a World Health Organization (WHO) Collaborating Center. Electronically signed by: Kenneth Mirza MD 08/20/2024 02:05 PM [facility] Dictated By: Kenneth Mirza MD Signed By: <Electronically signed by Kenneth Mirza MD in OV> 08/20/24 1405 DD/ 1330 TD/TT: 08/20/24 1402 Soccer Commentator: [place] [facility] [address] [place] [address] Mammography Report Signed Patient: Sabrina Peter MR#: [id number] : 1960 Acct:[id number] Age/Sex: 63 / F ADM Date: 08/20/24 Loc: YANIRA Attending Dr: Kenneth Samuel MD Ordering Physician: Kenneth Samuel MD Results: Date of Service: 08/20/24 Follow Up: Procedure(s): XR DEX A axial skeleton Accession Number(s): [id number] cc: Kenneth Samuel MD; Miah Day MD EXAMINATION: DXA BON E DENSITY AXIAL HISTORY: Estrogen deficiency TECHNIQUE: [place] S&T Dual energy absorptiometry (DEXA) of the lumbar [...] of the [employer] [place] for Metabolic Bone Disease, a World Health Organization (WHO) Collaborating Center. Electronically eliud d by: Kenneth Mirza MD 08/20/2024 02:05 PM [facility] Dictated By: Kenneth Mirza MD Signed By: <Electronically signed by Kenneth Mirza MD in OV> 08/20/24 1405 DD/ 1330 TD/TT: 08/20/24 1402 Soccer Commentator: Reason For Referral No Information Medications Medication [...] Problem Status W/U Status Risk Notes Problem 226326895 Malignant neopla sm of unspecified site of right female breast (C50.911) Active confirmed She remains in remission. Surveillance continues. Problem 07446041 Calculus of gallbladder without cholecystitis without obstruction (K80.20) Active confirmed These are asymptomatic and that there is no pain in the right upper quadrant on deep palpation. Problem 09616055 Age-related osteoporosis without current pathological fracture (M81.0) Active confirmed She has bee n compliant with her medications. No change in her regimen was made.She received 5 mg of zoledronic acid intravenously today over 30 min. without difficulty. Problem Osteoporosis (45579157) Other osteoporosis without current pathological fracture (M81.8) Active confirmed She will receive the Reclast on schedule. She is asymptomatic. Problem Sensory disorder of smell and/or taste ([id number] 3) Unspecified disturbances of smell and taste (R43.9) Active confirmed She has been to the neurologist and evaluation for seizure disorder is under way. She continues to experience is smelled something burning intermittently. 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 She will be seen in August 2017 at which time her endocrine therapy will be discontinued. She will be due for a bone density. Problem 763377837 Pure hypercholesterolemia (E78.00) Active confirmed Her lipids are being checked 3 times a year. No change in her regimen was needed. Problem 141077468 Nonintractable epilepsy without status epilepticus, unspecified epilepsy [...] Date Provider Diagnosis Kenneth Samuel III, MD [address] [place] [address] [place] [phone] 07/06/2024 Kenneth Samuel Age-related osteoporosis without current pathological fracture M81.0 ; Breast cancer C50.919 ; DCIS (ductal carcinoma in situ), right D05.11 and Malignant neoplasm of unspecified site of right female breast C50.911 Kenneth Samuel III, MD [address] [place] [address] [place] [address] 12/30/2024 Kenneth Samuel Other osteoporosis without current pathological fracture M81.8 ; Malignant neoplasm of unspecified site of right female breast C50.911 and Unspecified disturbances of smell and taste R43.9 Kenneth Samuel III, MD [address] [place] [address] [place] [phone] 07/07/2024 Kenneth Samuel III, MD [address] [place] [address] [place] [phone] 07/07/2024 Kenneth Samuel III, MD [address] [place] [address] [place] [phone] 06/24/2024 Kenneth Samuel III, MD [address] [place] [address] [place] [phone] 06/25/2024 Kenneth Samuel Assessments Encounter Date Diagnosis (ICD Code) Assessment Notes Treatment Notes Treatment Clinical Notes 07/06/2024 Breast cancer (ICD-10 - C50.919) There was no sign of recurrent breast cancer on her last examination. Her current PET/CT scan shows no sign of breast cancer. 07/06/2024 Age-related osteoporosis without current pathological fracture (ICD-10 - M81.0) She has been compliant with her medications. No change in her regimen was made.She received 5 mg of zoledronic acid intravenously today over 30 min. without difficulty. 12/30/2024 Malignant neoplasm of unspecified site of right female breast (ICD-10 - C50.911) She remains in remission. Surveillance continues. 12/30/2024 Other osteoporosis without current pathological fracture (ICD-10 - M81.8) She will receive the Reclast on schedule. She is asymptomatic. 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 She will be seen in August 2017 at which time her endocrine therapy will be discontinued. She will be due for a bone density. 12/30/2024 Unspecified disturbances of smell and taste (ICD-10 - R43.9) She has been to the neurologist and evaluation for seizure disorder is under way. She continues to experience is smelled something burning intermittently.This problem is now resolved 07/06/2024 Malignant neoplasm of unspecified site of right female breast (ICD-10 - C50.911) She has completed her adjuvant endocrine therapy. Her examination today is normal. There is no sign of a new primary or relapse. She is up-to-date with mammography. Plan Of Treatment Pending Test Test Name Order Date PROFILE, FASTING (COMPREHENSIVE METABOLI C) 12/30/2024 PROFILE, RANDOM (COMPREHENSIVE METABOLIC ) 07/12/2020 PROFILE, RANDOM (COMPREHENSIVE METABOLIC ) 01/11/2020 CBC w DIFF 12/30/2024 CBC w DIFF 07/12/2020 CBC w DIFF 01/11/2020 SED RATE (ESR) 07/12/2020 CA 27.29 07/12/2020 BONE DENSITY DEXA 03/02/2024 Lipid Panel 12/30/2024 Next Appt Details Provider Name:Kenneth Samuel , 07/13/2025 09:00:00 AM, [address] [place] [address] , [place], [place], [phone], Insurance Providers Payer Name Payer Address Payer Phone Subscriber Number Group Number Insured Name Patient Relationship to Insured Coverage Start Date Coverage End Date [address] [facility] [place] [phone] [id number] Sabrina Peter Self - patient is the insured Medical (General) History Medical History History ICD Code stage I invasive carcinoma right breast with DCIS [id number] cholelithiasis anastrozole ended August 2017 Surgical History Surgery Date(Month/Year) mastectomy right breast, sentinel node b iopsy 07/22/2012 lumpectomy, right breast 2000 oophorectomy of the right ov jagdish and fallopian tube, negative pathlogy 09/2007 cholecystectomy 11/2010
--- OUTSIDE RECORDS SUMMARY | 2025-03-20 10:13 | XMS_ITS | Patient Health Record ---
Author Organization [facility] Address [address] [place] [address] Care Team Providers Care Real Time Trader Name Role Phone Carlitos Bender Jr Reason For Referral No Information Plan Of Treatment No Information
[2025-03-20 10:17] VITALS: BP 120/84; PULSE 98; O2SAT 98
--- NOTE | 2025-03-20 10:17 | AM.OFFWIN_ITS ---
Intake Vital Signs 03/20/25 10:17 Height 5 ft 10 in BP 120/84 Blood Pressure Location Lt brachial Position Sitting Pulse 98 Pulse Source Pulse Oximeter Pulse Oximetry (%) 98 Oxygen Delivery Method Room Air Intake Visit Reasons: EP pain going from left buttcheek down the leg Patient Tobacco Use Status: Never used Tobacco Allergies adhesive tape Allergy (Intermediate, Verified 03/20/25 10:17) BLISTERS bacitracin (From Neosporin) Allergy (Mild, Verified 03/20/25 10:17) RASH gramicidin D (From Neosporin) Allergy (Mild, Verified 03/20/25 10:17) RASH neomycin (From Neosporin) Allergy (Mild, Verified 03/20/25 10:17) RASH Penicillins Adverse Reaction (Mild, Verified 03/20/25 10:17) VOMITING Do you need a note to return to daycare/school/sports/work: No HPI HPI Comments History of Present Illness Details 64 year old female presents w/ back pain on the left-hand side it radiates posteriorly behind the thigh and then moves anterior to the anterior mi and down to the top of her foot. This has been ongoing for the last few days. Patient reports she is currently in lumbar physical therapy due to scoliosis. She has had imaging of her back in the past. She denies saddle anesthesias, numbness, tingling, fevers, chills, recent traumas. Physical exam with lumbosacral tenderness to palpation worse on the left. No saddle anesthesias. Ambulating with steady gait normal coordination. Positive straight leg raise on the left. History and physical exam concerning for L4-L5 lumbar radiculopathy. Unlikely facet mediated pain. No signs of cord compression, cauda equina or cord compression. Plan will discharge patient on meloxicam, prednisone. She should continue physical therapy. If pain worsens she should see her PCP/information systems specialist. I did offer gabapentin however patient tells me it makes her crazy Educated patient on diagnosis and treatment plan, answered all question, patient verbalizes understanding. At this time patient will be discharged home, advised to return with new or worsening symptoms. Educated on worrisome signs and symptoms and when to return. At this time I feel comfortable discharge home. [facility] Medical History Osteoporosis Mixed hyperlipidemia Lumbar degenerative disc disease Esophageal dysmotility Breast cancer Migraine aura without headache Acute pain of right foot Cervical radiculitis Physical exam Women's annual routine gynecological examination Cervical cancer screening Hyperlipidemia Abdominal pain, right upper quadrant Ductal carcinoma in situ of right breast Hip pain, right Family history of colon cancer Physical exam Abdominal pain Flank pain Tick bite of back History of right breast cancer Hx of radiation therapy Migraines Arthritis GERD (gastroesophageal reflux disease) Surgical History H/O right mastectomy Hx of unilateral oophorectomy History of lumpectomy of right breast History of esophagogastroduodenoscopy (EGD) Hx of colonoscopy History of excision of lesion History of salpingo-oophorectomy History of cholecystectomy History of wisdom tooth extraction Family History Father Diabetes Mother Osteoporosis Mental health disorder Paternal Aunt Colon cancer Other Family history of breast cancer Family history of gastric cancer Family history of pancreatic cancer Family history of prostate cancer Social History Housing: House Are you a primary acute care occupational therapist to a significant other at home: No Do you presently have visiting nurse or other home services: No Alcohol intake: current Alcohol intake frequency: a few times a month Patient Tobacco Use Status: Never used Tobacco e-Cigarette/Vaping Use: Never Used Second Hand Smoke Exposure: No service: No Current occupational status: employed 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 Oriented X3.? No acute distress.? Head: Normocephalic, atraumatic, no step-offs or deformities Eyes: Pupils equal, round and reactive to light.? ENT: Pharynx normal.? Neck: Normal inspection.? Neck supple.? CVS: Normal heart rate and rhythm.? Pulses normal.? Respiratory: No respiratory distress.? Breath sounds normal.? Abdomen: Soft and nontender.? Skin: Skin warm and dry.? Normal skin color.? Normal skin turgor.? Extremities: No lower extremity edema.? No calf ttp. 5/5 strength to bilateral upper and lower extremities Back: No midline tenderness, no C-spine tenderness, full range of motion, no CVA tenderness bilaterally lumbosacral tenderness to palpation worse on the left. No saddle anesthesias. Ambulating with steady gait normal coordination. Positive straight leg raise on the left. Neuro: Oriented X 3.? No motor deficit.? No sensory deficit. CN 2-12 intact Vital Signs: Last Vital Signs Pulse 98 03/20/25 10:17 BP 120/84 03/20/25 10:17 Pulse Ox 98 03/20/25 10:17 Oxygen Delivery Method Room Air 03/20/25 10:17 vss Assessment & Plan Assessment & Plan (1) Lumbar radiculopathy: Code(s): M54.16 - Radiculopathy, lumbar region Plan Take your medications as prescribed. If you were prescribed antibiotics today, it is important that you take your medication to their entirety, do not skip any doses, do not finish them early. Follow-up with your primary care provider this week. Return to the emergency department with new or worsening symptoms. Such as fevers, chills, chest pain, shortness of breath, nausea, vomiting, dizziness, headache, vision changes, lethargy In case of emergency call 911 Medications: New prednisone 40 mg (2 x 20 mg) PO DAILY 10 tabs 0RF 5 days meloxicam 15 mg PO DAILY 30 tabs 0RF pain lidocaine 4% (AsperFlex (lidocaine)) 1 patch topical DAILY PRN 15 ea 0RF pain Coding Level of Care Code Est Pt Level 3 (99504) Diagnoses Lumbar radiculopathy M54.16
== END 2025-03-20 10:53 | disposition home or self-care (01) ==
PROVIDERS: PCP Internal Medicine; Visit Provider Physician Assistant
DX: M54.16 Radiculopathy, lumbar region (principal)

== ENCOUNTER 2025-03-23 09:35 | Outpatient (AMB) | payer OTHER, SELFPAY ==
--- OUTSIDE RECORDS SUMMARY | 2024-06-25 11:42 | XMS_ITS ---
Author Organization Kenneth Samuel III, MD Address [address] [place] [address] Care Team Providers Care Stone Layout Marker Name Role Phone Edmund JONES [place] Primary Care Provider Unava ilDr. Kenneth Devlin III [facility] [phone] REASON FOR VISIT Ultrasound Social History Sex Assigned At : Social History Observation Description Sex Assigned At Female Encounters Encounter Location Date Provider Diagnosis Kenneth Samuel III, MD [address] [place] [address] [place] [address] 06/25/2024 Kenneth Samuel Plan Of Treatment Next Appt Details Provider Name:Kenneth Samuel , 07/13/2025 09:00:00 AM, [address] [place] [address] [place], [address], Progress Notes * Geeta PETERB: 9[birth year] (63 yo F)Acc No.[id number]:06/25/2024 Patient: Va Sabrina BIRD :1960 A ge:63 Y S ex:Female Address:[place] [address] * true * Date: Generated for Printi ng/Faxing/eTransmitting on: 0 03/23/2025 10:24 AM EDT
--- OUTSIDE RECORDS SUMMARY | 2024-07-06 05:00 | XMS_ITS ---
Author Organization Kenneth Samuel III, MD Address [address] [place] [address] [place] [address] Care Team Providers Care Vocational Instructor Name Role Phone Nicolas Shaffer MDneth Primary Care Provider Dr. Kenneth Alvarado III [facility] Allergies Allergen (clinical drug ingredient) Drug/Non Drug [...] Date Provider Diagnosis Kenneth Samuel III, MD [address] [place] [address] [place] [address] 07/06/2024 Kenneth Samuel Age-related osteoporosis without current [...] Provider Name:Kenneth Samuel , 07/13/2025 09:00:00 AM, [address] [place] [address] [address], [place], [address], Procedure Notes * Category Sub-Category Detail Notes Chemotherapy Start and End Time: , start, 9:0 0 am, end, 10:00 am Site: left hand Consent: verbal consent was o btained prior to procedure Medications given: Zoledronic acid 5 mg ([facility] 36323-751-89) Monitored by: SANTOS Velez port flush none route IV Progress Notes * DESTINEYREINIER GeetaB: [birth year] (63 yo F)Acc No.[id number]:07/06/2024 Patient: Sabrina GARZA Provider: Dania Samuel MD :1960 A ge:63 Y S ex:Female Date:07/06/2024 Address:[address] [place] [address], [id number] Pcp:Miah Day MD Subjective: * Chief Complaints: * H istory of right breast cancerOsteoporosisDCIS * HPI: C OVID-19 Screening: She returns for a 6 month checkup of her carcinoma of the breast and to receive an intravenous infusion of 5 mg of zoledronic acid which she receives once a year for osteoporosis. She felt said [place] which she spent alone. She has developed [...] ggressive non-smoker S he was born in [place]. She has been to Benja for 18 years. They have no children. 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 * Medications: T akingNexIUM 24HR 20 MG [...] start, 9:00 am, end, 10:00 am. Site: [facility]. Consent: v erbal consent was obtained prior to procedure.? Medications given: Z oledronic acid 5 mg ([facility] 77388-079-30). Monitored by: SANTOS Olsen. port flush n one. route I V. * Procedure Codes: J 3489 INJECTION ZOLEDRONIC ACID 1 [id number] CHEMO, IV INFUSION, 1 HR * Follow Up: 6 Months (Reason: ov) * Images: * Sign off status: Completed true * Provider: Dania Samuel MD Date: 0 07/06/2024 Generated for Riccardo dunn/Юлия/Alexandreitting on: 0 03/23/2025 10:24 AM EDT History and Physical Notes * HPI (History [...]
--- OUTSIDE RECORDS SUMMARY | 2024-07-07 09:31 | XMS_ITS ---
Author Organization Kenneth Samuel III, MD Address [address] [place] [address] Care Team Providers Care Rn Surgical Pcu Name Role Phone Edmund JONES [place] Primary Care Provider Unava ilDr. Kenneth Devlin III [facility] REASON FOR VISIT Rx Request Social History Sex Assigned At : Social History Observation Description Sex Assigned At Female Encounters Encounter Location Date Provider Diagnosis Kenneth Samuel III, MD [address] [place] [address] [place] [address] 07/07/2024 Kenneth Samuel Plan Of Treatment Next Appt Details Provider Name:Kenneth Samuel , 07/13/2025 09:00:00 AM, [address] [place] [address] [place], [address], Progress Notes * Geeta PETERB: 9[birth year] (63 yo F)Acc No.[id number]:07/07/2024 Patient: Va Sabrina BIRD :1960 A ge:63 Y S ex:Female Address:[place] [address] * true * Date: Generated for Printi ng/Faxing/eTransmitting on: 0 03/23/2025 10:24 AM EDT
--- OUTSIDE RECORDS SUMMARY | 2024-07-07 10:00 | XMS_ITS ---
Author Organization Kenneth Samuel III, MD Address [address] [place] [address] [place] [address] Care Team Providers Care Bus Driver/Monitor Name Role Phone Edmund JONES Hussein Primary Care Provider Unava Dr. Kenneth Kuhn III [facility] [phone] Medications Medication SIG (Take, Route, Fr equency, Duration) Notes Start Date End Date Status Azithromycin 250 MG as directed Orally 2 Tablets on the first day, one tablet the rest of the days for 5 days 07/07/2024 Acti ve Social History Sex Assigned At : Social History Observation Description Sex Assigned At Female Encounters Encounter Location Date Provider Diagnosis Kenneth Samuel III, MD [address] [place] [address] [place] [address] 07/07/2024 Kenneth Samuel Plan Of Treatment Medication Medication Name Sig Start Date Stop Date Notes Azithromycin 250 MG as directed Orally 2 Tablets on the first day, one tablet the rest of the days for 5 days 07/07/2024 Next Appt Details Provider Name:Kenneth Samuel , 07/13/2025 09:00:00 AM, [address] [place] [address] [place], [address], Progress Notes * Geeta PETERB: [birth year] (63 yo F)Acc No.[id number]:07/07/2024 Patient: Sabrina GARZA :1960 A ge:63 Y S ex:Female Address:[address] [place] [address] * Refills Start Azithromycin Tablet, 250 MG, Orally, 6, as directed, 2 Tablets on the first day, one tablet the rest of the days, 5 days, Refills=0 * true * Date: Generated for Riccardo dunn/Юлия/Alexandreitting on: 0 03/23/2025 10:24 AM EDT
--- OUTSIDE RECORDS SUMMARY | 2024-12-30 05:30 | XMS_ITS ---
Author Organization Kenneth Samuel III, MD Address [address] [place] [address] [place] [address] Care Team Providers Care Cylinder Handler Name Role Phone Edmund JONES Hussein Primary Care Provider Dr. Kenneth Alvarado III [facility] Allergies Allergen (clinical drug ingredient) Drug/Non [...] Problem Sensory disorder of smell and/or taste ([id number] 103) Unspecified disturbances of smell and taste [...] Date Provider Diagnosis Kenneth Samuel III, MD [address] [place] [address] [place] [address] 12/30/2024 Kenneth Samuel Other osteoporosis without current [...] Provider Name:Kenneth Breauxne , 07/13/2025 09:00:00 AM, [address] [place] [address], [place] [address], [place], [address], Progress Notes * Geeta PETERB: [birth year] (64 yo F)Acc No.[id number]:12/30/2024 Progress Notes Patient: Sabrina GARZA Provider: Dania Samuel MD :1960 A ge:64 Y S ex:Female Date:12/30/2024 Address:[address] [place], [place] [phone] Pcp:Hussein Shaffer MD Subjective: * Chief Complaints: [...] ggressive non-smoker S he was born in [place]. She has been to Benja for 18 years. They have no children. 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 * Medications: N ot-Taking/PRNNexIUM 24HR 20 MG [...] off status: Completed true * Provider: Dania Saumel MD Date: 0 12/30/2024 Generated for Printi ng/Favanceg/eTransmitting on: 0 03/23/2025 10:24 AM EDT History [...]
[2025-03-23 09:39] VITALS: BP 128/67; PULSE 73; BMI 22.5
--- NOTE | 2025-03-23 09:39 | A.OFFVIS_ITS ---
Vital Signs 03/23/25 09:39 Height 5 ft 10 in Weight 157 lb BMI 22.5 BP 128/67 Blood Pressure Location Lt brachial Position Sitting Pulse 73 Intake Visit Reasons: Discuss Barium swallow results Intake Note: Sabrina presents to in office follow up to discuss barium swallow results. CC: Patient reports doing so so from GERD and having a bad episode recently after drinking a little bit of strawberry lemonade mixed with water. She also reports having sciatic nerve pain for which she has been taking physical therapy, and taking prednisone and meloxicam. Occupational Therapy Supervisor Required: No Accompanied by: Self / Same As Patient Allergies adhesive tape Allergy (Intermediate, Verified 03/20/25 10:17) BLISTERS bacitracin (From Neosporin) Allergy (Mild, Verified 03/20/25 10:17) RASH gramicidin D (From Neosporin) Allergy (Mild, Verified 03/20/25 10:17) RASH neomycin (From Neosporin) Allergy (Mild, Verified 03/20/25 10:17) RASH Penicillins Adverse Reaction (Mild, Verified 03/20/25 10:17) VOMITING HPI HPI Discuss Barium swallow results: Details: Assessment & Plan (1) GERD (gastroesophageal reflux disease): Code(s): K21.9 - Gastro-esophageal reflux disease without esophagitis Category: Medical (2) Esophageal dysmotility: Code(s): K22.4 - Dyskinesia of esophagus Category: Medical (3) Abdominal bloating: Code(s): R14.0 - Abdominal distension (gaseous) Category: Medical Plan Her GERD has worsened lately. This despite taking her generic nexium 20mg daily. No wt loss of gain, no diet changes, no new medications or dose changes. She did have a stressful year with both parents passing away, but now things are better and the GERD was not bad when things were more stressful. She can't really identify any particular offending foods, the other night she ate chicken parmesan with no GERD - BUT it is occurring more frequently and any time of the day. Get barium swallow and HP stool. She had a hx of slight esophageal dysmotility on past barium swallow about 10 years ago. No EGD since 2008. ROV after barium swallow. Orders: Orders FL barium swallow Today K21.9 - Gastro-esophageal reflux disease without esophagitis H pylori Ag Stool Today K21.9 - Gastro-esophageal reflux disease without esophagitis Medications: Refilled simethicone 180 mg PO TID PRN 90 caps 6RF abdominal distention esomeprazole magnesium 20 mg PO DAILY 90 caps 6RF LABS: Laboratory Tests 11/20/24 08:35 Stool H. pylori Ag NEGATIVE BARIUM SWALLOW 03/12/2025 FINDINGS: Following oral administration of thick barium there is normal propagation bolus from the oral cavity through the pharynx, esophagus into stomach without obstruction, narrowing of stricture. No intraluminal filling defect or extrinsic compression seen. On oral administration of saltine crackers and thick barium there is normal oral mastication and propagation of solid food from the oral cavity, pharynx, esophagus into stomach. On placing patient prone lying and oral administration of thin barium there is good distention of the esophagus without obstruction, narrowing or stricture. There is a small sliding hiatal hernia without gastroesophageal reflux. FLUOROSCOPY TIME: 2 minute 14 seconds DOSE AREA PRODUCT: 23.37 uGy-m2 (microgray-meter squared) FL/FL barium swallow IMPRESSION: Small sliding hiatal hernia. No gastroesophageal reflux, obstruction or narrowing seen in the esophagus. TODAY'S VISIT [facility] Medical History Osteoporosis Mixed hyperlipidemia Lumbar degenerative disc disease Esophageal dysmotility Breast cancer Migraine aura without headache Acute pain of right foot Cervical radiculitis Physical exam Women's annual routine gynecological examination Cervical cancer screening Hyperlipidemia Abdominal pain, right upper quadrant Ductal carcinoma in situ of right breast Hip pain, right Family history of colon cancer Physical exam Abdominal pain Flank pain Tick bite of back History of right breast cancer Hx of radiation therapy Migraines Arthritis GERD (gastroesophageal reflux disease) Surgical History H/O right mastectomy Hx of unilateral oophorectomy History of lumpectomy of right breast History of esophagogastroduodenoscopy (EGD) Hx of colonoscopy History of excision of lesion History of salpingo-oophorectomy History of cholecystectomy History of wisdom tooth extraction Family History Father Diabetes Mother Osteoporosis Mental health disorder Paternal Aunt Colon cancer Other Family history of breast cancer Family history of gastric cancer Family history of pancreatic cancer Family history of prostate cancer Social History Housing: House Are you a primary child day care center worker to a significant other at home: No Do you presently have visiting nurse or other home services: No Alcohol intake: current Alcohol intake frequency: a few times a month Patient Tobacco Use Status: Never used Tobacco e-Cigarette/Vaping Use: Never Used Second Hand Smoke Exposure: No service: No Current occupational status: employed 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, 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 Cognitive needs: No Hearing needs: No Vision needs: Yes (glasses) Female Reproductive History Menstrual Age of Menarche: 13 Review of Systems Const Denies fatigue, Denies fever(s), Denies night sweats, Denies poor appetite and Denies weight loss Eyes Details: glasses Reports requires corrective lenses ENT Reports Normal hearing present, Denies dental pain, Reports dysphagia (Occurring less often), Denies hearing loss, Denies mouth pain, Denies odynophagia, Denies throat swelling, Denies tongue swelling and Reports other (Dentition adequate) Card Reports no additional complaints Resp Reports no additional complaints GI Details: Denies abdominal pain, Denies melena, Denies bloating, Denies hematochezia, Denies constipation, Denies GI cramping, Reports dysphagia (Occurring less often), Denies excessive flatus, Denies early satiety, Reports heartburn, Denies diarrhea, Denies nausea, Denies odynophagia, Denies vomiting and Denies hematemesis Musc Reports back pain, Reports radiating pain into limb and Reports stiffness Skin/Breast Denies pruritus, Denies lesions, Denies rash and Denies jaundice Neuro Reports Normal hearing present and Denies Abnormal speech present Endo Denies fatigue Aller/Immun Denies throat swelling and Denies tongue swelling Physical Exam Vital Signs: Last Vital Signs Pulse 73 03/23/25 09:39 BP 128/67 03/23/25 09:39 BMI result Body Mass Index 22.5 Const General: cooperative, no acute distress, well developed and well groomed Nutritional Appearance: average body habitus and well nourished Orientation/consciousness: oriented to person, oriented to place and oriented to time Limitations: No language barrier HEENT Head: Yes normocephalic and Yes atraumatic Eyes General: appearance normal, both eyes and all related structures Pupils: Equal, round and reactive pupils present Neck Neck: Yes normal visual inspection and Yes no lymphadenopathy Thyroid: Thyroid normal Resp Effort & Inspection: normal respiratory effort and able to speak in complete sentences Auscultation: clear to auscultation bilaterally Cardio Rate: regular rate Rhythm: regular rhythm Heart sounds: Normal, physiologic split S2 sound present Peripheral pulses: radial pulses present and posterior tibial pulses present GI Inspection: No distended and No Abdominal panniculus present Palpation (GI): Soft to palpation, nontender, no guarding and not rigid Percussion: Yes normal to percussion Auscultation: normal bowel sounds Rectal Exam - Female: deferred Skin General skin exam: no rashes or lesions noted, turgor normal, skin not dry, no jaundice, No spider nevi and no striae Rashes: no rashes Nails: normal Neuro General: oriented to person, oriented to place and oriented to time Cranial nerves: Yes Equal, round and reactive pupils present and Yes Normal hearing present Speech: No Abnormal speech present Extrem General: Yes normal to inspection, No clubbing, No cyanosis and No edema Psych Appearance: grossly normal and well kempt Mental Status: mental status grossly normal Speech and movement: Normal speech and movement present Affect: normal affect Attitude: cooperative Thought process: Normal thought process present and not confabulating Thought content: Normal thought content present Insight: Good insight present (Psych) Judgement: Good judgement present (Psych) Results Reviewed Results Reviewed: 11/20/24 08:35 Stool H. pylori Ag NEGATIVE BARIUM SWALLOW 03/12/2025 FINDINGS: Following oral administration of thick barium there is normal propagation bolus from the oral cavity through the pharynx, esophagus into stomach without obstruction, narrowing of stricture. No intraluminal filling defect or extrinsic compression seen. On oral administration of saltine crackers and thick barium there is normal oral mastication and propagation of solid food from the oral cavity, pharynx, esophagus into stomach. On placing patient prone lying and oral administration of thin barium there is good distention of the esophagus without obstruction, narrowing or stricture. There is a small sliding hiatal hernia without gastroesophageal reflux. FLUOROSCOPY TIME: 2 minute 14 seconds DOSE AREA PRODUCT: 23.37 uGy-m2 (microgray-meter squared) FL/FL barium swallow IMPRESSION: Small sliding hiatal hernia. No gastroesophageal reflux, obstruction or narrowing seen in the esophagu Assessment & Plan Assessment & Plan (1) GERD (gastroesophageal reflux disease): Code(s): K21.9 - Gastro-esophageal reflux disease without esophagitis Category: Medical Qualifiers: Esophagitis presence: without esophagitis Qualified Code(s): K21.9 - Gastro-esophageal reflux disease without esophagitis (2) Sliding hiatal hernia: Comment: SMALL SIZE ON 2024 BARIUM SWALLOW Code(s): K44.9 - Diaphragmatic hernia without obstruction or gangrene Category: Medical Plan - The patient is a 64-year-old female presenting with symptoms associated with recently worsening Gastroesophageal Reflux Disease (GERD). - She experiences unpredictable heartburn, with exacerbation after ingestion of acidic foods and beverages like strawberry lemonade. - Symptoms include intense irritation for two hours following intake of such triggers. - she manages her esophageal dysmotility and history of dysphagia with reported with small bites; larger bites cause discomfort. - She occasionally suffers from esophageal spasms; managed by adjusting bite size and thorough chewing. - barium swallow showed a small sliding hiatal hernia and no other concerning pathology; she was negative for Helicobacter pylori via stool antigen. - She is under consistent use of esomeprazole to manage GERD, supplemented by simethicone for gas. - I suggest we add famotidine to use as needed for worsening heartburn since it has faster symptom relief then PPIs. This makes it a good PRN medication. Now she is working on her chronic low back problems from likely lumbar degenerative disc disease. She has frequently had sciatica going down her leg in his now engaging with physical therapy for this. With this she is satisfied with her level of care and I will see her in 6 months or sooner if she needs any further assistance. Medications: New famotidine (Pepcid) 40 mg PO BEDTIME 30 tabs 3RF K21.9 - Gastro-esophageal reflux disease without esophagitis Coding Level of Care Code Est Pt Level 3 (50616) Diagnoses Gastroesophageal reflux disease without esophagitis K21.9 Esophagitis presence: without esophagitis Sliding hiatal hernia K44.9
--- OUTSIDE RECORDS SUMMARY | 2025-03-23 10:24 | XMS_ITS | Patient Health Record ---
Author Organization Kenneth Samuel III, MD Address [address] [facility] [place] [address] Care Team Providers Care Child Center Assistant Name Role Phone Edmund JONES, Hussein Primary Care Provider Dr. Kenneth Alvarado III Unavailable Allergies Allergen (clinical drug ingredient) Drug/Non Drug Allergy documented on EMR Reaction Allergy Type Onset Date Status Penicillin Unknown Drug Allergy Active No Known Food Allergy Unknown Drug Allergy Active neomycin Neomycin rash Drug Allergy Active Adhesive rash Allergy Active Results Component Value Reference Range Notes Complete Blood Count Auto Di ff Reviewed date:06/23/2024 05:40:57 PM Interpretation: Performing Lab:[facility], [address] [place] [id number] Notes/Report: White Blood Count 5.7 4.8-10.8 X10*3/uL [...] NRBC Abs Auto 0.000 0.0-0.012 X10*3/uL Comprehensive [place]. Panel Fa st Reviewed date:06/23/2024 05:40:57 PM Interpretation: Performing Lab:[facility], [address] [place] [id number] Notes/Report: Sodium 141 135-145 mmol/L Potassium 3.9 [...] Panel Reviewed date:06/23/2024 05:40:57 PM Interpretation: Performing Lab:[facility], [address] [facility] [place] [address] Notes/Report: Triglycerides 64 <150 mg/dL Desirable Triglyceride: [...] date:10/03/2024 04:57:38 AM Interpretation: Performing Lab: Notes/Report: [address] [place] [address] Mammography Report Signed Patient: Sabrina Peter MR#: [id number] : 1960 Acct:[id number] Age/Sex: 63 / F ADM Date: 08/20/24 Loc: HO.MAMMO Attending Dr: Kenneth Samuel MD Ordering Physician: Kenneth Samuel MD Results: 1Negativ e Date of Service: 08/20/24 Follow Up: 1 Year From [facility] Mammogram Procedure(s): MM tomosynthesis screening Accession Number(s): [id number] cc: Kenneth Samuel MD; Miah Day MD [...] 08/24/24 1502 DD/ 1315 TD/TT: 08/20/24 1325 Health Care Specialist: [facility] [address] [place] [address] Mammography Report Signed Patient: Sabrina Peter MR#: [id number] : 1960 Acct:[id number] Age/Sex: 63 / F ADM Date: 08/20/24 Loc: HO.MAMMO Attending Dr: Kenneth Samuel MD Ordering Physician: Kenneth Samuel MD Results: 1Negativ e Date of Service: 08/20/24 Follow Up: 1 Year From [facility] ina Mammogram Procedure(s): MM tomosynthesis screening LT Accession Number(s): [id number] cc: Kenneth Samuel MD; Miah Day MD [...] by: Blanquita Serna DO 08/24/2024 03:02 PM [facility] Dictated By: Blanquita Serna DO Signed By: <Electronically signed by Blanquita Serna DO in OV> 08/24/24 1502 DD/ 1315 TD/TT: 08/20/24 1325 Health Care Specialist: XR DEXA axial skeleton Reviewed date:10/03/2024 04:57:38 AM Interpretation: Performing Lab: Notes/Report: [address] [place] [address] Mammography Report Signed Patient: Sabrina Peter MR#: [id number] : 1960 Acct:[id number] Age/Sex: 63 / F ADM Date: 08/20/24 Loc: HO.MAMMO Attending Dr: Kenneth Samuel MD Ordering Physician: Kenneth Samuel MD Results: Date of Service: 08/20/24 Follow Up: Procedure(s): XR DEXA axial skeleton Accession Number(s): [id number] cc: Kenneth Samuel MD; Miah Day MD EXAMINATION: DXA BONE DENSITY AXIAL HISTORY: Estrogen deficiency TECHNIQUE: Algentis Dual energy absorptiometry (DEXA) of the lumbar [...] of the [employer] for Metabolic Bone Disease, a World Health Organization (WHO) Collaborating Center. Electronically signed by: Kenneth Mirza MD 08/20/2024 02:05 PM [facility] Dictated By: Kenneth Mirza MD Signed By: <Electronically signed by Kenneth Mirza MD in OV> 08/20/24 1405 DD/ 1330 TD/TT: 08/20/24 1402 Health Care Specialist: [facility] [address] [place] [address] Mammography Report Signed Patient: Sabrina Peter MR#: [id number] : 1960 Acct:[id number] Age/Sex: 63 / F ADM Date: 08/20/24 Loc: [facility] Attending Dr: Kenneth Samuel MD Ordering Physician: Kenneth Samuel MD Results: Date of Service: 08/20/24 Follow Up: Procedure(s): XR DEX A axial skeleton Accession Number(s): [id number] cc: Kenneth Samuel MD; Miah Day MD EXAMINATION: DXA BON E DENSITY AXIAL HISTORY: Estrogen deficiency TECHNIQUE: Algentis Dual energy absorptiometry (DEXA) of the lumbar [...] of the [employer] for Metabolic Bone Disease, a World Health Organization (WHO) Collaborating Center. Electronically eliud d by: Kenneth Mirza MD 08/20/2024 02:05 PM [facility] Dictated By: Kenneth Mirza MD Signed By: <Electronically signed by Kenneth Mirza MD in OV> 08/20/24 1405 DD/ 1330 TD/TT: 08/20/24 1402 Health Care Specialist: Reason For Referral No Information Medications [...] Problem Status W/U Status Risk Notes Problem 840741202 Malignant neopla sm of unspecified site of right female breast (C50.911) Active confirmed She remains in remission. Surveillance continues. Problem 23030757 Calculus of gallbladder without cholecystitis without obstruction (K80.20) Active confirmed These are asymptomatic and that there is no pain in the right upper quadrant on deep palpation. Problem 13398649 Age-related osteoporosis without current pathological fracture (M81.0) Active confirmed She has bee n compliant with her medications. No change in her regimen was made.She received 5 mg of zoledronic acid intravenously today over 30 min. without difficulty. Problem Osteoporosis (70995514) Other osteoporosis without current pathological fracture (M81.8) Active confirmed She will receive the Reclast on schedule. She is asymptomatic. Problem Sensory disorder of smell and/or taste (156951128065 3) Unspecified disturbances of smell and taste (R43.9) Active confirmed She has been to the neurologist and evaluation for seizure disorder is under way. She continues to experience is smelled something burning intermittently. 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 She will be seen in August 2017 at which time her endocrine therapy will be discontinued. She will be due for a bone density. Problem 488161076 Pure hypercholesterolemia (E78.00) Active confirmed Her lipids are being checked 3 times a year. No change in her regimen was needed. Problem 239164893 Nonintractable epilepsy without status epilepticus, unspecified epilepsy [...] Date Provider Diagnosis Kenneth Samuel III, MD [address] [place] [address] [place] [address] 07/06/2024 Kenenth Samuel Age-related osteoporosis without current pathological fracture M81.0 ; Breast cancer C50.919 ; DCIS (ductal carcinoma in situ), right D05.11 and Malignant neoplasm of unspecified site of right female breast C50.911 Kenneth Samuel III, MD [address] [place] [address] [place] [address] 12/30/2024 Kenneth Samuel Other osteoporosis without current pathological fracture M81.8 ; Malignant neoplasm of unspecified site of right female breast C50.911 and Unspecified disturbances of smell and taste R43.9 Kenneth Samuel III, MD [address] [place] [address] [place] [phone] 07/07/2024 Kenneth Samuel III, MD [address] [place] [address] [place] [address] 07/07/2024 Kenneth Samuel III, MD [address] [place] [address] [place] [address] 06/24/2024 Kenneth Samuel III, MD [address] [place] [address] [place] [phone] 06/25/2024 Kenneth Samuel Assessments Encounter Date Diagnosis [...] Provider Name:Kenneth Samuel , 07/13/2025 09:00:00 AM, [address] [place] [address] , [place], [place], [phone], Insurance Providers Payer Name Payer Address Payer Phone Subscriber Number Group Number Insured Name Patient Relationship to Insured Coverage Start Date Coverage End Date [address] [facility] [place] [phone] [id number] Sabrina Peter Self - patient is the insured Medical (General) History Medical History History ICD Code stage I invasive carcinoma right breast with DCIS [id number] cholelithiasis anastrozole ended August 2017 Surgical History Surgery Date(Month/Year) mastectomy right breast, sentinel node b iopsy 07/22/2012 lumpectomy, right breast 2000 oophorectomy of the right ov jagdish and fallopian tube, negative pathlogy 09/2007 cholecystectomy 11/2010
--- OUTSIDE RECORDS SUMMARY | 2025-03-23 10:25 | XMS_ITS | Patient Health Record ---
Author Organization [facility] Address [address] [place] [address] Care Team Providers Care Practice Or Student Teacher Name Role Phone Carlitos Bender Jr Reason For Referral No Information Plan Of Treatment No Information
== END 2025-03-23 10:04 | disposition home or self-care (01) ==
LOC: HO.HGI 09:36
PROVIDERS: PCP Internal Medicine; Visit Provider Nurse Practitioner
DX: K21.9 Gastro-esophageal reflux disease without esophagitis (principal); K44.9 Diaphragmatic hernia without obstruction or gangrene
CPT/HCPCS: 99213

== ENCOUNTER 2025-03-24 15:16 | Outpatient (AMB) | payer OTHER, SELFPAY ==
--- OUTSIDE RECORDS SUMMARY | 2024-06-25 11:42 | XMS_ITS ---
Author Organization Kenneth Samuel III, MD Address [address] [facility] [place] [address] Care Team Providers Care Toll Transmission Worker Name Role Phone Edmund JONES [place] Primary Care Provider Unava ilDr. Kenneth Devlin III [facility] REASON FOR VISIT Ultrasound Social History Sex Assigned At : Social History Observation Description Sex Assigned At Female Encounters Encounter Location Date Provider Diagnosis Kenneth Samuel III, MD [address] [place] [address] [place] [address] 06/25/2024 Kenneth Samuel Plan Of Treatment Next Appt Details Provider Name:Kenneth Samuel , 07/13/2025 09:00:00 AM, [address] [place] [address] [place], [address], Progress Notes * Geeta PETERB: 9[birth year] (63 yo F)Acc No.[id number]:06/25/2024 Patient: Va Sabrina BIRD :1960 A ge:63 Y S ex:Female Address:[place] [address] * true * Date: Generated for Printi ng/Faxing/eTransmitting on: 04:16 PM EDT
--- OUTSIDE RECORDS SUMMARY | 2024-07-06 05:00 | XMS_ITS ---
Author Organization Kenneth Samuel III, MD Address [address] [place] [address] [place] [address] Care Team Providers Care Mine Development Engineer Name Role Phone Nicolas Shaffer MDneth Primary Care Provider Dr. Kenneth Alvarado III [facility] Allergies Allergen (clinical drug ingredient) Drug/Non [...] Date Provider Diagnosis Kenneth Samuel III, MD [address] [place] [address] [place] [address] 07/06/2024 Kenneth Samuel Age-related osteoporosis without current [...] Provider Name:Kenneth Samuel , 07/13/2025 09:00:00 AM, [address] [place] [address] [address], [place], [address], Procedure Notes * Category Sub-Category Detail Notes Chemotherapy Start and End Time: , start, 9:0 0 am, end, 10:00 am Site: left hand Consent: verbal consent was o btained prior to procedure Medications given: Zoledronic acid 5 mg ([facility] 58756-119-79) Monitored by: SANTOS Velez port flush none route IV Progress Notes * DESTINEYREINIER GeetaB: [birth year] (63 yo F)Acc No.[id number]:07/06/2024 Patient: Sabrina GARZA Provider: Dania Samuel MD :1960 A ge:63 Y S ex:Female Date:07/06/2024 Address:[address] [place] [address], [id number] Pcp:Miah Day MD Subjective: * Chief Complaints: [...] ggressive non-smoker S he was born in [place]. She has been to Benja for 18 years. They have no children. 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 Site: [facility]. Consent: v erbal consent was obtained prior to procedure.? Medications given: Z oledronic acid 5 mg ([facility] 54323-612-01). Monitored by: SANTOS Olsen. port flush n one. route I V. * Procedure Codes: J 3489 INJECTION ZOLEDRONIC ACID 1 [id number] CHEMO, IV INFUSION, 1 HR * Follow Up: 6 Months (Reason: ov) * Images: * Sign off status: Completed true * Provider: Dania Samuel MD Date: 0 07/06/2024 Generated for Riccardo dunn/Юлия/Alexandreitting on: 04:16 PM EDT History and Physical Notes * HPI [...]
--- OUTSIDE RECORDS SUMMARY | 2024-07-07 09:31 | XMS_ITS ---
Author Organization Kenneth Samuel III, MD Address [address] [address] Care Team Providers Care Materials Analyst Name Role Phone Edmund JONES Rice Primary Care Provider Unava ilDr. Kenneth Devlin III [facility] REASON FOR VISIT Rx Request Social History Sex Assigned At : Social History Observation Description Sex Assigned At Female Encounters Encounter Location Date Provider Diagnosis Kenneth Samuel III, MD [address] [place] [address] [place] [address] 07/07/2024 Kenneth Samuel Plan Of Treatment Next Appt Details Provider Name:Kenneth Samuel , 07/13/2025 09:00:00 AM, [address] [place] [address] [place], [address], Progress Notes * Geeta PETERB: [birth year] (63 yo F)Acc No.[id number]:07/07/2024 Patient: Va Sabrina BIRD :1960 A ge:63 Y S ex:Female Address:[place] [address] * true * Date: Generated for Printi ng/Faxing/eTransmitting on: 04:16 PM EDT
--- OUTSIDE RECORDS SUMMARY | 2024-07-07 10:00 | XMS_ITS ---
Author Organization Kenneth Samuel III, MD Address [address] [place] [address] [place] [address] Care Team Providers Care Truss Maker Name Role Phone Nicolas Shaffer MDneth Primary Care Provider Unava Dr. Kenneth Kuhn III [facility] Medications Medication SIG (Take, Route, Fr [...] Date Provider Diagnosis Kenneth Samuel III, MD [address] [place] [address] [place] [address] 07/07/2024 Kenneth Samuel Plan Of Treatment Medication Medication Name Sig Start Date Stop Date Notes Azithromycin 250 MG as directed Orally 2 Tablets on the first day, one tablet the rest of the days for 5 days 07/07/2024 Next Appt Details Provider Name:Kenneth Samuel , 07/13/2025 09:00:00 AM, [address] [place] [address] [place], [address], Progress Notes * Geeta PETERB: [birth year] (63 yo F)Acc No.[id number]:07/07/2024 Patient: Sabrina GARZA :1960 A ge:63 Y S ex:Female Address:[address] [place] [address] * Refills Start Azithromycin Tablet, 250 MG, Orally, 6, as directed, 2 Tablets on the first day, one tablet the rest of the days, 5 days, Refills=0 * true * Date: Generated for Riccardo dunn/Юлия/Conner on: 04:16 PM EDT
--- OUTSIDE RECORDS SUMMARY | 2024-12-30 05:30 | XMS_ITS ---
Author Organization Kenneth Samuel III, MD Address [address] [place] [address] [place] [address] Care Team Providers Care District Captain Name Role Phone Edmund JONES Hussein Primary Care Provider Dr. Kenneth Alvarado III [facility] Allergies Allergen (clinical drug ingredient) Drug/Non [...] Problem Sensory disorder of smell and/or taste ([id number] 103) Unspecified disturbances of smell and taste [...] Date Provider Diagnosis Kenneth Samuel III, MD [address] [place] [address] [place] [address] 12/30/2024 Kenneth Samuel Other osteoporosis without current [...] Provider Name:Kenneth Breauxne , 07/13/2025 09:00:00 AM, [address] [place] [address], [place] [address], [place], [address], Progress Notes * Geeta PETERB: [birth year] (64 yo F)Acc No.[id number]:12/30/2024 Progress Notes Patient: Sabrina GARZA Provider: Dania Samuel MD :1960 A ge:64 Y S ex:Female Date:12/30/2024 Address:[address] [place], [place] [phone] Pcp:Hussein Shaffer MD Subjective: * Chief Complaints: [...] ggressive non-smoker S he was born in [place]. She has been to Benja for 18 years. They have no children. 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 * Medications: N ot-Taking/PRNNexIUM 24HR 20 MG [...] 12/30/2024 Generated for Eni ng/Favanceg/eTransmitting on: 1 04:16 PM EDT History and Physical Notes [...]
[2025-03-24 15:21] VITALS: BP 126/86; PULSE 80; TEMP 36.3; O2SAT 98; BMI 22.6
--- NOTE | 2025-03-24 15:21 | A.OFFPC_ITS ---
Vital Signs 03/24/25 15:21 Height 5 ft 10 in Weight 157 lb 6 oz BMI 22.6 BP 126/86 Blood Pressure Location Lt brachial Position Sitting Pulse 80 Pulse Source Pulse Oximeter Temp 97.3 F Temp Source Temporal Artery Scan Pulse Oximetry (%) 98 Oxygen Delivery Method Room Air Intake Visit Reasons: lower back pain going to her leg Allergies adhesive tape Allergy (Intermediate, Verified 03/26/25 02:04) BLISTERS bacitracin (From Neosporin) Allergy (Mild, Verified 03/26/25 02:04) RASH gramicidin D (From Neosporin) Allergy (Mild, Verified 03/26/25 02:04) RASH neomycin (From Neosporin) Allergy (Mild, Verified 03/26/25 02:04) RASH Penicillins Adverse Reaction (Mild, Verified 03/26/25 02:04) VOMITING Medication List - Last Reconciled 03/26/25 by Hussein Shaffer MD amitriptyline 10 mg PO BEDTIME atorvastatin 20 mg PO DAILY coQ10 (ubiquinol) 200 mg PO DAILY esomeprazole magnesium 20 mg PO DAILY famotidine (Pepcid) 40 mg PO BEDTIME lamotrigine 50 mg PO BID lidocaine 4% (AsperFlex (lidocaine)) 1 patch topical DAILY PRN mastectomy bra (bra, mastectomy) As directed meloxicam 15 mg PO DAILY omega 4-sfk-owv-fish oil 1,000 (120-180) mg (Fish Oil) 1 cap PO DAILY simethicone 180 mg PO TID PRN sumatriptan succinate 50 mg PO DAILY PRN tizanidine 4 mg PO Q8H PRN fmzyvjii-isga-gvncj-oreg-capry 100 mg-150 mg- 50 mg-150 mg 1,000 PO DAILY Tobacco use date assessed: 03/24/25 Fall risk assessment: 1 Fall in past year Last assessed Fall Risk: 03/24/25 Dental Screening Dental Screen Date: 03/24/25 Did you have a dental visit in the last 12 months?: No Did you have a dental problem in the last 6 months where you did not have access to dental care?: No Was dental information given to patient?: Patient has dentist HPI lower back pain going to her leg HPI Details Patient comes in today for further evaluation of her low back pain She is currently going to physical therapy for her lower back and has already had 4 sessions of physical therapy so far but patient states that she has not noticed any improvement in low back pain yet States that last Saturday (about 4 days ago), she started experiencing increased pain radiating down her left leg She went to the walk-in clinic in [place] the following day and was prescribed some oral prednisone for a few days, which patient states did not help at all and she is currently still experiencing recurrent pain radiating down her left leg She continues to go to physical therapy and was advised to check back with her PCP for further evaluation of her recent radicular symptoms Patient denies any recent injury or trauma to her lower back; she denies any weakness of her left leg States that she has had no problems with bowel or bladder control and denies any other acute issues [facility] Medical History Osteoporosis Mixed hyperlipidemia Lumbar degenerative disc disease Esophageal dysmotility Breast cancer Migraine aura without headache Acute pain of right foot Cervical radiculitis Physical exam Women's annual routine gynecological examination Cervical cancer screening Hyperlipidemia Abdominal pain, right upper quadrant Ductal carcinoma in situ of right breast Hip pain, right Family history of colon cancer Physical exam Abdominal pain Flank pain Tick bite of back History of right breast cancer Hx of radiation therapy Migraines Arthritis GERD (gastroesophageal reflux disease) Surgical History H/O right mastectomy Hx of unilateral oophorectomy History of lumpectomy of right breast History of esophagogastroduodenoscopy (EGD) Hx of colonoscopy History of excision of lesion History of salpingo-oophorectomy History of cholecystectomy History of wisdom tooth extraction Family History Father Diabetes Mother Osteoporosis Mental health disorder Paternal Aunt Colon cancer Other Family history of breast cancer Family history of gastric cancer Family history of pancreatic cancer Family history of prostate cancer Social History Housing: House Are you a primary director career services to a significant other at home: No Do you presently have visiting nurse or other home services: No Alcohol intake: current Alcohol intake frequency: a few times a month Patient Tobacco Use Status: Never used Tobacco e-Cigarette/Vaping Use: Never Used Second Hand Smoke Exposure: No service: No Current occupational status: employed 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 1. Little interest or pleasure in doing things: not at all 2. Feeling down, depressed, or hopeless: not at all 3. Trouble falling or staying asleep, or sleeping too much: not at all 4. Feeling tired or having little energy: not at all 5. Poor appetite or overeating: not at all 6. Feeling bad about yourself - or that you are a failure or have let yourself or your family down: not at all 7. Trouble concentrating on things, such as reading the newspaper or watching television: not at all 8. Moving or speaking so slowly that other people could have noticed. Or the opposite - being so fidgety or restless that you have been moving around a lot more than usual: not at all 9. Thoughts that you would be better off or of hurting yourself in some way: not at all Total score: 0 Depression Screening Interpretation: Negative Depression Screening Done: Yes 02448 - PHQ-9 Billing: Yes Source: Developed by Drs. Kenneth Martínez, Lisseth Oates, Gurwinder Ross and colleagues, with an educational norma from [employer]. Thrive Questionnaire Date Thrive assessed: 01/25/25 I am a: Patient What is your living situation today?: I have a steady place to live Within the past 12 months, did the food you bought not last and you didn't have the money to get more?: Never true Within the past 12 months, did you worry whether your food would run out before you got money to buy more?: Never true Do you have trouble paying for medicines?: No Do you have trouble getting transportation to medical appointments?: No Do you have trouble paying your heating and electricity bill?: No Do you have trouble taking care of your child, family member or friend?: No Do you have trouble with day-to-day activities such as bathing, preparing meals, shopping, managing finances, etc.?: No Are you currently unemployed and looking for a job?: No Are you interested in more education?: No Please select the resources that you would like help with: None Currently or been in a relationship where the following occur: No concerns reported THRIVE Score: 0 AUDIT C Alcohol Use Questionnaire (AUDIT-C) 1. How often do you have a drink containing alcohol?: Monthly or less 2. How many drinks containing alcohol do you have on a typical day when you are drinking?: 1 or 2 3. How often do you have six or more drinks on one occasion?: Never Total Score: 1 Score Reviewed/Action Taken: Yes CRISTINA-7 AMB Questionnaire CRISTINA-7 Date CRISTINA - 7 assessed: 01/25/25 Feeling nervous, anxious, or on edge: 0 = Not at all Not being able to stop or control worryin = Not at all Worrying too much about different things: 0 = Not at all Trouble relaxin = Not at all Being so restless that it is hard to sit still: 0 = Not at all Becoming easily annoyed or irritable: 1 = Several days Feeling afraid as if something awful might happen: 0 = Not at all Total CRISTINA-7 score (0-4 normal; 5-9 mild; 10-14 moderate; 15-21 severe): 1 Source: Developed by Drs. Kenneth Martínez, Lisseth Oates, Gurwinder Ross and colleagues, with an educational norma from [employer]. Review of Systems Const Denies chills, Denies fatigue, Denies fever(s) and Denies headache(s) ENT Denies dysphagia, Denies dizziness, Denies otalgia, Denies headache(s), Reports neck pain (chronic), Denies odynophagia and Denies sore throat Card Denies chest pain, Denies palpitations and Denies dyspnea Resp Denies chest congestion, Denies cough and Denies dyspnea GI Denies abdominal pain, Denies constipation, Denies dysphagia, Denies heartburn, Denies diarrhea, Denies nausea, Denies odynophagia and Denies vomiting Denies difficulty voiding, Denies nocturia, Denies dysuria and Denies urinary urgency Musc Reports back pain (over the lower back (chronic) - increasing lately), Reports neck pain (chronic), Denies numbness, Reports radiating pain into limb (down the left leg) and Denies tingling Skin/Breast Denies rash Neuro Denies dizziness, Denies headache(s), Denies numbness, Denies convulsions and Denies tingling Endo Denies fatigue and Denies palpitations Physical exam (Primary Care) Vital Signs: Last Vital Signs Temp 97.3 F 03/24/25 15:21 Pulse 80 03/24/25 15:21 BP 126/86 03/24/25 15:21 Pulse Ox 98 03/24/25 15:21 Oxygen Delivery Method Room Air 03/24/25 15:21 BMI result Body Mass Index 22.6 Tobacco/Smoking Status: Tobacco use Status Tobacco use date assessed 03/24/25 03/24/25 15:25 Patient Tobacco Use Status Never used Tobacco 03/24/25 15:25 e-Cigarette/Vaping Use Never Used 03/24/25 15:25 PHQ-9: PHQ-9 Score PHQ-9: Total score 0 03/24/25 15:57 Depression Screening Interpretation: Negative Thrive Assessment: Date of Thrive Assessment Date Thrive assessed 01/25/25 03/24/25 15:25 Currently or been in a relationship where the following occur: No concerns reported Const General: no acute distress and alert HENMT Throat: Yes posterior oropharynx normal and Yes tonsils normal (no TP congestion) Neck Neck: No lymphadenopathy and Yes tender Thyroid: Thyroid normal Resp Auscultation: clear to auscultation bilaterally, no rales and no wheezes Cardio Rate: regular rate Rhythm: regular rhythm Heart sounds: no murmurs GI Palpation (GI): Soft to palpation and nontender Auscultation: normal bowel sounds General: Yes no CVA tenderness Back/Spine/Pelvis Back: no CVA tenderness Cervical Spine: Cervical spine tenderness Thoracic/Lumbar Spine: lumbar spinal tenderness and straight leg raise positive left Skin Rashes: no rashes Extrem General: Yes no clubbing, cyanosis or edema Coding Level of Care Code Est Pt Level 3 (15944) Diagnoses Degeneration of intervertebral disc of lumbar region with discogenic back pain M51.360 Disc-related pain type: discogenic back pain only Left lumbosacral radiculopathy M54.17 Additional Codes PHQ-9 - 11670 - PHQ-9 Billing: Yes ([id number]) Assessment & Plan Assessment & Plan (1) Lumbar degenerative disc disease: Code(s): M51.369 - Other intervertebral disc degeneration, lumbar region without mention of lumbar back pain or lower extremity pain Category: Medical Qualifiers: Disc-related pain type: discogenic back pain only Qualified Code(s): M51.360 - Other intervertebral disc degeneration, lumbar region with discogenic back pain only (2) Left lumbosacral radiculopathy: Code(s): M54.17 - Radiculopathy, lumbosacral region Category: Medical Plan Patient's lumbar spine x-rays done back in May 2024 revealed (+) levoscoliosis of the lumbar spine, with degenerative disc changes at L2-L3, L4- L5 and L5-S1 disc levels She is currently going to physical therapy and has had 4 sessions of PT so far but patient states that she has not experience any significant improvement in her lower back symptoms yet She started experiencing recurrent radiation sharp pains down her left leg about 4 days ago and was reportedly advised by physical therapy to have her recent symptoms checked out further Will now go ahead and send patient for an MRI of the lumbar spine TY for further evaluation Will start her additionally for now on Tizanidine 4 mg TID PRN Continue Meloxicam 15 mg QD with food PRN and Lidocaine 5% patches to her lower back QD PRN Follow up as scheduled in July 2025 but may need to see her earlier depending on how her MRI comes out Orders: Orders MR lumbar spine wo con 03/24/25 M51.360 - Other intervertebral disc degeneration, lumbar region with discogenic back pain only, M54.17 - Radiculopathy, lumbosacral region Medications: New tizanidine 4 mg PO Q8H PRN 30 tabs 0RF muscle spasms/low back pain
--- OUTSIDE RECORDS SUMMARY | 2025-03-24 16:16 | XMS_ITS | Patient Health Record ---
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
--- OUTSIDE RECORDS SUMMARY | 2025-03-24 16:16 | XMS_ITS | Patient Health Record ---
Author Organization Kenneth Samuel III, MD Address [address] [facility] [place] [address] Care Team Providers Care Occupational Therapist Per Diem Name Role Phone Edmund JONES, Hussein Primary Care Provider Dr. Kenneth Alvarado III Unavailable [phone] Allergies Allergen (clinical drug ingredient) Drug/Non Drug Allergy documented on EMR Reaction Allergy Type Onset Date Status Penicillin Unknown Drug Allergy Active No Known Food Allergy Unknown Drug Allergy Active neomycin Neomycin rash Drug Allergy Active Adhesive rash Allergy Active Results Component Value Reference Range Notes Complete Blood Count Auto Di ff Reviewed date:06/23/2024 05:40:57 PM Interpretation: Performing Lab:[facility], [address] [place] [id number] Notes/Report: White Blood Count 5.7 4.8-10.8 X10*3/uL [...] NRBC Abs Auto 0.000 0.0-0.012 X10*3/uL Comprehensive [place]. Panel Fa st Reviewed date:06/23/2024 05:40:57 PM Interpretation: Performing Lab:[facility], [address] [place] [phone] Notes/Report: Sodium 141 135-145 mmol/L Potassium 3.9 [...] Panel Reviewed date:06/23/2024 05:40:57 PM Interpretation: Performing Lab:[facility], [address] [place] [address] Notes/Report: Triglycerides 64 <150 mg/dL Desirable Triglyceride: [...] date:10/03/2024 04:57:38 AM Interpretation: Performing Lab: Notes/Report: [address] [place] [address] Mammography Report Signed Patient: Sabrina Peter MR#: [id number] : 1960 Acct:[id number] Age/Sex: 63 / F ADM Date: 08/20/24 Loc: HO.MAMMO Attending Dr: Kenneth Samuel MD Ordering Physician: Kenneth Samuel MD Results: 1Negativ e Date of Service: 08/20/24 Follow Up: 1 Year From [facility] Mammogram Procedure(s): MM tomosynthesis screening Accession Number(s): [id number] cc: Kenneth Samuel MD; Miah Day MD [...] DO 08/24/2024 03:02 PM EST Dictated By: Blaqnuita Serna DO Signed By: <Electronically signed by Blanquita Serna DO in OV> 08/24/24 1502 DD/ 1315 TD/TT: 08/20/24 1325 Utilization Specialist: [place] [facility] [address] [place] [address] Mammography Report Signed Patient: Sabrina Peter MR#: [id number] : 1960 Acct:[id number] Age/Sex: 63 / F ADM Date: 08/20/24 Loc: HO.MAMMO Attending Dr: Kenneth Samuel MD Ordering Physician: Kenneth Samuel MD Results: 1Negativ e Date of Service: 08/20/24 Follow Up: 1 [facility] From [facility] Mammogram Procedure(s): MM tomosynthesis screening LT Accession Number(s): [id number] cc: Kenneth Samuel MD; Miah Day MD [...] 03:02 PM [facility] Dictated By: Blanquita Serna DO Signed By: <Electronically signed by Blanquita Serna DO in OV> 08/24/24 1502 DD/ 1315 TD/TT: 08/20/24 1325 Utilization Specialist: XR DEXA axial skeleton Reviewed date:10/03/2024 04:57:38 AM Interpretation: Performing Lab: Notes/Report: [address] [place] [address] Mammography Report Signed Patient: Sabrina Peter MR#: [id number] : 1960 Acct:[id number] Age/Sex: 63 / F ADM Date: 08/20/24 Loc: HO.MAMMO Attending Dr: Kenneth Samuel MD Ordering Physician: Kenneth Samuel MD Results: Date of Service: 08/20/24 Follow Up: Procedure(s): XR DEXA axial skeleton Accession Number(s): [id number] cc: Kenneth Samuel MD; Miah Day MD EXAMINATION: DXA BONE DENSITY AXIAL HISTORY: Estrogen deficiency TECHNIQUE: KrowdPad Dual energy absorptiometry (DEXA) of the lumbar [...] is a trademark of the [employer]'s [place] for Metabolic Bone Disease, a World Health Organization (WHO) Collaborating Center. Electronically signed by: Kenneth Mirza MD 08/20/2024 02:05 PM [facility] Dictated By: Kenneth Mirza MD Signed By: <Electronically signed by Kenneth Mirza MD in OV> 08/20/24 1405 DD/ 1330 TD/TT: 08/20/24 1402 Utilization Specialist: [place] [facility] [address] [place] [address] Mammography Report Signed Patient: Sabrina Peter MR#: [id number] : 1960 Acct:[id number] Age/Sex: 63 / F ADM Date: 08/20/24 Loc: YANIRA Attending Dr: Kenneth Samuel MD Ordering Physician: Kenneth Samuel MD Results: Date of Service: 08/20/24 Follow Up: Procedure(s): XR DEX A axial skeleton Accession Number(s): [id number] cc: Kenneth Samuel MD; Miah Day MD EXAMINATION: DXA BON E DENSITY AXIAL HISTORY: Estrogen deficiency TECHNIQUE: KrowdPad Dual energy absorptiometry (DEXA) of the lumbar [...] 02:05 PM [facility] Dictated By: Kenneth Mirza MD Signed By: <Electronically signed by Kenneth Mirza MD in OV> 08/20/24 1405 DD/ 1330 TD/TT: 08/20/24 1402 Utilization Specialist: Reason For Referral No Information Medications [...] Problem Status W/U Status Risk Notes Problem 543241136 Malignant neopla sm of unspecified site of right female breast (C50.911) Active confirmed She remains in remission. Surveillance continues. Problem 25755552 Calculus of gallbladder without cholecystitis without obstruction (K80.20) Active confirmed These are asymptomatic and that there is no pain in the right upper quadrant on deep palpation. Problem 20099592 Age-related osteoporosis without current pathological fracture (M81.0) Active confirmed She has bee n compliant with her medications. No change in her regimen was made.She received 5 mg of zoledronic acid intravenously today over 30 min. without difficulty. Problem Osteoporosis (79083200) Other osteoporosis without current pathological fracture (M81.8) Active confirmed She will receive the Reclast on schedule. She is asymptomatic. Problem Sensory disorder of smell and/or taste (996267340714 3) Unspecified disturbances of smell and taste (R43.9) Active confirmed She has been to the neurologist and evaluation for seizure disorder is under way. She continues to experience is smelled something burning intermittently. 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 She will be seen in August 2017 at which time her endocrine therapy will be discontinued. She will be due for a bone density. Problem 125559444 Pure hypercholesterolemia (E78.00) Active confirmed Her lipids are being checked 3 times a year. No change in her regimen was needed. Problem 089707721 Nonintractable epilepsy without status epilepticus, unspecified epilepsy [...] Provider Diagnosis Kenneth Samuel III, MD [address] [place] [address] [place] [address] 07/06/2024 Kenneth Samuel Age-related osteoporosis without current pathological fracture M81.0 ; Breast cancer C50.919 ; DCIS (ductal carcinoma in situ), right D05.11 and Malignant neoplasm of unspecified site of right female breast C50.911 Kenneth Samuel III, MD [address] [place] [address] [place] [address] 12/30/2024 Kenneth Samuel Other osteoporosis without current pathological fracture M81.8 ; Malignant neoplasm of unspecified site of right female breast C50.911 and Unspecified disturbances of smell and taste R43.9 Kenneth Samuel III, MD [address] [place] [address] [place] [address] 07/07/2024 Kenneth Samuel III, MD [address] [place] [address] [place] [address] 07/07/2024 Kenneth Samuel III, MD [address] [place] [address] [place] [address] 06/24/2024 Kenneth Samuel III, MD [address] [place] [address] [place] [address] 06/25/2024 Kenneth Samuel Assessments Encounter Date Diagnosis [...] Provider Name:Kenneth Samuel , 07/13/2025 09:00:00 AM, [address] [place] [address] , [place]ON[place] Fry, [place], [phone], Insurance Providers Payer Name Payer Address Payer Phone Subscriber Number Group Number Insured Name Patient Relationship to Insured Coverage Start Date Coverage End Date [address] [facility] [place] [phone] [id number] Sabrina Peter Self - patient is the insured Medical (General) History Medical History History ICD Code stage I invasive carcinoma right breast with DCIS [id number] cholelithiasis anastrozole ended August 2017 Surgical History Surgery Date(Month/Year) mastectomy right breast, sentinel node b iopsy 07/22/2012 lumpectomy, right breast 2000 oophorectomy of the right ov jagdish and fallopian tube, negative pathlogy 09/2007 cholecystectomy 11/2010
== END 2025-03-24 15:58 | disposition home or self-care (01) ==
LOC: HO.HMCH 15:16
PROVIDERS: PCP Internal Medicine; Visit Provider Internal Medicine
DX: M51.360 Other intervertebral disc degeneration, lumbar region with discogenic back pain only (principal); M54.17 Radiculopathy, lumbosacral region

== ENCOUNTER → 2025-03-24 15:16 | Outpatient (BNVA) | payer OTHER, SELFPAY | PROVIDERS: PCP Internal Medicine; Visit Provider Internal Medicine | DX: M51.360 Other intervertebral disc degeneration, lumbar region with discogenic back pain only (principal); M54.17 Radiculopathy, lumbosacral region | CPT/HCPCS: 96127 ==

== ENCOUNTER → 2025-04-25 14:03 | Outpatient (BNV) | payer OTHER, SELFPAY | PROVIDERS: PCP Internal Medicine; Visit Provider Radiology Diagnostic Radiology | DX: M51.360 Other intervertebral disc degeneration, lumbar region with discogenic back pain only (principal) | CPT/HCPCS: 72148 ==

== ENCOUNTER 2025-04-25 14:13 | Outpatient (REF) | payer OTHER, SELFPAY ==
--- OUTSIDE RECORDS SUMMARY | 2024-03-02 05:45 | XMS_ITS ---
Author Organization Kenneth Samuel III, MD Address [address] [place] [address] [place] [address] Care Team Providers Care Metal Bumper Name Role Phone Nicolas Shaffer MDneth Primary Care Provider Dr. Kenneth Alvarado III [facility] [phone] Allergies Allergen (clinical drug ingredient) Drug/Non Drug Allergy documented on EMR Reaction Allergy Type Onset Date Status Penicillin Unknown Drug Allergy Active neomycin Neomycin rash Drug Allergy Active Adhesive rash Allergy Active REASON FOR VISIT Breast cancer, Osteoporosis, Hyperlipidemia, Weight loss Medications Medication SIG (Take, Route, Frequency, Duration) Notes Start Date End Date Status Atorvastatin Calcium 10 MG 1 tablet Oral ly Once a day Active SUMAtriptan Succinate 50 MG TAKE 1 TABLE T BY MOUTH ONCE A DAY AT ONSET OF HEADACHE; MAY REPEAT DOSE ONE TIME AFTER 2 HOURS IF NEEDED Oral Active LaMICtal 25 MG 2 tablet Orally Twic e a day Active Imitrex 25 MG 1 tablet at least 2 hours between doses as needed Orally Twice a day Active CoQ-10 30 MG 1 capsule with a lindsay l Orally Once a day Active NexIUM 24HR 20 MG TAKE ONE CAPSULE BY MOUTH TWICE A DAY Oral Active Fish Oil 1000 MG 1 capsule Orally Onc e a day Active Social History Tobacco Use: Social History Observation Description Date Details (start date - stop date) Never Smoker NA - NA Sex Assigned At : Social History Observation Description Sex Assigned At Female Tobacco Use/Smoking Question Answer Notes Patient is a nonsmoker Additional Findings: Tobacco Non-User Aggressive non-smoker Vital Signs Temperature 97.1 degrees Fahrenheit 03/02/20 24 Blood pressure systolic 99 mm Hg 03/02/20 24 Blood pressure diastolic 68 mm Hg 024 Heart Rate 77 /min 03/02/2024 Height 71 in 03/02/2024 Weight 147 lbs 03/02/2024 BMI 20.5 kg/m2 03/02/2024 Encounters Encounter Location Date Provider Diagnosis Kenneth Samuel III, MD [address] [place] [address] [place] [address] 03/02/2024 Kenneth Samuel Osteoporosis, unspec ified osteoporosis type, unspecified pathological fracture presence M81.0 ; Malignant neoplasm of unspecified site of right female breast C50.911 ; Pure hypercholesterolemia E78.00 ; Weight loss R63.4 and Nonintractable epilepsy without status epilepticus, unspecified epilepsy type G40.909 Assessments Encounter Date Diagnosis (ICD Code) Assessment Notes T reatment Notes Treatment Clinical Notes 03/02/2024 Osteoporosis, unspec ified osteoporosis type, unspecified pathological fracture presence (ICD-10 - M81.0) She continues on her regimen. She has no bone pain. She will have a bone density test next July. 03/02/2024 Malignant neoplasm o f unspecified site of right female breast (ICD-10 - C50.911) She has completed her adjuvant endocrine therapy. Her examination today is normal. There is no sign of a new primary or relapse. She is up-to-date with mammography. 03/02/2024 Pure hypercholestero lemia (ICD-10 - E78.00) Her lipids are being checked 3 times a year. No change in her regimen was needed. 03/02/2024 Weight loss (ICD-10 - R63.4) She has gained 1pound since her last visit. Her body mass index has increased to 20. 03/02/2024 Nonintractable epile psy without status epilepticus, unspecified epilepsy type (ICD-10 - G40.909) She has been compliant with her regimen. The old factory hallucinations have resolved. Plan Of Treatment Medication Medication Name Sig Start Date Stop Date Notes Atorvastatin Calcium 10 MG 1 tablet Orally Once a day SUMAtriptan Succinate 50 MG TAKE 1 TABLE T BY MOUTH ONCE A DAY AT ONSET OF HEADACHE; MAY REPEAT DOSE ONE TIME AFTER 2 HOURS IF NEEDED Oral LaMICtal 25 MG 2 tablet Orally Twice a day Imitrex 25 MG 1 tablet at least 2 hours between doses as needed Orally Twice a day CoQ-10 30 MG 1 capsule with a lindsay l Orally Once a day NexIUM 24HR 20 MG TAKE ONE CAPSULE BY MOUTH TWICE A DAY Oral Fish Oil 1000 MG 1 capsule Orally Once a day Pending Test Test Name Order Date BONE DENSITY DEXA 03/02/2024 Next Appt Details Follow Up: June Reclast, Reason: Chemo Reclast review LABS Provider Name:Kenneth Samuel , 07/13/2025 09:00:00 AM, [address] [place] [address] [address], [place], [address], Progress Notes * Geeta PETERB: [birth year] (63 yo F)Acc No.[id number]:03/02/2024 Progress Notes Patient: Sabrina Jain Provider: Dania Samuel MD :1960 A ge:63 Y S ex:Female Date:03/02/2024 Address:[address] [place], [place] [id number] Pcp:Miah Day MD Subjective: * Chief Complaints: * B reast cancerOsteoporosisHyperlipidemiaWeight loss * HPI: C OVID-19 Screening: She returns for follow-up of recent weight loss due to depression because of bereavement, a history of right breast cancer and osteoporosis. She is due for a bone density in July 2024. Her mastectomy site remains free of relapse in the left breast is unremarkable to breast self-examination. Her weight is stable. Her bereavement progresses but her depression has improved. She is compliant with her osteoporosis regimen. She is scheduled for an injection in her neck to relieve her occipital headaches on March 19, 2024 by pain management. Questions H ave you experienced fever, chills, cough, sore throat, shortness of breath, difficulty breathing, muscle aches, loss of taste or smell? N o H ave you been exposed to the virus within the last 10 days? N o H ave you travelled internationally in the last 10 days? N o H ave you been exposed to COVID-19 in the past? N o * ROS: G eneral/Constitutional: pain N raghav pain causing headaches. C hills d enies.?Fatigue a dmits. F ever d enies. E NT: Decreased hearing d enies. R espiratory: Cough d enies. C ardiovascular: Chest pain with exertion d enies. D yspnea on exertion?denies. S hortness of breath d enies. G astrointestinal: Constipation o ccasional. D ecreased appetite d enies. D iarrhea d enies. H eartburn d enies. N ausea d enies. R ectal bleeding d enies. V omiting d enies. H ematology: bruising d enies. p etechiae d enies. S wollen glands n one have been noted. G enitourinary: Frequent urination a t night. M usculoskeletal: Muscle aches d enies. P ainful joints d enies. S ciatica d enies. W eakness d enies. S kin: Itching d enies. R edgar d enies. S kin lesion(s)?denies. N eurologic: Difficulty speaking d enies. D izziness d enies.?Headache d enies. L ow back pain d enies. P sychiatric: Depressed mood w hich is mild. * Medical History: * Surgical History: c holecystectomy 11/2010oophorectomy of the right ovary and fallopian tube, negative pathlogy 09/2007lumpectomy, right breast 2000mastectomy right breast, sentinel node biopsy 07/22/2012 * Hospitalization/Major Diagno stic Procedure: D enies Past Hospitalization * Family History: F ather: alive 82 yrs, diabetes mellitus, abdominal aortic aneurysm repair, diagnosed with DM.?Mother: alive 75 yrs, leaky heart valves. 1 sister(s) - healthy. . She has no children. There is a family history of prostate, gastric, and breast cancers. A third cousin had breast cancer, an uncle had prostate cancer, an aunt had colon cancer and a first cousin had pancreatic cancer. She is not aware of any family history of mental illness or substance use disorder. * Social History: T obacco Use: T obacco Use/Smoking P atient is a n onsmoker A dditional Findings: Tobacco Non-User A ggressive non-smoker S he was born in [place]. She has been to Benja for 18 years. They have no children. 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 * Medications: T akingNexIUM 24HR 20 MG Capsule Delayed Release TAKE ONE CAPSULE BY MOUTH TWICE A DAY Oral Fish Oil 1000 MG Capsule 1 capsule Orally Once a dayImitrex 25 MG Tablet 1 tablet at least 2 hours between doses as needed Orally Twice a dayCoQ-10 30 MG Capsule 1 capsule with a meal Orally Once a dayAtorvastatin Calcium 10 MG Tablet 1 tablet Orally Once a daySUMAtriptan Succinate 50 MG Tablet TAKE 1 TABLET BY MOUTH ONCE A DAY AT ONSET OF HEADACHE; MAY REPEAT DOSE ONE TIME AFTER 2 HOURS IF NEEDED Oral LaMICtal 25 MG Tablet 2 tablet Orally Twice a dayMedication List reviewed and reconciled with the patientTaking NexIUM 24HR 20 MG Capsule Delayed Release TAKE ONE CAPSULE BY MOUTH TWICE A DAY Oral Taking Fish Oil 1000 MG Capsule 1 capsule Orally Once a dayTaking Imitrex 25 MG Tablet 1 tablet at least 2 hours between doses as needed Orally Twice a dayTaking CoQ-10 30 MG Capsule 1 capsule with a meal Orally Once a dayTaking Atorvastatin Calcium 10 MG Tablet 1 tablet Orally Once a dayTaking SUMAtriptan Succinate 50 MG Tablet TAKE 1 TABLET BY MOUTH ONCE A DAY AT ONSET OF HEADACHE; MAY REPEAT DOSE ONE TIME AFTER 2 HOURS IF NEEDED Oral Taking LaMICtal 25 MG Tablet 2 tablet Orally Twice a dayMedication List reviewed and reconciled with the patient * Allergies: A dhesive: rash - AllergyPenicillinNeomycin: rash - Allergyno[Allergies Verified] Objective: * Vitals: H t: 71, Wt: 147, BMI:20.5, BP: 99/68, HR: 77, Temp: 97.1, Wt-k.68. * Examination: G eneral Examination: GENERAL APPEARANCE: p leasant, well nourished, well developed, in no acute distress, calm and relaxed , woman. HEAD: a traumatic, normocephalic. EYES: e gail, perrla, anicteric, conjugate. EARS: n ormal. NOSE: s eptum intact. ORAL CAVITY: n ormal, unremarkable. NECK/THYROID: n o jugular venous distention, no carotid bruit, thyroid normal. LYMPH NODES: n o enlarged lymph nodes,spleen normal. SKIN: n o suspicious lesions, anicteric. HEART: n o clicks, gallops, murmurs, or rubs, regular rhythm, S1, S2 normal, no s3, or vascular bruits. LUNGS: c lear to auscultation . BREASTS: T he left breast is unremarkable, the right mastectomy site is free of relapse.. ABDOMEN: b owel sounds normal, no ascites, no organomegaly, no mass. RECTAL EXAM: n ot examined. MUSCULOSKELETAL: e xtremities unremarkable, no clubbing, cyanosis or edema. PERIPHERAL PULSES: n ormal. NEUROLOGIC: a lert and oriented, cranial nerves 2-12 grossly intact, deep tendon reflexes 2+ symmetrical, motor strength normal upper and lower extremities, sensory exam intact. PSYCH: a lert, oriented. Assessment: * Assessment: 1. O steoporosis, unspecified osteoporosis type, unspecified pathological fracture presence - M81.0 (Primary), She continues on her regimen. She has no bone pain. She will have a bone density test next July. 2 . M alignant neoplasm of unspecified site of right female breast - C50.911, She has completed her adjuvant endocrine therapy. Her examination today is normal. There is no sign of a new primary or relapse. She is up-to-date with mammography. 3 . P ure hypercholesterolemia - E78.00, Her lipids are being checked 3 times a year. No change in her regimen was needed. 4. W eight loss - R63.4, She has gained 1pound since her last visit. Her body mass index has increased to 20. 5 . N onintractable epilepsy without status epilepticus, unspecified epilepsy type - G40.909, She has been compliant with her regimen. The old factory hallucinations have resolved. Plan: * Treatment: 2. M alignant neoplasm of unspecified site of right female breast L AB: PROFILE, FASTING (COMPREHENSIVE METABOLIC) L AB: LIPID PANEL L AB: CBC w DIFF 3. P ure hypercholesterolemia L AB: PROFILE, FASTING (COMPREHENSIVE METABOLIC) L AB: LIPID PANEL L AB: CBC w DIFF 4. O thers Continue NexIUM 24HR Capsule Delayed Release, 20 MG, TAKE ONE CAPSULE BY MOUTH TWICE A DAY, Oral;?Continue Fish Oil Capsule, 1000 MG, 1 capsule, Orally, Once a day; C ontinue Imitrex Tablet, 25 MG, 1 tablet at least 2 hours between doses as needed, Orally, Twice a day; C ontinue CoQ-10 Capsule, 30 MG, 1 capsule with a meal, Orally, Once a day; C ontinue Atorvastatin Calcium Tablet, 10 MG, 1 tablet, Orally, Once a day; C ontinue SUMAtriptan Succinate Tablet, 50 MG, TAKE 1 TABLET BY MOUTH ONCE A DAY AT ONSET OF HEADACHE; MAY REPEAT DOSE ONE TIME AFTER 2 HOURS IF NEEDED, Oral; C ontinue LaMICtal Tablet, 25 MG, 2 tablet, Orally, Twice a day. * Procedure Codes: * Follow Up: J simon Reclast (Reason: Chemo Reclast review LABS) * Images: * Sign off status: Completed true * Provider: Dania Samuel MD Date: 0 03/02/2024 Generated for Riccardo dunn/Юлия/Conner on: 06/25/2024 02:16 PM EST History and Physical Notes * HPI (History of Present Illness) Category Sub-Category Detail Notes COVID-19 Screening Questions Have you had any new onset fever, chills, cough, congestion, sore throat, shortness of breath, muscle aches?: No Have you been exposed to the virus withi n the last 10 days?: No Have you travelled internationally in [facility] last 10 days?: No Have you been exposed to COVID-19 in the past?: No Examination Category Sub-Category Detail Notes General Examination GENERAL APPEARANCE: pleasant , well nourished, well developed, in no acute distress, calm and relaxed , woman HEAD: atraumatic, normocep halic EYES: eomi, perrla, anicte ronald, conjugate EARS: normal NOSE: septum intact NECK/THYROID: no jugular venous di stention, no carotid bruit, thyroid normal HEART: no clicks, gallops, murmurs, or rubs, regular rhythm, S1, S2 normal, no s3, or vascular bruits LUNGS: clear to auscultatio n ABDOMEN: bowel sounds normal, no ascites, no organomegaly, no mass NEUROLOGIC: alert and oriented, cranial nerves 2-12 grossly intact, deep tendon reflexes 2+ symmetrical, motor strength normal upper and lower extremities, sensory exam intact SKIN: no suspicious lesion s, anicteric PERIPHERAL PULSES: normal BREASTS: The left breast is u nremarkable, the right mastectomy site is free of relapse. MUSCULOSKELETAL: extremities unremark able, no clubbing, cyanosis or edema LYMPH NODES: no enlarged lymph no roque,spleen normal RECTAL EXAM: not examined PSYCH: alert, oriented ORAL CAVITY: normal, unremarkable
--- OUTSIDE RECORDS SUMMARY | 2024-06-24 10:06 | XMS_ITS ---
Author Organization Kenneth Samuel III, MD Address [address] [facility] [place] [address] Care Team Providers Care Pony Worker Name Role Phone Edmund JONES [place] Primary Care Provider Unava ilDr. Kenneth Devlin III [facility] REASON FOR VISIT Lab Results Social History Sex Assigned At : Social History Observation Description Sex Assigned At Female Encounters Encounter Location Date Provider Diagnosis Kenneth Samuel III, MD [address] [place] [address] [place] [address] 06/24/2024 Kenneth Samuel Plan Of Treatment Next Appt Details Provider Name:Kenneth Samuel , 07/13/2025 09:00:00 AM, [address] [place] [address] [place], [address], Progress Notes * Geeta PETERB: 9[birth year] (63 yo F)Acc No.[id number]:06/24/2024 Patient: Va Sabrina BIRD :1960 A ge:63 Y S ex:Female Address:[place] [address] * true * Date: Generated for Printi ng/Faxing/eTransmitting on: 06/25/2024 02:16 PM EST
--- OUTSIDE RECORDS SUMMARY | 2024-06-25 10:42 | XMS_ITS ---
Author Organization Kenneth Samuel III, MD Address [address] [facility] [place] [address] Care Team Providers Care Activity Assistant Name Role Phone Edmund JONES [place] Primary Care Provider Unava ilDr. Kenneth Devlin III [facility] [phone] REASON FOR VISIT Ultrasound Social History Sex Assigned At : Social History Observation Description Sex Assigned At Female Encounters Encounter Location Date Provider Diagnosis Kenneth Samuel III, MD [address] [place] [address] [place] [address] 06/25/2024 Kenneth Samuel Plan Of Treatment Next Appt Details Provider Name:Kenneth Samuel , 07/13/2025 09:00:00 AM, [address] [place] [address] [place], [address], Progress Notes * Geeta PETERB: 9[birth year] (63 yo F)Acc No.[id number]:06/25/2024 Patient: Va Sabrina BIRD :1960 A ge:63 Y S ex:Female Address:[place] [address] * true * Date: Generated for Printi ng/Faxing/eTransmitting on: 06/25/2024 02:17 PM EST
--- OUTSIDE RECORDS SUMMARY | 2024-07-06 04:00 | XMS_ITS ---
Author Organization Kenneth Samuel III, MD Address [address] [place] [address] [place] [address] Care Team Providers Care Sales Branch Manager Name Role Phone Nicolas Shaffer MDneth Primary Care Provider Dr. Kenneth Alvarado III [facility] Allergies Allergen (clinical drug ingredient) Drug/Non Drug Allergy documented on EMR Reaction Allergy Type Onset Date Status Penicillin Unknown Drug Allergy Active neomycin Neomycin rash Drug Allergy Active Adhesive rash Allergy Active REASON FOR VISIT History of right breast cancer, Osteoporosis, DCIS Medications Medication SIG (Take, Route, Frequency, Duration) Notes Start Date End Date Status Imitrex 25 MG 1 tablet at least 2 hours between doses as needed Orally Twice a day Active NexIUM 24HR 20 MG TAKE ONE CAPSULE BY MOUTH TWICE A DAY Oral Active Fish Oil 1000 MG 1 capsule Orally Onc e a day Active SUMAtriptan Succinate 50 MG TAKE 1 TABLE T BY MOUTH ONCE A DAY AT ONSET OF HEADACHE; MAY REPEAT DOSE ONE TIME AFTER 2 HOURS IF NEEDED Oral Active LaMICtal 25 MG 2 tablet Orally Twic e a day Active Azithromycin 250 MG as directed Orally 2 Tablets on the first day, one tablet the rest of the days 07/07/2024 Active CoQ-10 30 MG 1 capsule with a lindsay l Orally Once a day Active Atorvastatin Calcium 10 MG 1 tablet Oral ly Once a day Active Social History Tobacco Use: Social History Observation Description Date Details (start date - stop date) Never Smoker NA - NA Sex Assigned At : Social History Observation Description Sex Assigned At Female Tobacco Use/Smoking Question Answer Notes Patient is a nonsmoker Additional Findings: Tobacco Non-User Aggressive non-smoker Vital Signs Temperature 98.0 degrees Fahrenheit 07/06/19 25 Blood pressure systolic 120 mm Hg 07/06/19 25 Blood pressure diastolic 64 mm Hg 025 Heart Rate 80 /min 07/06/2024 Height 71 in 07/06/2024 Weight 147 lbs 07/06/2024 BMI 20.5 kg/m2 07/06/2024 Encounters Encounter Location Date Provider Diagnosis Kenneth Samuel III, MD [address] [place] [address] [place] [address] 07/06/2024 Kenneth Samuel Age-related osteoporosis without current pathological fracture M81.0 ; Breast cancer C50.919 ; DCIS (ductal carcinoma in situ), 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 No change in her regimen was made.She received 5 mg of zoledronic acid intravenously today over 30 min. without difficulty. 07/06/2024 Breast cancer (ICD-10 - C50.919) There was no sign of recurrent breast cancer on her last examination. Her current PET/CT scan shows no sign of breast cancer. 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 She will be seen in August 2017 at which time her endocrine therapy will be discontinued. She will be due for a bone density. 07/06/2024 Malignant neoplasm of unspecified site of right female breast (ICD-10 - C50.911) She has completed her adjuvant endocrine therapy. Her examination today is normal. There is no sign of a new primary or relapse. She is up-to-date with mammography. Plan Of Treatment Medication Medication Name Sig Start Date Stop Date Notes Imitrex 25 MG 1 tablet at least 2 hours between doses as needed Orally Twice a day NexIUM 24HR 20 MG TAKE ONE CAPSULE BY MOUTH TWICE A DAY Oral Fish Oil 1000 MG 1 capsule Orally Once a day SUMAtriptan Succinate 50 MG TAKE 1 TABLE T BY MOUTH ONCE A DAY AT ONSET OF HEADACHE; MAY REPEAT DOSE ONE TIME AFTER 2 HOURS IF NEEDED Oral LaMICtal 25 MG 2 tablet Orally Twice a day Azithromycin 250 MG as directed Orally 2 Tablets on the first day, one tablet the rest of the days 07/07/2024 CoQ-10 30 MG 1 capsule with a lindsay l Orally Once a day Atorvastatin Calcium 10 MG 1 tablet Orally Once a day Next Appt Details Follow Up: 6 Months, Reason: ov Provider Name:Kenneth Samuel , 07/13/2025 09:00:00 AM, [address] [place] [address] [address], [place], [address], Procedure Notes * Category Sub-Category Detail Notes Chemotherapy Start and End Time: , start, 9:0 0 am, end, 10:00 am Site: left hand Consent: verbal consent was o btained prior to procedure Medications given: Zoledronic acid 5 mg ([facility] 86768-030-80) Monitored by: SANTOS Velez port flush none route IV Progress Notes * DESTINEYREINIER GeetaB: 961 (63 yo F)Acc No.[id number]:07/06/2024 Patient: Sabrina GARZA Provider: Dania Samuel MD :1960 A ge:63 Y S ex:Female Date:07/06/2024 Address:[address] [place] [address], [id number] Pcp:Miah Day MD Subjective: * Chief Complaints: * H istory of right breast cancerOsteoporosisDCIS * HPI: C OVID-19 Screening: She returns for a 6 month checkup of her carcinoma of the breast and to receive an intravenous infusion of 5 mg of zoledronic acid which she receives once a year for osteoporosis. She felt said [place] which she spent alone. She has developed low back pain. X-rays of her spine showed scoliosis. She says she has a one half inch leg length discrepancy managed by her primary care physician, Dr. Day her examination today was unremarkable. Questions H ave you had any new onset fever, chills, cough, congestion, sore throat, shortness of breath, muscle aches? N o * ROS: G eneral/Constitutional: pain L umbar spine. C hills d enies. F atigue?admits. F ever d enies. E NT: Decreased [...] have been noted. G enitourinary: Frequent urination d enies. M usculoskeletal: Muscle aches d enies. P ainful joints d enies. S ciatica d enies. W eakness d enies. S kin: Itching d enies. R edgar d enies. S kin lesion(s)?denies. N eurologic: Difficulty speaking d enies. D izziness d enies.?Headache d enies. L ow back pain t hat is chronic. P sychiatric: Depressed mood d enies. * Medical History: * Surgical History: c [...] T obacco Use: T obacco Use/Smoking P radha is a n onsmoker A dditional Findings: Tobacco Non-User A ggressive non-smoker S he was born in [place]. She has been to Benja for 18 years. They have no children. 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 * Medications: T akingNexIUM 24HR 20 MG Capsule Delayed Release TAKE ONE CAPSULE BY MOUTH TWICE A DAY Oral Fish Oil 1000 MG Capsule 1 capsule Orally Once a day Imitrex 25 MG Tablet 1 tablet at least 2 hours between doses as needed Orally Twice a day CoQ-10 30 MG Capsule 1 capsule with a meal Orally Once a day Atorvastatin Calcium 10 MG Tablet 1 tablet Orally Once a day SUMAtriptan Succinate 50 MG Tablet TAKE 1 TABLET BY MOUTH ONCE A DAY AT ONSET OF HEADACHE; MAY REPEAT DOSE ONE TIME AFTER 2 HOURS IF NEEDED Oral LaMICtal 25 MG Tablet 2 tablet Orally Twice a day Medication List reviewed and reconciled with the patientTaking NexIUM 24HR 20 MG Capsule Delayed Release TAKE ONE CAPSULE BY MOUTH TWICE A DAY Oral Taking Fish Oil 1000 MG Capsule 1 capsule Orally Once a day Taking Imitrex 25 MG Tablet 1 tablet at least 2 hours between doses as needed Orally Twice a day Taking CoQ-10 30 MG Capsule 1 capsule with a meal Orally Once a day Taking Atorvastatin Calcium 10 MG Tablet 1 tablet Orally Once a day Taking SUMAtriptan Succinate 50 MG Tablet TAKE 1 TABLET BY MOUTH ONCE A DAY AT ONSET OF HEADACHE; MAY REPEAT DOSE ONE TIME AFTER 2 HOURS IF NEEDED Oral Taking LaMICtal 25 MG Tablet 2 tablet Orally Twice a day Medication List reviewed and reconciled with the patient * Allergies: A dhesive: rash - AllergyPenicillinNeomycin: rash - Allergyno[Allergies Verified] Objective: * Vitals: H t: 71, Wt: 147, BMI:20.5, BP: 120/64, HR: 80, Temp: 98.0, Wt-k.68. * P ast Orders: Lab:Lipid Panel * Collection Date 06/23/2024 06/27/2023 Collection Time 09:49 AM 08:34 AM Order Date 06/23/2024 06/27/2023 Triglycerides 64 (Ref Range: <150 mg/dL) 48 (Ref Range: <150 mg/dL) Cholesterol 167 (Ref Range: <200 mg/dL) 184 (Ref Range: <200 mg/dL) LDL Cholesterol Calculated 90 (Ref Range: <100 mg/dL) 95 (Ref Range: <100 mg/dL) HDL Cholesterol 65 (Ref Range: >40 mg/dL) 80 (Ref Range: >40 mg/dL) * Lab:Angelina Padilla l Fast * Collection Date 06/23/2024 06/27/2023 Collection Time 09:49 AM 08:34 AM Order Date 06/23/2024 06/27/2023 Sodium 141 (Ref Range: 135-145 mmol/L) 144 (Ref Range: 135-145 mmol/L) Bilirubin Total 0.6 (Ref Range: 0.0-1.0 mg/dL) 0.7 (Ref Range: 0.0-1.0 mg/dL) Aspartate Amino Transferase 27 (Ref Range: 5-31 U/L) 22 (Ref Range: 5-31 U/L) Alanine Aminotransferase 22 (Ref Range: 0-31 U/L) 16 (Ref Range: 0-31 U/L) Total Protein 7.0 (Ref Range: 6.5-8.0 g/dL) 6.9 (Ref Range: 6.5-8.0 g/dL) Albumin Level 4.2 (Ref Range: 3.5-5.0 g/dL) 4.2 (Ref Range: 3.5-5.0 g/dL) Alkaline Phosphatase 94 (Ref Range: 39-117 U/L) 52 (Ref Range: 39-117 U/L) Potassium 3.9 (Ref Range: 3.3-5.1 mmol/L) 4.3 (Ref Range: 3.3-5.1 mmol/L) Chloride 108 (Ref Range: 96-108 mmol/L) 108 (Ref Range: 96-108 mmol/L) Carbon Dioxide 27 (Ref Range: 22-29 mmol/L) 28 (Ref Range: 22-29 mmol/L) Anion Gap 10 L (Ref Range: 12-20) 12 (Ref Range: 12-20) Blood Urea Nitrogen 10 (Ref Range: 9-16 mg/dL) 14 (Ref Range: 9-16 mg/dL) Creatinine 0.84 (Ref Range: 0.5-1.4 mg/dL) 0.89 (Ref Range: 0.5-1.4 mg/dL) Estimated Glomerular Filt Rate > 60 > 60 Glucose Fasting 109 H (Ref Range: 60-99 mg/dL) 98 (Ref Range: 60-99 mg/dL) Calcium 9.3 (Ref Range: 8.4-10.2 mg/dL) 9.4 (Ref Range: 8.4-10.2 mg/dL) * Lab:Complete Blood Count Aut o Diff * Collection Date 06/23/2024 06/27/2023 07/10/2022 Collection Time 09:49 AM 08:34 AM 08:12 AM Order Date 06/23/2024 06/27/2023 07/10/2022 White Blood Count 5.7 (Ref Range: 4.8-10.8 X10*3/uL) 5.4 (Ref Range: 4.8-10.8 X10*3/uL) 8.0 (Ref Range: 4.8-10.8 X10*3/uL) Red Blood Count 4.24 (Ref Range: 4.20-5.50 X10*6/uL) 4.41 (Ref Range: 4.20-5.50 X10*6/uL) 4.84 (Ref Range: 4.20-5.50 X10*6/uL) Hemoglobin 12.0 (Ref Range: 12.0-16.0 g/dl) 12.7 (Ref Range: 12.0-16.0 g/dl) 13.6 (Ref Range: 12.0-16.0 g/dl) Hematocrit 37.4 (Ref Range: 37.0-47.0 %) 39.3 (Ref Range: 37.0-47.0 %) 42.8 (Ref Range: 37.0-47.0 %) Mean Corpuscular Volume 88.2 (Ref Range: 80.0-98.0 fL) 89.1 (Ref Range: 80.0-98.0 fL) 88.4 (Ref Range: 80.0-98.0 fL) Mean Corpuscular Hemoglobin 28.3 (Ref Range: 27.0-33.0 pg) 28.8 (Ref Range: 27.0-33.0 pg) 28.1 (Ref Range: 27.0-33.0 pg) Mean Corpuscular HGB Conc 32.1 (Ref Range: 31.0-35.0 g/dl) 32.3 (Ref Range: 31.0-35.0 g/dl) 31.8 (Ref Range: 31.0-35.0 g/dl) Red Cell Distribution Width 12.3 (Ref Range: 11.0-16.0 %) 12.8 (Ref Range: 11.0-16.0 %) 12.8 (Ref Range: 11.0-16.0 %) Platelet Count 336 (Ref Range: 160-400 X10*3/uL) 277 (Ref Range: 160-400 X10*3/uL) 324 (Ref Range: 160-400 X10*3/uL) Mean Platelet Volume 9.6 (Ref Range: 9.4-12.3 fL) 9.6 (Ref Range: 9.4-12.3 fL) 9.9 (Ref Range: 9.4-12.3 fL) Neutrophils Percent Auto 70.7 (Ref Range: 45-73 %) 56.9 (Ref Range: 45-73 %) 66.5 (Ref Range: 45-73 %) Imm Gran Pct Auto 0.4 (Ref Range: 0.0-0.4 %) 0.4 (Ref Range: 0.0-0.4 %) 0.4 (Ref Range: 0.0-0.4 %) Lymphocytes Percent Auto 19.7 L (Ref Range: 20-40 %) 30.8 (Ref Range: 20-40 %) 24.1 (Ref Range: 20-40 %) Monocytes Percent Auto 6.9 (Ref Range: 2-11 %) 8.0 (Ref Range: 2-11 %) 6.5 (Ref Range: 2-11 %) Eosinophils Percent Auto 1.6 (Ref Range: 0-4 %) 2.8 (Ref Range: 0-4 %) 1.5 (Ref Range: 0-4 %) Basophils Percent Auto 0.7 (Ref Range: 0-2 %) 1.1 (Ref Range: 0-2 %) 1.0 (Ref Range: 0-2 %) NRBC Pct Auto 0.0 (Ref Range: 0.0-0.2 /100WBC) 0.0 (Ref Range: 0.0-0.2 /100WBC) 0.0 (Ref Range: 0.0-0.2 /100WBC) Neutrophils Absolute Auto 4.0 (Ref Range: 2.0-8.3 x10*3/uL) 3.1 (Ref Range: 2.0-8.3 x10*3/uL) 5.4 (Ref Range: 2.0-8.3 x10*3/uL) Imm Gran Abs Auto 0.02 (Ref Range: 0.00-0.03 X10*3/uL) 0.02 (Ref Range: 0.00-0.03 X10*3/uL) 0.03 (Ref Range: 0.00-0.03 X10*3/uL) Lymphocytes Absolute Auto 1.1 L (Ref Range: 1.2-4.9 X10*3/uL) 1.7 (Ref Range: 1.2-4.9 X10*3/uL) 1.9 (Ref Range: 1.2-4.9 X10*3/uL) Monocytes Absolute Auto 0.4 (Ref Range: 0.1-1.2 X10*3/uL) 0.4 (Ref Range: 0.1-1.2 X10*3/uL) 0.5 (Ref Range: 0.1-1.2 X10*3/uL) Eosinophils Absolute Auto 0.1 (Ref Range: 0.0-0.4 X10*3/uL) 0.2 (Ref Range: 0.0-0.4 X10*3/uL) 0.1 (Ref Range: 0.0-0.4 X10*3/uL) Basophils Absolute Auto 0.0 (Ref Range: 0.0-0.2 X10*3/uL) 0.1 (Ref Range: 0.0-0.2 X10*3/uL) 0.1 (Ref Range: 0.0-0.2 X10*3/uL) NRBC Abs Auto 0.000 (Ref Range: 0.0-0.012 X10*3/uL) 0.000 (Ref Range: 0.0-0.012 X10*3/uL) 0.000 (Ref Range: 0.0-0.012 X10*3/uL) * Examination: G eneral Examination: GENERAL APPEARANCE: p leasant, well nourished, well developed, in no acute distress, calm and relaxed, woman. HEAD: a traumatic, normocephalic. EYES: e [...] LUNGS: c lear to auscultation . BREASTS: L eft breast unremarkable. Right mastectomy site free of disease. ABDOMEN: b owel sounds normal, no ascites, no organomegaly, no mass. RECTAL EXAM: n ot examined. MUSCULOSKELETAL: e xtremities unremarkable, no clubbing, cyanosis or edema. PERIPHERAL PULSES: n ormal. NEUROLOGIC: a lert and oriented, cranial nerves 2-12 grossly intact, deep tendon reflexes 2+ symmetrical, motor strength normal upper and lower extremities, sensory exam intact. PSYCH: a lert, oriented. Assessment: * Assessment: 1. A ge-related osteoporosis without current pathological fracture - M81.0 (Primary) N otes :She has been compliant with her medications. No change in her regimen was made.She received 5 mg of zoledronic acid intravenously today over 30 min. without difficulty. 2 . B reast cancer - C50.919 N otes :There was no sign of recurrent breast cancer on her last examination. Her current PET/CT scan shows no sign of breast cancer. 3 . 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 She will be seen in August 2017 at which time her endocrine therapy will be discontinued. She will be due for a bone density. 4 . M alignant neoplasm of unspecified site of right female breast - C50.911? Notes :She has completed her adjuvant endocrine therapy. Her examination today is normal. There is no sign of a new primary or relapse. She is up-to-date with mammography. Plan: * Treatment: 2. O thers Continue NexIUM 24HR Capsule Delayed [...] 2 tablet, Orally, Twice a day. * Procedures: C hemotherapy: Start and End Time: , start, 9:00 am, end, 10:00 am. Site: [facility]. Consent: v erbal consent was obtained prior to procedure.? Medications given: Z oledronic acid 5 mg ([facility] 47709-193-53). Monitored by: SANTOS Olsen. port flush n one. route I V. * Procedure Codes: J 3489 INJECTION ZOLEDRONIC ACID 1 [id number] CHEMO, IV INFUSION, 1 HR * Follow Up: 6 Months (Reason: ov) * Images: * Sign off status: Completed true * Provider: Dania Samuel MD Date: 0 07/06/2024 Generated for Riccardo dunn/Юлия/Alexandreitting on: 06/25/2024 02:16 PM EST History and Physical Notes * HPI (History of Present Illness) Category Sub-Category Detail Notes COVID-19 Screening Questions Have you had any new onset fever, chills, cough, congestion, sore throat, shortness of breath, muscle aches?: No Examination Category Sub-Category Detail Notes General Examination GENERAL APPEARANCE: pleasant , well nourished, well developed, in no acute distress, calm and relaxed, woman HEAD: atraumatic, normocep halic EYES: eomi, [...] lesion s, anicteric PERIPHERAL PULSES: normal BREASTS: Left breast unremark able. Right mastectomy site free of disease MUSCULOSKELETAL: extremities unremark able, no clubbing, cyanosis or edema LYMPH NODES: no enlarged lymph no roque,spleen normal RECTAL EXAM: not examined PSYCH: alert, oriented ORAL CAVITY: normal, unremarkable
--- OUTSIDE RECORDS SUMMARY | 2024-07-07 08:31 | XMS_ITS ---
Author Organization Kenneth Samuel III, MD Address [address] [place] [address] Care Team Providers Care Sugar Grinder Name Role Phone Edmund JONES [place] Primary Care Provider Unava ilDr. Kenneth Devlin III [facility] REASON FOR VISIT Rx Request Social History Sex Assigned At : Social History Observation Description Sex Assigned At Female Encounters Encounter Location Date Provider Diagnosis Kenneth Samuel III, MD [address] [place] [address] [place] [address] 07/07/2024 Kenneth Samuel Plan Of Treatment Next Appt Details Provider Name:Kenneth Samuel , 07/13/2025 09:00:00 AM, [address] [place] [address] [place], [address], Progress Notes * Geeta PETERB: [birth year] (63 yo F)Acc No.[id number]:07/07/2024 Patient: Va Sabrina BIRD :1960 A ge:63 Y S ex:Female Address:[place] [address] * true * Date: Generated for Printi ng/Faxing/eTransmitting on: 06/25/2024 02:17 PM EST
--- OUTSIDE RECORDS SUMMARY | 2024-07-07 09:00 | XMS_ITS ---
Author Organization Kenneth Samuel III, MD Address [address] [place] [address] [place] [address] Care Team Providers Care Tank Welder Name Role Phone Nicolas Shaffer MDneth Primary Care Provider Unava Dr. Kenneth Kuhn III [facility] Medications Medication SIG (Take, Route, Fr equency, Duration) Notes Start Date End Date Status Azithromycin 250 MG as directed Orally 2 Tablets on the first day, one tablet the rest of the days for 5 days 07/07/2024 Acti ve Social History Sex Assigned At : Social History Observation Description Sex Assigned At Female Encounters Encounter Location Date Provider Diagnosis Kenneth Samuel III, MD [address] [place] [address] [place] [address] 07/07/2024 Kenneth Samuel Plan Of Treatment Medication Medication Name Sig Start Date Stop Date Notes Azithromycin 250 MG as directed Orally 2 Tablets on the first day, one tablet the rest of the days for 5 days 07/07/2024 Next Appt Details Provider Name:Kenneth Samuel , 07/13/2025 09:00:00 AM, [address] [place] [address] [place], [address], Progress Notes * Geeta PETERB: [birth year] (63 yo F)Acc No.[id number]:07/07/2024 Patient: Sabrina GARZA :1960 A ge:63 Y S ex:Female Address:[address] [place] [address] * Refills Start Azithromycin Tablet, 250 MG, Orally, 6, as directed, 2 Tablets on the first day, one tablet the rest of the days, 5 days, Refills=0 * true * Date: Generated for Riccardo dunn/Юлия/Conner on: 06/25/2024 02:16 PM EST
--- OUTSIDE RECORDS SUMMARY | 2024-12-30 04:30 | XMS_ITS ---
Author Organization Kenneth Samuel III, MD Address [address] [place] [address] [place] [address] Care Team Providers Care Bill Checker Name Role Phone Edmund JONES Hussein Primary Care Provider Dr. Kenneth Alvarado III [facility] Allergies Allergen (clinical drug ingredient) Drug/Non Drug Allergy documented on EMR Reaction Allergy Type Onset Date Status Penicillin Unknown Drug Allergy Active No Known Food Allergy Unknown Drug Allergy Active neomycin Neomycin rash Drug Allergy Active Adhesive rash Allergy Active REASON FOR VISIT carcinoma right breast, osteoporosis Medications Medication SIG (Take, Route, Frequency, Duration) Notes Start Date End Date Status CoQ-10 30 MG 1 capsule with a [...] as needed Orally Twice a day Active Social History Tobacco Use: [...] Problem Status W/U Status Risk Notes Problem Sensory disorder of smell and/or taste ([id number]) Unspecified disturbances of smell and taste (R43.9) Active confirmed She has been to the neurologist and evaluation for seizure disorder is under way. She continues to experience is smelled something burning intermittently .This problem is now resolved Vital Signs Temperature 98.6 degrees Fahrenheit 12/31/19 25 Blood pressure systolic 118 mm Hg 12/31/19 25 Blood pressure diastolic 72 mm Hg 025 Heart Rate 76 /min 12/30/2024 Height 71 in 12/30/2024 Weight 156 lbs 12/30/2024 BMI 21.76 kg/m2 12/30/2024 Encounters Encounter Location Date Provider Diagnosis Kenneth Samuel III, MD [address] [place] [address] [place] [address] 12/30/2024 Kenneth Samuel Other osteoporosis without current pathological fracture M81.8 ; Malignant neoplasm of unspecified site of right female breast C50.911 and Unspecified disturbances of smell and taste R43.9 Assessments Encounter Date Diagnosis (ICD Code) Assessment Notes Treatment Notes Treatment Clinical Notes 12/30/2024 Other osteoporosis without current pathological fracture (ICD-10 - M81.8) She will receive the Reclast on schedule. She is asymptomatic. 12/30/2024 Malignant neoplasm of unspecified site of right female breast (ICD-10 - C50.911) She remains in remission. Surveillance continues. 12/30/2024 Unspecified disturbances of smell and taste (ICD-10 - R43.9) She has been to the neurologist and evaluation for seizure disorder is under way. She continues to experience is smelled something burning intermittently.This problem is now resolved Plan Of Treatment Medication Medication Name Sig Start Date Stop Date Notes CoQ-10 30 MG 1 capsule with a lindsay l Orally Once a day Atorvastatin Calcium 10 MG 1 tablet Orally Once a day SUMAtriptan Succinate 50 MG TAKE 1 TABLE T BY MOUTH ONCE A DAY AT ONSET OF HEADACHE; MAY REPEAT DOSE ONE TIME AFTER 2 HOURS IF NEEDED Oral LaMICtal 25 MG 2 tablet Orally Twice a day NexIUM 24HR 20 MG TAKE ONE CAPSULE BY MOUTH TWICE A DAY Oral Fish Oil 1000 MG 1 capsule Orally Once a day Imitrex 25 MG 1 tablet at least 2 hours between doses as needed Orally Twice a day Pending Test Test Name Order Date PROFILE, FASTING (COMPREHENSIVE METABOLI C) 12/30/2024 CBC w DIFF 12/30/2024 Lipid Panel 12/30/2024 Next Appt Details Follow Up: June for Sharmaine mc, Reason: Reclast infusion Provider Name:Kenneth Breauxne , 07/13/2025 09:00:00 AM, [address] [place] [address], [place] [address], [place], [address], Progress Notes * Geeta PETERB: [birth year] (64 yo F)Acc No.[id number]:12/30/2024 Progress Notes Patient: Sabrina GARZA Provider: Dania Samuel MD :1960 A ge:64 Y S ex:Female Date:12/30/2024 Address:[address] [place], [place] [id number] Pcp:Hussein Shaffer MD Subjective: * Chief Complaints: * C arcinoma right breastOsteoporosis * HPI: C OVID-19 Screening: S he returns for ongoing surveillance of her breast cancer and osteoporosis. She is treated with intermittent doses of zoledronic acid. She lost her mother in June and her father in August of this year. She contentions with bereavement. She has been conducting breast self-examination with negative results. She remains free of breast cancer. Questions H ave you had any new onset fever, chills, cough, congestion, sore throat, shortness of breath, muscle aches? N o * ROS: G eneral/Constitutional: pain o nly normal aches and pains. C hills d enies.?Fatigue a dmits. F [...] pain d enies. P sychiatric: Depressed mood d enies. * [...] ggressive non-smoker S he was born in [place]. She has been to Benja for 18 years. They have no children. 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 * Medications: N ot-Taking/PRNNexIUM 24HR 20 MG Capsule Delayed Release TAKE ONE CAPSULE BY MOUTH TWICE A DAY Oral Fish Oil 1000 MG Capsule 1 capsule Orally Once a day Imitrex 25 MG Tablet 1 tablet at least 2 hours between doses as needed Orally Twice a day CoQ- 10 30 MG Capsule 1 capsule with a meal Orally Once a day Atorvastatin Calcium 10 MG Tablet 1 tablet Orally Once a day SUMAtriptan Succinate 50 MG Tablet TAKE 1 TABLET BY MOUTH ONCE A DAY AT ONSET OF HEADACHE; MAY REPEAT DOSE ONE TIME AFTER 2 HOURS IF NEEDED Oral LaMICtal 25 MG Tablet 2 tablet Orally Twice a day Not-Taking/PRN NexIUM 24HR 20 MG Capsule Delayed Release TAKE ONE CAPSULE BY MOUTH TWICE A DAY Oral Not- Taking/PRN Fish Oil 1000 MG Capsule 1 capsule Orally Once a day Not-Taking/PRN Imitrex 25 MG Tablet 1 tablet at least 2 hours between doses as needed Orally Twice a day Not-Taking/PRN CoQ-10 30 MG Capsule 1 capsule with a meal Orally Once a day Not-Taking/PRN Atorvastatin Calcium 10 MG Tablet 1 tablet Orally Once a day Not-Taking/PRN SUMAtriptan Succinate 50 MG Tablet TAKE 1 TABLET BY MOUTH ONCE A DAY AT ONSET OF HEADACHE; MAY REPEAT DOSE ONE TIME AFTER 2 HOURS IF NEEDED Oral Not-Taking/PRN LaMICtal 25 MG Tablet 2 tablet Orally Twice a day DiscontinuedAzithromycin 250 MG Tablet as directed Orally 2 Tablets on the first day, one tablet the rest of the days Medication List reviewed and reconciled with the patientDiscontinued Azithromycin 250 MG Tablet as directed Orally 2 Tablets on the first day, one tablet the rest of the days Medication List reviewed and reconciled with the patient * Allergies: A dhesive: rash - AllergyPenicillinNeomycin: rash - AllergyNo Known Food Allergyno[Allergies Verified] Objective: * Vitals: H t: 71, Wt: 156, BMI:21.76, BP: 118/72, HR: 76, Temp: 98.6, Wt-k.76. * Examination: G eneral Examination: GENERAL APPEARANCE: [...] auscultation . BREASTS: T he left breast remains unremarkable. The right mastectomy site is well-healed with no relapse. ABDOMEN: b owel sounds normal, no ascites, no organomegaly, no mass. RECTAL EXAM: n ot examined. MUSCULOSKELETAL: e xtremities unremarkable, no clubbing, cyanosis or edema. PERIPHERAL PULSES: n ormal. NEUROLOGIC: a lert and oriented, cranial nerves 2-12 grossly intact, deep tendon reflexes 2+ symmetrical, motor strength normal upper and lower extremities, sensory exam intact. PSYCH: a lert, oriented. Assessment: * Assessment: 1. O ther osteoporosis without current pathological fracture - M81.8 (Primary) N otes :She will receive the Reclast on schedule. She is asymptomatic. 2 . M alignant neoplasm of unspecified site of right female breast - C50.911? Notes :She remains in remission. Surveillance continues. 3 . U nspecified disturbances of smell and taste - R43.9 N otes :She has been to the neurologist and evaluation for seizure disorder is under way. She continues to experience is smelled something burning intermittently.This problem is now resolved Plan: * Treatment: 2. M alignant neoplasm of unspecified site of right female breast L AB: PROFILE, FASTING (COMPREHENSIVE METABOLIC) L AB: CBC w DIFF L AB: Lipid Panel 3. O thers Continue NexIUM 24HR Capsule Delayed [...] * Procedure Codes: * Follow Up: J anuary for Reclast (Reason: Reclast infusion) * Images: * Sign off status: Completed true * Provider: Dania Samuel MD Date: 0 12/30/2024 Generated for Eni ng/Favanceg/eTransmitting on: 1 06/25/2024 02:17 PM EST History and Physical Notes * [...] PERIPHERAL PULSES: normal BREASTS: The left breast lucila ins unremarkable. The right mastectomy site is well-healed with no relapse MUSCULOSKELETAL: extremities unremark able, no clubbing, cyanosis or edema LYMPH NODES: no enlarged lymph no roque,spleen normal RECTAL EXAM: not examined PSYCH: alert, oriented ORAL CAVITY: normal, unremarkable
--- NOTE | ~2025-04-25 | MR_ITS ---
CLINICAL HISTORY: M51.360 - Other intervertebral disc degeneration, lumbar region with dis... --- Additional Notes or Special Instructions: Patient has been going to physical therapy but NO improvement in low back MR lumbar spine without gadolinium Comparison: CR/SR - XR LUMBAR SPINE 2-3 VIEWS - 05/29/24 16:16 EST Findings: 5 lumbar type vertebral bodies are present by plain film. Loss of normal lumbar lordosis. 4 mm of retrolisthesis of L2 on L3. 3 mm of retrolisthesis of L3 on L4. 3 mm of retrolisthesis of L4 on L5. No acute fracture or pathologic bone lesion. Mild reactive signal throughout the endplates of the lumbar spine. Cauda equina and conus medullaris within normal limits. Paraspinous musculature intact. No paraspinous masses. L1-L2: Mild facet and ligamentum flavum hypertrophy. Mild epidural lipomatosis. No significant canal or foraminal stenosis. L2-L3:Moderate disc height loss and desiccation. Mild diffuse disc bulge. Mild facet and ligamentum flavum hypertrophy. Mild epidural lipomatosis. Mild canal stenosis. Mild left and moderate right foraminal stenosis. L3-L4:Moderate disc height loss and desiccation. Mild diffuse disc bulge. Mild facet and ligamentum flavum hypertrophy. Mild epidural lipomatosis. Mild canal stenosis. Moderate bilateral foraminal stenosis. L4-L5: Moderate disc height loss and desiccation. Mild diffuse disc bulge. Mild facet and ligamentum flavum hypertrophy. Mild epidural lipomatosis. Mild canal stenosis. Moderate to severe left and moderate right foraminal stenosis. Mild left L4 nerve root compression. L5-S1:Mild disc desiccation and diffuse disc bulge. Mild bilateral facet hypertrophy. Mild canal stenosis. Moderate to severe left and mild right foraminal stenosis. Mild left L5 nerve root compression. IMPRESSION: 1. Multilevel degenerative disc and facet disease, as well as ligamentum flavum hypertrophy. 2. Mild multilevel canal stenoses. 3. Multilevel foraminal stenoses, worst at L4-L5 and L5-S1 where there is associated intraforaminal nerve root compression. Correlation with clinical symptoms is recommended to assess relevance of these findings. This document has been electronically signed by: Yaw Sidhu MD on 04/25/2025 15:03:36
--- OUTSIDE RECORDS SUMMARY | 2025-04-25 14:17 | XMS_ITS | Patient Health Record ---
Author Organization Kenneth Samuel III, MD Address [address] [facility] [place] [address] Care Team Providers Care Social Staff Worker Name Role Phone Edmund JONES, Hussein Primary [...] ff Reviewed date:06/23/2024 05:40:57 PM Interpretation: Performing Lab:[facility], [address] [place] [id number] Notes/Report: White Blood Count 5.7 4.8-10.8 X10*3/uL [...] NRBC Abs Auto 0.000 0.0-0.012 X10*3/uL Comprehensive [place]. Panel Fa st Reviewed date:06/23/2024 05:40:57 PM Interpretation: Performing Lab:[facility], [address] [place] [id number] Notes/Report: Sodium 141 135-145 mmol/L Potassium 3.9 [...] Panel Reviewed date:06/23/2024 05:40:57 PM Interpretation: Performing Lab:[facility], [address] [facility] [place] [address] Notes/Report: Triglycerides 64 <150 mg/dL Desirable Triglyceride: [...] date:10/03/2024 04:57:38 AM Interpretation: Performing Lab: Notes/Report: [address] [place] [address] Mammography Report Signed Patient: Sabrina Peter MR#: [id number] : 1960 Acct:[id number] Age/Sex: 63 / F ADM Date: 08/20/24 Loc: HO.MAMMO Attending Dr: Kenneth Samuel MD Ordering Physician: Kenneth Samuel MD Results: 1Negativ e Date of Service: 08/20/24 Follow Up: 1 Year From [facility] Mammogram Procedure(s): MM tomosynthesis screening Accession Number(s): [id number] cc: Kenneth Samuel MD; Miah Day MD [...] 08/24/24 1502 DD/ 1315 TD/TT: 08/20/24 1325 Home Therapy Clinician: [place] [facility]'s [address] [place] [address] Mammography Report Signed Patient: Sabrina Peter MR#: [id number] : 1960 Acct:[id number] Age/Sex: 63 / F ADM Date: 08/20/24 Loc: HO.MAMMO Attending Dr: Kenneth Samuel MD Ordering Physician: Kenneth Samuel MD Results: 1Negativ e Date of Service: 08/20/24 Follow Up: 1 Year From [facility] Mammogram Procedure(s): MM tomosynthesis screening LT Accession Number(s): [id number] cc: Kenneth Samuel MD; Miah Day MD [...] by: Blanquita Serna DO 08/24/2024 03:02 PM [facility] Dictated By: Blanquita Serna DO Signed By: <Electronically signed by Blanquita Serna DO in OV> 08/24/24 1502 DD/ 1315 TD/TT: 08/20/24 1325 Home Therapy Clinician: XR DEXA axial skeleton Reviewed date:10/03/2024 04:57:38 AM Interpretation: Performing Lab: Notes/Report: [address] [place] [address] Mammography Report Signed Patient: Sabrina Peter MR#: [id number] : 1960 Acct:[id number] Age/Sex: 63 / F ADM Date: 08/20/24 Loc: HO.MAMMO Attending Dr: Kenneth Samuel MD Ordering Physician: Kenneth Samuel MD Results: Date of Service: 08/20/24 Follow Up: Procedure(s): XR DEXA axial skeleton Accession Number(s): [id number] cc: Kenneth Samuel MD; Miah Day MD EXAMINATION: DXA BONE DENSITY AXIAL HISTORY: Estrogen deficiency TECHNIQUE: Communities for Cause Dual energy absorptiometry (DEXA) of the lumbar [...] of the [employer] [place] for Metabolic Bone Disease, a World Health Organization (WHO) Collaborating Center. Electronically signed by: Kenneth Mirza MD 08/20/2024 02:05 PM [facility] Dictated By: Kenneth Mirza MD Signed By: <Electronically signed by Kenneth Mirza MD in OV> 08/20/24 1405 DD/ 1330 TD/TT: 08/20/24 1402 Home Therapy Clinician: [place] [facility] [address] [place] [address] Mammography Report Signed Patient: Sabrina Peter MR#: [id number] : 1960 Acct:[id number] Age/Sex: 63 / F ADM Date: 08/20/24 Loc: YANIRA Attending Dr: Kenneth Samuel MD Ordering Physician: Kenneth Samuel MD Results: Date of Service: 08/20/24 Follow Up: Procedure(s): XR DEX A axial skeleton Accession Number(s): [id number] cc: Kenneth Samuel MD; Miah Day MD EXAMINATION: DXA BON E DENSITY AXIAL HISTORY: Estrogen deficiency TECHNIQUE: [employer] Dual energy absorptiometry (DEXA) of the lumbar [...] is a trademark of the [employer] [place] for Metabolic Bone Disease, a World Health Organization (WHO) Collaborating Center. Electronically eliud d by: Kenneth Mirza MD 08/20/2024 02:05 PM [facility] Dictated By: Kenneth Mirza MD Signed By: <Electronically signed by Kenneth Mirza MD in OV> 08/20/24 1405 DD/ 1330 TD/TT: 08/20/24 1402 Home Therapy Clinician: Reason For Referral No Information Medications Medication [...] Problem Status W/U Status Risk Notes Problem 528681607 Malignant neopla sm of unspecified site of right female breast (C50.911) Active confirmed She remains in remission. Surveillance continues. Problem 99043763 Calculus of gallbladder without cholecystitis without obstruction (K80.20) Active confirmed These are asymptomatic and that there is no pain in the right upper quadrant on deep palpation. Problem 46607905 Age-related osteoporosis without current pathological fracture (M81.0) Active confirmed She has bee n compliant with her medications. No change in her regimen was made.She received 5 mg of zoledronic acid intravenously today over 30 min. without difficulty. Problem Osteoporosis (83218746) Other osteoporosis without current pathological fracture (M81.8) Active confirmed She will receive the Reclast on schedule. She is asymptomatic. Problem Sensory disorder of smell and/or taste (951615005240 3) Unspecified disturbances of smell and taste (R43.9) Active confirmed She has been to the neurologist and evaluation for seizure disorder is under way. She continues to experience is smelled something burning intermittently. 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 She will be seen in August 2017 at which time her endocrine therapy will be discontinued. She will be due for a bone density. Problem 270888501 Pure hypercholesterolemia (E78.00) Active confirmed Her lipids are being checked 3 times a year. No change in her regimen was needed. Problem 572529644 Nonintractable epilepsy without status epilepticus, unspecified epilepsy [...] Provider Diagnosis Kenneth Samuel III, MD [address] [place] [address] [place] [address] 07/06/2024 Kenneth Samuel Age-related osteoporosis without current pathological fracture M81.0 ; Breast cancer C50.919 ; DCIS (ductal carcinoma in situ), right D05.11 and Malignant neoplasm of unspecified site of right female breast C50.911 Kenneth Samuel III, MD [address] [place] [address] [place] [address] 12/30/2024 Kenneth Samuel Other osteoporosis without current pathological fracture M81.8 ; Malignant neoplasm of unspecified site of right female breast C50.911 and Unspecified disturbances of smell and taste R43.9 Kenneth Samuel III, MD [address] [place] [address] [place] [address] 07/07/2024 Kenneth Samuel III, MD [address] [place] [address] [place] [address] 07/07/2024 Kenneth Samuel III, MD [address] [place] [address] [place] [address] 06/24/2024 Kenneth Samuel III, MD [address] [place] [address] [place] [address] 06/25/2024 Kenneth Samuel Assessments Encounter Date Diagnosis [...] Name:Kenneth Samuel , 07/13/2025 09:00:00 AM, [address] [place] [address] , [place], [place], [address], Insurance Providers Payer Name Payer Address Payer Phone Subscriber Number Group Number Insured Name Patient Relationship to Insured Coverage Start Date Coverage End Date [address] [facility] [place] [phone] [id number] Sabrina Peter Self - patient is the insured Medical (General) History Medical History History ICD Code stage I invasive carcinoma right breast with DCIS [id number] cholelithiasis anastrozole ended August 2017 Surgical History Surgery Date(Month/Year) mastectomy right breast, sentinel node b iopsy 07/22/2012 lumpectomy, right breast 2000 oophorectomy of the right ov jagdish and fallopian tube, negative pathlogy 09/2007 cholecystectomy 11/2010
--- OUTSIDE RECORDS SUMMARY | 2025-04-25 14:17 | XMS_ITS | Patient Health Record ---
Author Organization [facility] Address [address] [place] [address] Care Team Providers Care Plastic Installer Name Role Phone Carlitos Bender Jr [phone] Reason For Referral No Information Plan Of Treatment No Information
== END 2025-04-25 14:14 | disposition home or self-care (01) ==
LOC: HO.MRI 14:13
PROVIDERS: PCP Internal Medicine; Visit Provider Internal Medicine
DX: M51.360 Other intervertebral disc degeneration, lumbar region with discogenic back pain only (principal); M54.17 Radiculopathy, lumbosacral region
CPT/HCPCS: 72148

== ENCOUNTER 2025-05-24 09:04 | Outpatient (AMB) | payer OTHER, SELFPAY ==
--- NOTE | 2025-05-24 09:21 | A.OFFVIS_ITS ---
Vital Signs 05/24/25 09:22 Height 5 ft 10 in Weight 163 lb BMI 23.4 BP 135/62 Blood Pressure Location Lt brachial Position Sitting Pulse 77 Intake Visit Reasons: yearly breast exam Intake Note: Patient is seen in office for yearly breast exam. Pt c/o: denies any changes or concerns mm:08/20/24 Restorative Art Embalmer Required: No Accompanied by: Self / Same As Patient Allergies adhesive tape Allergy (Intermediate, Verified 05/24/25 09:23) BLISTERS bacitracin (From Neosporin) Allergy (Mild, Verified 05/24/25 09:23) RASH gramicidin D (From Neosporin) Allergy (Mild, Verified 05/24/25 09:23) RASH neomycin (From Neosporin) Allergy (Mild, Verified 05/24/25 09:23) RASH Penicillins Adverse Reaction (Mild, Verified 05/24/25 09:23) VOMITING HPI Comments Details: 64-year-old female patient, former patient of Dr. Carl returning for breast cancer follow-up. 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 She subsequently developed a recurrent right breast ductal carcinoma and underwent a right simple mastectomy with axillary sentinel node biopsy in May 2012. A focus of invasive ductal carcinoma grade 1 was identified, ER/SC positive. She completed 5 years of anastrozole in August 2017. She developed a swollen lymph node in the left axilla after her 2nd COVID shot. This has subsequently resolved. Genetic testing was negative for the BRCA gene. Her most recent left mammogram on 08/20/2024 revealed no suspicious findings (BI-RADS 1) She reports feeling well and denies any ongoing breast symptoms. [facility] Medical History Osteoporosis Mixed hyperlipidemia Lumbar degenerative disc disease Esophageal dysmotility Breast cancer Migraine aura without headache Acute pain of right foot Cervical radiculitis Physical exam Women's annual routine gynecological examination Cervical cancer screening Hyperlipidemia Abdominal pain, right upper quadrant Ductal carcinoma in situ of right breast Hip pain, right Family history of colon cancer Physical exam Abdominal pain Flank pain Tick bite of back History of right breast cancer Hx of radiation therapy Migraines Arthritis GERD (gastroesophageal reflux disease) Surgical History H/O right mastectomy Hx of unilateral oophorectomy History of lumpectomy of right breast History of esophagogastroduodenoscopy (EGD) Hx of colonoscopy History of excision of lesion History of salpingo-oophorectomy History of cholecystectomy History of wisdom tooth extraction Family History Father Diabetes Mother Osteoporosis Mental health disorder Paternal Aunt Colon cancer Other Family history of breast cancer Family history of gastric cancer Family history of pancreatic cancer Family history of prostate cancer Social History Housing: House Are you a primary medicare compliance auditor to a significant other at home: No Do you presently have visiting nurse or other home services: No Alcohol intake: current Alcohol intake frequency: a few times a month Patient Tobacco Use Status: Never used Tobacco e-Cigarette/Vaping Use: Never Used Second Hand Smoke Exposure: No service: No Current occupational status: employed 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, 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 Cognitive needs: No Hearing needs: No Vision needs: Yes (glasses) Female Reproductive History Menstrual Age of Menarche: 13 Review of Systems Const All systems reviewed & are unremarkable except as noted in HPI and below Physical Exam Vital Signs: Last Vital Signs Pulse 77 05/24/25 09:22 BP 135/62 05/24/25 09:22 BMI result Body Mass Index 23.4 Const General: cooperative, healthy appearing, comfortable, no acute distress, well developed, alert and awake Neck Neck: Yes normal visual inspection, Yes full ROM, Yes no lymphadenopathy, Yes trachea midline and Yes supple Thyroid: Thyroid normal Lymphatic: no lymphadenopathy noted Chest Other: Right breast status post simple mastectomy, wounds clean and intact with no sub cutaneous nodules or lymphadenopathy. Left breast: No skin change, no tenderness, no palpable mass, no nipple discharge, no nipple retraction, and no enlarged lymph nodes. Skin Other: Warm, dry, no rash Neuro Other: Mobility Assessment: 1. 3 meter assessment time (seconds) 5 2. Gait observations: Normal balance and gait Extrem General: Yes no clubbing, cyanosis or edema Assessment & Plan Assessment & Plan (1) H/O right mastectomy: Comment: 2012 w/lymph node excision Code(s): Z90.11 - Acquired absence of right breast and nipple Category: Surgical (2) Ductal carcinoma in situ of right breast: Code(s): D05.11 - Intraductal carcinoma in situ of right breast Category: Medical (3) History of right breast cancer: Comment: X2-2000 & 2012 Code(s): Z85.3 - Personal history of malignant neoplasm of breast Category: Medical Plan 64-year-old female patient presenting with a previous history of DCIS with focus of invasive ductal carcinoma grade 1 of the right breast status post simple mastectomy. Pathology revealed invasive ductal carcinoma grade 1 with ductal carcinoma in situ which was ER, SC pos. She is s/p simple mastectomy and has no evidence of recurrence disease. Her most recent left mammogram on 08/20/2024 revealed no mammographic evidence of malignancy (BI-RADS 1). Examination today revealed no evidence of recurrent disease. She will return in 1 year for follow-up examination. She is welcome to call sooner for any concerns. Coding Level of Care Code Est Pt Level 3 (30972) Complex visit Add On G2211 Diagnoses H/O right mastectomy Z90.11 Ductal carcinoma in situ of right breast D05.11 History of right breast cancer Z85.3
[2025-05-24 09:22] VITALS: BP 135/62; PULSE 77; BMI 23.4
== END 2025-05-24 09:33 | disposition home or self-care (01) ==
LOC: HO.HGS 09:05
PROVIDERS: PCP Internal Medicine; Visit Provider Surgery
DX: Z90.11 Acquired absence of right breast and nipple (principal); D05.11 Intraductal carcinoma in situ of right breast; Z85.3 Personal history of malignant neoplasm of breast
CPT/HCPCS: 99213; G2211

== ENCOUNTER 2025-05-26 08:08 | Outpatient (RCR) | payer OTHER, SELFPAY ==
--- NOTE | 2025-03-03 10:42 | MHC.PT.EP ---
[facility] [place] Office [place] Office [place] Office [address] Lupe Stanford [address] [phone] F: [phone] F: [phone] F: [phone] F: [phone] Physical Therapy Plan of Care Date of Evaluation: 03/03/25 Date of Surgery: NA Diagnosis: LOW BACK PAIN Assessment: Pt IS 64 YO F REFERRED TO PT FROM DR JONAS WITH LBP. Pt REQUESTED THIS REFERRAL BECAUSE OF CHRONIC BACK PAIN FROM ARTHRITIS . XRAY + FOR LUMBAR LEVOSCOLIOSIS AND DEGENERATIVE CHANGES. PRESENTS WITH PELVIC ASYMMETRY, TIGHT HS (R MORE THAN L). SHOULD BENEFIT FROM PT TO ADDRESS THESE ISSUES Frequency and Duration: The patient will be seen 2X/WK X 6 WKS Short Term Goals: 1. INCREASED AWARENESS BACK CARE AND POSTURE 2. Pt TO PERF 2-3 TASKS WITH PROPER BODY MECH Religious Education Coordinator Goals: 1. DECREASED BACK PAIN AT LEAST 50% WITH ADLS 2. IMPROVED MOD OSWESTRY (15/50 SOC) 3. I HEP WITH DC EX PLAN Treatment Plan: Modalities to reduce pain, spasms and effusion. Manual therapy to restore motion and function. Therapeutic exercise to improve strength and flexibility. Neuromuscular re-education for posture and balance. Therapeutic activities to return to functional activities of daily living. Electronically signed by: KRISTINE ISABEL PT Please sign and return to therapist. Thank you for your referral.
--- NOTE | 2025-05-26 10:45 | MHC.PT.DC ---
[facility] [place] [facility] [place] [facility] [place] Office [address] Lupe Stanford [address] [phone] F: [phone] F: [phone] F: [phone] F: [phone] Physical Therapy Discharge Report Diagnosis: LOW BACK PAIN Date of Surgery: NA Date of Evaluation: 03/03/25 Date of Discharge: 05/26/25 Treatments to Date: 11 Cancellations to Date: No Shows to Date: Discharge Status: Improved Function Independent with HEP Discharge Summary: PER ASSESSMENT FROM LAST SESSION BY Curtis QURESHI SAIL FINISHER MACHINE 05/26 Pt jillian. Ex and ex progression today w/o px. Multi angle hip done w/ band above knees. Pt ed on progression as jillian to ankle resistance. Sabrina has good awareness and practice of body mechanics awareness. Pt FEELING BETTER OVERALL EVEN AFTER SHOVELLING Electronically signed by: KRISTINE ISABEL PT Please sign and return to therapist. Thank you for your referral.
== END 2025-05-26 10:46 | disposition home or self-care (01) ==
LOC: HO.PT 08:08
PROVIDERS: PCP Internal Medicine; Visit Provider Internal Medicine
DX: M54.50 Low back pain, unspecified (principal)
CPT/HCPCS: 97014; 97110; 97112; 97140; 97161; 97530